=== PATIENT | male | born 1945 | race Caucasian/White ===

== ENCOUNTER → 2017-09-24 11:18 | Outpatient (CLI) | payer MEDICARE, SELFPAY ==
[2017-09-24 13:15] LABS: Absolute Lymphocyte Count 2.62 X10^3/ul (0.83-4.51); Absolute Neutrophil Count 8.6 X10^3/uL (2.0-7.7); Basophil# 0.03 X10^3/uL; Basophil% 0.2 % (0-1); Differential Indicated SCAN CRITERIA MET; Eosinophil# 0.15 X10^3/uL; Eosinophils% 1.2 % (0-5); Hematocrit 42.1 % (40-54); Hemoglobin 12.8 g/dl (13.0-16.5); Lymphocyte # 2.62 X10^3/ul (4.0); Lymphocyte % 21.1 % (19-41); Mean Corp Hgb Conc 30.4 g/gl (32-36); Mean Corpuscular Hgb 25.4 pg (27.0-32.0); Mean Corpuscular Volume 83.5 fL (80-94); Mean Platelet Vol. 9.6 fl (6.2-12.0); Monocyte# 0.93 X10^3/uL; Monocyte% 7.5 % (0-10); Neutrophil # 8.62 X10^3/uL (2.7-7.7); Neutrophil % 69.4 % (47-70); POSITIVE COUNT NO; POSITIVE DIFFERENTIAL NO; POSITIVE MORPHOLOGY YES; Platelet Count 301 K/mm3 (150-450); RBC Distribution Width SD 64.3 fl (35.1-43.9); Red Blood Count 5.04 M/mm3 (4.6-6.2); White Blood Count 12.4 K/mm3 (4.4-11.0)
[2017-09-24 13:36] LABS: Anisocytosis 2+; Differential Comment SCANNED; Polychromasia RARE
[2017-09-24 13:48] LABS: ALB/GLOB Ratio 0.8 RATIO (0.9-2.4); AST(SGOT) 17 U/L (15-37); Alanine Aminotransfer ALT/SGPT 35 U/L (16-61); Albumin, Serum 3.2 g/dL (3.2-5.0); Alkaline Phosphatase 46 U/L (45-117); Anion Gap 10 (5-15); BUN 20 mg/dL (7-18); BUN/Creat Ratio 14.6 RATIO (10-20); Calcium,Total 8.6 mg/dL (8.5-10.1); Chloride 104 mmol/L (98-107); Creatinine, Serum 1.37 mg/dL (0.70-1.30); EST Glomerular Filtration Rate 54 mL/min (>60); Est Glom Filt Rate - Afr Amer 65 mL/min (>60); Globulin 4.1 g/dL (2.2-4.2); Glucose 129 mg/dL (74-106); Potassium 3.9 mmol/L (3.5-5.1); Protein, Total 7.3 g/dL (6.4-8.2); Sodium Level 140 mmol/L (136-145); Thyroid Stim Hormone (TSH) 1.09 uIU/mL (0.358-3.74)
== END ==
PROVIDERS: Family Provider Family Medicine Geriatric Medicine; PCP Family Medicine Geriatric Medicine; Visit Provider Family Medicine Geriatric Medicine
DX: E11.9 Type 2 diabetes mellitus without complications (principal); I10 Essential (primary) hypertension
CPT/HCPCS: 36415; 80053; 84443; 85025

== ENCOUNTER → 2018-03-10 14:46 | Outpatient (CLI) | payer MEDICARE, OTHER, SELFPAY ==
--- NOTE | 2018-03-10 14:50 | RAD_ITS ---
STUDY: X-RAY - THORACIC SPINE REASON FOR EXAM: Male, 73 years old. Thoracic pain TECHNIQUE: 3 view(s) of the thoracic spine were obtained. COMPARISON: None. FINDINGS: There is no evidence of fracture or dislocation in the thoracic spine. The vertebral body heights are well-maintained. There are mild degenerative changes with mild disc space narrowing and small osteophytes. RAD/Thoracic Spine 2 Views IMPRESSION: No fracture or dislocation in the thoracic spine. Mild degenerative changes. Electronically Signed: Bar Fan, at 17:06 EDT Tel , Service support ,
== END ==
PROVIDERS: Family Provider Family Medicine Geriatric Medicine; PCP Family Medicine Geriatric Medicine; Visit Provider Nurse Practitioner Family
DX: M54.6 Pain in thoracic spine (principal)
CPT/HCPCS: 72070

== ENCOUNTER → 2018-05-11 09:43 | Outpatient (CLI) | payer MEDICARE, OTHER, SELFPAY ==
[2018-05-11 11:24] LABS: Microalbumin,Random Urine 43.8 mg/L (NO RANGE EST.); Microalbumin:Creatinine Ratio 31.7 mg/g CRE (<30 mg/g CRE)
[2018-05-11 11:33] LABS: Albumin, Serum 3.2 g/dL (3.2-5.0); BUN 13 mg/dL (7-18); BUN/Creat Ratio 10.6 RATIO (10-20); Calcium,Total 8.7 mg/dL (8.5-10.1); Chloride 107 mmol/L (98-107); Creatinine, Serum 1.23 mg/dL (0.70-1.30); EST Glomerular Filtration Rate 61 mL/min (>60); Est Glom Filt Rate - Afr Amer 74 mL/min (>60); Glucose 133 mg/dL (74-106); Phosphorus 2.9 mg/dL (2.5-4.9); Potassium 4.2 mmol/L (3.5-5.1); Sodium Level 141 mmol/L (136-145)
== END ==
PROVIDERS: Family Provider Family Medicine Geriatric Medicine; PCP Family Medicine Geriatric Medicine; Referring Provider Internal Medicine Nephrology; Visit Provider Internal Medicine Nephrology
DX: E11.22 Type 2 diabetes mellitus with diabetic chronic kidney disease (principal); N18.2 Chronic kidney disease, stage 2 (mild)
CPT/HCPCS: 36415; 80069; 82043; 82570

== ENCOUNTER → 2018-06-01 14:38 | Outpatient (CLI) | payer MEDICARE, OTHER, SELFPAY | PROVIDERS: Family Provider Family Medicine Geriatric Medicine; PCP Family Medicine Geriatric Medicine; Referring Provider Family Medicine Geriatric Medicine; Visit Provider Family Medicine Geriatric Medicine | DX: R68.83 Chills (without fever) (principal) | CPT/HCPCS: 87633 ==

== ENCOUNTER → 2018-10-11 11:43 | Outpatient (CLI) | payer MEDICARE, OTHER, SELFPAY ==
[2018-06-29 09:59] VITALS: BMI 34.4
[2018-10-11 13:08] LABS: Vitamin D,25 Hydroxy 17.6 ng/mL (29.95-100.01)
[2018-10-11 13:22] LABS: ALB/GLOB Ratio 0.9 RATIO (0.9-2.4); AST(SGOT) 26 U/L (15-37); Alanine Aminotransfer ALT/SGPT 29 U/L (16-61); Albumin, Serum 3.3 g/dL (3.2-5.0); Alkaline Phosphatase 52 U/L (45-117); Anion Gap 10 (5-15); BUN 13 mg/dL (7-18); BUN/Creat Ratio 10.2 RATIO (10-20); Calcium,Total 8.3 mg/dL (8.5-10.1); Chloride 108 mmol/L (98-107); Creatinine, Serum 1.28 mg/dL (0.70-1.30); EST Glomerular Filtration Rate 58 mL/min (>60); Est Glom Filt Rate - Afr Amer 71 mL/min (>60); Globulin 3.6 g/dL (2.2-4.2); Glucose 166 mg/dL (74-106); Potassium 3.8 mmol/L (3.5-5.1); Protein, Total 6.9 g/dL (6.4-8.2); Sodium Level 140 mmol/L (136-145); Thyroid Stim Hormone (TSH) 0.66 uIU/mL (0.358-3.74)
[2018-10-11 15:04] LABS: Absolute Lymphocyte Count 1.96 X10^3/ul (0.83-4.51); Absolute Neutrophil Count 6.7 X10^3/uL (2.0-7.7); Basophil# 0.04 X10^3/uL; Basophil% 0.4 % (0-1); Eosinophil# 0.23 X10^3/uL; Eosinophils% 2.4 % (0-5); Hematocrit 40.4 % (40-54); Hemoglobin 12.1 g/dl (13.0-16.5); Lymphocyte # 1.96 X10^3/ul (4.0); Lymphocyte % 20.1 % (19-41); Mean Corpuscular Volume 86.9 fL (80-94); Mean Platelet Vol. 10.6 fl (6.2-12.0); Monocyte# 0.79 X10^3/uL; Monocyte% 8.1 % (0-10); Neutrophil # 6.71 X10^3/uL (2.7-7.7); Neutrophil % 68.7 % (47-70); Platelet Count 276 K/mm3 (150-450); RBC Distribution Width CV 17.6 % (11.6-14.6); RBC Distribution Width SD 55.2 fl (35.1-43.9); Red Blood Count 4.65 M/mm3 (4.6-6.2); White Blood Count 9.8 K/mm3 (4.4-11.0)
[2018-10-11 15:07] LABS: POSITIVE COUNT NO; POSITIVE DIFFERENTIAL NO; POSITIVE MORPHOLOGY NO
== END ==
PROVIDERS: Family Provider Family Medicine Geriatric Medicine; PCP Family Medicine Geriatric Medicine; Visit Provider Family Medicine Geriatric Medicine
DX: E11.9 Type 2 diabetes mellitus without complications (principal); I10 Essential (primary) hypertension; E55.9 Vitamin D deficiency, unspecified
CPT/HCPCS: 36415; 80053; 82306; 84443; 85025

== ENCOUNTER → 2019-04-14 | Outpatient (CLI) | payer MEDICARE, OTHER, SELFPAY ==
[2018-12-21 10:38] VITALS: BMI 35.6
[2019-04-14 12:15] LABS: Absolute Lymphocyte Count 3.01 X10^3/uL (0.83-4.51); Absolute Neutrophil Count 9.5 X10^3/uL (2.0-7.7); Basophil# 0.07 X10^3/uL; Basophil% 0.5 % (0-1); Eosinophil# 0.35 X10^3/uL; Eosinophils% 2.5 % (0-5); Hematocrit 43.5 % (40-54); Hemoglobin 13.1 g/dL (13.0-16.5); Lymphocyte # 3.01 X10^3/ul (4.0); Lymphocyte % 21.5 % (19-41); Mean Corp Hgb Conc 30.1 g/dL (32-36); Mean Corpuscular Hgb 25.3 pg (27.0-32.0); Mean Platelet Vol. 10.2 fl (6.2-12.0); Monocyte# 0.99 X10^3/uL; Monocyte% 7.1 % (0-10); NRBC Flagged by Analyzer 0 % (0-5); Neutrophil # 9.45 X10^3/uL (2.7-7.7); Neutrophil % 67.5 % (47-70); Platelet Count 289 K/mm3 (150-450); RBC Distribution Width CV 17.6 % (11.6-14.6); RBC Distribution Width SD 53.8 fl (35.1-43.9); Red Blood Count 5.18 M/mm3 (4.6-6.2)
[2019-04-14 12:35] LABS: Vitamin D,25 Hydroxy 18.6 ng/mL (29.95-100.01)
[2019-04-14 12:44] LABS: ALB/GLOB Ratio 0.9 RATIO (0.9-2.4); AST(SGOT) 21 U/L (15-37); Alanine Aminotransfer ALT/SGPT 39 U/L (16-61); Albumin, Serum 3.5 g/dL (3.2-5.0); Alkaline Phosphatase 64 U/L (45-117); Anion Gap 7 (5-15); BUN 28 mg/dL (7-18); BUN/Creat Ratio 20.3 RATIO (10-20); Calcium,Total 8.7 mg/dL (8.5-10.1); Chloride 106 mmol/L (98-107); Creatinine, Serum 1.38 mg/dL (0.70-1.30); EST Glomerular Filtration Rate 53 mL/min (>60); Est Glom Filt Rate - Afr Amer 65 mL/min (>60); Globulin 3.8 g/dL (2.2-4.2); Glucose 129 mg/dL (74-106); Protein, Total 7.3 g/dL (6.4-8.2); Sodium Level 139 mmol/L (136-145); Thyroid Stim Hormone (TSH) 1.54 uIU/mL (0.358-3.74)
== END | disposition home or self-care (01) ==
LOC: POLAB3 08:44
PROVIDERS: Family Provider Family Medicine Geriatric Medicine; PCP Family Medicine Geriatric Medicine; Visit Provider Family Medicine Geriatric Medicine
DX: E11.9 Type 2 diabetes mellitus without complications (principal); E55.9 Vitamin D deficiency, unspecified; I10 Essential (primary) hypertension
CPT/HCPCS: 36415; 80053; 82306; 84443; 85025

== ENCOUNTER → 2019-10-13 09:32 | Outpatient (CLI) | payer MEDICARE, OTHER, SELFPAY ==
[2019-06-20 09:10] VITALS: BMI 35.6
[2019-10-13 11:58] LABS: Absolute Lymphocyte Count 2.23 X10^3/uL (0.83-4.51); Absolute Neutrophil Count 6.1 X10^3/uL (2.0-7.7); Basophil# 0.05 X10^3/uL; Basophil% 0.5 % (0-1); Eosinophil# 0.35 X10^3/uL; Eosinophils% 3.7 % (0-5); Hematocrit 43.7 % (40-54); Hemoglobin 13.2 g/dL (13.0-16.5); Lymphocyte # 2.23 X10^3/ul (4.0); Lymphocyte % 23.4 % (19-41); Mean Corp Hgb Conc 30.2 g/dL (32-36); Mean Corpuscular Hgb 25.8 pg (27.0-32.0); Mean Corpuscular Volume 85.4 fL (80-94); Mean Platelet Vol. 10.5 fl (6.2-12.0); Monocyte# 0.71 X10^3/uL; Monocyte% 7.5 % (0-10); NRBC Flagged by Analyzer 0 % (0-5); Neutrophil # 6.12 X10^3/uL (2.7-7.7); Neutrophil % 64.3 % (47-70); Platelet Count 220 K/mm3 (150-450); RBC Distribution Width CV 17.3 % (11.6-14.6); RBC Distribution Width SD 53.5 fl (35.1-43.9); Red Blood Count 5.12 M/mm3 (4.6-6.2); White Blood Count 9.5 K/mm3 (4.4-11.0)
[2019-10-13 12:03] LABS: Vitamin D,25 Hydroxy 19.4 ng/mL
[2019-10-13 12:12] LABS: ALB/GLOB Ratio 0.9 RATIO (0.9-2.4); AST(SGOT) 23 U/L (15-37); Alanine Aminotransfer ALT/SGPT 38 U/L (16-61); Albumin, Serum 3.3 g/dL (3.2-5.0); Alkaline Phosphatase 57 U/L (45-117); Anion Gap 5 (5-15); BUN 19 mg/dL (7-18); BUN/Creat Ratio 13.1 RATIO (10-20); Calcium,Total 8.8 mg/dL (8.5-10.1); Chloride 108 mmol/L (98-107); Creatinine, Serum 1.45 mg/dL (0.70-1.30); EST Glomerular Filtration Rate 50 mL/min (>60); Est Glom Filt Rate - Afr Amer 61 mL/min (>60); Globulin 3.8 g/dL (2.2-4.2); Glucose 147 mg/dL (74-106); Potassium 4.4 mmol/L (3.5-5.1); Protein, Total 7.1 g/dL (6.4-8.2); Sodium Level 141 mmol/L (136-145)
== END ==
PROVIDERS: PCP Family Medicine Geriatric Medicine; Visit Provider Family Medicine Geriatric Medicine
DX: E11.9 Type 2 diabetes mellitus without complications (principal); E55.9 Vitamin D deficiency, unspecified; I10 Essential (primary) hypertension
CPT/HCPCS: 36415; 80053; 82306; 84443; 85025

== ENCOUNTER → 2020-01-24 | Outpatient (CLI) | payer MEDICARE, OTHER, SELFPAY ==
[2019-12-27 10:38] VITALS: BMI 34.1
--- NOTE | 2020-01-24 09:18 | TISS_PTH ---
PATIENT: JOHNATHAN CURIEL Jr. [id number] AGE/SX: 75/M ROOM: RE01/24/[address]: Dr. Noble Peter MD : 1945 BED: DIS: 01/24/2020 SPEC #: [id number] RECD: 01/24/20 17:44 STATUS: CRISTIN PATRICIA #: [id number] KALEIGH: 01/24/20 09:[address]: Noble Peter Chi DEPT: SURGICAL PATHOLOGY RECD BY: Noris Valencia Tissues: Skin of face, NOS Procedures: Surgery Specimen Level IV HEADER OPERATION: Biopsy PRE-OP DIAGNOSIS: L98.9 TISSUE SUBMITTED: Face MICROSCOPIC DIAGNOSIS Face lesion, shave biopsy: Basal cell carcinoma. Actinic keratosis and solar elastosis. A detached fragment of fibrinopurulent exudate, consistent with ulceration. SJ:tari 01/26/20 MICROSCOPIC DESCRIPTION Slides are reviewed. GROSS DESCRIPTION Received in fixative is one container labeled with the patient's name and designated face. The specimen consists of two pieces of cheek-white to brown skin measuring 0.7 x 0.3 x 0.1 cm and 0.3 x 0.2 x 0.1 cm. Both pieces are inked and submitted entirely in one cassette. / SJ:rg 01/25/20 TC:0 CPT: 25353
== END | disposition home or self-care (01) ==
LOC: LABSPEC 13:24
PROVIDERS: PCP Family Medicine Geriatric Medicine; Visit Provider Family Medicine Geriatric Medicine
DX: L98.9 Disorder of the skin and subcutaneous tissue, unspecified (principal)
CPT/HCPCS: 88305

== ENCOUNTER → 2020-04-05 15:16 | Outpatient (CLI) | payer MEDICARE, OTHER, SELFPAY ==
[2019-12-27 10:38] VITALS: BMI 34.1
--- NOTE | 2020-04-05 15:47 | RAD_ITS ---
STUDY: X-RAY CHEST REASON FOR EXAM: Male, 75 years old. SOB WITH CHEST PAIN TECHNIQUE: Frontal and lateral views of the chest. COMPARISON: 07/14/2017 FINDINGS: Cervical spine fusion. The lungs are clear and expanded. There is no demonstrated pleural abnormality. Normal size heart. Normal mediastinum and lili. Normal visualized pulmonary arteries. Normal visualized aortic arch and descending thoracic aorta. Normal visualized thoracic spine. Normal visualized ribs, clavicles, and shoulders. There is no demonstrated abnormality of the visualized soft tissue structures of the upper abdomen. RAD/Chest PA and Lateral IMPRESSION: No acute pulmonary findings. Electronically Signed: Alin Howard MD at 23:23 EDT Tel , Service support ,
[2020-04-05 16:30] LABS: Absolute Lymphocyte Count 2.03 X10^3/uL (0.83-4.51); Basophil# 0.04 X10^3/uL; Basophil% 0.3 % (0-1); Eosinophil# 0.06 X10^3/uL; Eosinophils% 0.4 % (0-5); Hematocrit 42.3 % (40-54); Hemoglobin 12.7 g/dL (13.0-16.5); Lymphocyte # 2.03 X10^3/ul (4.0); Lymphocyte % 14.3 % (19-41); Mean Corpuscular Hgb 26.6 pg (27.0-32.0); Mean Corpuscular Volume 88.5 fL (80-94); Mean Platelet Vol. 10.2 fl (6.2-12.0); Monocyte# 0.98 X10^3/uL; Monocyte% 6.9 % (0-10); NRBC Flagged by Analyzer 0 % (0-5); Neutrophil # 10.97 X10^3/uL (2.7-7.7); Neutrophil % 77.6 % (47-70); Platelet Count 245 K/mm3 (150-450); RBC Distribution Width SD 51.7 fl (35.1-43.9); Red Blood Count 4.78 M/mm3 (4.6-6.2); White Blood Count 14.2 K/mm3 (4.4-11.0)
[2020-04-05 16:38] LABS: D-Dimer Quantitative (DVT/PE) 0.35 FEU/ug/m (0.27-0.49)
[2020-04-05 17:10] LABS: CPK Total, Creatine Kinase 1349 U/L (39-308)
[2020-04-05 17:56] LABS: BNP,B-Type NATRIURETIC PEPTIDE 465.3 pg/mL (0-100)
[2020-04-07 07:34] LABS: Myoglobin, Serum 1445 ng/mL (28-72)
== END ==
PROVIDERS: PCP Family Medicine Geriatric Medicine; Referring Provider Family Medicine Geriatric Medicine; Visit Provider Family Medicine Geriatric Medicine
DX: R06.02 Shortness of breath (principal); R07.9 Chest pain, unspecified
CPT/HCPCS: 36415; 71046; 82550; 83874; 83880; 84484; 85025; 85379

== ENCOUNTER → 2020-04-06 13:10 | Outpatient (CLI) | payer MEDICARE, OTHER, SELFPAY ==
[2019-12-27 10:38] VITALS: BMI 34.1
== END ==
PROVIDERS: PCP Family Medicine Geriatric Medicine; Referring Provider Family Medicine Geriatric Medicine; Visit Provider Family Medicine Geriatric Medicine
DX: R07.9 Chest pain, unspecified (principal)
CPT/HCPCS: 36415; 84484

== ENCOUNTER → 2020-04-16 11:07 | Outpatient (CLI) | payer MEDICARE, OTHER, SELFPAY ==
[2019-12-27 10:38] VITALS: BMI 34.1
[2020-04-16 12:47] LABS: Absolute Lymphocyte Count 2.88 X10^3/uL (0.83-4.51); Absolute Neutrophil Count 6.3 X10^3/uL (2.0-7.7); Basophil# 0.07 X10^3/uL; Basophil% 0.7 % (0-1); Eosinophil# 0.33 X10^3/uL; Eosinophils% 3.1 % (0-5); Hemoglobin 13.5 g/dL (13.0-16.5); Lymphocyte # 2.88 X10^3/ul (4.0); Lymphocyte % 27.4 % (19-41); Mean Corpuscular Hgb 26.5 pg (27.0-32.0); Mean Corpuscular Volume 88.4 fL (80-94); Mean Platelet Vol. 10.3 fl (6.2-12.0); Monocyte# 0.84 X10^3/uL; NRBC Flagged by Analyzer 0 % (0-5); Neutrophil # 6.33 X10^3/uL (2.7-7.7); Neutrophil % 60.3 % (47-70); Platelet Count 298 K/mm3 (150-450); RBC Distribution Width CV 16.1 % (11.6-14.6); RBC Distribution Width SD 52.7 fl (35.1-43.9); Red Blood Count 5.09 M/mm3 (4.6-6.2); White Blood Count 10.5 K/mm3 (4.4-11.0)
[2020-04-16 13:00] LABS: Vitamin D,25 Hydroxy 30.1 ng/mL
[2020-04-16 13:05] LABS: ALB/GLOB Ratio 0.9 RATIO (0.9-2.4); AST(SGOT) 35 U/L (15-37); Alanine Aminotransfer ALT/SGPT 53 U/L (16-61); Albumin, Serum 3.4 g/dL (3.2-5.0); Alkaline Phosphatase 56 U/L (45-117); Anion Gap 7 (5-15); BUN 32 mg/dL (7-18); BUN/Creat Ratio 20.5 RATIO (10-20); Calcium,Total 8.3 mg/dL (8.5-10.1); Chloride 108 mmol/L (98-107); Creatinine, Serum 1.56 mg/dL (0.70-1.30); EST Glomerular Filtration Rate 46 mL/min (>60); Est Glom Filt Rate - Afr Amer 56 mL/min (>60); Globulin 3.9 g/dL (2.2-4.2); Glucose 130 mg/dL (74-106); Potassium 4.5 mmol/L (3.5-5.1); Protein, Total 7.3 g/dL (6.4-8.2); Sodium Level 140 mmol/L (136-145); Thyroid Stim Hormone (TSH) 1.74 uIU/mL (0.358-3.74)
== END ==
PROVIDERS: PCP Family Medicine Geriatric Medicine; Visit Provider Family Medicine Geriatric Medicine
DX: E11.9 Type 2 diabetes mellitus without complications (principal); E55.9 Vitamin D deficiency, unspecified; I10 Essential (primary) hypertension
CPT/HCPCS: 36415; 80053; 82306; 84443; 85025

== ENCOUNTER → 2020-05-02 05:48 | Outpatient (CLI) | payer MEDICARE, OTHER, SELFPAY ==
[2020-04-18 12:01] VITALS: BMI 35.3
--- NOTE | 2020-05-02 05:48 | ECHOCS_ITS ---
Reason For Study: Afib, Aflutter Procedure This was a 2D Doppler, Color Flow transthoracic echocardiogram. Contrast injection was performed. Exam performed in department. Left Ventricle Normal LV size. Moderate concentric left ventricular hypertrophy. The estimated ejection fraction is 65 %. Unable to assess diastolic dysfunction due to arrhythmia. No regional wall motion abnormalities noted. Right Ventricle Normal RV size. Normal systolic function. Atria Normal left atrium. Normal right atrium. Mitral Valve Normal mitral valve. Tricuspid Valve Normal tricuspid valve. Aortic Valve The aortic valve is not well visualized. Pulmonic Valve The pulmonic valve is not well visualized. Great Vessels Normal aortic root. The pulmonary artery is normal size. Normal inferior vena cava. Pericardium/Pleural No pericardial effusion. Medication Diluted definity 3.5ml given slow IV push to enhance endocardial definition. MMode/2D Measurements & Calculations LVIDd: 3.7 cm IVSd: 1.4 cm Ao root diam: 3.1 cm LVIDs: 2.3 cm LVPWd: 1.5 cm RVDd: 3.0 cm FS: 37.0 % LAV(MOD-bp): 43.1 ml LA A4 area: 15.1 cm2 LA dimension(2D): 3.8 cm LAV(MOD-bp) Indexed: 19.1 ml/m2 LAV(MOD-sp2): 49.9 ml LAV(MOD-sp4): 36.3 ml RA A4 area: 12.7 cm2 Doppler Measurements & Calculations MV E max jayesh: 93.6 cm/sec Ao V2 max: 171.7 cm/sec LV V1 max: 87.4 cm/sec Ao max P.9 mmHg LV V1 max P.1 mmHg Ao V2 mean: 116.5 cm/sec Ao mean P.1 mmHg Ao V2 VTI: 29.0 cm PA V2 max: 70.5 cm/sec TR max jayesh: 276.6 cm/sec TR max P.6 mmHg Interpretation Summary Normal LV size. Moderate concentric left ventricular hypertrophy. The estimated ejection fraction is 65 %. Unable to assess diastolic dysfunction due to arrhythmia. Contrast injection was performed. Ordering Physician: Oscar Art Referring Physician: Noble Peter Chi Performed By: Wendy Mohan, ALLYN, RVT
--- NOTE | 2020-05-02 17:33 | STRESSREP ---
Stress Test Report Pharmacologic myocardial perfusion stress test. 75-year-old man with a history of atrial fibrillation. Stress protocol: Resting EKG demonstrates atrial fibrillation with a right bundle branch block rate of 126 bpm is noted. 0.4 mg of regadenoson was infused per usual protocol followed by rapid intravenous saline flush injection continuous EKG monitoring was performed. The maximum heart rate attained was probably 150 bpm. The maximum workload was 1 metabolic equivalent. At rest nonspecific ST-T wave changes were noted. Occasional premature ventricular complex was present. Right bundle branch block pattern was noted throughout. The peak blood pressure was 150/78 mmHg. Myocardial perfusion protocol. 14.6 mCi of technetium 99m sestamibi was injected at rest. 0.4 mg of regadenoson was infused per usual protocol. At peak infusion 44.8 was injected. Stress and rest images were reconstructed and compared in the short axis vertical and horizontal long axis. Gated images were also obtained Perfusion SPECT analysis: Review of the images demonstrate normal uptake of tracer noted in all areas of the myocardium the resting images similarly demonstrate normal uptake of tracer noted in all areas of the myocardium. No reversibility is noted suggest ischemia no previous infarct is noted. Gated SPECT imaging The gated ejection fraction is 72%. Conclusion: Normal myocardial perfusion stress test noted with no evidence of ischemia. Preserved ejection fraction. Atrial fibrillation with uncontrolled ventricular response rate.
== END ==
PROVIDERS: PCP Family Medicine Geriatric Medicine; Referring Provider Internal Medicine Cardiovascular Disease; Visit Provider Internal Medicine Cardiovascular Disease
DX: I48.91 Unspecified atrial fibrillation (principal); R07.9 Chest pain, unspecified
CPT/HCPCS: 78452; 93017; 93306; A9500; Q9957; A4216; C8929; J2785

== ENCOUNTER → 2020-06-26 17:22 | Outpatient (CLI) | payer MEDICARE, OTHER, SELFPAY ==
[2020-04-18 12:01] VITALS: BMI 35.3
== END ==
PROVIDERS: PCP Family Medicine Geriatric Medicine; Referring Provider Family Medicine Geriatric Medicine; Visit Provider Family Medicine Geriatric Medicine
DX: R06.89 Other abnormalities of breathing (principal)
CPT/HCPCS: 87633; 87635; C9803; U0003

== ENCOUNTER → 2020-10-15 10:54 | Outpatient (CLI) | payer MEDICARE, OTHER, SELFPAY ==
[2020-07-05 11:10] VITALS: BMI 36.0
[2020-10-15 12:35] LABS: Absolute Lymphocyte Count 2.83 X10^3/uL (0.83-4.51); Absolute Neutrophil Count 5.6 X10^3/uL (2.0-7.7); Basophil# 0.04 X10^3/uL; Basophil% 0.4 % (0-1); Eosinophils% 3.1 % (0-5); Hemoglobin 13.7 g/dL (13.0-16.5); Lymphocyte # 2.83 X10^3/ul (4.0); Lymphocyte % 29.3 % (19-41); Mean Corp Hgb Conc 29.1 g/dL (32-36); Mean Corpuscular Hgb 26.2 pg (27.0-32.0); Mean Platelet Vol. 10.1 fl (6.2-12.0); Monocyte# 0.89 X10^3/uL; Monocyte% 9.2 % (0-10); NRBC Flagged by Analyzer 0 % (0-5); Neutrophil # 5.57 X10^3/uL (2.7-7.7); Neutrophil % 57.7 % (47-70); Platelet Count 257 K/mm3 (150-450); RBC Distribution Width CV 16.3 % (11.6-14.6); RBC Distribution Width SD 54.3 fl (35.1-43.9); Red Blood Count 5.22 M/mm3 (4.6-6.2); White Blood Count 9.7 K/mm3 (4.4-11.0)
[2020-10-15 13:01] LABS: Vitamin D,25 Hydroxy 24.4 ng/mL
[2020-10-15 13:26] LABS: AST(SGOT) 28 U/L (15-37); Alanine Aminotransfer ALT/SGPT 32 U/L (16-61); Albumin, Serum 3.5 g/dL (3.2-5.0); Alkaline Phosphatase 47 U/L (45-117); Anion Gap 8 (5-15); BUN 23 mg/dL (7-18); BUN/Creat Ratio 14.6 RATIO (10-20); Calcium,Total 8.9 mg/dL (8.5-10.1); Chloride 107 mmol/L (98-107); Creatinine, Serum 1.58 mg/dL (0.70-1.30); EST Glomerular Filtration Rate 46 mL/min (>60); Est Glom Filt Rate - Afr Amer 55 mL/min (>60); Globulin 3.6 g/dL (2.2-4.2); Glucose 93 mg/dL (74-106); Potassium 4.4 mmol/L (3.5-5.1); Protein, Total 7.1 g/dL (6.4-8.2); Sodium Level 141 mmol/L (136-145); Thyroid Stim Hormone (TSH) 1.19 uIU/mL (0.358-3.74)
== END ==
PROVIDERS: PCP Family Medicine Geriatric Medicine; Visit Provider Family Medicine Geriatric Medicine
DX: E11.9 Type 2 diabetes mellitus without complications (principal); E55.9 Vitamin D deficiency, unspecified; I10 Essential (primary) hypertension
CPT/HCPCS: 36415; 80053; 82306; 84443; 85025

== ENCOUNTER → 2020-10-30 12:05 | Outpatient (CLI) | payer MEDICARE, OTHER, SELFPAY ==
[2020-10-16 10:47] VITALS: BMI 36.0
--- NOTE | 2020-10-30 12:20 | RAD_ITS ---
STUDY: X-RAY - CERVICAL SPINE REASON FOR EXAM: Male, 75 years old. NECK PAIN TECHNIQUE: 6 view(s) of the cervical spine were obtained. COMPARISON: None FINDINGS: Normal anterior atlantoaxial articulation. Normal odontoid process. Normal cervical lordosis. There is multi-level endplate spondylosis. There is multi-level degenerative disc disease with multilevel disc space narrowing. There is multi-level osseous foraminal stenosis. The soft tissue structures are unremarkable. Anterior fusion hardware noted at C4-C6. RAD/Cerv Spine 4 or 5 Views IMPRESSION: Degenerative changes without acute findings Electronically Signed: Tay Higgins DO at 1:41 EDT Tel , Service support ,
== END ==
PROVIDERS: PCP Family Medicine Geriatric Medicine; Visit Provider Anesthesiology Pain Medicine
DX: M54.2 Cervicalgia (principal)
CPT/HCPCS: 72050

== ENCOUNTER → 2020-11-07 10:12 | Outpatient (CLI) | payer MEDICARE, OTHER, SELFPAY ==
[2020-10-16 10:47] VITALS: BMI 36.0
[2020-11-07 12:24] LABS: Absolute Lymphocyte Count 1.63 X10^3/uL (0.83-4.51); Absolute Neutrophil Count 5.8 X10^3/uL (2.0-7.7); Basophil# 0.05 X10^3/uL; Basophil% 0.6 % (0-1); Eosinophils% 2.4 % (0-5); Hematocrit 44.6 % (40-54); Hemoglobin 13.5 g/dL (13.0-16.5); Lymphocyte # 1.63 X10^3/ul (4.0); Lymphocyte % 19.2 % (19-41); Mean Corp Hgb Conc 30.3 g/dL (32-36); Mean Corpuscular Hgb 27.1 pg (27.0-32.0); Mean Corpuscular Volume 89.6 fL (80-94); Mean Platelet Vol. 10.1 fl (6.2-12.0); Monocyte# 0.76 X10^3/uL; Monocyte% 8.9 % (0-10); NRBC Flagged by Analyzer 0 % (0-5); Neutrophil # 5.84 X10^3/uL (2.7-7.7); Neutrophil % 68.5 % (47-70); Platelet Count 240 K/mm3 (150-450); RBC Distribution Width CV 17.5 % (11.6-14.6); RBC Distribution Width SD 56.7 fl (35.1-43.9); Red Blood Count 4.98 M/mm3 (4.6-6.2); White Blood Count 8.5 K/mm3 (4.4-11.0)
== END ==
PROVIDERS: PCP Family Medicine Geriatric Medicine; Visit Provider Family Medicine Geriatric Medicine
DX: D64.9 Anemia, unspecified (principal)
CPT/HCPCS: 36415; 85025

== ENCOUNTER → 2020-11-08 11:48 | Outpatient (CLI) | payer MEDICARE, OTHER, SELFPAY ==
[2020-10-16 10:47] VITALS: BMI 36.0
[2020-11-08 12:40] LABS: PSA,Total - Annual Screen 0.72 ng/mL (0.00-4.00)
== END ==
PROVIDERS: PCP Family Medicine Geriatric Medicine; Referring Provider Urology; Visit Provider Urology
DX: Z12.5 Encounter for screening for malignant neoplasm of prostate (principal)
CPT/HCPCS: 36415; 84153; G0103

== ENCOUNTER → 2020-12-25 10:29 | Outpatient (CLI) | payer MEDICARE, OTHER, SELFPAY ==
[2020-07-05 11:10] VITALS: BMI 36.0
[2020-10-16 10:47] VITALS: BMI 36.0
--- NOTE | 2020-12-25 14:31 | PFTCOMP ---
COMPLETE PULMONARY FUNCTION TEST INTERPRETATION Brief HPI: Patient is a 75 year old male, currently under the care of myself, who presents to [facility] for complete pulmonary function tests secondary to diagnosis of dyspnea. Respiratory therapist reports good effort and reproducible results. Interpretation: Forced expiration spirometry shows no large airways obstructive ventilatory defect with an FEV1 of 71% predicted. There is no significant bronchodilator response by strict ATS criteria. Spirograms are of good quality and plateau normally. The respiratory flow volume loop shows a normal pattern. Lung volumes by body plethysmography show a decreased total lung capacity at 4.88 L, 76% predicted. All other lung volumes are reduced symmetrically. Diffusion capacity by carbon monoxide is normal at 77% predicted. The airway resistance is normal. Compared to previous pulmonary function tests from 02/16/2017, there is been a significant improvement in DLCO by 26%. Impression: Mild restrictive ventilatory defect with a symmetric reduction diffusing capacity, but some improvement compared to 2017.
== END ==
PROVIDERS: PCP Family Medicine Geriatric Medicine; Referring Provider Internal Medicine Critical Care Medicine; Visit Provider Internal Medicine Critical Care Medicine
DX: R06.00 Dyspnea, unspecified (principal)
CPT/HCPCS: 94060; 94726; 94729

== ENCOUNTER → 2021-04-17 10:35 | Outpatient (CLI) | payer MEDICARE, OTHER, SELFPAY ==
[2021-04-17 11:24] LABS: Absolute Lymphocyte Count 2.18 X10^3/uL (0.83-4.51); Absolute Neutrophil Count 5.8 X10^3/uL (2.0-7.7); Basophil# 0.07 X10^3/uL; Basophil% 0.8 % (0-1); Eosinophil# 0.22 X10^3/uL; Eosinophils% 2.5 % (0-5); Hematocrit 52.9 % (40-54); Hemoglobin 15.6 g/dL (13.0-16.5); Lymphocyte # 2.18 X10^3/ul (0.83-4.51); Lymphocyte % 24.4 % (19-41); Mean Corp Hgb Conc 29.5 g/dL (32-36); Mean Corpuscular Hgb 27.9 pg (27.0-32.0); Mean Corpuscular Volume 94.6 fL (80-94); Monocyte# 0.61 X10^3/uL; Monocyte% 6.8 % (0-10); NRBC Flagged by Analyzer 0 % (0-5); Neutrophil # 5.82 X10^3/uL (2.7-7.7); Neutrophil % 64.9 % (47-70); Platelet Count 208 K/mm3 (150-450); RBC Distribution Width CV 16.6 % (11.6-14.6); RBC Distribution Width SD 57.1 fl (35.1-43.9); Red Blood Count 5.59 M/mm3 (4.6-6.2)
== END ==
PROVIDERS: PCP Family Medicine Geriatric Medicine; Referring Provider Family Medicine Geriatric Medicine; Visit Provider Family Medicine Geriatric Medicine
DX: E11.9 Type 2 diabetes mellitus without complications (principal); E55.9 Vitamin D deficiency, unspecified; I10 Essential (primary) hypertension
CPT/HCPCS: 36415; 80053; 82306; 84443; 85025

== ENCOUNTER → 2021-04-19 09:25 | Outpatient (CLI) | payer MEDICARE, OTHER, SELFPAY ==
[2021-04-19 10:38] LABS: ALB/GLOB Ratio 0.9 RATIO (0.9-2.4); AST(SGOT) 33 U/L (15-37); Alanine Aminotransfer ALT/SGPT 60 U/L (16-61); Albumin, Serum 3.3 g/dL (3.2-5.0); Alkaline Phosphatase 47 U/L (45-117); Anion Gap 4 (5-15); BUN 21 mg/dL (7-18); BUN/Creat Ratio 15.7 RATIO (10-20); Calcium,Total 8.4 mg/dL (8.5-10.1); Chloride 109 mmol/L (98-107); Creatinine, Serum 1.34 mg/dL (0.70-1.30); EST Glomerular Filtration Rate 55 mL/min (>60); Est Glom Filt Rate - Afr Amer 66 mL/min (>60); Globulin 3.7 g/dL (2.2-4.2); Glucose 214 mg/dL (74-106); Potassium 4.1 mmol/L (3.5-5.1); Sodium Level 139 mmol/L (136-145); Thyroid Stim Hormone (TSH) 1.47 uIU/mL (0.358-3.74)
== END ==
PROVIDERS: PCP Family Medicine Geriatric Medicine; Referring Provider Family Medicine Geriatric Medicine; Visit Provider Family Medicine Geriatric Medicine
DX: E11.9 Type 2 diabetes mellitus without complications (principal); E55.9 Vitamin D deficiency, unspecified; I10 Essential (primary) hypertension
CPT/HCPCS: 80053; 84443

== ENCOUNTER → 2021-04-30 10:04 | Outpatient (CLI) | payer MEDICARE, OTHER, SELFPAY | PROVIDERS: PCP Family Medicine Geriatric Medicine; Referring Provider Family Medicine Geriatric Medicine; Visit Provider Family Medicine Geriatric Medicine | DX: R68.83 Chills (without fever) (principal) | CPT/HCPCS: 87635; C9803; U0005; U0003 ==

== ENCOUNTER → 2021-08-07 08:43 | Outpatient (CLI) | payer MEDICARE, OTHER, SELFPAY | PROVIDERS: PCP Family Medicine Geriatric Medicine; Referring Provider Family Medicine Geriatric Medicine; Visit Provider Family Medicine Geriatric Medicine | DX: R68.83 Chills (without fever) (principal) | CPT/HCPCS: 87635; 87804; 87807; C9803; U0005; U0003 ==

== ENCOUNTER 2021-08-23 12:00 | Outpatient (CLI) | payer MEDICARE, OTHER, SELFPAY | END 2021-08-23 23:59 | disposition short-term general hospital (02) | LOC: PSN 12:00 | PROVIDERS: PCP Family Medicine Geriatric Medicine; Referring Provider Family Medicine Geriatric Medicine; Visit Provider Family Medicine Geriatric Medicine | DX: R68.83 Chills (without fever) (principal) | CPT/HCPCS: 87635; 87804; 87807; C9803; U0003; U0005 ==

== ENCOUNTER 2021-10-29 11:49 | Outpatient (CLI) | payer MEDICARE, OTHER, SELFPAY ==
[2021-10-29 12:50] LABS: Absolute Lymphocyte Count 2.25 X10^3/uL (0.83-4.51); Absolute Neutrophil Count 5.7 X10^3/uL (2.0-7.7); Basophil# 0.06 X10^3/uL; Basophil% 0.7 % (0-1); Eosinophil# 0.14 X10^3/uL; Eosinophils% 1.6 % (0-5); Hemoglobin 15.4 g/dL (13.0-16.5); Lymphocyte # 2.25 X10^3/ul (0.83-4.51); Mean Corp Hgb Conc 32.8 g/dL (32-36); Mean Corpuscular Hgb 30.7 pg (27.0-32.0); Mean Corpuscular Volume 93.6 fL (80-94); Monocyte# 0.83 X10^3/uL; Monocyte% 9.2 % (0-10); NRBC Flagged by Analyzer 0 % (0-5); Neutrophil # 5.66 X10^3/uL (2.7-7.7); Neutrophil % 62.9 % (47-70); Platelet Count 255 K/mm3 (150-450); RBC Distribution Width CV 15.2 % (11.6-14.6); RBC Distribution Width SD 53.2 fl (35.1-43.9); Red Blood Count 5.02 M/mm3 (4.6-6.2)
[2021-10-29 13:04] LABS: Vitamin D,25 Hydroxy 31.3 ng/mL
[2021-10-29 13:33] LABS: ALB/GLOB Ratio 0.9 RATIO (0.9-2.4); AST(SGOT) 19 U/L (15-37); Alanine Aminotransfer ALT/SGPT 34 U/L (16-61); Albumin, Serum 3.2 g/dL (3.2-5.0); Alkaline Phosphatase 39 U/L (45-117); Anion Gap 6 (5-15); BUN 17 mg/dL (7-18); BUN/Creat Ratio 12.8 RATIO (10-20); Calcium,Total 8.9 mg/dL (8.5-10.1); Chloride 103 mmol/L (98-107); Creatinine, Serum 1.33 mg/dL (0.70-1.30); EST Glomerular Filtration Rate 55 mL/min (>60); Est Glom Filt Rate - Afr Amer 67 mL/min (>60); Globulin 3.5 g/dL (2.2-4.2); Glucose 121 mg/dL (74-106); Potassium 4.2 mmol/L (3.5-5.1); Protein, Total 6.7 g/dL (6.4-8.2); Sodium Level 139 mmol/L (136-145); Thyroid Stim Hormone (TSH) 1.07 uIU/mL (0.358-3.74)
== END 2021-10-29 23:59 | disposition home or self-care (01) ==
LOC: POLAB3 11:51
PROVIDERS: PCP Family Medicine Geriatric Medicine; Visit Provider Family Medicine Geriatric Medicine
DX: E11.9 Type 2 diabetes mellitus without complications (principal); E55.9 Vitamin D deficiency, unspecified; I10 Essential (primary) hypertension
CPT/HCPCS: 36415; 80053; 82306; 84443; 85025

== ENCOUNTER 2021-11-18 09:50 | Outpatient (CLI) | payer MEDICARE, OTHER, SELFPAY | END 2021-11-18 23:59 | disposition home or self-care (01) | LOC: LAB 09:51 | PROVIDERS: PCP Family Medicine Geriatric Medicine; Referring Provider Urology; Visit Provider Urology | DX: Z12.5 Encounter for screening for malignant neoplasm of prostate (principal) | CPT/HCPCS: 36415; 84153; G0103 ==

== ENCOUNTER 2021-12-03 11:05 | Outpatient (CLI) | payer MEDICARE, OTHER, SELFPAY ==
[2021-12-03 12:07] LABS: Anion Gap 3 (5-15); BUN 16 mg/dL (7-18); BUN/Creat Ratio 13.1 RATIO (10-20); Calcium,Total 9.2 mg/dL (8.5-10.1); Chloride 105 mmol/L (98-107); Creatinine, Serum 1.22 mg/dL (0.70-1.30); EST Glomerular Filtration Rate 61 mL/min (>60); Est Glom Filt Rate - Afr Amer 74 mL/min (>60); Glucose 40 mg/dL (74-106); Potassium 3.6 mmol/L (3.5-5.1); Sodium Level 140 mmol/L (136-145)
== END 2021-12-03 23:59 | disposition home or self-care (01) ==
LOC: LAB 11:08
PROVIDERS: PCP Family Medicine Geriatric Medicine; Referring Provider Family Medicine Geriatric Medicine; Visit Provider Family Medicine Geriatric Medicine
DX: E87.6 Hypokalemia (principal)
CPT/HCPCS: 36415; 80048

== ENCOUNTER → 2022-01-28 | Outpatient (CLI) | payer MEDICARE, OTHER, SELFPAY ==
[2022-01-28 12:37] LABS: Absolute Lymphocyte Count 2.25 X10^3/uL (0.83-4.51); Absolute Neutrophil Count 5.9 X10^3/uL (2.0-7.7); Basophil# 0.04 X10^3/uL; Basophil% 0.4 % (0-1); Eosinophil# 0.19 X10^3/uL; Eosinophils% 2.1 % (0-5); Hematocrit 44.1 % (40-54); Hemoglobin 13.7 g/dL (13.0-16.5); Lymphocyte # 2.25 X10^3/ul (0.83-4.51); Lymphocyte % 25.2 % (19-41); Mean Corp Hgb Conc 31.1 g/dL (32-36); Mean Corpuscular Hgb 29.2 pg (27.0-32.0); Mean Platelet Vol. 10.1 fl (6.2-12.0); Monocyte# 0.54 X10^3/uL; NRBC Flagged by Analyzer 0 % (0-5); Neutrophil # 5.89 X10^3/uL (2.7-7.7); Neutrophil % 66.1 % (47-70); Platelet Count 262 K/mm3 (150-450); RBC Distribution Width CV 14.5 % (11.6-14.6); RBC Distribution Width SD 49.9 fl (35.1-43.9); Red Blood Count 4.69 M/mm3 (4.6-6.2); White Blood Count 8.9 K/mm3 (4.4-11.0)
[2022-01-28 13:05] LABS: Vitamin D,25 Hydroxy 28.1 ng/mL
[2022-01-28 13:15] LABS: ALB/GLOB Ratio 0.9 RATIO (0.9-2.4); AST(SGOT) 18 U/L (15-37); Alanine Aminotransfer ALT/SGPT 23 U/L (16-61); Albumin, Serum 3.3 g/dL (3.2-5.0); Alkaline Phosphatase 43 U/L (45-117); Anion Gap 6 (5-15); BUN 14 mg/dL (7-18); BUN/Creat Ratio 10.4 RATIO (10-20); Calcium,Total 8.7 mg/dL (8.5-10.1); Chloride 105 mmol/L (98-107); Creatinine, Serum 1.34 mg/dL (0.70-1.30); EST Glomerular Filtration Rate 55 mL/min (>60); Est Glom Filt Rate - Afr Amer 66 mL/min (>60); Globulin 3.5 g/dL (2.2-4.2); Glucose 204 mg/dL (74-106); Potassium 3.5 mmol/L (3.5-5.1); Protein, Total 6.8 g/dL (6.4-8.2); Sodium Level 139 mmol/L (136-145); Thyroid Stim Hormone (TSH) 0.89 uIU/mL (0.358-3.74)
== END | disposition home or self-care (01) ==
LOC: POLAB3 09:56
PROVIDERS: PCP Family Medicine Geriatric Medicine; Visit Provider Family Medicine Geriatric Medicine
DX: I10 Essential (primary) hypertension (principal); E11.9 Type 2 diabetes mellitus without complications; E55.9 Vitamin D deficiency, unspecified
CPT/HCPCS: 36415; 80053; 82306; 84403; 84443; 85025

== ENCOUNTER → 2022-04-29 | Outpatient (CLI) | payer MEDICARE, OTHER, SELFPAY ==
[2022-04-29 12:03] LABS: Absolute Lymphocyte Count 2.35 X10^3/uL (0.83-4.51); Absolute Neutrophil Count 5.4 X10^3/uL (2.0-7.7); Basophil# 0.05 X10^3/uL; Basophil% 0.6 % (0-1); Eosinophil# 0.24 X10^3/uL; Eosinophils% 2.8 % (0-5); Hematocrit 46.8 % (40-54); Hemoglobin 14.8 g/dL (13.0-16.5); Lymphocyte # 2.35 X10^3/ul (0.83-4.51); Lymphocyte % 27.3 % (19-41); Mean Corp Hgb Conc 31.6 g/dL (32-36); Mean Corpuscular Hgb 29.5 pg (27.0-32.0); Mean Corpuscular Volume 93.2 fL (80-94); Mean Platelet Vol. 10.4 fl (6.2-12.0); Monocyte# 0.58 X10^3/uL; Monocyte% 6.7 % (0-10); NRBC Flagged by Analyzer 0 % (0-5); Neutrophil # 5.36 X10^3/uL (2.7-7.7); Neutrophil % 62.3 % (47-70); Platelet Count 231 K/mm3 (150-450); Red Blood Count 5.02 M/mm3 (4.6-6.2); White Blood Count 8.6 K/mm3 (4.4-11.0)
[2022-04-29 12:22] LABS: ALB/GLOB Ratio 0.9 RATIO (0.9-2.4); AST(SGOT) 20 U/L (15-37); Alanine Aminotransfer ALT/SGPT 26 U/L (16-61); Albumin, Serum 3.5 g/dL (3.2-5.0); Alkaline Phosphatase 47 U/L (45-117); Anion Gap 10 (5-15); BUN 18 mg/dL (7-18); BUN/Creat Ratio 12.8 RATIO (10-20); Calcium,Total 9.4 mg/dL (8.5-10.1); Chloride 103 mmol/L (98-107); Creatinine, Serum 1.41 mg/dL (0.70-1.30); EST Glomerular Filtration Rate 52 mL/min (>60); Est Glom Filt Rate - Afr Amer 63 mL/min (>60); Globulin 3.7 g/dL (2.2-4.2); Glucose 225 mg/dL (74-106); Protein, Total 7.2 g/dL (6.4-8.2); Sodium Level 140 mmol/L (136-145); Thyroid Stim Hormone (TSH) 1.25 uIU/mL (0.358-3.74)
== END | disposition home or self-care (01) ==
LOC: POLAB3 09:35
PROVIDERS: PCP Family Medicine Geriatric Medicine; Visit Provider Family Medicine Geriatric Medicine
DX: E11.9 Type 2 diabetes mellitus without complications (principal); E55.9 Vitamin D deficiency, unspecified; I10 Essential (primary) hypertension
CPT/HCPCS: 36415; 80053; 82306; 84443; 85025

== ENCOUNTER → 2022-10-28 | Outpatient (CLI) | payer MEDICARE, OTHER, SELFPAY ==
[2022-10-28 13:23] LABS: Absolute Lymphocyte Count 1.83 X10^3/uL (0.83-4.51); Absolute Neutrophil Count 2.7 X10^3/uL (2.0-7.7); Basophil# 0.02 X10^3/uL; Basophil% 0.4 % (0-1); Eosinophil# 0.15 X10^3/uL; Eosinophils% 3.1 % (0-5); Hematocrit 41.4 % (40-54); Hemoglobin 13.6 g/dL (13.0-16.5); Lymphocyte # 1.83 X10^3/ul (0.83-4.51); Lymphocyte % 37.3 % (19-41); Mean Corp Hgb Conc 32.9 g/dL (32-36); Mean Corpuscular Hgb 32.3 pg (27.0-32.0); Mean Corpuscular Volume 98.3 fL (80-94); Mean Platelet Vol. 11.4 fl (6.2-12.0); Monocyte# 0.23 X10^3/uL; Monocyte% 4.7 % (0-10); NRBC Flagged by Analyzer 0 % (0-5); Neutrophil # 2.66 X10^3/uL (2.7-7.7); Neutrophil % 54.1 % (47-70); Platelet Count 136 K/mm3 (150-450); RBC Distribution Width CV 16.9 % (11.6-14.6); RBC Distribution Width SD 61.2 fl (35.1-43.9); Red Blood Count 4.21 M/mm3 (4.6-6.2); White Blood Count 4.9 K/mm3 (4.4-11.0)
[2022-10-28 13:38] LABS: Vitamin D,25 Hydroxy 26.4 ng/mL
[2022-10-28 13:44] LABS: AST(SGOT) 21 U/L (15-37); Alanine Aminotransfer ALT/SGPT 29 U/L (16-61); Albumin, Serum 3.3 g/dL (3.2-5.0); Alkaline Phosphatase 39 U/L (45-117); Anion Gap 10 (5-15); BUN 17 mg/dL (7-18); BUN/Creat Ratio 13.1 RATIO (10-20); Chloride 106 mmol/L (98-107); EST Glomerular Filtration Rate 57 mL/min (>60); Est Glom Filt Rate - Afr Amer 69 mL/min (>60); Globulin 3.4 g/dL (2.2-4.2); Glucose 184 mg/dL (74-106); Potassium 3.5 mmol/L (3.5-5.1); Protein, Total 6.7 g/dL (6.4-8.2); Sodium Level 141 mmol/L (136-145); Thyroid Stim Hormone (TSH) 1.12 uIU/mL (0.358-3.74)
== END | disposition home or self-care (01) ==
LOC: POLAB3 10:23
PROVIDERS: PCP Family Medicine Geriatric Medicine; Visit Provider Family Medicine Geriatric Medicine
DX: E55.9 Vitamin D deficiency, unspecified (principal); E11.9 Type 2 diabetes mellitus without complications; I10 Essential (primary) hypertension
CPT/HCPCS: 36415; 80053; 82306; 84443; 85025

== ENCOUNTER → 2022-11-25 | Outpatient (CLI) | payer MEDICARE, OTHER, SELFPAY ==
[2022-11-25 15:40] LABS: PSA,Total - Annual Screen 0.62 ng/mL (0.00-4.00)
== END | disposition home or self-care (01) ==
LOC: LAB 13:49
PROVIDERS: PCP Family Medicine Geriatric Medicine; Referring Provider Urology; Visit Provider Urology
DX: Z12.5 Encounter for screening for malignant neoplasm of prostate (principal)
CPT/HCPCS: 36415; 84153; G0103

== ENCOUNTER → 2023-02-12 | Outpatient (CLI) | payer MEDICARE, OTHER, SELFPAY ==
[2023-02-12 12:44] LABS: Absolute Lymphocyte Count 1.84 X10^3/uL (0.83-4.51); Basophil# 0.02 X10^3/uL; Basophil% 0.5 % (0-1); Eosinophil# 0.13 X10^3/uL; Eosinophils% 3.2 % (0-5); Hematocrit 40.5 % (40-54); Hemoglobin 13.3 g/dL (13.0-16.5); Lymphocyte # 1.84 X10^3/ul (0.83-4.51); Lymphocyte % 44.7 % (19-41); Mean Corp Hgb Conc 32.8 g/dL (32-36); Mean Corpuscular Hgb 34.5 pg (27.0-32.0); Mean Corpuscular Volume 104.9 fL (80-94); Mean Platelet Vol. 10.8 fl (6.2-12.0); Monocyte% 2.4 % (0-10); NRBC Flagged by Analyzer 0 % (0-5); Neutrophil # 2.02 X10^3/uL (2.7-7.7); Platelet Count 125 K/mm3 (150-450); RBC Distribution Width CV 15.5 % (11.6-14.6); RBC Distribution Width SD 59.5 fl (35.1-43.9); Red Blood Count 3.86 M/mm3 (4.6-6.2); White Blood Count 4.1 K/mm3 (4.4-11.0)
[2023-02-12 13:09] LABS: Vitamin D,25 Hydroxy 34.6 ng/mL
[2023-02-12 13:17] LABS: AST(SGOT) 18 U/L (15-37); Alanine Aminotransfer ALT/SGPT 28 U/L (16-61); Albumin, Serum 3.6 g/dL (3.2-5.0); Alkaline Phosphatase 41 U/L (45-117); Anion Gap 5 (5-15); BUN 15 mg/dL (7-18); BUN/Creat Ratio 11.7 RATIO (10-20); Calcium,Total 9.1 mg/dL (8.5-10.1); Chloride 108 mmol/L (98-107); Creatinine, Serum 1.28 mg/dL (0.70-1.30); EST Glomerular Filtration Rate 58 mL/min (>60); Est Glom Filt Rate - Afr Amer 70 mL/min (>60); Globulin 3.5 g/dL (2.2-4.2); Glucose 72 mg/dL (74-106); Potassium 3.9 mmol/L (3.5-5.1); Protein, Total 7.1 g/dL (6.4-8.2); Sodium Level 143 mmol/L (136-145); Thyroid Stim Hormone (TSH) 1.22 uIU/mL (0.358-3.74)
== END | disposition home or self-care (01) ==
LOC: LAB 11:24
PROVIDERS: PCP Family Medicine Geriatric Medicine; Referring Provider Family Medicine Geriatric Medicine; Visit Provider Family Medicine Geriatric Medicine
DX: E11.65 Type 2 diabetes mellitus with hyperglycemia (principal); I10 Essential (primary) hypertension; E55.9 Vitamin D deficiency, unspecified
CPT/HCPCS: 36415; 80053; 82306; 84443; 85025

== ENCOUNTER → 2023-04-29 | Outpatient (CLI) | payer MEDICARE, OTHER, SELFPAY | END | disposition home or self-care (01) | LOC: PSN 09:06 | PROVIDERS: PCP Family Medicine Geriatric Medicine; Referring Provider Family Medicine Geriatric Medicine; Visit Provider Family Medicine Geriatric Medicine | DX: R68.83 Chills (without fever) (principal) | CPT/HCPCS: 87635; 87804; 87807; C9803 ==

== ENCOUNTER → 2023-05-05 | Outpatient (CLI) | payer MEDICARE, OTHER, SELFPAY ==
[2023-05-05 11:58] LABS: Absolute Lymphocyte Count 1.98 X10^3/uL (0.83-4.51); Absolute Neutrophil Count 1.8 X10^3/uL (2.0-7.7); Basophil# 0.01 X10^3/uL; Basophil% 0.3 % (0-1); Eosinophil# 0.07 X10^3/uL; Eosinophils% 1.8 % (0-5); Hematocrit 37.8 % (40-54); Hemoglobin 12.3 g/dL (13.0-16.5); Lymphocyte # 1.98 X10^3/ul (0.83-4.51); Lymphocyte % 49.6 % (19-41); Mean Corp Hgb Conc 32.5 g/dL (32-36); Mean Corpuscular Volume 110.5 fL (80-94); Mean Platelet Vol. 10.8 fl (6.2-12.0); Monocyte# 0.11 X10^3/uL; Monocyte% 2.8 % (0-10); NRBC Flagged by Analyzer 0 % (0-5); Neutrophil # 1.81 X10^3/uL (2.7-7.7); Neutrophil % 45.2 % (47-70); Platelet Count 159 K/mm3 (150-450); RBC Distribution Width CV 14.7 % (11.6-14.6); RBC Distribution Width SD 59.6 fl (35.1-43.9); Red Blood Count 3.42 M/mm3 (4.6-6.2)
[2023-05-05 12:26] LABS: ALB/GLOB Ratio 1.1 RATIO (0.9-2.4); AST(SGOT) 17 U/L (15-37); Alanine Aminotransfer ALT/SGPT 33 U/L (16-61); Albumin, Serum 3.5 g/dL (3.2-5.0); Alkaline Phosphatase 37 U/L (45-117); Anion Gap 6 (5-15); BUN 23 mg/dL (7-18); BUN/Creat Ratio 16.7 RATIO (10-20); Chloride 108 mmol/L (98-107); Creatinine, Serum 1.38 mg/dL (0.70-1.30); EST Glomerular Filtration Rate 53 mL/min (>60); Est Glom Filt Rate - Afr Amer 64 mL/min (>60); Globulin 3.1 g/dL (2.2-4.2); Glucose 94 mg/dL (74-106); Potassium 3.5 mmol/L (3.5-5.1); Protein, Total 6.6 g/dL (6.4-8.2); Sodium Level 142 mmol/L (136-145); Thyroid Stim Hormone (TSH) 0.86 uIU/mL (0.358-3.74)
== END | disposition home or self-care (01) ==
LOC: POLAB3 10:38
PROVIDERS: PCP Family Medicine Geriatric Medicine; Visit Provider Family Medicine Geriatric Medicine
DX: E11.65 Type 2 diabetes mellitus with hyperglycemia (principal); I10 Essential (primary) hypertension; E55.9 Vitamin D deficiency, unspecified
CPT/HCPCS: 36415; 80053; 82306; 84443; 85025

== ENCOUNTER → 2023-09-29 | Outpatient (CLI) | payer MEDICARE, OTHER, SELFPAY ==
--- OUTSIDE RECORDS SUMMARY | 2023-09-29 10:26 | XMS RPT_ITS | CCD ---
Author Name Unknown Address [address] [place] [address] Organization [facility] Care Team Providers Care District Service Manager Name Role Phone Omar BRETTZonia Unavailable Ingrid Ariza L Unavailable Unavailable Sherry Cr Unavailable Unavailable YorkIngrid L Unavailable Unavailable Yensho FIELD CAPTAIN, Chelo A Unavailable Unavailab le Robb FIELD CAPTAIN, Ingrid Johanna Unavailable Unavaila ble Robb FIELD CAPTAIN, Ingrid Johanna Unavailable Unavaila ble Medications Completed/Discontinued Medications Medication Drug Class(es) Dates Sig (Normalized) Sig (Original) acetaminophen 325 mg / oxyCODONE hydrochloride 5 mg oral tablet (7 sources) Opioid Agonist OXYCODONE-ACETAM IN OPHEN 5-325 MG TABS prn OXYCODONE-ACETAMIN OPHEN [id number] Mimi Sharp FIELD CAPTAIN 200 actuat albuterol 0.09 mg/actuat metered dose inhaler (7 sources) beta2-Adrenergic Agonist Start: 06-14-2015 take 2 puff(s) by inhalation every four hours as needed for wheezing VENTOLIN HFA 108 (90 Base) MCG/ACT AERS 2 puffs INH q4 hours PRN wheezing ALBUTEROL SULFATE [id number] Manuel Harding Problems Active Problems Problem Classification Problem Date Documented Da te Episodic/Chronic Asthma (7 sources) Asthma; Translations: [Unspecified asthma, uncomplicated] 03-07-2015 Chronic Diabetes mellitus without complication (7 sources) Type 2 diabetes mellitus; Translations: [Type 2 diabetes mellitus without complications] Onset: 03-08-2015 03-08-2015 Chronic Disorders of lipid metabolism (7 sources) Hyperlipidemia; Translations: [Hyperlipidemia, unspecified] Onset: 03-08-2015 03-08-2015 Chronic Essential hypertension (7 sources) Hypertensive disorder; Translations: [Essential (primary) hypertension] 03-07-2015 Chronic Nutritional deficiencies (7 sources) Vitamin D deficiency; Translations: [Vitamin D deficiency, unspecified] Onset: 03-08-2015 03-08-2015 Chronic Other nervous system disorders (7 sources) Cervical radiculopathy; Translations: [Radiculopathy, cervical region] Onset: 03-08-2015 03-08-2015 Chronic Unclassified (3 sources) Obstructive sleep apnea of adult; Translations: [Obstructive sleep apnea (adult) (pediatric)] Onset: 06-03-2017 06-03-2017 Chronic Past or Other Problems Problem Classification Problem Date Documented Da te Episodic/Chronic Phlebitis; thrombophlebitis and thromboembolism (7 sources) H/O: thrombosis; Translations: [Personal history of other venous thrombosis and embolism] Onset: 03-08-2015 03-08-2015 Episodic Residual codes; unclassified (6 sources) Hypersomnia; Translations: [Hypersomnia, unspecified] Onset: 03-02-2017 03-02-2017 Episodic Results Test Name Value Interpretation Reference Range Facil ity Vital Signs Date Time Vital Sign Value Performing Clinician Facility 06-03-2017 06:07-0400 BMI (Body Mass Index) 36.47 kg/m2 Sherry Cr [facility] Phone: 06-03-2017 06:07-0400 Body Temperature 97.5 [degF] Sherry Cr [facility] Phone: 06-03-2017 06:07-0400 BP Diastolic 78 mm[Hg] Sherry Cr [facility] Phone: 06-03-2017 06:07-0400 BP Systolic 147 mm[Hg] Sherry Cr [facility] Phone: 06-03-2017 06:07-0400 Height 175.26 cm Sherry Cr [facility] Phone: 06-03-2017 06:07-0400 Pulse (Heart Rate) 77 /min Sherry Cr [facility] Phone: 06-03-2017 06:07-0400 Respiratory Rate 18 /min Sherry Cr [facility] Phone: 06-03-2017 06:07-0400 Weight 112.04 kg Sherry Cr [facility] [employer] Work Phone: 03-02-2017 11:06-0400 BMI (Body Mass Index) 37.21 kg/m2 Ingridbrittnee Robb FIELD CAPTAIN [facility] [employer] Work Phone: 03-02-2017 11:06-0400 Body Temperature 98 [degF] Ingrid Robb FIELD CAPTAIN [facility] [employer] Work Phone: 03-02-2017 11:06-0400 BP Diastolic 81 mm[Hg] Ingrid Robb FIELD CAPTAIN [facility] [employer] Work Phone: 03-02-2017 11:06-0400 BP Systolic 119 mm[Hg] Ingrid Robb FIELD CAPTAIN [facility] [employer] Work Phone: 03-02-2017 11:06-0400 Height 175.26 cm Ingrid Robb FIELD CAPTAIN [facility] [employer] Work Phone: 03-02-2017 11:06-0400 Pulse (Heart Rate) 80 /min Ingrid Robb FIELD CAPTAIN [facility] [employer] Work Phone: 03-02-2017 11:06-0400 Respiratory Rate 18 /min Ingrid Robb FIELD CAPTAIN [facility] [employer] Work Phone: 03-02-2017 11:06-0400 Weight 114.31 kg Ingrid Robb FIELD CAPTAIN [facility] [employer] Work Phone: 09-09-2016 09:45-0500 BMI (Body Mass Index) 35.88 kg/m2 Zonia Nelson [facility] [employer] Work Phone: 09-09-2016 09:45-0500 Body Temperature 97 [degF] Zonia Nelson [facility] [employer] Work Phone: 09-09-2016 09:45-0500 Body Temperature 96.98 [degF] Zonia Nelson CNP [facility] [employer] Work Phone: 09-09-2016 09:45-0500 BP Diastolic 72 mm[Hg] Zonia Nelson CNP [facility] [employer] Work Phone: 09-09-2016 09:45-0500 BP Systolic 129 mm[Hg] Zonia Nelson CNP [facility] [employer] Work Phone: 09-09-2016 09:45-0500 BSA (Body Surface Area) 2.25 m2 Zonia Nelson CNP [facility] [employer] Work Phone: 09-09-2016 09:45-0500 Height 175.26 cm Zonia Nelson CNP [facility] [employer] Work Phone: 09-09-2016 09:45-0500 Pulse (Heart Rate) 69 /min Zonia Nelson CNP [facility] [employer] Work Phone: 09-09-2016 09:45-0500 Respiratory Rate 18 /min Zonia Nelson CNP [facility] [employer] Work Phone: 09-09-2016 09:45-0500 Weight 110.22 kg Zonia Nelson CNP [facility] [employer] Work Phone: 09-09-2016 09:45-0500 Weight 110.45 kg [facility] Phone: Procedures Date Procedure Procedure Detail Performing Clinician Start: 03-02-2017 End: 04-23-2017 Pulmonary Function Test - complete Zonia Nelson CNP Work Phone: Start: 09-09-2016 End: 02-23-2017 KAREN Puga MANAGER INTERNAL Work Phone: Start: 09-09-2016 End: 02-23-2017 Follow Up Appt 6 months Zonia olmedo WORKING FOREMAN Work Phone: Start: 09-09-2016 End: 02-23-2017 KAREN Puga MANAGER INTERNAL Work Phone: Start: 09-09-2016 End: 02-23-2017 Follow Up Appt 6 months Zonia Fierro shara [facility] Work Phone: Start: 12-16-2015 End: 02-26-2017 Pulmonary Function Test - complete Manuel Harding Work Phone: Start: 12-16-2015 End: 02-26-2017 Pulmonary Function Test - complete Manuel Harding Work Phone: Start: 12-12-2015 End: 02-26-2017 Chest x-ray Manuel Harding Work Phone: Start: 12-12-2015 End: 02-26-2017 Echo tthrc r-t 2d w/wom-mode compl spec&colr d Manuel Harding Work Phone: Start: 12-12-2015 End: 02-26-2017 Follow Up Appt 3 months Manuel Harding Work Phone: Start: 12-12-2015 End: 02-26-2017 Chest x-ray Manuel Harding Work Phone: Start: 12-12-2015 End: 02-26-2017 Echo tthrc r-t 2d w/wom-mode compl spec&colr d Manuel Harding Work Phone: Start: 12-12-2015 End: 02-26-2017 Follow Up Appt 3 months Manuel Harding Work Phone: Start: 06-14-2015 End: 06-14-2015 Documentation of current medications Manuel Harding Work Phone: Start: 06-14-2015 End: 02-26-2017 Follow Up Appt 6 months Manuel Harding Work Phone: Start: 06-14-2015 End: 06-14-2015 Documentation of current medications Manuel Harding Work Phone: Start: 06-14-2015 End: 02-26-2017 Follow Up Appt 6 months Manuel Harding Work Phone: Start: 03-07-2015 End: 02-26-2017 Follow Up Appt 3 months Manuel Harding Work Phone: Start: 03-07-2015 End: 02-26-2017 Pulmonary Function Test - complete Manuel Harding Work Phone: Start: 03-07-2015 End: 02-26-2017 Pulmonary stress test/simple Manuel Harding Work Phone: Start: 03-07-2015 End: 02-26-2017 Follow Up Appt 3 months Manuel Harding Work Phone: Start: 03-07-2015 End: 02-26-2017 Pulmonary Function Test - complete Manuel Harding Work Phone: Start: 03-07-2015 End: 02-26-2017 Pulmonary stress test/simple Manuel Harding Work Phone: Plan of Treatment Date Care Activity Detail Author Start: 11-25-2017 End: 11-25-2017 Appointment Appointment [facility] Work Phone: Start: 06-03-2017 End: 06-03-2017 [facility] Work Phone: Start: 06-03-2017 End: 06-03-2017 Follow Up Appt 6 months Follow Up Appt 6 months [facility] Work Phone: Start: 06-03-2017 End: 06-03-2017 Appointment Appointment [facility] Work Phone: Start: 03-02-2017 End: 03-02-2017 Complete sleep workup (PSG,CPAP as indicated) & Follow up Complete sleep workup (PSG,CPAP as indicated) & Follow up [facility] Work Phone: Start: 03-02-2017 End: 03-02-2017 [facility] [place] Work Phone: Start: 03-02-2017 End: 03-02-2017 Follow Up Appt 3 months Follow Up Appt 3 months [facility] Work Phone: Start: 03-02-2017 End: 04-23-2017 Pulmonary Function Test - complete Pulmonary Function Test - complete [facility] Work Phone: Start: 03-02-2017 End: 03-02-2017 Appointment Appointment [facility] Work Phone: Start: 03-02-2017 End: 03-02-2017 Complete sleep workup (PSG,CPAP as indicated) & Follow up Complete sleep workup (PSG,CPAP as indicated) & Follow up [facility] Work Phone: Start: 03-02-2017 End: 03-02-2017 [facility] Work Phone: Start: 03-02-2017 End: 03-02-2017 Follow Up Appt 3 months Follow Up Appt 3 months [facility] Work Phone: Start: 03-02-2017 End: 09-09-2016 Pulmonary Function Test - complete Pulmonary Function Test - complete [facility] Work Phone: Start: 09-09-2016 End: 02-23-2017 [facility] [place] Work Phone: Start: 09-09-2016 End: 02-23-2017 Follow Up Appt 6 months Follow Up Appt 6 months [facility] Work Phone: Start: 09-09-2016 End: 02-23-2017 [facility] Work Phone: Start: 09-09-2016 End: 02-23-2017 Follow Up Appt 6 months Follow Up Appt 6 months [facility] Work Phone: Start: 03-13-2016 End: 03-13-2016 [facility] [place] Work Phone: Start: 03-13-2016 End: 03-13-2016 Follow Up Appt 6 months Follow Up Appt 6 months [facility] Work Phone: Start: 03-13-2016 End: 03-13-2016 [facility] Work Phone: Start: 03-13-2016 End: 03-13-2016 Follow Up Appt 6 months Follow Up Appt 6 months [facility] Work Phone: Start: 12-16-2015 End: 02-26-2017 Pulmonary Function Test - complete Pulmonary Function Test - complete [facility] Work Phone: Start: 12-16-2015 End: 02-26-2017 Pulmonary Function Test - complete Pulmonary Function Test - complete [facility] Work Phone: Start: 12-12-2015 End: 02-26-2017 Chest x-ray X-Ray, Chest, PA & Lateral [facility] Work Phone: Start: 12-12-2015 End: 02-26-2017 Echo tthrc r-t 2d w/wom-mode compl spec&colr d Echo Complete with Color Flow [facility] Phone: Start: 12-12-2015 End: 02-26-2017 Follow Up Appt 3 months Follow Up Appt 3 months [facility] Work Phone: Start: 12-12-2015 End: 02-26-2017 Chest x-ray X-Ray, Chest, PA & Lateral [facility] Work Phone: Start: 12-12-2015 End: 02-26-2017 Follow Up Appt 3 months Follow Up Appt 3 months [facility] Work Phone: Start: 12-12-2015 End: 02-26-2017 Tte w/doppler, complete Echo Complete with Color Flow [facility] Phone: Start: 06-14-2015 End: 02-26-2017 Follow Up Appt 6 months Follow Up Appt 6 months [facility] Work Phone: Start: 06-14-2015 End: 02-26-2017 Follow Up Appt 6 months Follow Up Appt 6 months [facility] Work Phone: Start: 03-07-2015 End: 02-26-2017 Follow Up Appt 3 months Follow Up Appt 3 months [facility] Phone: Start: 03-07-2015 End: 02-26-2017 Pulmonary Function Test - complete Pulmonary Function Test - complete [facility] Phone: Start: 03-07-2015 End: 02-26-2017 Pulmonary stress test/simple Pulmonary stress testing; simple (eg, 6-minute walk) [facility] Phone: Start: 03-07-2015 End: 02-26-2017 Follow Up Appt 3 months Follow Up Appt 3 months [facility] Phone: Start: 03-07-2015 End: 02-26-2017 Pulmonary Function Test - complete Pulmonary Function Test - complete [facility] Phone: Start: 03-07-2015 End: 02-26-2017 Pulmonary stress test/simple Pulmonary stress testing; simple (eg, 6-minute walk) [facility] Phone: Additional Source Comments FOR RECORDS PERTAINING TO PATIENTS WHO ARE OR HAVE BEEN ENROLLED IN A CHEMICAL DEPENDENCY/SUBSTANCEABUSE PROGRAM, SOME INFORMATION MAY BE OMITTED. This clinical summary was aggregated from multiple sources. Caution should be exercised in using it in the provision of clinical care. This summary normalizes information from multiple sources, and as a consequence, information in this document may materially change the coding, format and clinical context of patient data. In addition, data may be omitted in some cases. CLINICAL DECISIONS SHOULD BE BASED ON THE PRIMARY CLINICAL RECORDS. [employer] provides no warranty or guarantee of the accuracy or completeness of information in this document.
[2023-09-29 11:08] LABS: Absolute Neutrophil Count 0.7 X10^3/uL (2.0-7.7); Basophil# 0.01 X10^3/uL; Basophil% 0.5 % (0-1); Eosinophil# 0.05 X10^3/uL; Eosinophils% 2.5 % (0-5); Hematocrit 29.1 % (40-54); Hemoglobin 9.3 g/dL (13.0-16.5); Lymphocyte % 55.8 % (19-41); Mean Corpuscular Hgb 37.7 pg (27.0-32.0); Mean Corpuscular Volume 117.8 fL (80-94); Mean Platelet Vol. 11.3 fl (6.2-12.0); Monocyte# 0.06 X10^3/uL; NRBC Flagged by Analyzer 0 % (0-5); Neutrophil # 0.74 X10^3/uL (2.7-7.7); Neutrophil % 37.7 % (47-70); POSITIVE DIFFERENTIAL YES; POSITIVE MORPHOLOGY YES; Platelet Count 120 K/mm3 (150-450); RBC Distribution Width CV 14.6 % (11.6-14.6); RBC Distribution Width SD 63.3 fl (35.1-43.9); Red Blood Count 2.47 M/mm3 (4.6-6.2)
[2023-09-29 11:11] LABS: Differential Indicated SCAN CRITERIA MET
[2023-09-29 11:30] LABS: ALB/GLOB Ratio 0.9 RATIO (0.9-2.4); AST(SGOT) 14 U/L (15-37); Alanine Aminotransfer ALT/SGPT 17 U/L (16-61); Albumin, Serum 3.3 g/dL (3.2-5.0); Alkaline Phosphatase 36 U/L (45-117); Anion Gap 7 (5-15); BUN 16 mg/dL (7-18); BUN/Creat Ratio 11.9 RATIO (10-20); Calcium,Total 9.2 mg/dL (8.5-10.1); Chloride 108 mmol/L (98-107); Creatinine, Serum 1.34 mg/dL (0.70-1.30); EST Glomerular Filtration Rate 55 mL/min (>60); Est Glom Filt Rate - Afr Amer 66 mL/min (>60); Globulin 3.6 g/dL (2.2-4.2); Glucose 105 mg/dL (74-106); Potassium 3.8 mmol/L (3.5-5.1); Protein, Total 6.9 g/dL (6.4-8.2); Sodium Level 142 mmol/L (136-145); Thyroid Stim Hormone (TSH) 1.21 uIU/mL (0.358-3.74)
== END | disposition home or self-care (01) ==
PROVIDERS: PCP Family Medicine Geriatric Medicine; Referring Provider Family Medicine Geriatric Medicine; Visit Provider Family Medicine Geriatric Medicine
DX: E11.65 Type 2 diabetes mellitus with hyperglycemia (principal); I10 Essential (primary) hypertension; R68.83 Chills (without fever)
CPT/HCPCS: 36415; 80053; 84443; 85025; 87631

== ENCOUNTER → 2023-10-05 | Outpatient (CLI) | payer MEDICARE, OTHER, SELFPAY ==
[2023-10-05 11:16] LABS: Absolute Lymphocyte Count 1.23 X10^3/uL (0.83-4.51); Absolute Neutrophil Count 0.7 X10^3/uL (2.0-7.7); Basophil# 0.02 X10^3/uL; Eosinophil# 0.07 X10^3/uL; Eosinophils% 3.5 % (0-5); Hematocrit 29.4 % (40-54); Hemoglobin 9.2 g/dL (13.0-16.5); Lymphocyte # 1.23 X10^3/ul (0.83-4.51); Lymphocyte % 60.9 % (19-41); Mean Corp Hgb Conc 31.3 g/dL (32-36); Mean Corpuscular Hgb 36.8 pg (27.0-32.0); Mean Corpuscular Volume 117.6 fL (80-94); Mean Platelet Vol. 10.1 fl (6.2-12.0); Monocyte# 0.02 X10^3/uL; Neutrophil # 0.68 X10^3/uL (2.7-7.7); Neutrophil % 33.6 % (47-70); POSITIVE DIFFERENTIAL YES; POSITIVE MORPHOLOGY YES; Platelet Count 116 K/mm3 (150-450); RBC Distribution Width CV 14.6 % (11.6-14.6); RBC Distribution Width SD 62.3 fl (35.1-43.9); RET-HE 37.2 pg (30-35); Reticulocyte Count 2.26 % (0.5-1.5)
[2023-10-05 11:17] LABS: Differential Indicated SCAN CRITERIA MET
--- OUTSIDE RECORDS SUMMARY | 2023-10-05 11:21 | XMS RPT_ITS | CCD ---
Author Name Unknown Address [address] [place] [address] Organization [facility] Care Team Providers Care Bacteriologist Fishery Name Role Phone Omar BRETTZonia Unavailable [phone] Ingrid Ariza L Unavailable Unavailable Sherry Cr Unavailable Unavailable YorkIngrid L Unavailable Unavailable Yensho LABEL DRIER, Chelo A Unavailable Unavailab le Robb LABEL DRIER, Ingrid Johanna Unavailable Unavaila ble Robb LABEL DRIER, Ingrid Johanna Unavailable Unavaila ble Medications Completed/Discontinued Medications Medication Drug Class(es) Dates Sig (Normalized) Sig (Original) acetaminophen 325 mg / oxyCODONE hydrochloride 5 mg oral tablet (7 sources) Opioid Agonist OXYCODONE-ACETAM IN OPHEN 5-325 MG TABS prn OXYCODONE-ACETAMIN OPHEN [id number] Mimi Sharp LABEL DRIER 200 actuat albuterol 0.09 mg/actuat metered dose inhaler (7 sources) beta2-Adrenergic Agonist Start: 06-14-2015 take 2 puff(s) by inhalation every four hours as needed for wheezing VENTOLIN HFA 108 (90 Base) MCG/ACT AERS 2 puffs INH q4 hours PRN wheezing ALBUTEROL SULFATE [id number] Manuel Harding Problems Active Problems Problem Classification [...] 06:07-0400 BMI (Body Mass Index) 36.47 kg/m2 Shrery Cr [facility] Phone: 06-03-2017 06:07-0400 Body Temperature 97.5 [degF] Sherry Cr [facility] Phone: 06-03-2017 06:07-0400 BP Diastolic 78 mm[Hg] Sherry Cr [facility] Phone: 06-03-2017 06:07-0400 BP Systolic 147 mm[Hg] Sherry rC [facility] Phone: 06-03-2017 06:07-0400 Height 175.26 cm Sherry Cr [facility] Phone: 06-03-2017 06:07-0400 Pulse (Heart Rate) 77 /min Sherry Cr [facility] Phone: 06-03-2017 06:07-0400 Respiratory Rate 18 /min Sherry Cr [facility] Phone: 06-03-2017 06:07-0400 Weight 112.04 kg Sherry Cr [facility] Work Phone: 03-02-2017 11:06-0400 BMI (Body Mass Index) 37.21 kg/m2 Ingridbrittnee Robb LABEL DRIER [facility] Work Phone: 03-02-2017 11:06-0400 Body Temperature 98 [degF] Ingrid Robb LABEL DRIER [facility] Work Phone: 03-02-2017 11:06-0400 BP Diastolic 81 mm[Hg] Ingrid Robb LABEL DRIER [facility] Work Phone: 03-02-2017 11:06-0400 BP Systolic 119 mm[Hg] Ingrid Robb LABEL DRIER [facility] Work Phone: 03-02-2017 11:06-0400 Height 175.26 cm Ingrid Robb LABEL DRIER [facility] Work Phone: 03-02-2017 11:06-0400 Pulse (Heart Rate) 80 /min Ingrid Robb LABEL DRIER [facility] Work Phone: 03-02-2017 11:06-0400 Respiratory Rate 18 /min Ingrid Robb LABEL DRIER [facility] Work Phone: 03-02-2017 11:06-0400 Weight 114.31 kg Ingrid Robb LABEL DRIER [facility] Work Phone: 09-09-2016 09:45-0500 BMI (Body Mass Index) 35.88 kg/m2 Zonia Nelson [facility] Work Phone: 09-09-2016 09:45-0500 Body Temperature 97 [degF] Zonia Nelson [facility] Work Phone: 09-09-2016 09:45-0500 Body Temperature 96.98 [degF] Zonia Nelson CNP [facility] Work Phone: 09-09-2016 09:45-0500 BP Diastolic 72 mm[Hg] Zonia Nelson CNP [facility] Work Phone: 09-09-2016 09:45-0500 BP Systolic 129 mm[Hg] Zonia Nelson CNP [facility] Work Phone: 09-09-2016 09:45-0500 BSA (Body Surface Area) 2.25 m2 Zonia Nelson CNP [facility] Work Phone: 09-09-2016 09:45-0500 Height 175.26 cm Zonia Nelson CNP [facility] Work Phone: 09-09-2016 09:45-0500 Pulse (Heart Rate) 69 /min Zonia Neslon CNP [facility] Work Phone: 09-09-2016 09:45-0500 Respiratory Rate 18 /min Zonia Nelson CNP [facility] Work Phone: 09-09-2016 09:45-0500 Weight 110.22 kg Zonia Nelson CNP [facility] Work Phone: 09-09-2016 09:45-0500 Weight 110.45 kg [facility] Phone: Procedures Date Procedure Procedure Detail Performing Clinician Start: 03-02-2017 End: 04-23-2017 Pulmonary Function Test - complete Zonia Nelson CNP Work Phone: Start: 09-09-2016 End: 02-23-2017 KAREN Puga [employer] Work Phone: Start: 09-09-2016 End: 02-23-2017 Follow Up Appt 6 months Zonia olmedo [employer]ATOR [employer] Work Phone: Start: 09-09-2016 End: 02-23-2017 KAREN Puga [employer] Work Phone: Start: 09-09-2016 End: 02-23-2017 Follow [...] 11-25-2017 Appointment Appointment [facility] [place] Work Phone: Start: 06-03-2017 End: 06-03-2017 [facility] [place] [...] indicated) & Follow up [facility] Work Phone: Start: 03-02-2017 End: 03-02-2017 [facility] [place] Work Phone: Start: 03-02-2017 End: 03-02-2017 Follow Up Appt 3 months Follow Up Appt 3 months [facility] Work Phone: Start: 03-02-2017 End: 04-23-2017 Pulmonary Function Test - complete Pulmonary Function Test - complete [facility] Work Phone: Start: 03-02-2017 End: 03-02-2017 Appointment Appointment [facility] [place] Work Phone: Start: 03-02-2017 End: 03-02-2017 Complete sleep workup (PSG,CPAP as indicated) & Follow up Complete sleep workup (PSG,CPAP as indicated) & Follow up [facility] Work Phone: Start: 03-02-2017 End: 03-02-2017 [facility] [place] Work Phone: Start: 03-02-2017 End: 03-02-2017 Follow Up Appt 3 months Follow Up Appt 3 months [facility] Work Phone: Start: 03-02-2017 End: 09-09-2016 Pulmonary Function Test - complete Pulmonary Function Test - complete [facility] Work Phone: Start: 09-09-2016 End: 02-23-2017 [facility] [place] Work Phone: Start: 09-09-2016 End: 02-23-2017 Follow Up Appt 6 months Follow Up Appt 6 months [facility] Work Phone: Start: 09-09-2016 End: 02-23-2017 [facility] [place] Work Phone: Start: 09-09-2016 End: 02-23-2017 Follow Up Appt 6 months Follow Up Appt 6 months [facility] Work Phone: Start: 03-13-2016 End: 03-13-2016 [facility] [place] Work Phone: Start: 03-13-2016 End: 03-13-2016 Follow Up Appt 6 months Follow Up Appt 6 months [facility] Work Phone: Start: 03-13-2016 End: 03-13-2016 [facility] [place] Work Phone: Start: 03-13-2016 End: 03-13-2016 Follow Up Appt 6 months Follow Up Appt 6 months [facility] Work Phone: Start: 12-16-2015 End: 02-26-2017 Pulmonary Function Test - complete Pulmonary Function Test - complete [facility] Work Phone: Start: 12-16-2015 End: 02-26-2017 Pulmonary Function Test - complete Pulmonary Function Test - complete [facility] Work Phone: Start: 12-12-2015 End: 02-26-2017 Chest x-ray X-Ray, Chest, PA & Lateral [facility] Work Phone: Start: 12-12-2015 End: 02-26-2017 Echo tthrc r-t 2d w/wom-mode compl spec&colr d Echo Complete with Color Flow [facility] Phone: Start: 12-12-2015 End: 02-26-2017 Follow Up Appt 3 months Follow Up Appt 3 months [facility] Work Phone: Start: 12-12-2015 End: 02-26-2017 Chest x-ray X-Ray, Chest, PA & Lateral [facility] Work Phone: Start: 12-12-2015 End: 02-26-2017 Follow Up Appt 3 months Follow Up Appt 3 months [facility] Work Phone: Start: 12-12-2015 End: 02-26-2017 Tte w/doppler, complete Echo Complete with Color Flow [facility] Phone: Start: 06-14-2015 End: 02-26-2017 Follow Up Appt 6 months Follow Up Appt 6 months [facility] Work Phone: Start: 06-14-2015 End: 02-26-2017 Follow Up Appt 6 months Follow Up Appt 6 months [facility] Work Phone: Start: 03-07-2015 End: 02-26-2017 Follow Up Appt 3 months Follow Up Appt 3 months [facility] Phone: Start: 03-07-2015 End: 02-26-2017 Pulmonary Function Test - complete Pulmonary Function Test - complete [facility] Phone: Start: 03-07-2015 End: 02-26-2017 Pulmonary stress test/simple Pulmonary stress testing; simple (eg, 6-minute walk) [facility] Phone: Start: 03-07-2015 End: 02-26-2017 Follow Up Appt 3 months Follow Up Appt 3 months [facility] Phone: Start: 03-07-2015 End: 02-26-2017 Pulmonary Function Test - complete Pulmonary Function Test - complete [facility] [facility] Phone: Start: 03-07-2015 End: 02-26-2017 Pulmonary stress test/simple Pulmonary stress testing; simple (eg, 6-minute walk) [facility] [place] [facility] Phone: Additional Source Comments FOR RECORDS PERTAINING [...] BE BASED ON THE PRIMARY CLINICAL RECORDS. [employer] provides no warranty or guarantee of the accuracy or completeness of information in this document.
[2023-10-05 11:53] LABS: Platelet Estimate ADEQUATE (ADEQ); Red Cell Morphology NORM C+C NORMAL (NORM C&C)
[2023-10-05 12:00] LABS: Iron 160 ug/dL (65-175); Iron Binding Capacity,Total 354 ug/dL (250-450); PERCENT IRON SATURATION 45.2 % (15.0-55.0)
[2023-10-05 12:09] LABS: Vitamin B12 252 pg/mL (211-911)
== END | disposition home or self-care (01) ==
LOC: LAB 10:57
PROVIDERS: PCP Family Medicine Geriatric Medicine; Referring Provider Family Medicine Geriatric Medicine; Visit Provider Family Medicine Geriatric Medicine
DX: D50.9 Iron deficiency anemia, unspecified (principal); R53.1 Weakness
CPT/HCPCS: 36415; 82607; 82746; 83540; 83550; 85025; 85045

== ENCOUNTER 2023-10-06 11:51 | Outpatient (CLI) | payer MEDICARE, OTHER, SELFPAY ==
[2023-10-06 12:57] LABS: Homocysteine 14.9 umol/L (3.2-10.7)
--- OUTSIDE RECORDS SUMMARY | 2023-10-06 13:03 | XMS RPT_ITS | CCD ---
Author Name Unknown Address [address] [place] [address] Organization [facility] Care Team Providers Care Tube Room Supervisor Name Role Phone Omar BRETTZonia Unavailable Ingrid Ariza L Unavailable Unavailable Sherry Cr Unavailable Unavailable YorkInrgid L Unavailable Unavailable Yensho BEE WORKER, Chelo A Unavailable Unavailab le Robb BEE WORKER, Ingrid Johanna Unavailable Unavaila ble Robb BEE WORKER, Ingrid Johanna Unavailable Unavaila ble Medications Completed/Discontinued Medications Medication Drug Class(es) Dates Sig (Normalized) Sig (Original) acetaminophen 325 mg / oxyCODONE hydrochloride 5 mg oral tablet (7 sources) Opioid Agonist OXYCODONE-ACETAM IN OPHEN 5-325 MG TABS prn OXYCODONE-ACETAMIN OPHEN [id number] Mimi Sharp BEE WORKER 200 actuat albuterol 0.09 mg/actuat metered dose inhaler (7 sources) beta2-Adrenergic Agonist Start: 06-14-2015 take 2 puff(s) by inhalation every four hours as needed for wheezing VENTOLIN HFA 108 (90 Base) MCG/ACT AERS 2 puffs INH q4 hours PRN wheezing ALBUTEROL SULFATE [id number] Manuel Harding Problems Active Problems Problem Classification [...] 36.47 kg/m2 Sherry Cr [facility] Phone: 06-03-2017 06:07-0400 Body Temperature 97.5 [degF] Sherry Cr [facility] Phone: 06-03-2017 06:07-0400 BP Diastolic 78 mm[Hg] Sherry Cr [facility] Phone: 06-03-2017 06:07-0400 BP Systolic 147 mm[Hg] Sherry Cr [facility] Phone: 06-03-2017 06:07-0400 Height 175.26 cm Sherry Cr [facility] Phone: 06-03-2017 06:07-0400 Pulse (Heart Rate) 77 /min Sherry Cr [facility] [place] Phone: 06-03-2017 06:07-0400 Respiratory Rate 18 /min Sherry Cr [facility] Phone: 06-03-2017 06:07-0400 Weight 112.04 kg Sherry Cr [facility] Work Phone: 03-02-2017 11:06-0400 BMI (Body Mass Index) 37.21 kg/m2 Ingridbrittnee Robb BEE WORKER [facility] Work Phone: 03-02-2017 11:06-0400 Body Temperature 98 [degF] Ingrid Robb BEE WORKER [facility] Work Phone: 03-02-2017 11:06-0400 BP Diastolic 81 mm[Hg] Ingrid Robb BEE WORKER [facility] Work Phone: 03-02-2017 11:06-0400 BP Systolic 119 mm[Hg] Ingrid Robb BEE WORKER [facility] Work Phone: 03-02-2017 11:06-0400 Height 175.26 cm Ingrid Robb BEE WORKER [facility] Work Phone: 03-02-2017 11:06-0400 Pulse (Heart Rate) 80 /min Ingrid Robb BEE WORKER [facility] Work Phone: 03-02-2017 11:06-0400 Respiratory Rate 18 /min Ingrid Robb BEE WORKER [facility] Work Phone: 03-02-2017 11:06-0400 Weight 114.31 kg Ingrid Robb BEE WORKER [facility] Work Phone: 09-09-2016 09:45-0500 BMI (Body Mass Index) 35.88 kg/m2 Zonia Nelson [facility] Work Phone: 09-09-2016 09:45-0500 Body Temperature 97 [degF] Zonia Nelson [facility] Work Phone: 09-09-2016 09:45-0500 Body Temperature 96.98 [degF] Zonia Nelson CNP [facility] Work Phone: 09-09-2016 09:45-0500 BP Diastolic 72 mm[Hg] Zonia Nelson CNP [facility] Work Phone: 09-09-2016 09:45-0500 BP Systolic 129 mm[Hg] Zonia Nelson CNP [facility] Work Phone: 09-09-2016 09:45-0500 BSA (Body Surface Area) 2.25 m2 Zonia Nelson CNP [facility] Work Phone: 09-09-2016 09:45-0500 Height 175.26 cm Zonia Nelson CNP [facility] Work Phone: 09-09-2016 09:45-0500 Pulse (Heart Rate) 69 /min Zonia Nelson CNP [facility] Work Phone: 09-09-2016 09:45-0500 Respiratory Rate 18 /min Zonia Nelson CNP [facility] Work Phone: 09-09-2016 09:45-0500 Weight 110.22 kg Zonia Nelson CNP [facility] Work Phone: 09-09-2016 09:45-0500 Weight 110.45 kg [facility] [place] Phone: Procedures Date Procedure Procedure Detail Performing Clinician Start: 03-02-2017 End: 04-23-2017 Pulmonary Function Test - complete Zonia Nelson CNP Work Phone: Start: 09-09-2016 End: 02-23-2017 KAREN Puga [employer]INE[employer] Work Phone: Start: 09-09-2016 End: 02-23-2017 Follow Up Appt 6 months Zonia olmedo [employer] Work Phone: Start: 09-09-2016 End: 02-23-2017 KAREN Puga AUTOMOTIVE PROJECT ENGINEER Work Phone: Start: 09-09-2016 End: 02-23-2017 Follow [...] 11-25-2017 Appointment Appointment [facility] [place] Work Phone: Start: 06-03-2017 End: 06-03-2017 [facility] [place] [...] indicated) & Follow up [facility] Work Phone: Start: 03-02-2017 End: 03-02-2017 [facility] [place] Work Phone: Start: 03-02-2017 End: 03-02-2017 Follow Up Appt 3 months Follow Up Appt 3 months [facility] Work Phone: Start: 03-02-2017 End: 04-23-2017 Pulmonary Function Test - complete Pulmonary Function Test - complete [facility] Work Phone: Start: 03-02-2017 End: 03-02-2017 Appointment Appointment [facility] [place] Work Phone: Start: 03-02-2017 End: 03-02-2017 Complete sleep workup (PSG,CPAP as indicated) & Follow up Complete sleep workup (PSG,CPAP as indicated) & Follow up [facility] Work Phone: Start: 03-02-2017 End: 03-02-2017 [facility] [place] Work Phone: Start: 03-02-2017 End: 03-02-2017 Follow Up Appt 3 months Follow Up Appt 3 months [facility] Work Phone: Start: 03-02-2017 End: 09-09-2016 Pulmonary Function Test - complete Pulmonary Function Test - complete [facility] Work Phone: Start: 09-09-2016 End: 02-23-2017 [facility] [place] Work Phone: Start: 09-09-2016 End: 02-23-2017 Follow Up Appt 6 months Follow Up Appt 6 months [facility] Work Phone: Start: 09-09-2016 End: 02-23-2017 [facility] [place] Work Phone: Start: 09-09-2016 End: 02-23-2017 Follow Up Appt 6 months Follow Up Appt 6 months [facility] Work Phone: Start: 03-13-2016 End: 03-13-2016 [facility] [place] Work Phone: Start: 03-13-2016 End: 03-13-2016 Follow Up Appt 6 months Follow Up Appt 6 months [facility] Work Phone: Start: 03-13-2016 End: 03-13-2016 [facility] [place] Work Phone: Start: 03-13-2016 End: 03-13-2016 Follow Up Appt 6 months Follow Up Appt 6 months [facility] Work Phone: Start: 12-16-2015 End: 02-26-2017 Pulmonary Function Test - complete Pulmonary Function Test - complete [facility] Work Phone: Start: 12-16-2015 End: 02-26-2017 Pulmonary Function Test - complete Pulmonary Function Test - complete [facility] Work Phone: Start: 12-12-2015 End: 02-26-2017 Chest x-ray X-Ray, Chest, PA & Lateral [facility] Work Phone: Start: 12-12-2015 End: 02-26-2017 Echo tthrc r-t 2d w/wom-mode compl spec&colr d Echo Complete with Color Flow [facility] Phone: Start: 12-12-2015 End: 02-26-2017 Follow Up Appt 3 months Follow Up Appt 3 months [facility] Work Phone: Start: 12-12-2015 End: 02-26-2017 Chest x-ray X-Ray, Chest, PA & Lateral [facility] Work Phone: Start: 12-12-2015 End: 02-26-2017 Follow Up Appt 3 months Follow Up Appt 3 months [facility] Work Phone: Start: 12-12-2015 End: 02-26-2017 Tte w/doppler, complete Echo Complete with Color Flow [facility] Phone: Start: 06-14-2015 End: 02-26-2017 Follow Up Appt 6 months Follow Up Appt 6 months [facility] Work Phone: Start: 06-14-2015 End: 02-26-2017 Follow Up Appt 6 months Follow Up Appt 6 months [facility] Work Phone: Start: 03-07-2015 End: 02-26-2017 Follow Up Appt 3 months Follow Up Appt 3 months [facility] Phone: Start: 03-07-2015 End: 02-26-2017 Pulmonary Function Test - complete Pulmonary Function Test - complete [facility] Phone: Start: 03-07-2015 End: 02-26-2017 Pulmonary stress test/simple Pulmonary stress testing; simple (eg, 6-minute walk) [facility] Phone: Start: 03-07-2015 End: 02-26-2017 Follow Up Appt 3 months Follow Up Appt 3 months [facility] Phone: Start: 03-07-2015 End: 02-26-2017 Pulmonary Function Test - complete Pulmonary Function Test - complete [facility] Phone: Start: 03-07-2015 End: 02-26-2017 Pulmonary stress test/simple Pulmonary stress testing; simple (eg, 6-minute walk) [facility] Phone: Additional Source Comments FOR RECORDS PERTAINING [...] BE BASED ON THE PRIMARY CLINICAL RECORDS. [employer] provides no warranty or guarantee of the accuracy or completeness of information in this document.
[2023-10-13 17:07] LABS: Methylmalonic Acid Bld 360 nmol/L (0-378)
== END 2023-10-06 23:59 | disposition home or self-care (01) ==
LOC: POLAB3 11:52
PROVIDERS: PCP Family Medicine Geriatric Medicine; Visit Provider Family Medicine Geriatric Medicine
DX: D51.9 Vitamin B12 deficiency anemia, unspecified (principal); D50.9 Iron deficiency anemia, unspecified; I10 Essential (primary) hypertension
CPT/HCPCS: 36415; 83090; 83921

== ENCOUNTER → 2023-10-06 | Outpatient (CLI) | payer MEDICARE, OTHER, SELFPAY | END | disposition home or self-care (01) | LOC: LAB 11:31 | PROVIDERS: PCP Family Medicine Geriatric Medicine; Referring Provider Family Medicine Geriatric Medicine; Visit Provider Family Medicine Geriatric Medicine | DX: D50.9 Iron deficiency anemia, unspecified (principal); R53.1 Weakness | CPT/HCPCS: 82274 ==

== ENCOUNTER → 2023-10-13 | Outpatient (CLI) | payer MEDICARE, OTHER, SELFPAY ==
[2023-10-13 16:53] LABS: Absolute Lymphocyte Count 1.66 X10^3/uL (0.83-4.51); Absolute Neutrophil Count 0.6 X10^3/uL (2.0-7.7); Basophil# 0.01 X10^3/uL; Basophil% 0.4 % (0-1); Eosinophil# 0.06 X10^3/uL; Eosinophils% 2.5 % (0-5); Hematocrit 27.8 % (40-54); Hemoglobin 8.9 g/dL (13.0-16.5); Lymphocyte # 1.66 X10^3/ul (0.83-4.51); Lymphocyte % 69.2 % (19-41); Mean Corpuscular Hgb 36.9 pg (27.0-32.0); Mean Corpuscular Volume 115.4 fL (80-94); Mean Platelet Vol. 11.4 fl (6.2-12.0); Monocyte# 0.04 X10^3/uL; Monocyte% 1.7 % (0-10); NRBC Flagged by Analyzer 0.8 % (0-5); Neutrophil # 0.61 X10^3/uL (2.7-7.7); Neutrophil % 25.4 % (47-70); POSITIVE DIFFERENTIAL YES; Platelet Count 131 K/mm3 (150-450); RBC Distribution Width CV 14.9 % (11.6-14.6); RBC Distribution Width SD 61.6 fl (35.1-43.9); Red Blood Count 2.41 M/mm3 (4.6-6.2); White Blood Count 2.4 K/mm3 (4.4-11.0)
[2023-10-13 17:02] LABS: Differential Indicated SCAN CRITERIA MET
[2023-10-13 17:06] LABS: Anion Gap 6 (5-15); BUN 20 mg/dL (7-18); BUN/Creat Ratio 16.3 RATIO (10-20); Calcium,Total 9.3 mg/dL (8.5-10.1); Chloride 105 mmol/L (98-107); Creatinine, Serum 1.23 mg/dL (0.70-1.30); EST Glomerular Filtration Rate 60 mL/min (>60); Est Glom Filt Rate - Afr Amer 73 mL/min (>60); Glucose 69 mg/dL (74-106); Potassium 3.6 mmol/L (3.5-5.1); Sodium Level 140 mmol/L (136-145)
[2023-10-13 17:13] LABS: Differential Comment SCANNED
== END | disposition home or self-care (01) ==
LOC: POLAB3 15:31
PROVIDERS: PCP Family Medicine Geriatric Medicine; Visit Provider Family Medicine Geriatric Medicine
DX: R53.1 Weakness (principal)
CPT/HCPCS: 36415; 80048; 85025

== ENCOUNTER 2023-10-29 08:39 | Outpatient (CLI) | payer MEDICARE, OTHER, SELFPAY ==
[2023-10-29] VITALS (11 sets, daily range): BP systolic 109–157; BP diastolic 66–145; PULSE 90–102; RESP 11–24; TEMP 36.2; O2SAT 93–100; BMI 32.8
--- NOTE | 2023-10-29 | BMB_PTH ---
PATIENT: JOHNATHAN CURILE Jr. LOC: [place] U#:[id number] AGE/SX: 78/M ROOM: RE10/29/[address]: Dr. Nicolás Pittman MD : 1945 BED: DIS: 10/29/2023 SPEC #: [id number] RECD: 10/29/23 11:26 STATUS: CRISTIN PATRICIA #: [id number] KALEIGH: 10/29/23 00:[address]: Nicolás Pittman DEPT: BONE MARROW RECD BY: Crista Bustamante ENTERED: 10/29/23 11:28 SP TYPE: BMB DANE DR: Dr. 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 See comment. AM:tari 11/02/2023 COMMENT Sections of bone marrow biopsy and clot reveal markedly Increased plasma cell population(50-60%) consistent with plasma cell dyscrasia/neoplasm. The plasma cells are kappa restricted by immunohistochemistry ([id number]). Flow cytometry analysis is pending and will be reported as an addendum. The slides were reviewed with Dr. Pittman 10/30/[address] Lowe. Case has been reviewed in consultation with Dr. Jimenez who concurs with the above diagnosis. IDC:SJ BONE MARROW STUDY Slides are reviewed. CBC DATE: 10/29/23 WBC 2.2; RBC 2.29; HGB 8.6; HCT 26.7; MCV 116.6; RDW 15.4; PLTS 109,000 SEGS 25.1%; LYMPHS 71.0%; MONOS 0.4%; EOS 2.7%; BASOS 0.4% PERIPHERAL SMEAR: Submitted. RBC: Macrocytic anemia with polychromasia. WBC: Leukopenia with atypical/reactive lymphocytic and rare plasma cytoid lymphocytes. PLTS: Mild thrombocytopenia. BONE MARROW ASPIRATE DIFFERENTIAL: 200 cell count. Blasts % (normal 0-2): 2 Promyelocytes % (normal 1-5): 4 Myelocytes and metamyelocytes % (normal 17-41): 10 Bands and Segs % (normal 15-32): 4 Eos % (normal 1-6): 1 Basos % (normal 0-1): 0 Monocytes % (normal 0-4): 2 Erythroid Precursors % (normal 17-35): 8 Lymphocytes % (normal 7-13): 13 Plasma Cells % (normal 0-2): 56 ASPIRATE FINDINGS: Site: Right hip Spicular Cellular M/E ratio: 1.6 (Normal 1.5 - 4.0) Megakaryocytes: Rare, normomorphic Erythropoiesis: Hypoplastic Granulopoiesis: Decreased Other findings: Increased number of plasma cells consistent with plasma cell neoplasm. CORE BIOPSY FINDINGS: Site: Right hip Adequacy: Adequate Cellularity %: 25% M/E ratio: Increased Megakaryocytes: Rare, normomorphic Bony trabeculae: within normal limits Granulomas: 0 Lymphoid aggregate(s): 0 Atypical infiltrate(s): Increased number of plasma cells consistent with plasma cell neoplasm. ASPIRATE CLOT FINDINGS: Site: Right hip Marrow Particles: Many Cellularity %: 40-50% M/E ratio: Within normal limits Megakaryocytes: Adequate Granuloma(s): 0 Lymphoid aggregate(s): 0 Atypical infiltrate(s): Increased number of plasma cell consistent with plasma cell neoplasm SPECIAL STAINS (with matched controls): Iron: Within normal limits Reticulin: Within normal limits PAS: Highlights myeloid elements and megakaryocytes. BONE MARROW GROSS A - Received is a container labeled with the patient's name and designated Right hip. The specimen consists of a piece of cheek bone measuring 1.0cm in length and 0.1cm in diameter. The specimen is totally submitted in one cassette after decalcification. B - Received labeled with the patient's name and designated Right hip is a specimen that consists of approximately 2 ml of bloody fluid that on filtration yields multiple minute fragments of blood clots measuring in aggregate 2 x 1.5 x 0.1 cm. The specimen is totally submitted in one cassette. C - Also received are 14 unstained and 1 peripheral stained slides. The unstained slides are submitted for appropriate staining. Also received are 1 green top tubes which are sent to our reference lab for flow cytogenetics and fish. / SJ/mr 10/29/2023 TC:0 CPT: 79105, 22352, 36521 x2, 08123 x3, 69724 ADDENDUM ADDENDUM ADDENDUM ADDENDUM ADDENDUM ADDENDUM ADDENDUM ADDENDUM ADDENDUM ADDENDUM ADDENDUM ADDENDUM ADDENDUM ADDENDUM ADDENDUM ADDENDUM ADDENDUM ADDENDUM ADDENDUM ADDENDUM ADDENDUM ADDENDUM ADDENDUM ADDENDUM ADDENDUM ADDENDUM 11/13/2023 09:04 ADDENDUM 11/13/2023 09:04 ADDENDUM 11/27/2023 12:16 ADDENDUM 11/13/2023 09:04 ADDENDUM 11/13/2023 09:04 ADDENDUM 11/13/2023 09:04 CYTOGENETICS REPORT FROM [facility] CYTOGENETIC RESULT: 46,XY(20) INTERPRETATION: Normal male karyotype was observed in twenty metaphases analyzed. 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 AML FISH PANEL: Normal AML panel INTERPRETATION: The fluorescence in situ hybridization (FISH) analysis was negative for rearrangement of the CBFB, KMT2A (MLL), ZKDE6Q0/RUNX1, and PML/RANDELL genes. No deletion of chromosomes 5 or 7 was observed. MDS PANEL: Normal MDS panel INTERPREATATION: The fluorescence in situ hybridization (FISH) analysis of MDS specific chromosome changes was normal. DNA probes specific for 8q24 and 20q12 showed normal hybridization signals in all interphase cells examined. Please see complete report in e-chart or EMR There is no evidence of congophilic material in the clot section. Congo red stain was examined under polarized microscopy with appropriate control. AM/mr 11/27/23
--- NOTE | 2023-10-29 09:00 | CT_ITS ---
PROCEDURE: CT GUIDED bone marrow biopsy of the right posterior iliac bone. DATE: October 29, 2023. INDICATION: Male, 78 years old. Pancytopenia. PHYSICIAN: Lasha Esquivel M.D. RADIATION DOSAGE (If Supplied By Facility): CTDIvol = ( 19 ) mGy, DLP = ( 493.68 ) mGycm. Individualized dose optimization techniques were utilized. PROCEDURE: The risks, benefits, and alternatives to the procedure were explained to the patient. The specific risk of hemorrhage requiring further treatment or intervention was detailed and accepted. Follow-up instructions were discussed with the patient as well. Written informed consent was obtained. The patient was brought into the CT suite and placed in the prone position. . An appropriate entry site was identified. The overlying skin was prepped and draped in the usual sterile fashion. 1% lidocaine was administered subcutaneously for local anesthesia. Conscious sedation was performed. The patient received 2 mg of Versed and 50 mcg of fentanyl intravenously. Conscious sedation was started at 9:59 AM and terminated at 10:14 AM. The patient was independently monitored by the department nurse. Under CT guidance, a bone marrow biopsy and aspiration were performed utilizing an 11-gauge bone marrow biopsy The specimens were then placed in the appropriate fluid and transported to the laboratory for analysis. Hemostasis was obtained. The patient tolerated the procedure well without immediate complications. CT/Biopsy/Inj or Needle Placement IMPRESSION: Successful CT guided bone marrow biopsy of the posterior left iliac bone and aspiration, as described above. The conscious sedation protocol was followed. Electronically Signed: Lasha Esquivel MD at 10:57 EDT ,
[2023-10-29 09:04] LABS: Absolute Lymphocyte Count 1.59 X10^3/uL (0.83-4.51); Absolute Neutrophil Count 0.6 X10^3/uL (2.0-7.7); Basophil# 0.01 X10^3/uL; Basophil% 0.4 % (0-1); Eosinophil# 0.06 X10^3/uL; Eosinophils% 2.7 % (0-5); Hematocrit 26.7 % (40-54); Hemoglobin 8.6 g/dL (13.0-16.5); Lymphocyte # 1.59 X10^3/ul (0.83-4.51); Mean Corp Hgb Conc 32.2 g/dL (32-36); Mean Corpuscular Hgb 37.6 pg (27.0-32.0); Mean Corpuscular Volume 116.6 fL (80-94); Mean Platelet Vol. 11.5 fl (6.2-12.0); Monocyte# 0.01 X10^3/uL; Monocyte% 0.4 % (0-10); NRBC Flagged by Analyzer 0 % (0-5); Neutrophil # 0.56 X10^3/uL (2.7-7.7); Neutrophil % 25.1 % (47-70); POSITIVE DIFFERENTIAL YES; POSITIVE MORPHOLOGY YES; Platelet Count 109 K/mm3 (150-450); RBC Distribution Width CV 15.4 % (11.6-14.6); RBC Distribution Width SD 65.4 fl (35.1-43.9); Red Blood Count 2.29 M/mm3 (4.6-6.2); White Blood Count 2.2 K/mm3 (4.4-11.0)
[2023-10-29 09:06] LABS: Differential Indicated SCAN CRITERIA MET
[2023-10-29] MEDS: 0.9% Saline Lock 10 ML Syringe IV (09:28)
[2023-10-29] MEDS: 0.9% Normal Saline (250mL Bag) 250 ML 15 ML IV (09:28)
[2023-10-29 09:48] LABS: Prothrombin Time (Protime)PT. 13.3 SECONDS (11.7-14.9)
[2023-10-29 09:49] LABS: Partial Thromboplast Time 22.8 Seconds (24.1-36.2)
[2023-10-29] MEDS: Midazolam 2 MG/2 ML Syringe IV (09:59)
[2023-10-29] MEDS: fentaNYL 100 MCG/2 ML Ampul IV (10:00)
[2023-10-29] MEDS: Lidocaine 2% (20 ml mdv) 20 ML Vial INFILT (10:10)
--- NOTE | 2023-10-30 | IMM_PTH ---
PATIENT: JOHNATHAN CURIEL Jr. LOC: [place] U#:[id number] AGE/SX: 78/M ROOM: RE10/29/[address]: Dr. Nicolás Pittman MD : 1945 BED: DIS: 10/29/2023 SPEC #: [id number] RECD: 10/30/23 14:18 STATUS: CRISTIN REQ #: [id number] KALEIGH: 10/30/23 00:[address]: Nicolás Pittman DEPT: IMMUNOHISTOCHEMISTRY RECD BY: Clint Rasheed ENTERED: 10/30/23 14:23 SP TYPE: IMMUNO OTHR DR: Dr. Noble Peter MD Tissues: A - Bone marrow of iliac crest B - Bone marrow of iliac crest Procedures: BCL-2 (add) BCL-6 (add) CD10 (add) CD138 (add) CD20 (add) CD23 (add) CD3 (add) CD43 (add) CD45 (add) CD5 (add) CD79A (add) CYCLIN (add) KAPPA (add) KI-67 (add) LAMBDA (add) P53 (add) MUM1 (add) C-MYC (add) Pankeratin (initial) PHYSICIAN & INSTITUTION [place] [address] SPECIMEN INFORMATION: Tissue Source: A. Bone marrow Core, B. Bone marrow Clot Clinical Info: Pancytopenia Specimen Number: [id number]&B CPT code: 02789e7,18748k36 METHODOLOGY: Deparaffinized sections of prefer/formalin-fixed tissue or PAP/DQ stained slides are incubated with monoclonal/polyclonal antibodies/oligonucleotide probes. Localization is made via biotin free immunoperoxidase method. Appropriate controls are performed and reacted as expected. Results on target cell population are indicated in the following table: RESULTS: ANTIBODY / CLONE RESULT Block A AE1-3 (AE1/AE3/PCK26) negative CD3 (PS1) negative CD5 (SP10) negative CD20 (L26) negative CD43 (L60) positive, background cells CD45 (RP2/18) negative CD79a (11E3) negative CD138 (B-A38) positive [place] (polyclonal) positive Lambda (polyclonal) negative CD10 (56C6) negative CD23 (1B12) negative BCL-2 (bcl-2/100/D5) positive BCL-6 (SE866J/A8) negative [place] D1/BCL-1 (SP4) positive, background cells MUM1 (MRQ-43) positive, background cells C-MYC (Y69) negative Ki-67 (30-9) positive, low P53 (DO-7) negative, null pattern Block B AE1-3 (AE1/AE3/PCK26) negative CD3 (PS1) negative CD5 (SP10) negative CD20 (L26) negative CD43 (L60) positive, background cells CD45 (RP2/18) negative CD79a (11E3) negative CD138 (B-A38) positive [place] (polyclonal) positive Lambda (polyclonal) negative CD10 (56C6) negative CD23 (1B12) negative BCL-2 (bcl-2/100/D5) positive, background cells BCL-6 (HM824R/A8) negative [place] D1/BCL-1 (SP4) positive, background cells MUM1 (MRQ-43) positive, background cells C-MYC (Y69) negative Ki-67 (30-9) negative P53 (DO-7) negative, null pattern These tests were developed and their performance characteristics determined by [facility]. They may not have been cleared or approved by the U.S. Food and Drug Administration. The FDA has determined that such clearance or approval is not necessary. The above immunohistochemical/dualISH markers are ordered and reviewed by the Pathologist. INTERPRETATION: A. Bone marrow core: [place] restricted plasma cell neoplasm. B. Bone marrow clot: [place] restricted plasma cell neoplasm. AM:tari 11/02/2023
[2023-11-17 14:40] LABS: Miscellaneous Lab Procedure See Pathology Report
[2023-11-17 14:41] LABS: Miscellaneous Lab Procedure 2 See Pathology Report; Miscellaneous Lab Procedure 3 See Pathology Report; Miscellaneous Lab Procedure 4 See Pathology Report
== END 2023-10-29 23:59 | disposition home or self-care (01) ==
LOC: CT 08:41
PROVIDERS: PCP Family Medicine Geriatric Medicine; Referring Provider Internal Medicine Medical Oncology; Visit Provider Internal Medicine Medical Oncology
DX: Z01.818 Encounter for other preprocedural examination (principal); D61.818 Other pancytopenia; I48.11 Longstanding persistent atrial fibrillation; M85.88 Other specified disorders of bone density and structure, other site; G47.33 Obstructive sleep apnea (adult) (pediatric)
CPT/HCPCS: 38222; 36415; 77012; 85025; 85610; 85730; 88305; 88311; 88313; 88341; 88342; 99156; J7050; A4216

== ENCOUNTER 2023-12-01 10:56 | Outpatient (CLI) | payer MEDICARE, OTHER, SELFPAY ==
--- NOTE | 2023-12-01 11:00 | US_ITS ---
STUDY: SCROTUM ULTRASOUND REASON FOR EXAM: Male, 78 years old. SWELLING OF TESTICLES TECHNIQUE: Ultrasound evaluation of the scrotum was performed with color Doppler and static coates-scale imaging. COMPARISON: None. FINDINGS: RIGHT TESTICLE INTRATESTICULAR: There is a normal size of the right testicle. The right testicle measures 4.3 x 2.2 x 2.7 cm. There is a homogenous echotexture. There is normal arterial and normal venous vascularity. There is no demonstrated right testicular mass or cyst. EXTRATESTICULAR: The epididymis is normal in size. The epididymis head measures 0.9 x 0.8 x 0.8 cm. There is normal vascularity of the epididymis. There is no demonstrated epididymal cystic structure. There is a large hydrocele. There is no demonstrated varicocele. There is no demonstrated complex cystic mass with focal echogenicity/calcification measuring 0.5 x 0.5 x 0.7 cm overall. Mass or cyst. LEFT TESTICLE INTRATESTICULAR: There is a normal size of the left testicle. The left testicle measures 3.4 x 2.2 x 2.2 cm. There is a homogenous echotexture. There is normal arterial and normal venous vascularity. There is no demonstrated left testicular mass or cyst. EXTRATESTICULAR: The epididymis is normal in size. The epididymis head measures 1.0 x 1.2 x 1.1 cm. There is normal vascularity of the epididymis. Epididymal cyst measures 0.9 x 0.8 x 0.8 cm. There is a large hydrocele. There is no demonstrated varicocele. Hyperechoic extratesticular lesion measures 0.4 x 0.4 x 0.5 cm. US/Testicular with Arterial Flow IMPRESSION: Large bilateral hydroceles. Probable bilateral scrotal pearls. Electronically Signed: Isacc Spencer MD at 20:07 EDT ,
== END 2023-12-01 23:59 | disposition home or self-care (01) ==
LOC: US 10:59
PROVIDERS: PCP Family Medicine Geriatric Medicine; Referring Provider Internal Medicine Medical Oncology; Visit Provider Internal Medicine Medical Oncology
DX: N50.89 Other specified disorders of the male genital organs (principal); N43.3 Hydrocele, unspecified
CPT/HCPCS: 76870; 93976

== ENCOUNTER → 2023-12-02 | Outpatient (CLI) | payer MEDICARE, OTHER, SELFPAY ==
[2023-12-02 14:26] LABS: Vitamin B12 579 pg/mL (211-911)
--- NOTE | 2023-12-02 14:40 | RAD_ITS ---
INDICATION: ESCALONA EXAMINATION/TECHNIQUE: X-RAY - XR Chest 2 Views COMPARISON: Prior study dated: 04/05/2020 FINDINGS: LINES/DEVICES: None. LUNGS: No consolidation, edema or effusion. No pneumothorax. MEDIASTINUM AND CARDIOVASCULAR STRUCTURES: Cardiac silhouette not enlarged. Atherosclerotic calcifications of the aortic arch. Central airways and mediastinal contour are unremarkable. BONES AND SOFT TISSUES: No demonstrated acute osseous changes. RAD/Chest PA and Lateral IMPRESSION: No radiographic evidence of acute cardiopulmonary disease. Electronically Signed: Olvin Garza MD at 9:20 EDT ,
[2023-12-02 14:49] LABS: Absolute Lymphocyte Count 0.94 X10^3/uL (0.83-4.51); Absolute Neutrophil Count 0.7 X10^3/uL (2.0-7.7); Eosinophil# 0.07 X10^3/uL; Hematocrit 19.3 % (40-54); Hemoglobin 6.2 g/dL (13.0-16.5); Lymphocyte # 0.94 X10^3/ul (0.83-4.51); Lymphocyte % 53.1 % (19-41); Mean Corp Hgb Conc 32.1 g/dL (32-36); Mean Corpuscular Hgb 37.8 pg (27.0-32.0); Mean Corpuscular Volume 117.7 fL (80-94); Mean Platelet Vol. 11.3 fl (6.2-12.0); Monocyte# 0.03 X10^3/uL; Monocyte% 1.7 % (0-10); NRBC Flagged by Analyzer 2.3 % (0-5); Neutrophil # 0.71 X10^3/uL (2.7-7.7); Neutrophil % 40.1 % (47-70); POSITIVE DIFFERENTIAL YES; Platelet Count 144 K/mm3 (150-450); RBC Distribution Width CV 14.9 % (11.6-14.6); RBC Distribution Width SD 62.1 fl (35.1-43.9); Red Blood Count 1.64 M/mm3 (4.6-6.2); White Blood Count 1.8 K/mm3 (4.4-11.0)
[2023-12-02 14:50] LABS: Differential Indicated SCAN CRITERIA MET
[2023-12-02 15:29] LABS: Hemoglobin A1c 6.7 % (3.8-5.6)
[2023-12-02 15:38] LABS: ALB/GLOB Ratio 0.8 RATIO (0.9-2.4); AST(SGOT) 13 U/L (15-37); Alanine Aminotransfer ALT/SGPT 14 U/L (16-61); Albumin, Serum 2.8 g/dL (3.2-5.0); Alkaline Phosphatase 38 U/L (45-117); Anion Gap 9 (5-15); BUN 26 mg/dL (7-18); BUN/Creat Ratio 18.3 RATIO (10-20); Calcium,Total 9.3 mg/dL (8.5-10.1); Chloride 104 mmol/L (98-107); Creatinine, Serum 1.42 mg/dL (0.70-1.30); EST Glomerular Filtration Rate 51 mL/min (>60); Est Glom Filt Rate - Afr Amer 62 mL/min (>60); Globulin 3.6 g/dL (2.2-4.2); Glucose 216 mg/dL (74-106); Potassium 3.6 mmol/L (3.5-5.1); Protein, Total 6.4 g/dL (6.4-8.2); Sodium Level 137 mmol/L (136-145); Thyroid Stim Hormone (TSH) 0.63 uIU/mL (0.358-3.74)
[2023-12-02 15:43] LABS: Differential Comment SCANNED
== END | disposition home or self-care (01) ==
PROVIDERS: PCP Family Medicine Geriatric Medicine; Referring Provider Family Medicine Geriatric Medicine; Visit Provider Family Medicine Geriatric Medicine
DX: E11.65 Type 2 diabetes mellitus with hyperglycemia (principal); E53.8 Deficiency of other specified B group vitamins; I10 Essential (primary) hypertension; D50.9 Iron deficiency anemia, unspecified
CPT/HCPCS: 36415; 71046; 80053; 82607; 83036; 84443; 85025

== ENCOUNTER 2023-12-04 07:51 | Outpatient (CLI) | payer MEDICARE, OTHER, SELFPAY ==
[2023-12-04] VITALS (7 sets, daily range): BP systolic 97–125; BP diastolic 54–67; PULSE 80–142; RESP 16; TEMP 35.7–36.2; O2SAT 98–100; BMI 32.4
[2023-12-04] MEDS: 0.9% Normal Saline (500mL Bag) 500 ML 15 ML IV (08:03)
[2023-12-04] MEDS: 0.9% NaCl Peripheral Flush Adult/Peds IV (08:04)
[2023-12-04] MEDS: Furosemide 20 MG/2 ML VIAL IV (10:33)
== END 2023-12-04 07:52 | disposition home or self-care (01) ==
PROVIDERS: PCP Family Medicine Geriatric Medicine; Referring Provider Family Medicine Geriatric Medicine; Visit Provider Family Medicine Geriatric Medicine
DX: D62 Acute posthemorrhagic anemia (principal)
CPT/HCPCS: 96374; 36415; 36430; 86850; 86900; 86901; 86920; 86922; J7040; P9016; A4216; J1940

== ENCOUNTER 2023-12-08 08:33 | Day surgery (SDC) | payer MEDICARE, OTHER, SELFPAY ==
[2023-12-08] VITALS (7 sets, daily range): BP systolic 118–148; BP diastolic 62–88; PULSE 92–119; RESP 17–24; TEMP 35.8–36.4; O2SAT 98–100; BMI 31.3
--- NOTE | 2023-12-08 | IMM_PTH ---
PATIENT: JOHNATHAN CURIEL Jr. LOC: [facility] [place] U#:[id number] AGE/SX: 78/M ROOM: RE12/08/[address]: Dr. Scott Moraes MD : 1945 BED: DIS: 12/08/2023 SPEC #: [id number] RECD: 12/09/23 12:09 STATUS: CRISTIN REQ #: [id number] KALEIGH: 12/08/23 00:[address]: Scott Moraes DEPT: IMMUNOHISTOCHEMISTRY RECD BY: Clint Rasheed ENTERED: 12/09/23 12:11 SP TYPE: IMMUNO OTHR DR: Dr. Noble Peter MD Tissues: Lymph node, NOS Procedures: CD138 (add) CD20 (add) CD3 (add) CD43 (add) CD45 (add) CD5 (add) CD79A (add) CK8 (add) KAPPA (add) LAMBDA (add) Pankeratin (initial) PHYSICIAN & [address] [address] SPECIMEN INFORMATION: Tissue Source: Right inguinal lymph node Clinical Info: Lymphadenopathy, inguinal Specimen Number: [id number] (block #2) CPT code: 21409,03827g70 METHODOLOGY: Deparaffinized sections of prefer/formalin-fixed tissue or PAP/DQ stained slides are incubated with monoclonal/polyclonal antibodies/oligonucleotide probes. Localization is made via biotin free immunoperoxidase method. Appropriate controls are performed and reacted as expected. Results on target cell population are indicated in the following table: RESULTS: ANTIBODY / CLONE RESULT Block #2 AE1-3 (AE1/AE3/PCK26) negative CK8 (80nymgM01) negative CD3 (PS1) positive CD5 (SP10) positive CD20 (L26) positive CD43 (L60) positive CD45 (RP2/18) positive CD79a (11E3) positive CD138 (B-A38) positive [place] (polyclonal) positive Lambda (polyclonal) positive These tests were developed and their performance characteristics determined by [facility]. They may not have been cleared or approved by the U.S. Food and Drug Administration. The FDA has determined that such clearance or approval is not necessary. The above immunohistochemical/dualISH markers are ordered and reviewed by the Pathologist. INTERPRETATION: Right inguinal lymph node, excisional biopsy: Benign lymph node tissue with reactive lymphoid hyperplasia. Plasma cells are polytypic in nature. Negative for metastatic carcinoma. SJ/mr 12/10/2023
--- NOTE | 2023-12-08 08:38 | HP.PCM_ITS ---
History and Physical Date of Admission: 12/08/23 Intake Vital Signs 11/25/2408:04 12/02/2412:03 Height 5 ft 10 in BP 115/70 Blood Pressure Location Rt brachial Position Sitting Respiration 17 Pulse 120 H Pulse Source Monitor Pulse Oximetry (%) 99 Oxygen Delivery Method room air Intake Visit Reasons: R GROIN LYMPH NODE BIOPSY Chief Complaint: right groin lymph node Is patient in pain?: No Allergies No Known Drug Allergies Allergy (Verified 12/03/23 13:05) no known Medications alfuzosin 10 mg tablet,extended release 24 hr 10 mg PO DAILY@1730 08/31/13 [History Confirmed 12/03/23] rosuvastatin 40 mg tablet 40 mg PO DAILY 08/31/13 [History Confirmed 12/03/23] finasteride 5 mg tablet 5 mg PO DAILY 12/18/15 [History Confirmed 12/03/23] empagliflozin 25 mg tablet (Jardiance) 25 mg PO QDAY 12/21/17 [History Confirmed 12/03/23] artifi.tears(hypromellose)(PF) 0.3 % eye drops 1 drp ophthalmic (eye) DAILY PRN dry eye(s) 04/13/20 [History Confirmed 12/03/23] icosapent ethyl 1 gram capsule 2 g PO BID 04/13/20 [History Confirmed 12/03/23] metoprolol tartrate 50 mg tablet 50 mg PO BID 10/16/20 [History Confirmed 12/03/23] pantoprazole 20 mg tablet,delayed release 20 mg PO DAILY 10/16/20 [History Confirmed 12/03/23] tramadol 50 mg tablet 50 mg PO BID PRN pain 10/16/20 [History Confirmed 12/03/23] rivaroxaban 15 mg tablet 15 mg PO DAILY 07/25/21 [History Confirmed 12/03/23] baclofen 10 mg tablet 10 mg PO DAILY 07/24/22 [History Confirmed 12/03/23] dorzolamide 22.3 mg-timolol 6.8 mg/mL eye drops 1 drp ophthalmic (eye) BID 07/24/22 [History Confirmed 12/03/23] fluticasone 500 mcg-salmeterol 50 mcg/dose blistr powdr for inhalation (Advair Diskus) 1 inh inhalation Q12H #60 ea 12/25/22 [Rx Confirmed 12/03/23] fluticasone propionate 50 mcg/actuation nasal spray,suspension 2 spray intranasal DAILY #18.2 mL 12/25/22 [Rx Confirmed 12/03/23] dulaglutide 3 mg/0.5 mL subcutaneous pen injector (Trulicity) 3 mg subcut QWEEK 02/24/23 [History Confirmed 12/03/23] albuterol sulfate 90 mcg/actuation aerosol inhaler 2 puff inhalation Q6H PRN PRN Sob &/Or Wheezing #18 grams 03/19/23 [Rx Confirmed 12/03/23] azelastine 205.5 mcg (0.15 %) nasal spray 2 spray intranasal BID #30 mL 03/19/23 [Rx Confirmed 12/03/23] cetirizine 10 mg tablet 10 mg PO DAILY #90 tabs 07/14/23 [Rx Confirmed 12/03/23] insulin regular hum U-500 conc 500 unit/mL(3 mL) subcut pen (Humulin R U-500 (Conc) Insulin Kwikpen) See Rx Instructions subcut .COMPLEX 09/29/23 [History Confirmed 12/03/23] losartan 50 mg tablet 50 mg PO BID 10/13/23 [History Confirmed 12/03/23] furosemide 40 mg tablet 20 mg PO DAILY 10/14/23 [History Confirmed 12/03/23] PFSH Medical History Allergic rhinitis due to allergen Asthma Cervical radiculopathy CKD (chronic kidney disease) stage 3, GFR 30-59 ml/min DVT (deep venous thrombosis) (02/24/11) Essential hypertension Hyperlipidemia Hypersomnia Longstanding persistent atrial fibrillation New onset atrial fibrillation (04/17/20) Obesity DEYANIRA (obstructive sleep apnea) Osteoarthritis Other pancytopenia Right bundle branch block (RBBB) Type 2 diabetes mellitus Vitamin D deficiency Surgical History back injections bilateral eyelid lift broken nose repair C6-7 fusion fusion at C4-5 & C 6-7 H/O colonoscopy History of left heart catheterization (2006) Hx of cholecystectomy laminectomy with decompression at R Neuropathy of right radial nerve Partial at L L2-3 : L L3-4 Partial at L L5-S1 R forearm surgery x 3 Ulnar neuropathy at elbow Family History Daughter AsthmaGrandmother AsthmaSister Asthma COPD (chronic obstructive pulmonary disease)Mother Pancreatic cancerBrother Myocardial infarction Cancer CAD (coronary artery disease) Social History Smoking Status: Former smoker quit date: 08/17/76 second hand exposure: No alcohol intake: never substance use type: does not use caffeine: Yes Type: coffee what type of physical activity do you participate in: none HPI HPI HPI: Patient is a 78-year-old male here for enlarged right inguinal lymph node. It is mildly tender. He has been having pancytopenia for several months. A PET scan was performed which showed increased enhancement in the right inguinal region. He was sent here for biopsy. ROS General General: No weight change, appetite, fatigue, colon cancer, breast cancer or weakness HEENT HEENT: No difficulty swallowing, eye injury, eye surgery, swollen glands or hoarseness Endo Endocrine: No thyroid disease, diabetes mellitus, thyroid cancer, Hair loss, heat intolerance or cold intolerance Skin Skin: No rash or changing moles Musc Musculoskeletal: No back problems, arthritis, rheumatoid arthritis, gout or joint pain Cardio Cardiovascular: No murmur, pacemaker, heart disease, atrial fibrillation, high blood pressure, heart attack, heart stent, palpitations, shortness of breat with exertion or chest pain Psych Psychiatric: No depression, anxiety or hearing voices Resp Respiratory: No shortness of breath, No sleep apnea, No cough, No COPD, No asthma, No emphysema and No wheezing Gastro Gastrointestinal: No abdominal pain, No nausea or vomiting, No diarrhea, No constipation, No blood in stool, No acid reflux, No hemorrhoids, No ulcers, No gallbladder problem and No black,tarry stools [place] Hematologic: No blood thinners, No blood disorders, No bleeding, No anemia and No blood clots Neuro Neurologic: No system reviewed and no additional complaints, except as documented, No as per HPI, No abnormal gait, No abnormal hearing, No abnormal movements, No abnormal speech, No behavioral changes, No burning sensations, No confusion, No convulsions, No disequilibrium, No dizziness, No localized weakness, No frequent falls, No headache(s), No lack of coordination, No loss of vision, No memory loss, No numbness, No other visual disturbances, No radicular pain, No restless legs, No sensory deficit, No syncope, No tingling, No tremor(s), No weakness and No other Exam Const General: cooperative Orientation: alert and oriented x3 HENMT Head: normal to inspection Neck Neck: normal visual inspection and full ROM Chest Chest palpation & inspection: normal inspection of the chest Resp Effort & Inspection: normal respiratory effort Auscultation: clear to auscultation bilaterally Cardio Rate: regular rate Rhythm: regular rhythm GI Inspection: non-distended Palpation: soft and nontender Other: Lymphadenopathy in the right groin Skin General: no rashes or lesions noted Neuro General: patient alert and patient oriented x3 Extrem General: full ROM Psych Appearance: grossly normal Mental Status: mental status grossly normal Assessment and Plan Assessment and Plan (1) Lymphadenopathy, inguinal: Status: Acute Comment: R/O Lymphoma Plan: I was consulted to get a biopsy of inguinal lymph node for diagnosis. I saw him today to discuss surgery. I felt his right groin and there are several palpable lymph nodes that are mobile. I discussed performing excisional biopsy of the lymph nodes in the operating room. I discussed the risks including not limited to bleeding, infection, injury to underlying organs. Patient is severely anemic with a hemoglobin of 6.2 and I discussed this with his PCP and he is being gamez sfused tomorrow. I will plan for surgery next week. Scott Moraes MD Pager: [facility] [address] [place] [address], [address] [place] [address] Office: I have examined the patient and the H&P has been reviewed. There are no clinical changes since date of exam.
--- NOTE | 2023-12-08 08:58 | EKG12_ITS ---
Test Reason : PRE OP Blood Pressure : / mmHG Vent. Rate : 105 BPM Atrial Rate : 000 BPM P-R Int : 000 ms QRS Dur : 140 ms QT Int : 380 ms P-R-T Axes : 000 -64 005 degrees QTc Int : 502 ms Atrial fibrillation with rapid ventricular response Left axis deviation Right bundle branch block Septal infarct , age undetermined Abnormal ECG When compared with ECG of 08-MAR-2012 14:25, Atrial fibrillation has replaced Sinus rhythm Right bundle branch block is now Present Septal infarct is now Present Confirmed by JENNA MARTINI, ELIN ([id number]), business editor ALEXANDER JOHNSTON ([id number]) on 12/14/2023 2:05:52 PM Referred By: Scott Moraes Confirmed By:ELIN WEST MD
[2023-12-08] MEDS: Lactated Ringers 1,000 ML 15 ML IV (09:48)
[2023-12-08] MEDS: Metoprolol Tartrate 5 MG/5 ML Vial IV (09:49)
[2023-12-08 09:56] LABS: Bedside Glucose 240 mg/dL (74-106)
[2023-12-08] MEDS: Cefazolin 2 GM in 0.9% Normal Saline (100mL Bag) 100 ML IV (10:19)
--- NOTE | 2023-12-08 10:30 | LYM_PTH ---
PATIENT: JOHNATHAN CURIEL Jr. LOC: [facility] [place] U#:[id number] AGE/SX: 78/M ROOM: RE12/08/[address]: Dr. Scott Moraes MD : 1945 BED: DIS: 12/08/2023 SPEC #: [id number] RECD: 12/08/23 10:55 STATUS: CRISTIN REJacek #: [id number] KALEIGH: 12/08/23 10:[address]: Scott Moraes DEPT: SURGICAL PATHOLOGY RECD BY: Daphne Mulligan ENTERED: 12/08/23 11:24 SP TYPE: LYM NODES OTHR DR: Dr. Noble Peter MD Tissues: Lymph node of pelvis, NOS Procedures: Special Stain Group II Special Stain Group I Surgery Specimen Level V GMS Stain (control) Diff Quik Stain (control) Imprint (control) HEADER OPERATION: Excision, right groin excisional lymph node biopsy PRE-OP DIAGNOSIS: Lymphadenopathy, inguinal TISSUE SUBMITTED: Right inguinal lymph node for fresh MICROSCOPIC DIAGNOSIS Right inguinal lymph node, biopsy: Benign lymph nodes with extensive geographic necrosis including fat necrosis. See comment. DARRYN/ 12/09/2023 COMMENT Immunohistochemistry ([id number]) supports the above diagnosis. Special stain for acid fast bacilli and fungi is negative for organisms; matched controls are appropriate. Flow cytometric study from [employer] shows no evidence of a B-cell or T-cell lymphoma. Plasma cells are detected without definite light chain restriction. Complete report is viewable in patient's EMR. Please make reference to previous specimen [id number] bone marrow biopsy, clot and aspiration diagnosis of bone marrow involved by plasma cell dyscraisa / plasma cell neoplasm. Correlation with clinical findings and appropriate follow up are necessary. The specimen is evaluated at the time of touch imprints by Dr. Jimenez. Touch imprint evaluation: Lymphocytes and plasma cells noted. MICROSCOPIC DESCRIPTION Slides are reviewed. GROSS DESCRIPTION Received fresh for frozen section consultation/diagnosis labeled with the patient's name is a specimen designated Right inguinal lymph node. The specimen consists of two pink-cheek nodules measuring 2.0 x 1.5 x 1.0cm and 1.0 x 0.5 x 0.5cm. Sections reveal focal cheek pink and yellowish cut surfaces. Two sections are submitted for cytometric study. Two touch imprints are prepared at the time of core biopsy. The entire specimen is submitted in three cassettes.Hosea 12/08/23 TC:5 CPT:47515,55907,22118
[2023-12-08] MEDS: Lidocaine 1% (30 ml sdv) 30 ML Vial (10:50)
[2023-12-08] MEDS: Bupiv/Epi 0.25% 30 ML Vial (10:53)
--- NOTE | 2023-12-08 11:35 | PCM.OPRPT ---
Report of Operation Date of Procedure: 12/08/23 Pre-Operative Diagnosis: Right inguinal lymphadenopathy Post-Operative Diagnosis: Same Surgery/Procedure Performed:: Right inguinal excisional biopsy of lymph node Type of Anesthesia: Local MAC Specimen's removed: Right inguinal lymph node Estimated Blood Loss (mL): 5 Description of Procedure: Patient was brought back to the operating room and MAC anesthesia was induced. The right groin was prepped and draped in usual sterile fashion. Ultrasound was used to localize the lymph node and then an area of skin was marked over this. Next the skin incision was injected with local anesthetic and then incised with a scalpel. Using blunt dissection I was able to feel the lymph node in the leg. Using harmonic scalpel I was able to come around the lymph node and dissected free and sent it for pathology. The cavity was irrigated and suctioned dry and there was good hemostasis. The incision was closed with interrupted 3-0 Vicryl sutures and a running 4-0 Monocryl suture. Dermabond was applied. Patient was awoken and taken to PACU in stable condition. Patient tolerated the procedure well. Grafts/Implants Used: Right inguinal lymph node Admit VTE Documentation VTE Mechan Device Prophylaxis: SCD's
--- NOTE | 2023-12-08 11:37 | DCINST_ITS ---
Discharge Instructions Diet Discharge Diet: No restrictions Activity Discharge Activity: Return to Normal Activity and May Shower Lifting Restrictions: None Dressing / Incision Call your doctor if your incision/area has: Continuous Slow Oozing, Sudden Increased Bleeding, Increased Pain/ Swelling, Increased Redness, Foul Smelling Discharge and Swelling at the incision site Call your doctor if you observe: Fever of 101 or Higher Cleanse incision/area with: Soap & Water Additional Dressing/Incision Instructions:: Alternate ibuprofen and Tylenol for pain control Resume Xarelto tomorrow. Follow Up Care Please Follow Up With: Scott Moraes MD When: Please call to schedule 2 week follow up appointment. [phone] Test Results: Test results from this visit will be discussed in further detail at your follow- up appointment, if applicable. Discharge Plan Admission Attending Provider: Scott Moraes Primary Care Provider: Noble Peter Chi Discharge Orders/Prescriptions Prescriptions: No Action empagliflozin [Jardiance] 25 mg tablet 25 mg PO QDAY pantoprazole 20 mg tablet,delayed release (DR/EC) 20 mg PO DAILY furosemide 40 mg tablet 20 mg PO DAILY Patient Comments: take 1 tablet by mouth daily and additional 40 mg as needed icosapent ethyl 1 gram capsule 2 g PO BID tramadol 50 mg tablet 50 mg PO BID PRN (Reason: pain) baclofen 10 mg tablet 10 mg PO DAILY PRN PRN (Reason: muscle spasm) Xarelto 15 mg tablet 15 mg PO DAILY Patient Comments: take 1 tablet by mouth once daily losartan 50 mg tablet 50 mg PO BID Hold Instructions: Ordered dorzolamide-timolol 22.3-6.8 mg/mL drops 1 drp ophthalmic (eye) BID Trulicity 3 mg/0.5 mL pen injector 3 mg subcut TH Patient Comments: INJECT 3 MG UNDER THE SKIN ONCE A WEEK fluticasone propionate 50 mcg/actuation spray,suspension 2 spray intranasal DAILY Qty: 18.2 11RF Rx Instructions: administer into each nostril fluticasone propion-salmeterol [Advair Diskus] 500-50 mcg/dose blister with device 1 inh INHALATION Q12H Qty: 60 11RF Humulin R U-500 (Conc) Kwikpen 500 unit/mL (3 mL) insulin pen 140 unit subcut DAILY rosuvastatin 40 MG tablet 40 mg PO DAILY alfuzosin 10 MG tablet 10 mg PO DAILY@1730 metoprolol tartrate 50 mg tablet 50 mg PO BID Hold Instructions: MD Ordered finasteride 5 MG tablet 5 mg PO DAILY Humulin R U-500 (Conc) Kwikpen 500 unit/mL (3 mL) insulin pen 75 unit subcut QHS albuterol sulfate 90 mcg/actuation HFA aerosol inhaler 2 puff INHALATION Q6H PRN PRN (Reason: Sob &/Or Wheezing) Qty: 18 3RF azelastine 205.5 mcg (0.15 %) spray,non-aerosol 2 spray INTRANASAL BID Qty: 30 5RF cetirizine 10 mg tablet 10 mg PO DAILY Qty: 90 3RF Referrals / Follow Up: Noble Peter Chi, MD [Primary Care Provider] - Disposition Disposition (needs filled in before D/C Order can be placed): Home, Self Care
--- NOTE | 2023-12-08 12:12 | CT_ITS ---
STUDY: CT BRAIN WITH AND WITHOUT CONTRAST REASON FOR EXAM: Male, 78 years old. MENTAL STATUS CHANGE. Patient is anemic. History of lymphoma. RADIATION DOSAGE (If Supplied By Facility): CTDIvol = ( 44.99 ) mGy, DLP = ( 1715.95 ) mGycm TECHNIQUE: Transaxial CT imaging of the brain was performed pre and post contrast administration. The examination was performed with intravenous administration of IV 50mL Isovue-370. Individualized dose optimization techniques were used for this CT. COMPARISON: None. FINDINGS: Normal soft tissue structures. There is hyperostosis frontalis internus. There is mild cerebral atrophy with widening of the extra-axial spaces and ventricular dilatation. There are areas of decreased attenuation within the white matter tracts of the supratentorial brain, consistent with microvascular disease changes. Normal basal ganglia and thalami. Normal brainstem. Normal cerebellum. There is no intracranial hemorrhage. There are no findings of an acute ischemic infarction. Atherosclerotic plaque formation of the cavernous portions of the internal carotid arteries Normal visualized paranasal sinuses. CT/Brain/Head W/WO Contrast IMPRESSION: Chronic involutional changes of the brain. Electronically Signed: Lasha Esquivel MD at 12:51 EDT ,
== END 2023-12-08 12:40 | disposition home or self-care (01) ==
LOC: SDC 08:34 → AC 08:35
PROVIDERS: PCP Family Medicine Geriatric Medicine; Referring Provider Surgery; Visit Provider Surgery
PROC: (CPT 38500; principal; 2023-12-08 10:15)
DX: R59.0 Localized enlarged lymph nodes (principal); D61.818 Other pancytopenia; I48.91 Unspecified atrial fibrillation; E11.22 Type 2 diabetes mellitus with diabetic chronic kidney disease; N18.30 Chronic kidney disease, stage 3 unspecified; E78.5 Hyperlipidemia, unspecified; Z79.84 Long term (current) use of oral hypoglycemic drugs; Z87.891 Personal history of nicotine dependence; I12.9 Hypertensive chronic kidney disease with stage 1 through stage 4 chronic kidney disease, or unspecified chronic kidney disease; G47.33 Obstructive sleep apnea (adult) (pediatric); I45.10 Unspecified right bundle-branch block
CPT/HCPCS: 38531; 00840; 70470; 82962; 88307; 88312; 88313; 88341; 88342; 93005; J7120; Q9967

== ENCOUNTER → 2023-12-10 | Outpatient (CLI) | payer MEDICARE, OTHER, SELFPAY ==
[2023-12-10 12:38] LABS: Absolute Lymphocyte Count 1.04 X10^3/uL (0.83-4.51); Absolute Neutrophil Count 0.8 X10^3/uL (2.0-7.7); Basophil# 0.01 X10^3/uL; Basophil% 0.5 % (0-1); Differential Indicated SCAN CRITERIA MET; Eosinophil# 0.06 X10^3/uL; Eosinophils% 3.1 % (0-5); Hematocrit 26.8 % (40-54); Hemoglobin 8.7 g/dL (13.0-16.5); Lymphocyte # 1.04 X10^3/ul (0.83-4.51); Lymphocyte % 53.1 % (19-41); Mean Corp Hgb Conc 32.5 g/dL (32-36); Mean Corpuscular Hgb 35.5 pg (27.0-32.0); Mean Corpuscular Volume 109.4 fL (80-94); Mean Platelet Vol. 11.3 fl (6.2-12.0); Monocyte# 0.02 X10^3/uL; Neutrophil # 0.83 X10^3/uL (2.7-7.7); Neutrophil % 42.3 % (47-70); POSITIVE DIFFERENTIAL YES; POSITIVE MORPHOLOGY YES; Platelet Count 129 K/mm3 (150-450); RBC Distribution Width SD 75.9 fl (35.1-43.9); Red Blood Count 2.45 M/mm3 (4.6-6.2)
[2023-12-10 13:34] LABS: Anisocytosis 2+; Differential Comment SCANNED; Macrocytosis 1+; Microcytosis 1+
== END | disposition home or self-care (01) ==
PROVIDERS: PCP Family Medicine Geriatric Medicine; Referring Provider Family Medicine Geriatric Medicine; Visit Provider Family Medicine Geriatric Medicine
DX: I10 Essential (primary) hypertension (principal)
CPT/HCPCS: 36415; 85025

== ENCOUNTER → 2023-12-21 | Outpatient (CLI) | payer MEDICARE, OTHER, SELFPAY ==
--- NOTE | 2023-12-21 08:42 | US_ITS ---
STUDY: ABDOMINAL ULTRASOUND - RIGHT UPPER QUADRANT; ELASTOGRAPHY REASON FOR VISIT: Male, 78 years old. Plasma cell dyscrasia. TECHNIQUE: Ultrasound evaluation of the right upper quadrant was performed with real-time and static coates-scale imaging. Point quantification shear wave elastography was performed (c-LEcta). TECHNICAL QUALITY: Adequate. COMPARISON: None. FINDINGS: Liver: The liver is enlarged and measures 18.7 cm. There is increased echogenicity consistent with fatty infiltration. The bile ducts are within normal limits. There is hepatic color flow. The direction of portal flow is hepatopetal. There is no demonstrated mass lesion. Median liver stiffness measured 8.9 kPa. Gallbladder: The patient is status post cholecystectomy. Common Bile Duct (C.B.D.): The common bile duct measures 4.5 mm. Pancreas: There is increased echogenicity of the pancreas. There is no demonstrated pancreatic mass or cyst. Right Kidney: Normal size of the right kidney. The right kidney measures 10.8 cm x 6 cm x 5.6 cm. Normal renal cortex. The right cortex measures 1.2 cm. There is no demonstrated renal mass or cyst. There is no right hydronephrosis. US/ABD Limited w/ Elastography IMPRESSION: 1. Liver stiffness measures 8.9 kPa compatible with F2-F3 (Mild to moderate liver fibrosis) Metavir score. Electronically Signed: Lasha Esquivel MD at 8:29 EDT ,
== END | disposition home or self-care (01) ==
LOC: US 08:41
PROVIDERS: PCP Family Medicine Geriatric Medicine; Referring Provider Internal Medicine Medical Oncology; Visit Provider Internal Medicine Medical Oncology
DX: E88.09 Other disorders of plasma-protein metabolism, not elsewhere classified (principal); D61.818 Other pancytopenia; D89.89 Other specified disorders involving the immune mechanism, not elsewhere classified
CPT/HCPCS: 76705; 76981

== ENCOUNTER → 2023-12-30 | Outpatient (CLI) | payer MEDICARE, OTHER, SELFPAY | END | disposition home or self-care (01) | LOC: PSN 08:04 | PROVIDERS: PCP Family Medicine Geriatric Medicine; Referring Provider Nurse Practitioner Family; Visit Provider Nurse Practitioner Family | DX: I48.11 Longstanding persistent atrial fibrillation (principal) | CPT/HCPCS: 93225; 93226 ==

== ENCOUNTER → 2023-12-31 | Outpatient (CLI) | payer MEDICARE, OTHER, SELFPAY ==
[2023-12-31 13:57] LABS: Hematocrit 27.5 % (40-54)
== END | disposition home or self-care (01) ==
PROVIDERS: PCP Family Medicine Geriatric Medicine; Referring Provider Family Medicine Geriatric Medicine; Visit Provider Family Medicine Geriatric Medicine
DX: D62 Acute posthemorrhagic anemia (principal)
CPT/HCPCS: 36415; 85014; 85018

== ENCOUNTER 2024-02-20 03:02 | Emergency (ER) | payer MEDICARE, OTHER, SELFPAY ==
[2024-02-20 03:03] VITALS: BP 152/82; PULSE 63; RESP 18; TEMP 36.6; O2SAT 96
[2024-02-20 03:32] LABS: Bedside Glucose 377 mg/dL (74-106)
[2024-02-20 03:57] LABS: Blood Gas Specimen Type VEN; O2 Delivery Device Room Air; SITE Not entered; VBG BASE EXCESS -2 mmol/L (-1.0-3.5); VBG Bicarbonate 24 mmol/L (22-26); VBG PO2 40 mmHg (25-40); VBG SO2 73 % (50-70); VBG TCO2 25 mmol/L (23-33); VBG pCO2 41.3 mmHg (41-51); VBG pH 7.36 (7.32-7.42)
[2024-02-20 03:58] LABS: Bacteria 0 SEEN /hpf (None Seen); Mucous, Urine 0 SEEN /hpf (<or=2+); Red Blood Cells-Urine 0 SEEN /hpf (0-5); Squamous Epithelial Cells - UA 0 SEEN /hpf (0-5); White Blood Cells 0 SEEN /hpf (0-5)
[2024-02-20 04:00] LABS: Absolute Lymphocyte Count 0.68 X10^3/uL (0.83-4.51); Absolute Neutrophil Count 3.7 X10^3/uL (2.0-7.7); Basophil# 0.01 X10^3/uL; Basophil% 0.2 % (0-1); Hematocrit 35.9 % (40-54); Hemoglobin 11.4 g/dL (13.0-16.5); Lymphocyte # 0.68 X10^3/ul (0.83-4.51); Lymphocyte % 14.9 % (19-41); Mean Corp Hgb Conc 31.8 g/dL (32-36); Mean Corpuscular Hgb 35.6 pg (27.0-32.0); Mean Corpuscular Volume 112.2 fL (80-94); Mean Platelet Vol. 11.3 fl (6.2-12.0); Monocyte# 0.06 X10^3/uL; Monocyte% 1.3 % (0-10); NRBC Flagged by Analyzer 0 % (0-5); Neutrophil % 81.4 % (47-70); POSITIVE MORPHOLOGY YES; Platelet Count 181 K/mm3 (150-450); RBC Distribution Width CV 15.8 % (11.6-14.6); RBC Distribution Width SD 65.8 fl (35.1-43.9); White Blood Count 4.6 K/mm3 (4.4-11.0)
[2024-02-20 04:06] LABS: Differential Indicated SCAN CRITERIA MET
[2024-02-20 04:09] LABS: Color, Urine Yellow (Yellow); Glucose, Dipstick 1000 mg/dl (Normal); Ketone-Dipstick Negative (Negative); Leukocyte Esterase-Dipstick Negative /ul (Negative); Nitrite-Dipstick Negative (Negative); Occult Blood-Urine Negative /ul (Negative); Protein-Dipstick 15 mg/dl (Negative); Specific Gravity, Urine 1.015 (1.002-1.030); Urine Bilirubin Dipstick Negative (Negative); Urine Clarity Clear (Clear); Urine Urobilinogen Normal (Normal)
[2024-02-20 04:17] LABS: AST(SGOT) 27 U/L (15-37); Alanine Aminotransfer ALT/SGPT 40 U/L (16-61); Albumin, Serum 3.7 g/dL (3.2-5.0); Alkaline Phosphatase 45 U/L (45-117); Anion Gap 12 (5-15); BUN 39 mg/dL (7-18); BUN/Creat Ratio 28.1 RATIO (10-20); Bilirubin, Direct 0.25 mg/dL (0.00-0.30); Chloride 101 mmol/L (98-107); Creatinine, Serum 1.39 mg/dL (0.70-1.30); EST Glomerular Filtration Rate 52 mL/min (>60); Est Glom Filt Rate - Afr Amer 63 mL/min (>60); Globulin 3.7 g/dL (2.2-4.2); Glucose 372 mg/dL (74-106); Potassium 3.7 mmol/L (3.5-5.1); Protein, Total 7.4 g/dL (6.4-8.2); Sodium Level 137 mmol/L (136-145)
[2024-02-20 04:47] LABS: Anisocytosis 2+; Differential Comment SCANNED; Macrocytosis 2+; Polychromasia 1+
--- NOTE | 2024-02-20 05:08 | EX.ED.DYSGE1 ---
HPI History of Present Illness Chief Complaint: Hyperglycemia Informant: patient and friend Narrative Narrative: Patient is 79-year-old male with past medical history of hypertension hyperlipidemia persistent atrial fibrillation on Xarelto and insulin-dependent diabetes. He states that he checked his blood sugar this evening and it was elevated above 400 despite taking his normal medication. He states he waited for a few hours to see if the blood sugar would improve and it was not doing so so therefore he comes to the hospital for evaluation. He does state he has been on steroids but he has been on the medication since August and typically his blood sugars are not elevated while on it. He denies any signs or symptoms of infection such as cough nausea vomiting diarrhea or dysuria. He states that he was informed by his doctor that if his sugars remain elevated there is concern there could be a complication from the diabetes and to present to the ER for evaluation [facility] Medical History Loss of hearing Wears glasses Anxiety Ambulates with cane Insulin dependent diabetes mellitus Arthritis Prostate disease Anemia Hepatitis Restless legs Injury of back Injury of head and neck Syncope Dietary restriction Difficulty swallowing Gastric reflux Former smoker Shortness of breath on exertion History of pain when walking History of edema History of echocardiogram History of stress test Cardiology follow-up encounter History of atrial fibrillation Glaucoma Hx of fracture of wrist Hx of reduction of nasal fracture Other pancytopenia Longstanding persistent atrial fibrillation Obesity Right bundle branch block (RBBB) New onset atrial fibrillation (04/17/20) Osteoarthritis Essential hypertension Allergic rhinitis due to allergen CKD (chronic kidney disease) stage 3, GFR 30-59 ml/min Asthma DVT (deep venous thrombosis) (02/24/11) Cervical radiculopathy Hyperlipidemia Vitamin D deficiency Hypersomnia DEYANIRA (obstructive sleep apnea) Home Medications ?Medication ?Instructions ?Recorded ?Last Taken ?Type alfuzosin 10 mg tablet,extended 10 mg PO DAILY@1730 08/31/13 02/19/24 History release 24 hr rosuvastatin 40 mg tablet 40 mg PO DAILY 08/31/13 02/19/24 History finasteride 5 mg tablet 5 mg PO DAILY 12/18/15 02/19/24 History empagliflozin 25 mg tablet 25 mg PO QDAY 12/21/17 02/19/24 History (Jardiance) icosapent ethyl 1 gram capsule 2 g PO BID 04/13/20 02/19/24 History pantoprazole 20 mg tablet,delayed 20 mg PO DAILY 10/16/20 02/19/24 History release tramadol 50 mg tablet 50 mg PO BID PRN pain 10/16/20 02/19/24 History rivaroxaban 15 mg tablet 15 mg PO DAILY 07/25/21 02/19/24 History baclofen 10 mg tablet 10 mg PO DAILY PRN PRN muscle spasm 07/24/22 02/19/24 History dorzolamide 22.3 mg-timolol 6.8 1 drp ophthalmic (eye) BID 07/24/22 02/19/24 History mg/mL eye drops fluticasone 500 mcg-salmeterol 50 1 inh inhalation Q12H #60 ea 12/25/22 02/19/24 Rx mcg/dose blistr powdr for inhalation (Advair Diskus) fluticasone propionate 50 2 spray intranasal DAILY #18.2 mL 12/25/22 02/19/24 Rx mcg/actuation nasal spray,suspension dulaglutide 3 mg/0.5 mL 3 mg subcut TH 02/24/23 02/19/24 History subcutaneous pen injector ([facility]) albuterol sulfate 90 mcg/actuation 2 puff inhalation Q6H PRN PRN Sob 03/19/23 12/08/23 Rx aerosol inhaler &/Or Wheezing #18 grams azelastine 205.5 mcg (0.15 %) 2 spray intranasal BID #30 mL 03/19/23 02/19/24 Rx nasal spray cetirizine 10 mg tablet 10 mg PO DAILY #90 tabs 07/14/23 02/19/24 Rx insulin regular hum U-500 conc 500 140 unit subcut DAILY 09/29/23 02/19/24 History unit/mL(3 mL) subcut pen (Humulin R U-500 (Conc) Insulin Kwikpen) insulin regular hum U-500 conc 500 75 unit subcut QHS 12/07/23 02/19/24 History unit/mL(3 mL) subcut pen (Humulin R U-500 (Conc) Insulin Kwikpen) metoprolol tartrate 75 mg tablet 75 mg PO .COMPLEX #135 tabs 01/18/24 02/19/24 Rx dexamethasone 4 mg tablet 20 mg (5 x 4 mg) PO .weekly #20 01/21/24 02/19/24 Rx tabs terbinafine HCl 1 % topical cream applic topical BID 02/20/24 02/19/24 History Allergy/AdvReac Type Severity Reaction Status Date / Time No Known Drug Allergies Allergy no known Verified 02/17/24 11:31 Family History Daughter Asthma Grandmother Asthma Sister Asthma COPD (chronic obstructive pulmonary disease) Mother Pancreatic cancer Brother Myocardial infarction Cancer CAD (coronary artery disease) Surgical History History of bone marrow biopsy Hx of right cataract extraction Hx of left cataract extraction History of left heart catheterization (2006) 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 bilateral eyelid lift laminectomy with decompression at R Partial at L L2-3 : L L3-4 Hx of cholecystectomy Partial at L L5-S1 C6-7 fusion R forearm surgery x 3 H/O colonoscopy back injections Social History Smoking Status: Former smoker quit date: 08/17/76 second hand exposure: No alcohol intake: never substance use type: does not use caffeine: Yes Type: coffee what type of physical activity do you participate in: none ROS ROS ED Constitutional Constitutional ED: Denies chills or fever(s) Eyes Eyes: Denies change in vision ENT ENT ED: Denies rhinorrhea or sore throat Cardiovascular Cardiovascular: Denies chest pain Respiratory/Chest Respiratory/Chest: Denies cough or dyspnea Gastrointestinal Gastrointestinal: Denies abdominal pain, constipation, diarrhea, nausea or vomiting Genitourinary Genitourinary ED: Denies dysuria or hematuria Musculoskeletal Musculoskeletal: Denies myalgias Integumentary Denies rash Neurologic Neurologic: Denies headache(s) Hematologic/Lymphatic Hematologic/Lymphatic: Reports easy bleeding and easy bruising EXAM Physical Exam Const Vital Signs: 02/20/24 03:03 02/20/24 03:10 02/20/24 05:10 Temperature 97.9 F 98.7 F Temperature Source Temporal Pulse Rate 63 80 Respiratory Rate 18 18 Respiratory Effort Normal Non-Labored Respiratory Pattern Normal Blood Pressure 152/82 H 154/90 H Blood Pressure Mean 105 111 Pulse Ox 96 98 Oxygen Delivery Method Room Air Positive well nourished, well developed and obese General Appearance ED: well developed; Negative for pallor Nutritional Appearance: obese HEENT Reports dry mucous membranes HEENT Narrative: Mucous membranes are dry and tacky No tongue or lip swelling no oral lesions no airway edema or compromise No secondary findings in the posterior pharynx to suggest infection Mouth ED: Yes dry mucous membranes Mouth: dry mucous membranes Eyes PERRL and EOMs intact bilaterally General Eye ED: Negative for scleral icterus Neck supple and no JVD Neck Narrative: No nuchal rigidity or meningeal signs noted Resp normal respiratory effort and clear to auscultation bilaterally Resp Narrative: Breath sounds are diminished throughout but overall clear to auscultation without signs of distress Cardio regular rhythm Rate: other Other Details: Irregularly irregular rhythm with regular rate consistent with history of persistent atrial fibrillation GI normal to inspection, nondistended, normoactive bowel sounds, non-tender, non-distended and no masses GI Narrative: No voluntary guarding or rigidity or pulsatile mass Auscultation: normoactive bowel sounds Palpation: soft Extremity Extremity Narrative: +3 pitting edema to the bilateral lower extremities that is chronic equal and symmetric. Negative Homans' sign bilaterally Neuro oriented x3, CN's II-XII intact bilaterally and no sensory deficits noted Sensorium / Orientation: alert Psych mental status grossly normal Skin no rashes or lesions noted and no wounds General Skin Exam: Negative for jaundice or pallor MDM MDM MDM Narrative Medical decision making narrative: Patient arrived to the ER with stable vitals and was awake and alert. He reported that his blood sugar was reading high today despite taking his normal medication. We discussed how this could be related to potential infection process such as UTI or viral infection the patient denies any such symptoms. We also discussed how derangement to the blood sugar can lead to changes such as DKA or HHS. Secondary to his basic blood work was obtained. Patient's venous blood gas shows a pH of 7.36 going against DKA plus his bicarb is normal and his anion gap is not elevated. His serum osmolality level is 308 also going against HHS. He does not have a white count or fever and his urine shows no sign of infection. Therefore at this time he is simply hyperglycemic and will be given subcutaneous insulin and a sliding scale dose and is otherwise safe for discharge History & Record Review Discussion w/independent historian: Patient and Friend Lab Data Attestation: I reviewed the patient's lab results. Labs: Laboratory Results - last 24 hr 02/20/24 02/20/24 03:09 03:45 WBC 4.6 RBC 3.20 L Hgb 11.4 L Hct 35.9 L MCV 112.2 H MCH 35.6 H MCHC 31.8 L RDW Std Deviation 65.8 H RDW Coeff of Misa 15.8 H Plt Count 181 MPV 11.3 Immature Gran % (Auto) 2.200 H Neut % (Auto) 81.4 H Lymph % (Auto) 14.9 L Lander % (Auto) 1.3 Eos % (Auto) 0.0 Baso % (Auto) 0.2 Absolute Neuts (auto) 3.7 Absolute Lymphs (auto) 0.68 L Nucleated RBC % 0 Differential Comment SCANNED Polychromasia 1+ Anisocytosis 2+ Macrocytosis 2+ Sodium 137 Potassium 3.7 Chloride 101 Carbon Dioxide 24.0 Anion Gap 12 BUN 39 H Creatinine 1.39 H Est GFR (MDRD) Af Amer 63 Est GFR (MDRD) Non-Af 52 L BUN/Creatinine Ratio 28.1 H Glucose 372 H Calcium 10.0 Total Bilirubin 0.70 Direct Bilirubin 0.25 AST 27 ALT 40 Alkaline Phosphatase 45 Total Protein 7.4 Albumin 3.7 Globulin 3.7 Urine Color Yellow Urine Clarity Clear Urine pH 6.0 Ur Specific [place] 1.015 Urine Protein 15 H Urine Glucose (UA) 1000 H Urine Ketones Negative Urine Occult Blood Negative Urine Nitrite Negative Urine Bilirubin Negative Urine Urobilinogen Normal Ur Leukocyte Esterase Negative Urine RBC 0 SEEN Urine WBC 0 SEEN Ur Squamous Epith Cells 0 SEEN Urine Bacteria 0 SEEN Urine Mucus 0 SEEN Acetone Level NEGATIVE POC Glucose 377 H ABG Data ABG results: ABG 02/20/24 03:54 Specimen Type SAMINA Sample Site Not entered VBG pH 7.36 VBG pO2 40 VBG HCO3 24 VBG Total CO2 25 VBG O2 Sat (Calc) 73 H VBG Base Excess -2 L POC Mix VBG pCO2 Pt Tmp 41.3 O2 Delivery Device Room Air Discharge Plan Triage Chief Complaint: Hyperglycemia ED Provider: Lukasz Newman Dx/Rx/DC Orders Clinical Impression: Hyperglycemia, Essential hypertension, Longstanding persistent atrial fibrillation, Hyperlipidemia, Current use of intermediate anticoagulation, Insulin dependent diabetes mellitus Instructions: ED Diabetic Hyperglycemia Prescriptions: No Action empagliflozin [Jardiance] 25 mg tablet 25 mg PO QDAY pantoprazole 20 mg tablet,delayed release (DR/EC) 20 mg PO DAILY icosapent ethyl 1 gram capsule 2 g PO BID tramadol 50 mg tablet 50 mg PO BID PRN (Reason: pain) baclofen 10 mg tablet 10 mg PO DAILY PRN PRN (Reason: muscle spasm) Xarelto 15 mg tablet 15 mg PO DAILY Patient Comments: take 1 tablet by mouth once daily dorzolamide-timolol 22.3-6.8 mg/mL drops 1 drp ophthalmic (eye) BID Trulicity 3 mg/0.5 mL pen injector 3 mg subcut TH Patient Comments: INJECT 3 MG UNDER THE SKIN ONCE A WEEK fluticasone propionate 50 mcg/actuation spray,suspension 2 spray intranasal DAILY Qty: 18.2 11RF Rx Instructions: administer into each nostril fluticasone propion-salmeterol [Advair Diskus] 500-50 mcg/dose blister with device 1 inh INHALATION Q12H Qty: 60 11RF Humulin R U-500 (Conc) Kwikpen 500 unit/mL (3 mL) insulin pen 140 unit subcut DAILY dexamethasone 4 mg tablet 20 mg PO .weekly Qty: 20 2RF rosuvastatin 40 MG tablet 40 mg PO DAILY alfuzosin 10 MG tablet 10 mg PO DAILY@1730 finasteride 5 MG tablet 5 mg PO DAILY Humulin R U-500 (Conc) Kwikpen 500 unit/mL (3 mL) insulin pen 75 unit subcut QHS terbinafine HCl 1 % cream TOPICAL BID albuterol sulfate 90 mcg/actuation HFA aerosol inhaler 2 puff INHALATION Q6H PRN PRN (Reason: Sob &/Or Wheezing) Qty: 18 3RF azelastine 205.5 mcg (0.15 %) spray,non-aerosol 2 spray INTRANASAL BID Qty: 30 5RF cetirizine 10 mg tablet 10 mg PO DAILY Qty: 90 3RF metoprolol tartrate 75 mg tablet 75 mg PO .COMPLEX Qty: 135 3RF Rx Instructions: 75 mg orally; 37.5mg in AM and 75mg in PM Primary Care Provider: Noble Peter Chi Referrals: Noble Peter Chi, MD [Primary Care Provider] - Activity Restrictions/Additional Instructions: Your workup today revealed that you are hyperglycemic but there are no signs of infection or DKA or HHS. Continue your home medications as directed by your doctor and return to the ER should you have any further concerns Print Language: Sri Lankan Disposition Disposition: Home, Self Care
[2024-02-20 05:10] VITALS: BP 154/90; PULSE 80; RESP 18; TEMP 37.1; O2SAT 98
[2024-02-20] MEDS: Insulin Lispro 100 UNIT/ML INSULN.PEN 10 UNIT SC (05:18)
[2024-02-20 05:44] LABS: Bedside Glucose 313 mg/dL (74-106)
== END 2024-02-20 05:25 | disposition home or self-care (01) ==
PROVIDERS: Emergency Provider Emergency Medicine; PCP Family Medicine Geriatric Medicine; Visit Provider Emergency Medicine
DX: E11.65 Type 2 diabetes mellitus with hyperglycemia (principal); I48.11 Longstanding persistent atrial fibrillation; Z79.4 Long term (current) use of insulin; E11.22 Type 2 diabetes mellitus with diabetic chronic kidney disease; N18.30 Chronic kidney disease, stage 3 unspecified; I12.9 Hypertensive chronic kidney disease with stage 1 through stage 4 chronic kidney disease, or unspecified chronic kidney disease; Z87.891 Personal history of nicotine dependence; E78.5 Hyperlipidemia, unspecified; Z79.01 Long term (current) use of anticoagulants; Z79.899 Other long term (current) drug therapy; K21.9 Gastro-esophageal reflux disease without esophagitis; J45.909 Unspecified asthma, uncomplicated; Z79.51 Long term (current) use of inhaled steroids; Z79.85 Long-term (current) use of injectable non-insulin antidiabetic drugs
CPT/HCPCS: 80048; 80076; 81001; 82009; 82803; 82962; 85025; 96372; 99283

== ENCOUNTER → 2024-04-26 | Outpatient (CLI) | payer MEDICARE, OTHER, SELFPAY ==
--- NOTE | 2024-04-26 11:45 | RAD_ITS ---
INDICATION: IRWIN PNEUMONIA EXAMINATION/TECHNIQUE: X-RAY - XR Chest 2 Views COMPARISON: Prior study dated: 12/02/2023 FINDINGS: LINES/DEVICES: None. LUNGS: The lungs are well expanded. Increased markings are seen at the lung bases and right midlung peripherally. Small left pleural effusion. No edema. No pneumothorax. MEDIASTINUM AND CARDIOVASCULAR STRUCTURES: Cardiac silhouette not enlarged. Central airways and mediastinal contour are unremarkable. BONES AND SOFT TISSUES: No acute abnormality. Cervical fusion hardware. RAD/Chest PA and Lateral IMPRESSION: Increased lung markings could be infectious or inflammatory. Small left pleural effusion. Electronically Signed: Abdullahi Frias MD at 17:03 EDT ,
[2024-04-26 11:54] LABS: Absolute Lymphocyte Count 0.87 X10^3/uL (0.83-4.51); Absolute Neutrophil Count 1.1 X10^3/uL (2.0-7.7); Basophil# 0.01 X10^3/uL; Basophil% 0.5 % (0-1); Eosinophil# 0.01 X10^3/uL; Eosinophils% 0.5 % (0-5); Hematocrit 34.8 % (40-54); Hemoglobin 10.8 g/dL (13.0-16.5); Lymphocyte # 0.87 X10^3/ul (0.83-4.51); Mean Corpuscular Volume 106.4 fL (80-94); Monocyte# 0.05 X10^3/uL; Monocyte% 2.4 % (0-10); NRBC Flagged by Analyzer 0 % (0-5); Neutrophil # 1.13 X10^3/uL (2.7-7.7); Neutrophil % 54.6 % (47-70); POSITIVE MORPHOLOGY YES; Platelet Count 126 K/mm3 (150-450); RBC Distribution Width CV 15.7 % (11.6-14.6); RBC Distribution Width SD 60.6 fl (35.1-43.9); Red Blood Count 3.27 M/mm3 (4.6-6.2); White Blood Count 2.1 K/mm3 (4.4-11.0)
[2024-04-26 12:00] LABS: Differential Indicated SCAN CRITERIA MET
[2024-04-26 12:42] LABS: Anion Gap 7 (5-15); BUN 24 mg/dL (7-18); BUN/Creat Ratio 20.5 RATIO (10-20); Calcium,Total 9.8 mg/dL (8.5-10.1); Chloride 107 mmol/L (98-107); Creatinine, Serum 1.17 mg/dL (0.70-1.30); EST Glomerular Filtration Rate 64 mL/min (>60); Est Glom Filt Rate - Afr Amer 77 mL/min (>60); Glucose 176 mg/dL (74-106); Potassium 3.3 mmol/L (3.5-5.1); Sodium Level 141 mmol/L (136-145)
[2024-04-26 12:50] LABS: Atypical Lymphocyte 1+ %
== END | disposition home or self-care (01) ==
LOC: POLAB3 11:37
PROVIDERS: PCP Family Medicine Geriatric Medicine; Visit Provider Family Medicine Geriatric Medicine
DX: J18.9 Pneumonia, unspecified organism (principal); I10 Essential (primary) hypertension
CPT/HCPCS: 36415; 71046; 80048; 85025

== ENCOUNTER 2024-05-03 10:53 | Outpatient (CLI) | payer MEDICARE, OTHER, SELFPAY ==
--- NOTE | 2024-05-03 12:22 | RAD_ITS ---
STUDY: X-RAY CHEST REASON FOR EXAM: Male, 79 years old. Wheezing. TECHNIQUE: Frontal and lateral views of the chest. COMPARISON: April 26, 2024 FINDINGS: Hyperinflation with stable mild interstitial prominence most marked in the bases. Stable blunting of the left costophrenic angle. Stable cardiomegaly. Normal mediastinum and lili. Normal visualized pulmonary arteries. Aortic tortuosity with calcification unchanged. Normal visualized thoracic spine. Normal visualized ribs, clavicles, and shoulders. No abnormality of the visualized soft tissue structures of the upper abdomen. RAD/Chest PA and Lateral IMPRESSION: Stable cardiomegaly with hyperinflation and mild interstitial prominence. No active or acute cardiopulmonary disease. Electronically Signed: Alexandre Goldstein MD at 12:59 EDT ,
[2024-05-03 13:18] LABS: Anion Gap 7 (5-15); BUN 24 mg/dL (7-18); BUN/Creat Ratio 24.1 RATIO (10-20); Calcium,Total 9.7 mg/dL (8.5-10.1); Chloride 106 mmol/L (98-107); EST Glomerular Filtration Rate 77 mL/min (>60); Est Glom Filt Rate - Afr Amer 93 mL/min (>60); Glucose 104 mg/dL (74-106); Potassium 3.3 mmol/L (3.5-5.1); Sodium Level 142 mmol/L (136-145)
== END 2024-05-03 23:59 | disposition home or self-care (01) ==
PROVIDERS: PCP Family Medicine Geriatric Medicine; Referring Provider Family Medicine Geriatric Medicine; Visit Provider Family Medicine Geriatric Medicine
DX: R68.83 Chills (without fever) (principal); I10 Essential (primary) hypertension; R06.2 Wheezing
CPT/HCPCS: 36415; 71046; 80048; 87631

== ENCOUNTER → 2024-05-09 | Outpatient (CLI) | payer MEDICARE, OTHER, SELFPAY ==
[2024-05-09 11:24] LABS: Absolute Lymphocyte Count 1.22 X10^3/uL (0.83-4.51); Absolute Neutrophil Count 2.3 X10^3/uL (2.0-7.7); Basophil# 0.01 X10^3/uL; Basophil% 0.3 % (0-1); Eosinophil# 0.01 X10^3/uL; Eosinophils% 0.3 % (0-5); Hematocrit 40.4 % (40-54); Hemoglobin 12.5 g/dL (13.0-16.5); Lymphocyte # 1.22 X10^3/ul (0.83-4.51); Lymphocyte % 33.3 % (19-41); Mean Corp Hgb Conc 30.9 g/dL (32-36); Mean Corpuscular Hgb 33.3 pg (27.0-32.0); Mean Corpuscular Volume 107.7 fL (80-94); Mean Platelet Vol. 10.9 fl (6.2-12.0); Monocyte% 2.7 % (0-10); NRBC Flagged by Analyzer 0 % (0-5); Neutrophil # 2.31 X10^3/uL (2.7-7.7); Neutrophil % 63.1 % (47-70); POSITIVE MORPHOLOGY YES; Platelet Count 200 K/mm3 (150-450); RBC Distribution Width CV 16.9 % (11.6-14.6); RBC Distribution Width SD 66.4 fl (35.1-43.9); Red Blood Count 3.75 M/mm3 (4.6-6.2); White Blood Count 3.7 K/mm3 (4.4-11.0)
[2024-05-09 11:29] LABS: Differential Indicated SCAN CRITERIA MET
[2024-05-09 11:59] LABS: ALB/GLOB Ratio 0.9 RATIO (0.9-2.4); AST(SGOT) 36 U/L (15-37); Alanine Aminotransfer ALT/SGPT 41 U/L (16-61); Albumin, Serum 3.3 g/dL (3.2-5.0); Alkaline Phosphatase 43 U/L (45-117); Anion Gap 13 (5-15); BUN 27 mg/dL (7-18); BUN/Creat Ratio 18.2 RATIO (10-20); Calcium,Total 9.7 mg/dL (8.5-10.1); Chloride 98 mmol/L (98-107); Creatinine, Serum 1.48 mg/dL (0.70-1.30); EST Glomerular Filtration Rate 49 mL/min (>60); Est Glom Filt Rate - Afr Amer 59 mL/min (>60); Globulin 3.5 g/dL (2.2-4.2); Glucose 135 mg/dL (74-106); Potassium 3.4 mmol/L (3.5-5.1); Protein, Total 6.8 g/dL (6.4-8.2); Sodium Level 141 mmol/L (136-145)
[2024-05-09 13:00] LABS: Anisocytosis 2+
== END | disposition home or self-care (01) ==
LOC: POLAB3 11:04
PROVIDERS: PCP Family Medicine Geriatric Medicine; Visit Provider Family Medicine Geriatric Medicine
DX: E11.65 Type 2 diabetes mellitus with hyperglycemia (principal); I10 Essential (primary) hypertension; E55.9 Vitamin D deficiency, unspecified
CPT/HCPCS: 36415; 80053; 82306; 84443; 85025

== ENCOUNTER → 2024-07-04 | Outpatient (CLI) | payer MEDICARE, OTHER, SELFPAY ==
--- NOTE | 2024-07-04 12:45 | RAD_ITS ---
INDICATION: WHEEZING EXAMINATION/TECHNIQUE: X-RAY - XR Chest 2 Views COMPARISON: Prior study dated: 05/03/2024 FINDINGS: LINES/DEVICES: None. LUNGS: No consolidation, edema or effusion. No pneumothorax. MEDIASTINUM AND CARDIOVASCULAR STRUCTURES: Cardiac silhouette not enlarged. Central airways and mediastinal contour are unremarkable. BONES AND SOFT TISSUES: Unremarkable. RAD/Chest PA and Lateral IMPRESSION: No radiographic evidence of acute cardiopulmonary disease. Electronically Signed: Olvin Garza MD at 14:45 EST ,
[2024-07-04 12:54] LABS: Absolute Neutrophil Count 0.3 X10^3/uL (2.0-7.7); Eosinophil# 0.03 X10^3/uL; Eosinophils% 2.1 % (0-5); Hematocrit 26.4 % (40-54); Hemoglobin 8.4 g/dL (13.0-16.5); Lymphocyte % 75.9 % (19-41); Mean Corp Hgb Conc 31.8 g/dL (32-36); Mean Corpuscular Hgb 34.9 pg (27.0-32.0); Mean Corpuscular Volume 109.5 fL (80-94); Mean Platelet Vol. 11.4 fl (6.2-12.0); Monocyte# 0.04 X10^3/uL; Monocyte% 2.8 % (0-10); NRBC Flagged by Analyzer 0 % (0-5); Neutrophil # 0.26 X10^3/uL (2.7-7.7); Neutrophil % 17.8 % (47-70); POSITIVE COUNT YES; POSITIVE DIFFERENTIAL YES; POSITIVE MORPHOLOGY YES; Platelet Count 82 K/mm3 (150-450); RBC Distribution Width CV 17.4 % (11.6-14.6); RBC Distribution Width SD 69.3 fl (35.1-43.9); Red Blood Count 2.41 M/mm3 (4.6-6.2)
[2024-07-04 13:01] LABS: Anion Gap 12 (5-15); BUN 30 mg/dL (7-18); BUN/Creat Ratio 22.6 RATIO (10-20); Chloride 102 mmol/L (98-107); Creatinine, Serum 1.33 mg/dL (0.70-1.30); EST Glomerular Filtration Rate 55 mL/min (>60); Est Glom Filt Rate - Afr Amer 67 mL/min (>60); Glucose 218 mg/dL (74-106); Potassium 3.1 mmol/L (3.5-5.1); Sodium Level 140 mmol/L (136-145)
[2024-07-04 13:13] LABS: Lactic Acid 4.7 mmol/L (0.4-1.9)
[2024-07-04 13:32] LABS: Differential Indicated SCAN CRITERIA MET; White Blood Count 1.5 K/mm3 (4.4-11.0)
[2024-07-04 14:00] LABS: Differential Comment SCANNED
[2024-07-06 08:32] LABS: Pathologist Review Reviewed
== END | disposition home or self-care (01) ==
LOC: POLAB3 12:18
PROVIDERS: PCP Family Medicine Geriatric Medicine; Visit Provider Family Medicine Geriatric Medicine
DX: I10 Essential (primary) hypertension (principal); R68.83 Chills (without fever); R06.2 Wheezing
CPT/HCPCS: 36415; 71046; 80048; 83605; 85025; 87631

== ENCOUNTER 2024-07-12 10:47 | Outpatient (CLI) | payer MEDICARE, OTHER, SELFPAY ==
[2024-07-12 11:10] VITALS: BP 121/71; PULSE 99; RESP 18; TEMP 36.1; O2SAT 100; BMI 29.4
[2024-07-12] MEDS: 0.9% Normal Saline (1000mL) 1,000 ML 1000 ML IV (11:14)
[2024-07-12 12:27] VITALS: BP 128/61; PULSE 86; RESP 16
== END 2024-07-12 23:59 | disposition home or self-care (01) ==
PROVIDERS: PCP Family Medicine Geriatric Medicine; Referring Provider Family Medicine Geriatric Medicine; Visit Provider Family Medicine Geriatric Medicine
DX: D64.9 Anemia, unspecified (principal)
CPT/HCPCS: 96360; J7030; A4216

== ENCOUNTER → 2024-07-12 | Outpatient (CLI) | payer MEDICARE, OTHER, SELFPAY ==
[2024-07-12 10:50] LABS: Absolute Lymphocyte Count 0.88 X10^3/uL (0.83-4.51); Absolute Neutrophil Count 0.4 X10^3/uL (2.0-7.7); Basophil# 0.01 X10^3/uL; Basophil% 0.8 % (0-1); Eosinophil# 0.02 X10^3/uL; Eosinophils% 1.5 % (0-5); Hemoglobin 9.2 g/dL (13.0-16.5); Lymphocyte # 0.88 X10^3/ul (0.83-4.51); Lymphocyte % 67.2 % (19-41); Mean Corp Hgb Conc 32.9 g/dL (32-36); Mean Corpuscular Hgb 35.9 pg (27.0-32.0); Mean Corpuscular Volume 109.4 fL (80-94); Mean Platelet Vol. 12.3 fl (6.2-12.0); Monocyte# 0.04 X10^3/uL; Monocyte% 3.1 % (0-10); NRBC Flagged by Analyzer 0 % (0-5); Neutrophil # 0.36 X10^3/uL (2.7-7.7); Neutrophil % 27.4 % (47-70); POSITIVE COUNT YES; POSITIVE DIFFERENTIAL YES; POSITIVE MORPHOLOGY YES; Platelet Count 74 K/mm3 (150-450); RBC Distribution Width SD 66.8 fl (35.1-43.9); Red Blood Count 2.56 M/mm3 (4.6-6.2)
[2024-07-12 11:21] LABS: Differential Indicated SCAN CRITERIA MET
[2024-07-12 11:24] LABS: AST(SGOT) 14 U/L (15-37); Alanine Aminotransfer ALT/SGPT 21 U/L (16-61); Albumin, Serum 3.3 g/dL (3.2-5.0); Alkaline Phosphatase 43 U/L (45-117); Anion Gap 12 (5-15); BUN 31 mg/dL (7-18); BUN/Creat Ratio 20.7 RATIO (10-20); Calcium,Total 10.5 mg/dL (8.5-10.1); Chloride 101 mmol/L (98-107); EST Glomerular Filtration Rate 48 mL/min (>60); Est Glom Filt Rate - Afr Amer 58 mL/min (>60); Globulin 3.4 g/dL (2.2-4.2); Glucose 278 mg/dL (74-106); Protein, Total 6.7 g/dL (6.4-8.2); Sodium Level 136 mmol/L (136-145)
[2024-07-12 12:48] LABS: Platelet Estimate MOD DEC (ADEQ)
[2024-07-12 12:49] LABS: Acanthocytes RARE; Anisocytosis 2+; Ovalocyte 2+; Schistocytes RARE; Tear Drop Cell 1+
[2024-07-12 13:20] LABS: Macrocytosis 2+
[2024-07-12 13:31] LABS: White Blood Count 1.3 K/mm3 (4.4-11.0)
[2024-07-13 14:25] LABS: Pathologist Review Reviewed
== END | disposition home or self-care (01) ==
LOC: POLAB3 10:32
PROVIDERS: PCP Family Medicine Geriatric Medicine; Visit Provider Family Medicine Geriatric Medicine
DX: K92.1 Melena (principal); R53.83 Other fatigue; D64.9 Anemia, unspecified; R53.1 Weakness; I10 Essential (primary) hypertension
CPT/HCPCS: 36415; 80053; 84443; 85025; 87086

== ENCOUNTER → 2024-07-15 | Outpatient (CLI) | payer MEDICARE, OTHER, SELFPAY | END | disposition home or self-care (01) | PROVIDERS: PCP Family Medicine Geriatric Medicine; Referring Provider Family Medicine Geriatric Medicine; Visit Provider Family Medicine Geriatric Medicine | DX: R68.83 Chills (without fever) (principal) | CPT/HCPCS: 87631 ==

== ENCOUNTER → 2024-07-18 | Outpatient (CLI) | payer MEDICARE, OTHER, SELFPAY | END | disposition home or self-care (01) | PROVIDERS: PCP Family Medicine Geriatric Medicine; Referring Provider Family Medicine Geriatric Medicine; Visit Provider Family Medicine Geriatric Medicine | DX: D64.9 Anemia, unspecified (principal); R53.83 Other fatigue; K92.1 Melena | CPT/HCPCS: 82274 ==

== ENCOUNTER → 2024-07-21 | Outpatient (CLI) | payer MEDICARE, OTHER, SELFPAY ==
[2024-07-21 12:52] LABS: Calcium,Total 12.3 mg/dL (8.5-10.1)
== END | disposition home or self-care (01) ==
PROVIDERS: PCP Family Medicine Geriatric Medicine; Referring Provider Internal Medicine Medical Oncology; Visit Provider Internal Medicine Medical Oncology
DX: E83.52 Hypercalcemia (principal)
CPT/HCPCS: 36415; 82310

== ENCOUNTER 2024-08-05 13:35 | Inpatient (IN) | payer MEDICARE, OTHER, SELFPAY ==
[2024-08-05] VITALS (17 sets, daily range): BP systolic 116–151; BP diastolic 60–94; PULSE 89–140; RESP 16–22; TEMP 35.7–37.4; O2SAT 94–100; BMI 29.9; BMI 29.3
--- NOTE | 2024-08-05 14:17 | EKG12_ITS ---
Test Reason : ARRYTH Blood Pressure : */* mmHG Vent. Rate : 150 BPM Atrial Rate : * BPM P-R Int : * ms QRS Dur : 124 ms QT Int : 334 ms P-R-T Axes : * -63 7 degrees QTcB Int : 527 ms Critical Test Result: High HR Atrial fibrillation with rapid ventricular response Left axis deviation Right bundle branch block Inferior infarct , age undetermined Anterolateral infarct (cited on or before 05-Aug-2024) Abnormal ECG Confirmed by JENNA MARTINI, ELIN ([id number]), technical editor ROB ORTIZ ([id number]) on 08/08/2024 6:36:46 AM Referred By: Confirmed By: ELIN WEST MD
--- NOTE | 2024-08-05 14:47 | EDS_ITS ---
<Statement entered by Pratik Eagle DO - 08/06/24 07:19> Patient was seen and examined with physician workforce development assistant Janna All components of the history and physical confirmed and agreed. History of present illness and physical exam: Patient is a 79-year-old male with a past medical history of atrial fibrillation but has been off his Xarelto for approximately 3 to 4 weeks secondary to GI bleed, glaucoma, hypertension, hyperlipidemia, DEYANIRA who presents to the emergency department chief complaint of low blood counts. Patient states that he had a bone marrow biopsy performed today and follows with Dr. Pittman for pancytopenia and they noted that his hemoglobin was 6.1 therefore they sent him here to the emergency department for further evaluation management. Patient states that he has a history of black tarry stools but states that his stools have been normal color for him. States that he was supposed have a colonoscopy performed in the outpatient setting for call positive stool in the past but at that point time GI provider felt he was too weak to perform the bowel prep therefore they held off and is still pending. Patient presents with Review of systems: Agree with above will add that the patient has been extremely fatigued and having lightheadedness and shortness of breath over the past few days as well. Physical exam: General: Patient was lying in bed rest comfortably did not appear to be acute distress Head: Atraumatic, normocephalic Eyes: PERRL body, EOMI bilateral, no conjunctival injection noted Neck: Soft, supple, trachea midline Cardiovascular: Patient was tachycardic with an irregular irregular rhythm Respiratory: Clear to auscultation bilaterally Abdomen: Soft, nondistended, no tenderness palpation Extremities: +4/5 strength noted in the bilateral upper and lower extremities, radial pulses +2/4 in the bilateral per extremities Neurological: Patient following commands knew that he was at [facility] years 2023 Skin: Patient has scattered ecchymosis noted throughout his body
--- NOTE | 2024-08-05 14:47 | EX.ED.DYSGE1 ---
HPI History of Present Illness Chief Complaint: Abn Labs Narrative Narrative: Patient presenting today due to anemia. He had a bone marrow biopsy performed today, he follows with Dr. Pittman for pancytopenia and his hemoglobin was 6.1, prompting him to be sent to the emergency department for evaluation. He does report a history of black and tarry stools, he reports that he has been stool occult positive in the past and does follow with GI for this reason but reports that his GI provider felt he was too weak to perform a bowel prep to have a colonoscopy. He does have a history of atrial fibrillation but was taken off of his blood thinner. He denies fevers, chills, recent illness. [facility] Medical History History of hepatitis C Loss of hearing Wears glasses Anxiety Ambulates with cane Insulin dependent diabetes mellitus Arthritis Prostate disease Anemia Restless legs Injury of back Injury of head and neck Syncope Dietary restriction Difficulty swallowing Gastric reflux Former smoker History of pain when walking History of echocardiogram History of stress test Cardiology follow-up encounter Glaucoma Hx of fracture of wrist Other pancytopenia Longstanding persistent atrial fibrillation Obesity Right bundle branch block (RBBB) Osteoarthritis Essential hypertension Allergic rhinitis due to allergen Asthma DVT (deep venous thrombosis) (02/24/11) Cervical radiculopathy Hyperlipidemia Vitamin D deficiency Hypersomnia DEYANIRA (obstructive sleep apnea) Home Medications ?Medication ?Instructions ?Recorded ?Last Taken ?Type alfuzosin 10 mg tablet,extended 10 mg PO DAILY@1730 urinary 08/31/13 02/19/24 History release 24 hr rosuvastatin 40 mg tablet 40 mg PO DAILY cholesterol 08/31/13 02/19/24 History finasteride 5 mg tablet 5 mg PO DAILY prostate 12/18/15 02/19/24 History empagliflozin 25 mg tablet 25 mg PO QDAY diabetes 12/21/17 02/19/24 History (Jardiance) pantoprazole 20 mg tablet,delayed 20 mg PO DAILY GERD 10/16/20 02/19/24 History release tramadol 50 mg tablet 50 mg PO BID PRN pain 10/16/20 02/19/24 History baclofen 10 mg tablet 10 mg PO DAILY PRN PRN muscle spasm 07/24/22 02/19/24 History dorzolamide 22.3 mg-timolol 6.8 1 drp ophthalmic (eye) BID eyes 07/24/22 02/19/24 History mg/mL eye drops fluticasone 500 mcg-salmeterol 50 1 inh inhalation Q12H breathing 12/25/22 02/19/24 Rx mcg/dose blistr powdr for #60 ea inhalation (Advair Diskus) albuterol sulfate 90 mcg/actuation 2 puff inhalation Q6H PRN PRN Sob 03/19/23 12/08/23 Rx aerosol inhaler &/Or Wheezing #18 grams azelastine 205.5 mcg (0.15 %) 2 spray intranasal BID allergies 03/19/23 02/19/24 Rx nasal spray #30 mL cetirizine 10 mg tablet 10 mg PO DAILY allergy #90 tabs 07/14/23 02/19/24 Rx terbinafine HCl 1 % topical cream 1 applic topical BID cream 02/20/24 02/19/24 History insulin regular hum U-500 conc 500 100 unit subcut QHS diabetes 03/30/24 Unknown History unit/mL(3 mL) subcut pen (Humulin R U-500 (Conc) Insulin Kwikpen) metoprolol tartrate 75 mg tablet 37.5 mg (1/2 x 75 mg) PO BID HTN 03/30/24 Unknown Rx 90 days #90 tabs potassium 20 mg chewable tablet 20 mg PO DAILY supplement 07/21/24 Unknown History dulaglutide 0.75 mg/0.5 mL 0.75 mg subcut QWEEK diabetes 07/28/24 Unknown History subcutaneous pen injector (Trulicity) fluticasone propionate 50 2 spray intranasal DAILY PRN 07/28/24 Unknown History mcg/actuation nasal allergy symptoms spray,suspension insulin regular hum U-500 conc 500 150 unit subcut QAM diabetes 07/28/24 Unknown History unit/mL(3 mL) subcut pen (Humulin R U-500 (Conc) Insulin Kwikpen) polyethylene glycol 3350 17 17 g PO .COMPLEX bowels #510 grams 07/28/24 Unknown Rx gram/dose oral powder (Miralax) Allergy/AdvReac Type Severity Reaction Status Date / Time No Known Drug Allergies Allergy no known Verified 07/28/24 14:11 Family History Daughter Asthma Grandmother Asthma Sister Asthma COPD (chronic obstructive pulmonary disease) Mother Pancreatic cancer Brother Myocardial infarction Cancer CAD (coronary artery disease) Surgical History History of bone marrow biopsy Hx of right cataract extraction Hx of left cataract extraction History of left heart catheterization (2006) 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 bilateral eyelid lift laminectomy with decompression at R Partial at L L2-3 : L L3-4 Hx of cholecystectomy Partial at L L5-S1 C6-7 fusion R forearm surgery x 3 H/O colonoscopy back injections Social History household members: none Smoking Status: Former smoker quit date: 08/17/76 second hand exposure: No alcohol intake: never substance use type: does not use caffeine: Yes Type: coffee what type of physical activity do you participate in: none ROS ROS ED Constitutional Constitutional ED: Denies chills or fever(s) Cardiovascular Cardiovascular: Denies chest pain Respiratory/Chest Respiratory/Chest: Denies cough or dyspnea Gastrointestinal Gastrointestinal: Denies abdominal pain, nausea or vomiting Musculoskeletal Musculoskeletal: Denies arthralgias or myalgias Integumentary Denies rash Neurologic Neurologic: Denies weakness EXAM Physical Exam Const Vital Signs: 08/05/24 13:36 08/05/24 13:37 08/05/24 14:01 Temperature 96.2 F L Temperature Source Temporal Pulse Rate 140 H 129 H Respiratory Rate 22 H Respiratory Pattern Normal Blood Pressure 151/94 H Blood Pressure Mean 113 Pulse Ox 100 Oxygen Delivery Method Room Air Positive well nourished, well developed and no apparent distress General Appearance ED: well developed HEENT Reports normocephalic and head/scalp atraumatic Mouth ED: Yes moist mucous membranes normal Eyes PERRL and EOMs intact bilaterally Neck full ROM and supple Chest Wall inspection of chest normal Resp normal respiratory effort and clear to auscultation bilaterally Cardio regular rate and regular rhythm GI soft to palpation, non-tender, non-distended and no masses GI Narrative: Rectal exam: Normal sphincter tone, no melena or hematochezia noted Back/Spine normal ROM and normal to inspection Extremity normal to inspection and full ROM Neuro oriented x3, CN's II-XII intact bilaterally, moves all extremities, no focal motor deficits and no sensory deficits noted Sensorium / Orientation: awake and alert Psych mental status grossly normal and thought process normal Skin no rashes or lesions noted and no wounds MDM MDM MDM Narrative Medical decision making narrative: Patient presenting today due to anemia, he follows with Dr. Pittman for pancytopenia. His hemoglobin today was 6.1, prompting him to be sent here. His platelet count is also low at 30. He will be crossmatched and transfused 2 units of blood. Fecal occult today was positive. He does have a history of a GI bleed and has had black/tarry stools for over a month, he follows with GI but has not had a colonoscopy recently because they felt he would be too weak and too many comorbidities to have this performed, they did not feel he was a good candidate for this. I did speak with Dr. Jolly who would like to perform an upper scope on him after he has been n.p.o. for at least 6 hours. I spoke with the hospitalist and patient will be admitted in stable condition for further workup. His heart rate did fluctuate here in the ED from around 105 bpm to 150 bpm. It did go down and remained around 115 bpm, I held off on metoprolol with suspicion that it would improve with the blood transfusion. Lab Data Attestation: I reviewed the patient's lab results. Lab results narrative: H&H 16-18, BUN 25, potassium 3.3 Labs: Laboratory Results - last 24 hr 08/05/24 08/05/24 13:33 13:55 Hgb 6.0 L* Hct 18.0 L Diff Path Review May foll Sodium 138 Potassium 3.3 L Chloride 106 Carbon Dioxide 21.0 Anion Gap 11 BUN 25 H Creatinine 1.30 Estim Creat Clear Calc 52.31 Est GFR (MDRD) Af Amer 68 Est GFR (MDRD) Non-Af 56 L BUN/Creatinine Ratio 19.2 Glucose 139 H Calcium 8.4 L Phosphorus 1.3 L Magnesium 1.8 Blood Type A POSITIVE Antibody Screen NEGATIVE Crossmatch See Detail EKG Initial EKG: Comments: 150 bpm, atrial fibrillation with RVR, right bundle branch block, no ST elevation, interpreted by attending ED physician Discharge Plan Dx/Rx/DC Orders Clinical Impression: Thrombocytopenia, GI bleed, Atrial fibrillation with RVR Disposition Disposition: Acute Care Hospital [facility] Discharge Date/Time: 08/05/24 16:28
[2024-08-05 14:50] LABS: Anion Gap 11 (5-15); BUN 25 mg/dL (7-18); BUN/Creat Ratio 19.2 RATIO (10-20); Calcium,Total 8.4 mg/dL (8.5-10.1); Chloride 106 mmol/L (98-107); EST Glomerular Filtration Rate 56 mL/min (>60); Est Glom Filt Rate - Afr Amer 68 mL/min (>60); Estimated Creatinine Clearance 52.31 ml/min; Glucose 139 mg/dL (74-106); Potassium 3.3 mmol/L (3.5-5.1); Sodium Level 138 mmol/L (136-145)
--- NOTE | 2024-08-05 15:13 | PCM.HP.STD ---
HPI - General General Date of Admission: 08/05/24 Date of Service: 08/05/24 Chief Complaint: Abnormal lab, Hgb 6.1 outpatient, referred per Oncology. HPI Narrative The patient is an 79 y/o M w/ PMHx: CKD stage III unclear subtype based on GFR trending, Hx Hepatitis C, Plasma Cell disorder/persistent pancytopenia following with Dr. 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 Patient had been taken off his anticoagulation for PAF secondary to ongoing black tarry stools 06/2024. Patient notes that he is feeling more fatigued and weak but denies any lightheadedness, dizziness, dyspnea, chest pain, nausea, emesis or abdominal pain associated with his current presentation. Outpatient per oncology labs including 08/05/2024 CBC with WBC 1.1, hemoglobin 6.1, MCV 108.9, platelet 30 with ANC 0.1, coags with PTT 21.4 otherwise not marked appearing. Current ED evaluation workup included T96.2, heart rate 129, BP 151/94, respiratory rate 22, 100% room air, repeat H&H with hemoglobin 6.0, hematocrit 18%, BMP with potassium 3.3, BUN/Cr 25/1.30, GFR 56, glucose 139, calcium 8.4. ED discussed patient case with GI Dr. Jolly who noted potential for upper scope only. In the ED patient T+C for 2 u PRBC per discussion with ED staff. [facility] Medical History History of hepatitis C Loss of hearing Wears glasses Anxiety Ambulates with cane Insulin dependent diabetes mellitus Arthritis Prostate disease Anemia Restless legs Injury of back Injury of head and neck Syncope Dietary restriction Difficulty swallowing Gastric reflux Former smoker History of pain when walking History of echocardiogram History of stress test Cardiology follow-up encounter Glaucoma Hx of fracture of wrist Other pancytopenia Longstanding persistent atrial fibrillation Obesity Right bundle branch block (RBBB) Osteoarthritis Essential hypertension Allergic rhinitis due to allergen Asthma DVT (deep venous thrombosis) (02/24/11) Cervical radiculopathy Hyperlipidemia Vitamin D deficiency Hypersomnia DEYANIRA (obstructive sleep apnea) Home Medications ?Medication ?Instructions ?Recorded ?Last Taken ?Type alfuzosin 10 mg tablet,extended 10 mg PO DAILY@1730 08/31/13 02/19/24 History release 24 hr rosuvastatin 40 mg tablet 40 mg PO DAILY 08/31/13 02/19/24 History finasteride 5 mg tablet 5 mg PO DAILY 12/18/15 02/19/24 History empagliflozin 25 mg tablet 25 mg PO QDAY 12/21/17 02/19/24 History (Jardiance) pantoprazole 20 mg tablet,delayed 20 mg PO DAILY 10/16/20 02/19/24 History release tramadol 50 mg tablet 50 mg PO BID PRN pain 10/16/20 02/19/24 History baclofen 10 mg tablet 10 mg PO DAILY PRN PRN muscle spasm 07/24/22 02/19/24 History dorzolamide 22.3 mg-timolol 6.8 1 drp ophthalmic (eye) BID 07/24/22 02/19/24 History mg/mL eye drops fluticasone 500 mcg-salmeterol 50 1 inh inhalation Q12H #60 ea 12/25/22 02/19/24 Rx mcg/dose blistr powdr for inhalation (Advair Diskus) albuterol sulfate 90 mcg/actuation 2 puff inhalation Q6H PRN PRN Sob 03/19/23 12/08/23 Rx aerosol inhaler &/Or Wheezing #18 grams azelastine 205.5 mcg (0.15 %) 2 spray intranasal BID #30 mL 03/19/23 02/19/24 Rx nasal spray cetirizine 10 mg tablet 10 mg PO DAILY #90 tabs 07/14/23 02/19/24 Rx terbinafine HCl 1 % topical cream 1 applic topical BID 02/20/24 02/19/24 History insulin regular hum U-500 conc 500 100 unit subcut QHS 03/30/24 Unknown History unit/mL(3 mL) subcut pen (Humulin R U-500 (Conc) Insulin Kwikpen) metoprolol tartrate 75 mg tablet 37.5 mg (1/2 x 75 mg) PO BID 90 03/30/24 Unknown Rx days #90 tabs potassium 20 mg chewable tablet 20 mg PO DAILY 07/21/24 Unknown History dulaglutide 0.75 mg/0.5 mL 0.75 mg subcut QWEEK 07/28/24 Unknown History subcutaneous pen injector (Trulicity) fluticasone propionate 50 2 spray intranasal DAILY PRN 07/28/24 Unknown History mcg/actuation nasal allergy symptoms spray,suspension insulin regular hum U-500 conc 500 150 unit subcut QAM 07/28/24 Unknown History unit/mL(3 mL) subcut pen (Humulin R U-500 (Conc) Insulin Kwikpen) polyethylene glycol 3350 17 17 g PO .COMPLEX #510 grams 07/28/24 Unknown Rx gram/dose oral powder (Miralax) Allergy/AdvReac Type Severity Reaction Status Date / Time No Known Drug Allergies Allergy no known Verified 07/28/24 14:11 Family History Daughter Asthma Grandmother Asthma Sister Asthma COPD (chronic obstructive pulmonary disease) Mother Pancreatic cancer Brother Myocardial infarction Cancer CAD (coronary artery disease) Surgical History History of bone marrow biopsy Hx of right cataract extraction Hx of left cataract extraction History of left heart catheterization (2006) 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 HEENT: Eyes: No visual loss, blurred vision, double vision or yellow sclerae. Ears, Nose, Throat: No hearing loss, sneezing, congestion, runny nose or sore throat. SKIN: No rash or itching, lesions, wounds. CARDIOVASCULAR: No chest pain, chest pressure or chest discomfort, palpitations, edema, orthopnea, syncopal events. RESPIRATORY: No shortness of breath, cough or sputum, wheezing, hemoptysis. GASTROINTESTINAL: + Black tarry stools. No anorexia, nausea, vomiting or diarrhea, abdominal pain, BRBPR. GENITOURINARY: No dysuria, frequency, urgency or retention. NEUROLOGICAL: No headache, dizziness, syncope, paralysis, ataxia, numbness or tingling in the extremities, focal weakness, change in bowel or bladder control, seizure. MUSCULOSKELETAL: + muscle, back pain, joint pain or stiffness. HEMATOLOGIC: + Anemia, easy bleeding/bruising. LYMPHATICS: No enlarged nodes. No history of splenectomy. PSYCHIATRIC: + History of anxiety. ENDOCRINOLOGIC: No reports of sweating, cold or heat intolerance. No polyuria or polydipsia. ALLERGIES: + History of allergic rhinitis. Vital Signs Vital Signs Vital Signs: 08/05/24 13:36 08/05/24 13:37 08/05/24 14:01 Temperature 96.2 F L Temperature Source Temporal Pulse Rate 140 H 129 H Respiratory Rate 22 H Respiratory Pattern Normal Blood Pressure 151/94 H Blood Pressure Mean 113 Pulse Ox 100 Oxygen Delivery Method Room Air Weight Weight: 208 lb 5.389 oz Body Mass Index (BMI) 29.9 Physical Exam Narrative Physical Examination: General: Awake, alert, oriented x 3 and cooperative, seated upright in the ED bed, no acute distress, remains tachycardic. Skin: Normal color, normal turgor, no icterus, no cyanosis Except occasional stage ecchymoses, abrasions HEENT: AT/NC, EOMI, PERRLA, MMM, no carotid bruits or JVD noted. Lungs: Diminished, greater bases, mildly increased respiratory rate but no distress, no rales, ronchi or wheezing. Heart: Irregular irregular; no gallop, rub audible. Abdomen: Soft, obese, NTTP, ND, mildly hyperactive BS, no HSM. Extremities: No cyanosis, no clubbing, pedal to distal argueta mildly pitting edema. Neurological: Patient awake, alert, oriented as noted, cognitive function intact; pupils equally reactive to light and accommodation, cranial nerves gross normal, moving all 4 extremities, no focal deficits, strength moderately to severely globally decreased. Psychiatric: Affect appears fatigued otherwise normal, no acute evidence of depressive or anxiety feelings but does have underlying history. Results Lab / Micro Data 08/05/24 13:33 08/05/24 13:33 Labs: Laboratory Results - last 24 hr 08/05/24 13:33: Hgb 6.0 L*, Hct 18.0 L, Diff Path Review December foll, Sodium 138, Potassium 3.3 L, Chloride 106, Carbon Dioxide 21.0, Anion Gap 11, BUN 25 H, Creatinine 1.30, Estim Creat Clear Calc 52.31, Est GFR (MDRD) Af Amer 68, Est GFR (MDRD) Non-Af 56 L, BUN/Creatinine Ratio 19.2, Glucose 139 H, Calcium 8.4 L 08/05/24 13:55: Crossmatch See Detail Micro: Microbiology 08/05/24 13:55 Stool Stool Occult Blood (LUIS ENRIQUE) - Final Occult Blood Positive Assessment & Plan Assessment/Plan (1) GI bleed: PLAN: Plan The patient is an 79 y/o M w/ PMHx: CKD stage III unclear subtype based on GFR trending, Hx Hepatitis C, Plasma Cell disorder/persistent pancytopenia following with Dr. 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 #1. Acute on chronic pancytopenia which has been persistent, more severe currently with plasma cell disorder with positive stool guaiac with concern for GI bleed component with black tarry stools, recently taken off his xarelto 06/2024: Ongoing issues x 1 year with previous bone marrow aspiration biopsy 10/29/2023 with kappa restricted plasma cell neoplasm with cell count 56% plasma cells and flow cytometry with 86% plasma cell population, blood work for myeloma was performed, PET scan with increased metabolic activity in the right groin, right groin biopsy 12/08/2023 with benign lymph nodes with extensive geographic necrosis including fat treated at that time with a course of Decadron, following with oncology Dr. Pittman, status post recent repeat 08/05/2024 bone marrow biopsy with pathology pending. Given significant tachycardia with current presentation will admit to PCU, will continue ED initiated PRBC administration, will need interim maintain on IVFs, continue to cycle H&H, will maintain on IV Protonix, will allow clears until midnight then NPO status, fall precautions, GI consulted with planned for upper endoscopy, from prior notes not great candidate for consideration colonoscopy. #2. Hypokalemia: Admission K+ 3.3, magnesium level requested, supplementation given, repeat level in AM. #3. History hepatitis C, s/p treatment: Noted in the chart, per most recent oncology note liver elastography demonstrated moderate fibrosis, encourage continued outpatient follow-up with gastroenterology, last note reviewed 07/28/2024 with no specific mention of this disease process. From other notes appears that this was contracted while in the and treated nearly 30+ years prior. #4. Chronic Kidney Disease Stage III per GFR trending, unclear subtype: Admission BUN/Cr 25/1.30, GFR 56, baseline renal function since 04/2024 primarily 1.3-1.6, most recently prior to current presentation 07/28/2024 creatinine 1.50,, repeat BMP in AM. #5. Diabetes mellitus type II: Will hold oral regimen, will continue home insulin regimen, clear liquids given above as noted with NPO status at midnight in case of worsening H&H assessment, accu checks w/ ISS. #6. Hypertension: Continue home regimen including metoprolol, PRN hydralazine. #7. Hyperlipidemia: We will continue patient on statin therapy. #8. History of hypogammaglobulinemia: Noted prior history most recent chart notes, followed previously by immunology and treated that time with IVIG, encourage continued outpatient follow-up as previously arranged. #9. Allergic rhinitis: We will continue patient home cetirizine, fluticasone and azelastine home regimen. #10. PAF: We will continue patient home metoprolol regimen, previously on Xarelto but this was held with onset of black tarry stools as noted. #11. History of VTE: Noted previous history DVT, not currently on any regimen, prior had been on xarelto as noted for PAF history also until onset black tarry stools w/ d/c 06/2024. #12. Former tobacco use: Encourage continued tobacco cessation. #13. GERD: We will continue patient on PPI. #14. DEYANIRA: Noncompliant with PAP therapy per records, patient notes he has not used it in at least 7 to 8 years. #15. DVT prophylaxis: SCDs. #16. CODE status: Patient HCPOA and living will are not in place but he notes his 2 daughters would be his medical decision makers if necessary. He and his daughter who are present do note intention to set up them as his formal healthcare power of district attorney. Discussed CODE status at length including difference between FULL code, DNR-CCA and DNR-CC status. Following discussions about the differences in these status, requested Full Code status. Advanced Care Planning Face to Face Time: 16 minutes. Charges/Coding Visit Charges Inpatient E&M: 46199 Init Hosp L3 Procedures Hospitalists Procedures: 50178 Advncd Care Plan 30 Min
[2024-08-05 15:54] LABS: Magnesium 1.8 mg/dL (1.6-2.6); Phosphorus 1.3 mg/dL (2.5-4.9)
[2024-08-05] MEDS: Potassium Chloride Oral Tablet 20 MEQ 40 MEQ PO (17:20)
[2024-08-05] MEDS: Acetaminophen 325 MG Tablet 650 MG PO (17:20)
[2024-08-05 17:40] LABS: Bedside Glucose 140 mg/dL (74-106)
[2024-08-05] MEDS: Pantoprazole Sodium 80 MG in 0.9% Normal Saline (100mL Bag) 80 ML 10 MG CONT INF ×2 (18:26→20:24)
[2024-08-05] MEDS: Pantoprazole Sodium 80 MG in 0.9% Normal Saline (50mL Bag) 15 ML 420 MG IV BOLUS (18:26)
[2024-08-05] MEDS: Tamsulosin HCl 0.4 MG Capsule PO (18:27)
--- NOTE | 2024-08-05 19:02 | CON.PCM.GI_ITS ---
HPI Consult Data Date of Consult: 08/05/24 HPI Narrative Reason for Consultation: Anemia HPI Narrative: JOHNATHAN CURIEL, is a 79 M who presents 79y.o.man was found to have Persistent Pancytopenia for about a year and referred for further evaluation. He had bone marrow aspiration and biopsy done on 10/29/2023 which showed kappa restricted plasma cell neoplasm, Cell count 56% plasma cells, cytogenetic 46 XY, flow cytometry detected 36% plasma cell population. He had blood work for myeloma which showed IgG 376, IgM 15, M spike 0, free kappa light chain 2248 on 11/05/2023. PET/CT done 11/24/2023 showed increased metabolic activity in the right groin nodes. He had biopsy done on 12/08/2023, Pathology showed Benign lymph nodes with extensive geographic necrosis including fat necrosis. He was started on Decadron 20mg weekly on 12/23/2023 for Plasma cell disorder till the end of March 2024. He is on observation. He still has tiredness. He was found to hypercalcemia and given Zometa on 07/21/2024. He also has a history of PAF previously on xarelto taken off 06/2024 secondary to GI bleed. He presented to the [facility] ED on 08/05/2024 with history of outpatient labs per oncology with significantly reduced hemoglobin of 6.1 prompting referral for evaluation and PRBC administration consideration with reported ongoing black and tarry stools outpatient for nearly ~ 1 month and they did not feel he was a good candidate for bowel prep/scope. Patient had been taken off his anticoagulation for PAF secondary to ongoing black tarry stools 06/2024. Patient notes that he is feeling more fatigued and weak but denies any lightheadedness, dizziness, dyspnea, chest pain, nausea, emesis or abdominal pain associated with his current presentation. Outpatient per oncology labs including 08/05/2024 CBC with WBC 1.1, hemoglobin 6.1, MCV 108.9, platelet 30 with ANC 0.1, coags with PTT 21.4 otherwise not marked appearing. In ED evaluation workup included T96.2, heart rate 129, BP 151/94, respiratory rate 22, 100% room air, repeat H&H with hemoglobin 6.0, hematocrit 18%, BMP with potassium 3.3, BUN/Cr 25/1.30, GFR 56, glucose 139, calcium 8.4. In the ED patient T+C for 2 u PRBC per discussion with ED staff. [facility] Medical History History of hepatitis C Loss of hearing Wears glasses Anxiety Ambulates with cane Insulin dependent diabetes mellitus Arthritis Prostate disease Anemia Restless legs Injury of back Injury of head and neck Syncope Dietary restriction Difficulty swallowing Gastric reflux Former smoker History of pain when walking History of echocardiogram History of stress test Cardiology follow-up encounter Glaucoma Hx of fracture of wrist Other pancytopenia Longstanding persistent atrial fibrillation Obesity Right bundle branch block (RBBB) Osteoarthritis Essential hypertension Allergic rhinitis due to allergen Asthma DVT (deep venous thrombosis) (02/24/11) Cervical radiculopathy Hyperlipidemia Vitamin D deficiency Hypersomnia DEYANIRA (obstructive sleep apnea) Home Medications ?Medication ?Instructions ?Recorded ?Last Taken ?Type alfuzosin 10 mg tablet,extended 10 mg PO DAILY@1730 urinary 08/31/13 02/19/24 History release 24 hr rosuvastatin 40 mg tablet 40 mg PO DAILY cholesterol 08/31/13 02/19/24 History finasteride 5 mg tablet 5 mg PO DAILY prostate 12/18/15 02/19/24 History empagliflozin 25 mg tablet 25 mg PO QDAY diabetes 12/21/17 02/19/24 History (Jardiance) pantoprazole 20 mg tablet,delayed 20 mg PO DAILY GERD 10/16/20 02/19/24 History release tramadol 50 mg tablet 50 mg PO BID PRN pain 10/16/20 02/19/24 History baclofen 10 mg tablet 10 mg PO DAILY PRN PRN muscle spasm 07/24/22 02/19/24 History dorzolamide 22.3 mg-timolol 6.8 1 drp ophthalmic (eye) BID eyes 07/24/22 02/19/24 History mg/mL eye drops fluticasone 500 mcg-salmeterol 50 1 inh inhalation Q12H breathing 12/25/22 02/19/24 Rx mcg/dose blistr powdr for #60 ea inhalation (Advair Diskus) albuterol sulfate 90 mcg/actuation 2 puff inhalation Q6H PRN PRN Sob 03/19/23 12/08/23 Rx aerosol inhaler &/Or Wheezing #18 grams azelastine 205.5 mcg (0.15 %) 2 spray intranasal BID allergies 03/19/23 02/19/24 Rx nasal spray #30 mL cetirizine 10 mg tablet 10 mg PO DAILY allergy #90 tabs 07/14/23 02/19/24 Rx terbinafine HCl 1 % topical cream 1 applic topical BID cream 02/20/24 02/19/24 History insulin regular hum U-500 conc 500 100 unit subcut QHS diabetes 03/30/24 Unknown History unit/mL(3 mL) subcut pen (Humulin R U-500 (Conc) Insulin Kwikpen) metoprolol tartrate 75 mg tablet 37.5 mg (1/2 x 75 mg) PO BID HTN 03/30/24 Unknown Rx 90 days #90 tabs potassium 20 mg chewable tablet 20 mg PO DAILY supplement 07/21/24 Unknown History dulaglutide 0.75 mg/0.5 mL 0.75 mg subcut QWEEK diabetes 07/28/24 Unknown History subcutaneous pen injector (Trulicity) fluticasone propionate 50 2 spray intranasal DAILY PRN 07/28/24 Unknown History mcg/actuation nasal allergy symptoms spray,suspension insulin regular hum U-500 conc 500 150 unit subcut QAM diabetes 07/28/24 Unknown History unit/mL(3 mL) subcut pen (Humulin R U-500 (Conc) Insulin Kwikpen) polyethylene glycol 3350 17 17 g PO .COMPLEX bowels #510 grams 07/28/24 Unknown Rx gram/dose oral powder (Miralax) Allergy/AdvReac Type Severity Reaction Status Date / Time No Known Drug Allergies Allergy no known Verified 07/28/24 14:11 Family History Daughter Asthma Grandmother Asthma Sister Asthma COPD (chronic obstructive pulmonary disease) Mother Pancreatic cancer Brother Myocardial infarction Cancer CAD (coronary artery disease) Surgical History History of bone marrow biopsy Hx of right cataract extraction Hx of left cataract extraction History of left heart catheterization (2006) 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 HEENT: Eyes: No visual loss, blurred vision, double vision or yellow sclerae. Ears, Nose, Throat: No hearing loss, sneezing, congestion, runny nose or sore throat. SKIN: No rash or itching, lesions, wounds. CARDIOVASCULAR: No chest pain, chest pressure or chest discomfort, palpitations, edema, orthopnea, syncopal events. RESPIRATORY: No shortness of breath, cough or sputum, wheezing, hemoptysis. GASTROINTESTINAL: + Black tarry stools. No anorexia, nausea, vomiting or diarrhea, abdominal pain, BRBPR. GENITOURINARY: No dysuria, frequency, urgency or retention. NEUROLOGICAL: No headache, dizziness, syncope, paralysis, ataxia, numbness or tingling in the extremities, focal weakness, change in bowel or bladder control, seizure. MUSCULOSKELETAL: + muscle, back pain, joint pain or stiffness. HEMATOLOGIC: + Anemia, easy bleeding/bruising. LYMPHATICS: No enlarged nodes. No history of splenectomy. PSYCHIATRIC: + History of anxiety. ENDOCRINOLOGIC: No reports of sweating, cold or heat intolerance. No polyuria or polydipsia. ALLERGIES: + History of allergic rhinitis. Physical Exam Narrative Physical Examination: General: Awake, alert, oriented x 3 and cooperative, seated upright in the ED bed, no acute distress, remains tachycardic. Skin: Normal color, normal turgor, no icterus, no cyanosis Except occasional stage ecchymoses, abrasions HEENT: AT/NC, EOMI, PERRLA, MMM, no carotid bruits or JVD noted. Lungs: Diminished, greater bases, mildly increased respiratory rate but no distress, no rales, ronchi or wheezing. Heart: Irregular irregular; no gallop, rub audible. Abdomen: Soft, obese, NTTP, ND, mildly hyperactive BS, no HSM. Extremities: No cyanosis, no clubbing, pedal to distal argueta mildly pitting edema. Neurological: Patient awake, alert, oriented as noted, cognitive function intact; pupils equally reactive to light and accommodation, cranial nerves gross normal, moving all 4 extremities, no focal deficits, strength moderately to severely globally decreased. Psychiatric: Affect appears fatigued otherwise normal, no acute evidence of depressive or anxiety feelings but does have underlying history. Lab / Micro Data 08/05/24 13:33 08/05/24 13:33 Labs: Laboratory Results - last 24 hr 08/05/24 13:33: Hgb 6.0 L*, Hct 18.0 L, Diff Path Review December foll, Sodium 138, P otassium 3.3 L, Chloride 106, Carbon Dioxide 21.0, Anion Gap 11, BUN 25 H, Creatinine 1.30, Estim Creat Clear Calc 52.31, Est GFR (MDRD) Af Amer 68, Est GFR (MDRD) Non-Af 56 L, BUN/Creatinine Ratio 19.2, Glucose 139 H, Calcium 8.4 L, Phosphorus 1.3 L, Magnesium 1.8 08/05/24 13:55: Blood Type A POSITIVE, Antibody Screen NEGATIVE, Crossmatch See Detail 08/05/24 17:19: POC Glucose 140 H Micro: Microbiology 08/05/24 13:55 Stool Stool Occult Blood (LUIS ENRIQUE) - Final Occult Blood Positive Assessment & Plan Assessment/Plan (1) GI bleed: PLAN: Plan 79 y/o M w/ multiple myeloma and persistent pancytopenia currently with severe anemia and fecal occult positive stools. There is concern for GI bleed component with black tarry stools, recently taken off his xarelto 06/2024. He recently underwent repeat bone marrow biopsy. He feels that he is too weak in order to prep for colonoscopy. Recommend upper endoscopy to evaluate upper GI tract with a push enteroscopy. If that is negative then we will try a capsule endoscopy. He was explained alternatives, risk, benefits include not withstanding bleeding, infection, sepsis, perforation, need for return to . He will have an ASA of 3. Charges/Coding Visit Charges Inpatient E&M: 37407 Init Hosp L3
[2024-08-05] MEDS: Budesonide Respules 0.5 MG/2 ML AMPUL.NEB. INHALATION (19:31)
[2024-08-05] MEDS: Insulin Lispro 100 UNIT/ML INSULN.PEN SC (20:30)
[2024-08-05 20:34] LABS: Hematocrit 20.2 % (40-54); Hemoglobin 6.9 g/dL (13.0-16.5)
[2024-08-05] MEDS: Metoprolol Tartrate 25 MG Tablet 37.5 MG PO (20:40)
[2024-08-05 21:00] LABS: Bedside Glucose 156 mg/dL (74-106)
[2024-08-05] MEDS: Dorzolamide HCL/Timolol 10 ml Bottle 1 DRP OPHTHALMIC (22:44)
[2024-08-05] MEDS: 0.9% Normal Saline (1000mL) 1,000 ML 100 ML IV (22:45)
[2024-08-05 23:13] LABS: Hematocrit 24.8 % (40-54); Hemoglobin 8.5 g/dL (13.0-16.5); POSITIVE COUNT YES
[2024-08-06] VITALS (13 sets, daily range): BP systolic 109–133; BP diastolic 45–82; PULSE 78–119; RESP 16–18; TEMP 35.9–36.8; O2SAT 95–100; BMI 29.9
[2024-08-06] MEDS: Acetaminophen 325 MG Tablet 650 MG PO ×2 (03:58→22:34)
[2024-08-06 04:25] LABS: Absolute Neutrophil Count 0.1 X10^3/uL (2.0-7.7); Eosinophil# 0.01 X10^3/uL; Eosinophils% 1.5 % (0-5); Hematocrit 24.3 % (40-54); Hemoglobin 8.4 g/dL (13.0-16.5); Lymphocyte % 75.8 % (19-41); Mean Corp Hgb Conc 34.6 g/dL (32-36); Mean Corpuscular Hgb 34.6 pg (27.0-32.0); Monocyte# 0.05 X10^3/uL; Monocyte% 7.6 % (0-10); NRBC Flagged by Analyzer 0 % (0-5); Neutrophil % 15.1 % (47-70); POSITIVE COUNT YES; POSITIVE DIFFERENTIAL YES; POSITIVE MORPHOLOGY YES; RBC Distribution Width CV 20.2 % (11.6-14.6); RBC Distribution Width SD 71.7 fl (35.1-43.9); Red Blood Count 2.43 M/mm3 (4.6-6.2)
[2024-08-06 04:33] LABS: Differential Indicated SCAN CRITERIA MET; Platelet Count 21 K/mm3 (150-450); White Blood Count 0.7 K/mm3 (4.4-11.0)
[2024-08-06 04:42] LABS: ALB/GLOB Ratio 0.8 RATIO (0.9-2.4); AST(SGOT) 23 U/L (15-37); Alanine Aminotransfer ALT/SGPT 19 U/L (16-61); Albumin, Serum 2.7 g/dL (3.2-5.0); Alkaline Phosphatase 42 U/L (45-117); Anion Gap 7 (5-15); BUN 20 mg/dL (7-18); Calcium,Total 8.1 mg/dL (8.5-10.1); Chloride 112 mmol/L (98-107); EST Glomerular Filtration Rate 76 mL/min (>60); Est Glom Filt Rate - Afr Amer 92 mL/min (>60); Globulin 3.6 g/dL (2.2-4.2); Glucose 165 mg/dL (74-106); Potassium 3.6 mmol/L (3.5-5.1); Protein, Total 6.3 g/dL (6.4-8.2); Sodium Level 140 mmol/L (136-145)
[2024-08-06 04:49] LABS: International Normalized Ratio 1.1; Prothrombin Time (Protime)PT. 14.5 SECONDS (11.7-14.9)
[2024-08-06 04:50] LABS: Partial Thromboplast Time 21.1 Seconds (24.1-36.2)
[2024-08-06] MEDS: Pantoprazole Sodium 80 MG in 0.9% Normal Saline (100mL Bag) 80 ML 10 MG CONT INF ×2 (06:05→18:44)
[2024-08-06 06:28] LABS: Anisocytosis 2+; Basophilic Stippling 1+; Differential Comment SCANNED; Microcytosis 1+; Ovalocyte RARE; Platelet Estimate MKD DEC (ADEQ)
[2024-08-06] MEDS: Budesonide Respules 0.5 MG/2 ML AMPUL.NEB. INHALATION ×2 (07:20→20:10)
[2024-08-06] MEDS: Azelastine HCl NASAL.SRY 2 SPRAY NASAL (07:46)
[2024-08-06] MEDS: Dorzolamide HCL/Timolol 10 ml Bottle 1 DRP OPHTHALMIC ×2 (07:49→22:11)
--- NOTE | 2024-08-06 07:55 | PCM.PRE.AN2 ---
ASA Classification* ASA Classification ASA Classification: 4 and E Assessment & Plan Anesthesia* Anesthesia Assessment Anesthesia Assessment: Discussed sedation and/or anesthesia options, risks, benefits, and alternatives with patient/parents/legal guardian/POA. Questions invited. The patient/parents/legal guardian/POA seems to understand and agrees to proceed with anesthesia plan. Reviewed the physical assessment, medical history, allergy history and patient home medications list prior to surgery/procedure/anesthetic and documented any changes. Performed airway and anesthesia risk assessments. Anesthesia Type Anesthesia Type: MAC (see written pre anesthesia records for full assessment) Anesthesia Focused Assessment* Temperature: 98.3 F Pulse Rate: 87 Blood Pressure: 111/50 Respiratory Rate: 18 Pulse Ox: 100 Airway Assessment Mouth opens: >3 cm Mallampati Score: II Focused Labs Anesthesia Preop lab: CBC WBC 0.7 K/mm3 (4.4-11.0) L* 08/06/24 03:45 RBC 2.43 M/mm3 (4.6-6.2) L 08/06/24 03:45 Hgb 8.4 g/dL (13.0-16.5) L 08/06/24 03:45 Hct 24.3 % (40-54) L 08/06/24 03:45 Plt Count 21 K/mm3 (150-450) L* 08/06/24 03:45 CHEMISTRY Potassium 3.6 mmol/L (3.5-5.1) 08/06/24 03:45 Sodium 140 mmol/L (136-145) 08/06/24 03:45 Magnesium 1.8 mg/dL (1.6-2.6) 08/05/24 13:33 Phosphorus 1.3 mg/dL (2.5-4.9) L 08/05/24 13:33 BUN 20 mg/dL (7-18) H 08/06/24 03:45 Creatinine 1.00 mg/dL (0.70-1.30) 08/06/24 03:45 Glucose 165 mg/dL (74-106) H 08/06/24 03:45 POC Glucose 156 mg/dL (74-106) H 08/05/24 20:29 TSH 1.090 uIU/mL (0.358-3.740) 07/12/24 10:32 COAG PT 14.5 SECONDS (11.7-14.9) 08/06/24 03:45 Pre-Assessment Diagnosis/Proposed Procedure Planned Operative Procedure(s): egd Anesthesia History 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 When Was Last Pacemaker Check QUESTION #4 FULL TEXT: You/Your Family Experience fever (hyperthermia) with Anesthesia Last Oral Intake Last Oral intake: Last Oral Intake NPO since 00:00 08/06/24 06:56 Meds taken in AM with sips of Yes 08/06/24 06:56 water? Meds patient instructed to tylenol 08/06/24 06:56 take am of surgery PONV PONV - manufactured buildings supervisor: PONV - manufactured buildings supervisor Female HX of Motion Sickness HX of N/V After Surgery Non-Smoker Duration of Surgery greater than 60 minutes Number of Risk Factors PONV Score Height & Weight Height & Weight: Anesthesia: Height & Weight Height 5 ft 10 in 08/06/24 06:56 Weight: 94.5 kg 08/06/24 06:56 Body Mass Index (BMI) 29.9 08/06/24 06:56 Respiratory Assessment Respiratory Assessment - manufactured buildings supervisor: Respiratory Tract Infection Hx - manufactured buildings supervisor Hx Respiratory Tract Infection No 12/07/23 09:43 STOP Sleep Apnea STOP Sleep Apnea - manufactured buildings supervisor: STOP Sleep Apnea - manufactured buildings supervisor Hx Hypertension Yes: HYPOTENSIVE/MD STOPPED 08/05/24 16:54 MED 12/03/23 Hx Sleep Apnea No 08/05/24 16:54 CPAP BIPAP Do you snore loudly (louder No 08/05/24 16:54 than talking or can be heard Do you often feel tired/ No 08/05/24 16:54 fatigued/ sleepy during daytime? Has anyone observed you stop No 08/05/24 16:54 breathing during sleep? STOP Results Negative 08/05/24 16:54 QUESTION #5 FULL TEXT : Do you snore loudly (louder than talking or can be heard through closed doors)? Tobacco Use History Tobacco Use History - manufactured buildings supervisor: Tobacco Use History - manufactured buildings supervisor Tobacco Use Smoking Status Former smoker 08/05/24 16:54 Hx Tobacco Use No 08/05/24 16:54 Years Smoking Packs Smoked per Day Smoking Cessation Date was No - quit smoking greater 08/05/24 16:54 within the last 15 years than 15 years ago Hx Smoking Cessation Date 08/17/72 08/05/24 16:54 Hx Smoking Cessation No 08/05/24 16:54 Counseling Hematologic Medial History Hematologic Hx - manufactured buildings supervisor: Hematologic Medical Hx - feltmaker Hx of Blood Transfusion Yes 08/05/24 16:54 Hx of Transfusion in last 3 No 08/05/24 16:54 Months Date of Last Transfusion (if within last 3 months) Ever experience any problems No 08/05/24 16:54 with transfusion(s)? Specify any problems Hx of Preganancy in last 3 N/A 08/05/24 16:54 Months Nurse Filling Out Transfusion KSCHENCK 08/05/24 16:54 & Questions: Date: 08/05/24 08/05/24 16:54 Time: 16:58 08/05/24 16:54 Patient unable to answer at this time (ie. confused, unrespo /Reproduction History /Reproductive History - manufactured buildings supervisor: /Reproductive Hx- manufactured buildings supervisor Hx Now No 08/06/24 06:56 Gestational Age (in weeks): EDC: Hx Hx Para Hx Section SAB No 08/06/24 06:56 Active Medications Active Medications: Current Medications Generic Name Dose Route Start Last Admin Trade Name Freq PRN Reason Stop Dose Admin Acetaminophen 650 mg 08/05/24 17:02 08/06/24 03:58 Acetaminophen 325 Mg Tablet PO 650 mg Q4H PRN PRN Administration Fever, pain 1-1010 Al Hydroxide/Mg Hydroxide 30 ml 08/05/24 17:02 Mag Hydrox/Al Hydrox/Simeth 30 Ml Udc PO Q6H PRN PRN Gastric Burning Albuterol Sulfate 2.5 mg 08/05/24 17:02 Albuterol 2.5 Mg/3 Ml Vial.Neb. INHALATION Q2H PRN PRN Dyspnea, wheezing Atorvastatin Calcium 80 mg 08/06/24 10:00 Atorvastatin Calcium 80 Mg Tablet PO DAILY TREY Azelastine HCl 2 spray 08/05/24 22:00 08/06/24 07:46 Azelastine Hcl Nasal.Sry NASAL 2 % BID TREY Administration Baclofen 10 mg 08/05/24 17:02 Baclofen 10 Mg Tablet PO DAILY PRN PRN muscle spasm Budesonide 0.5 mg 08/05/24 17:02 08/05/24 19:31 Budesonide Respules 0.5 Mg/2 Ml Ampul.Neb. INHALATION 0.5 mg BID.RT TREY Administration Dorzolamide/Timolol 1 drp 08/05/24 22:00 08/06/24 07:49 Dorzolamide Hcl/Timolol 10 Ml Bottle OPHTHALMIC 1 drp BID TREY Administration Finasteride 5 mg 08/06/24 10:00 Finasteride 5 Mg Tablet PO DAILY TREY Glucagon 1 mg 08/05/24 17:02 Glucagon 1 Mg/Ml Syringe IM X1 PRN HYPOGLYCEMIA Protocol Guaifenesin 20 ml 08/05/24 17:02 Guaifenesin 10 Ml Udc (200mg/10ml) PO Q4H PRN PRN COUGH Hydralazine HCl 10 mg 08/05/24 17:02 Hydralazine 20 Mg/Ml Vial IV Q4H PRN PRN SBP > 160 Protocol Pantoprazole Sodium 80 mg/ 100 mls @ 10 mls/hr 08/05/24 18:00 08/06/24 06:05 Sodium Chloride CONT INF 10 mls/hr Q10H TREY Administration Dextrose 250 mls @ 0 mls/hr 08/05/24 17:02 Dextrose 10%-Water IV .Q0M PRN HYPOGLYCEMIA Protocol As Directed Insulin Human Lispro 0 unit 08/05/24 17:02 08/06/24 07:43 Insulin Lispro 100 Unit/Ml Insuln.Pen SC Not Given ACHS TREY Protocol Insulin Human Regular 150 units 08/06/24 08:00 08/06/24 07:44 Insulin U-500 Units/Ml Pen SC Not Given BREAKFAST TREY Insulin Human Regular 100 units 08/06/24 22:00 Insulin U-500 Units/Ml Pen SC QHS TREY Loratadine 10 mg 08/06/24 10:00 Loratadine 10 Mg Tablet PO DAILY [facility] Melatonin 3 mg 08/05/24 22:00 Melatonin 3 Mg Tablet PO QHS PRN PRN INSOMNIA Metoprolol Tartrate 37.5 mg 08/05/24 22:00 08/05/24 20:40 Metoprolol Tartrate 25 Mg Tablet PO 37.5 mg BID TREY Administration Ondansetron HCl 4 mg 08/05/24 17:02 Ondansetron 4 Mg/2 Ml Vial IV Q8H PRN PRN NAUSEA/VOMITING Potassium Chloride 20 meq 08/06/24 08:00 Potassium [facility]loride [facility] Prochlorperazine Edisylate 5 mg 08/05/24 17:02 Prochlorperazine 10 Mg/2 Ml Vial IV Q4H PRN PRN Breakthrough Nausea/Vomiting Tamsulosin HCl 0.4 mg 08/05/24 17:30 08/05/24 18:27 Tamsulosin Hcl 0.4 Mg Capsule PO 0.4 mg DAILY@1730 TREY Administration [facility] Medical History History of hepatitis C Loss of hearing Wears glasses Anxiety Ambulates with cane Insulin dependent diabetes mellitus Arthritis Prostate disease Anemia Restless legs Injury of back Injury of head and neck Syncope Dietary restriction Difficulty swallowing Gastric reflux Former smoker History of pain when walking History of echocardiogram History of stress test Cardiology follow-up encounter Glaucoma Hx of fracture of wrist Other pancytopenia Longstanding persistent atrial fibrillation Obesity Right bundle branch block (RBBB) Osteoarthritis Essential hypertension Allergic rhinitis due to allergen Asthma DVT (deep venous thrombosis) (02/24/11) Cervical radiculopathy Hyperlipidemia Vitamin D deficiency Hypersomnia DEYANIRA (obstructive sleep apnea) Home Medications ?Medication ?Instructions ?Recorded ?Last Taken ?Type alfuzosin 10 mg tablet,extended 10 mg PO DAILY@1730 urinary 08/31/13 02/19/24 History release 24 hr rosuvastatin 40 mg tablet 40 mg PO DAILY cholesterol 08/31/13 02/19/24 History finasteride 5 mg tablet 5 mg PO DAILY prostate 12/18/15 02/19/24 History empagliflozin 25 mg tablet 25 mg PO QDAY diabetes 12/21/17 02/19/24 History (Jardiance) pantoprazole 20 mg tablet,delayed 20 mg PO DAILY GERD 10/16/20 02/19/24 History release tramadol 50 mg tablet 50 mg PO BID PRN pain 10/16/20 02/19/24 History baclofen 10 mg tablet 10 mg PO DAILY PRN PRN muscle spasm 07/24/22 02/19/24 History dorzolamide 22.3 mg-timolol 6.8 1 drp ophthalmic (eye) BID eyes 07/24/22 02/19/24 History mg/mL eye drops fluticasone 500 mcg-salmeterol 50 1 inh inhalation Q12H breathing 12/25/22 02/19/24 Rx mcg/dose blistr powdr for #60 ea inhalation (Advair Diskus) albuterol sulfate 90 mcg/actuation 2 puff inhalation Q6H PRN PRN Sob 03/19/23 12/08/23 Rx aerosol inhaler &/Or Wheezing #18 grams azelastine 205.5 mcg (0.15 %) 2 spray intranasal BID allergies 03/19/23 02/19/24 Rx nasal spray #30 mL cetirizine 10 mg tablet 10 mg PO DAILY allergy #90 tabs 07/14/23 02/19/24 Rx terbinafine HCl 1 % topical cream 1 applic topical BID cream 02/20/24 02/19/24 History insulin regular hum U-500 conc 500 100 unit subcut QHS diabetes 03/30/24 Unknown History unit/mL(3 mL) subcut pen (Humulin R U-500 (Conc) Insulin Kwikpen) metoprolol tartrate 75 mg tablet 37.5 mg (1/2 x 75 mg) PO BID HTN 03/30/24 Unknown Rx 90 days #90 tabs potassium 20 mg chewable tablet 20 mg PO DAILY supplement 07/21/24 Unknown History dulaglutide 0.75 mg/0.5 mL 0.75 mg subcut QWEEK diabetes 07/28/24 Unknown History subcutaneous pen injector (Trulicity) fluticasone propionate 50 2 spray intranasal DAILY PRN 07/28/24 Unknown History mcg/actuation nasal allergy symptoms spray,suspension insulin regular hum U-500 conc 500 150 unit subcut QAM diabetes 07/28/24 Unknown History unit/mL(3 mL) subcut pen (Humulin R U-500 (Conc) Insulin Kwikpen) polyethylene glycol 3350 17 17 g PO .COMPLEX bowels #510 grams 07/28/24 Unknown Rx gram/dose oral powder (Miralax) Allergy/AdvReac Type Severity Reaction Status Date / Time No Known Drug Allergies Allergy no known Verified 07/28/24 14:11 Family History Daughter Asthma Grandmother Asthma Sister Asthma COPD (chronic obstructive pulmonary disease) Mother Pancreatic cancer Brother Myocardial infarction Cancer CAD (coronary artery disease) Surgical History History of bone marrow biopsy Hx of right cataract extraction Hx of left cataract extraction History of left heart catheterization (2006) 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
[2024-08-06 08:12] LABS: Bedside Glucose 129 mg/dL (74-106)
--- NOTE | 2024-08-06 09:15 | PCM.POST.ANE ---
Anesthesia: Postop Eval I Current Vital Signs Temperature: 97 F Pulse Rate: 113 Blood Pressure: 117/49 Respiratory Rate: 16 Pulse Ox: 95 Assessment Airway patent: Yes Spontaneous unlabored respirations: Yes nausea: No Vomiting: No Anesthesia Complication: No Fluid Hydration Crystalloid volume administer (ml): 20 Total IV fluid infused: 20 Progress Note Anesthesia document: Postop Eval 1 completed: Yes
--- NOTE | 2024-08-06 09:17 | PCM.POSTANE2 ---
Anesthesia Postop Eval I Sum Postop Eval Completion status Anesthesia document: Postop Eval 1 completed: Yes Anesthesia Postop Eval I Summary Anesthesia Postop Eval I Summary: Anesthesia Postop Eval I: Assessment Summary Airway patent Yes 08/06/24 09:16 Spontaneous unlabored Yes 08/06/24 09:16 respirations Mental status nausea No 08/06/24 09:16 Vomiting No 08/06/24 09:16 Anesthesia Postop Eval I: Fluid Summary Crystalloid volume administer 20 08/06/24 09:16 (ml) Colloids volume administered ( ml) Blood Product volume administered (ml) Total IV fluid infused 20 08/06/24 09:16 Anesthesia Postop Eval I: Summary Notes Anesthesia Complication No 08/06/24 09:16 Anesthesia Complication Comment: Post-operative progress note Anesthesia: Postop Eval II Evaluation Mental status: Awake Pain Level: 0 nausea: No Vomiting: No
--- NOTE | 2024-08-06 09:25 | OP.EGD_ITS ---
Patient Name: Keaton Reich Procedure Date: 08/06/2024 9:01 AM Date of : 1945 Age: 79 Procedure: Upper GI endoscopy Indications: Iron deficiency anemia Providers: Juan Jolly DO Medicines: Monitored Anesthesia Care Patient Profile: This is an 79 year old male. Refer to note in patient chart for documentation of history and physical. Patient has symptoms. Complications: No immediate complications. Procedure: Pre-Anesthesia Assessment: - Prior to the procedure, a History and Physical was performed, and patient medications and allergies were reviewed. The patient is competent. The risks and benefits of the procedure and the sedation options and risks were discussed with the patient. All questions were answered and informed consent was obtained. Patient identification and proposed procedure were verified by the physician in the pre-procedure area. Mental Status Examination: alert and oriented. Airway Examination: normal oropharyngeal airway and neck mobility. Respiratory Examination: clear to auscultation. CV Examination: normal. Prophylactic Antibiotics: The patient does not require prophylactic antibiotics. Prior Anticoagulants: The patient has taken no anticoagulant or antiplatelet agents except for NSAID medication. ASA Grade Assessment: II - A patient with mild systemic disease. After reviewing the risks and benefits, the patient was deemed in satisfactory condition to undergo the procedure. The anesthesia plan was to use monitored anesthesia care (MAC). Immediately prior to administration of medications, the patient was re-assessed for adequacy to receive sedatives. The heart rate, respiratory rate, oxygen saturations, blood pressure, adequacy of pulmonary ventilation, and response to care were monitored throughout the procedure. The physical status of the patient was re-assessed after the procedure. After obtaining informed consent, the endoscope was passed under direct vision. Throughout the procedure, the patient's blood pressure, pulse, and oxygen saturations were monitored continuously. The gastroscope was introduced through the mouth, and advanced to the second part of duodenum. The upper GI endoscopy was accomplished without difficulty. The patient tolerated the procedure well. Scope In: 9:08:54 AM Scope Out: 9:11:20 AM Total Procedure Duration Time 0 hours 2 minutes 26 seconds Findings: The examined esophagus was normal. Two 4 mm angiodysplastic lesions with no bleeding were found on the lesser curvature of the stomach. Coagulation for bleeding prevention using heater probe was successful. Estimated blood loss was minimal. No gross lesions were noted in the second portion of the duodenum. Impression: - Normal esophagus. 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 Treated with a heater probe. - No gross lesions in the second portion of the duodenum. - No specimens collected. Recommendation: - [facility]. - Resume regular diet today. - Continue present medications. Procedure Code(s): --- Professional --- 24985, Esophagogastroduodenoscopy, flexible, transoral; with control of bleeding, any method CPT copyright 2021 [employer]. All rights reserved. The codes documented in this report are preliminary and upon shop tailor review may be revised to meet current compliance requirements. Juan Jolly DO 08/06/2024 9:25:09 AM This report has been signed electronically. Number of Addenda: 0 Note Initiated On: 08/06/2024 9:01 AM
--- NOTE | 2024-08-06 09:25 | OP.CCLET_ITS ---
08/06/2024 Noble Peter MD [address] [place] [address] Re : Upper GI endoscopy procedure for Keaton Reich Dear Dr. Peter This procedure was performed on Tuesday, August 06, 2024. My impressions and recommendations are as follows: Impressions : - Normal esophagus. 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 Treated with a heater probe. - No gross lesions in the second portion of the duodenum. - No specimens collected. Recommendations : - [facility]. - Resume regular diet today. - Continue present medications. My findings are described in the full procedure note, which is enclosed. If I can be of further assistance, please feel free to contact me at . Sincerely, Juan Jolly, 08/06/2024 9:25:09 AM This report has been signed electronically.
--- NOTE | 2024-08-06 09:46 | CASEMGMT ---
Addendum entered by Kathleen Marcus 08/06/24 11:11: No therapy ordered, no 6 clicks completed. Spoke with hospitalist to see if ok for therapy, she will see pt and decide. Addendum entered by Kathleen Marcus 08/06/24 11:09: 1035- ANGELINA STONE Assessment: Face to Face with pt for initial transition planning/care coordination assessment. ANGELINA STONE introduced self and role at [facility], pt voices understanding and consents to assessment. Pt is A&O x4 and answers all questions appropriately at this time. Pt dtr Gio present and pt agreeable to assessment with her in room. Care providers, pharmacy, and demographics verified/updated. 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 Pt rents out the top level. Pt reports he is I in ADLs and renter provides meals and does laundry for him. Pt states ADLs are getting harder for him. Transportation: Pt drives self and denies concerns with transportation. DME:CG[employer] with sufficient supply of sensors; insulin with sufficeint supply of needles, cane, walker, w/c, walk in tub with seat HHC/SNF: Denies hx of Pt states no concerns with going home at time of dc. Pt dtr states she [facility] and on Thursday was told he was [facility] for 30 hours of [facility] care. She would like ANGELINA STONE to follow up on Thursday. Pt states no further concerns/needs. CM to follow. Advised pt to ask CM if any further question/concerns/needs arise, voices understanding. Pt Goal: Home with [facility] services Plan: Home with VA services pending, follow therapy. Humberto ALFARO CM Original Note: ANGELINA STONE into pt room for assessment, pt is off of the floor at this time.
[2024-08-06] MEDS: Loratadine 10 MG Tablet PO (10:29)
[2024-08-06] MEDS: Potassium Chloride Oral Tablet 20 MEQ PO (10:29)
[2024-08-06] MEDS: Atorvastatin Calcium 80 MG Tablet PO (10:30)
[2024-08-06] MEDS: Finasteride 5 MG Tablet PO (10:30)
[2024-08-06] MEDS: Metoprolol Tartrate 25 MG Tablet 37.5 MG PO ×2 (10:48→22:28)
[2024-08-06 11:12] LABS: Bedside Glucose 135 mg/dL (74-106)
--- NOTE | 2024-08-06 13:34 | PCM.PN.HOSP ---
Reason for Visit Reason for Visit: Abnormal outpatient hemoglobin Subjective Subjective Patient is an 79-year-old white male who presented to the emergency department at [facility] on 08/05/2024 at the direction of his oncologist due to abnormal outpatient hemoglobin being 6.1. He has a history of proximal atrial fibrillation and had previously been on Xarelto which was discontinued in June 2024 secondary to concerns about GI bleeding. He followed up as an outpatient and saw Dr. Jolly but at the time of evaluation both the patient and clinician felt he was not a great candidate for prep as an outpatient so this was deferred. He has had ongoing black tarry stools and reported on presentation that he had been feeling more fatigued and weak but denied any lightheadedness, dizziness, dyspnea, chest pain, hematemesis, hematochezia or abdominal pain. He is currently being worked up for pancytopenia and had a bone marrow biopsy on the day of presentation. Vital signs on arrival showed a temperature of 96.2, heart rate 129, respiratory rate was 22, blood pressure was 151/94 and pulse ox was 100% on room air. Outpatient CBC showed a white count of 1.1, hemoglobin of 6.1, and a platelet count of 30,000. Coags were overall unremarkable. Chemistry panel was overtly unremarkable other than hyperglycemia with a blood sugar of 139 nonfasting. Outpatient phosphorus level was 1.3. Liver functions unremarkable. The case was discussed with Dr. Jolly who agreed to see him in consult for evaluation. He was given 2 units of packed red blood cells by the emergency department and admitted to the floor. 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 Given the fact the patient did not have any noted bleeding abnormalities in the stomach I discussed the case with Dr. Jolly and the patient and both are agreeable to colonoscopy on Thursday. Prep will start tomorrow. I did discuss with the patient that if the colonoscopy did not reveal an etiology for his anemia he would likely need a capsule endoscopy as an outpatient. Family was at the bedside and patient and family voiced understanding with the plan of care. I also discussed with him due to his platelet count being 20,000 today we will go ahead and transfuse 2 units of platelets. Objective Data Objective Data Vital Signs: Vital Signs Temp Pulse Resp BP Pulse Ox O2 Del Method 97.8 F 94 18 133/79 H 100 Room Air 08/06/24 10:46 08/06/24 10:48 08/06/24 10:46 08/06/24 10:48 08/06/24 10:46 08/06/24 10:46 Oxygen Delivery Method Room Air Weight: 94.5 kg Body Mass Index (BMI) 29.9 Intake & Output: Intake and Output for Last 24 Hours 08/04/24 08/05/24 08/06/24 23:59 23:59 23:59 Intake Total 1254.67 / 1754.67 1616.50 / 1616.50 Output Total 1999 Balance 1254.67 / 954.67 -383.50 / -383.50 Lab / Micro Data 08/06/24 03:45 08/06/24 03:45 Labs: Laboratory Results - last 24 hr 08/05/24 13:33: Hgb 6.0 L*, Hct 18.0 L, Diff Path Review December, Sodium 138, Potassium 3.3 L, Chloride 106, Carbon Dioxide 21.0, Anion Gap 11, BUN 25 H, Creatinine 1.30, Estim Creat Clear Calc 52.31, Est GFR (MDRD) Af Amer 68, Est GFR (MDRD) Non-Af 56 L, BUN/Creatinine Ratio 19.2, Glucose 139 H, Calcium 8.4 L, Phosphorus 1.3 L, Magnesium 1.8 08/05/24 13:55: Blood Type A POSITIVE, Antibody Screen NEGATIVE, Crossmatch See Detail 08/05/24 17:19: POC Glucose 140 H 08/05/24 19:46: Hgb 6.9 L, Hct 20.2 L 08/05/24 20:29: POC Glucose 156 H 08/05/24 23:00: Hgb 8.5 L, Hct 24.8 L 08/06/24 03:45: WBC 0.7 L*, RBC 2.43 L, Hgb 8.4 L, Hct 24.3 L, MCV 100.0 H D, MCH 34.6 H, MCHC 34.6, RDW Std Deviation 71.7 H, RDW Coeff of Misa 20.2 H, Plt Count 21 L*, MPV TNP, Immature Gran % (Auto) 0.000, Neut % (Auto) 15.1 L, Lymph % (Auto) 75.8 H, [place] % (Auto) 7.6, Eos % (Auto) 1.5, Baso % (Auto) 0.0, Absolute Neuts (auto) 0.1 L, Absolute Lymphs (auto) 0.50 L, Nucleated RBC % 0, Differential Comment SCANNED, Diff Path Review May foll, Platelet Estimate MKD DEC, Basophilic Stippling 1+, Anisocytosis 2+, Microcytosis 1+, Ovalocytes RARE, PT 14.5, INR 1.1, APTT 21.1 L, Sodium 140, Potassium 3.6, Chloride 112 H, Carbon Dioxide 21.0, Anion Gap 7, BUN 20 H, Creatinine 1.00, Estim Creat Clear Calc 68.00, Est GFR (MDRD) Af Amer 92, Est GFR (MDRD) Non-Af 76, BUN/Creatinine Ratio 20.0, Glucose 165 H, Calcium 8.1 L, Total Bilirubin 0.80, AST 23, ALT 19, Alkaline Phosphatase 42 L, Total Protein 6.3 L, Albumin 2.7 L, Globulin 3.6, Albumin/Globulin Ratio 0.8 L 08/06/24 07:42: POC Glucose 129 H 08/06/24 10:51: POC Glucose 135 H Micro: Microbiology 08/05/24 13:55 Stool Stool Occult Blood (LUIS ENRIQUE) - Final Occult Blood Positive Physical Exam Const alert, oriented x3, no apparent distress and well nourished Constitutional Narrative: Overweight, elderly, white male, sitting up in bed, appears comfortable, nontoxic, daughter and close friend at bedside HEENT head/scalp atraumatic and moist oral mucous membranes Head and Scalp: normocephalic Eyes EOMs intact bilaterally; Negative for conjunctivae normal Eyes Narrative: Conjunctiva are markedly pale Resp normal respiratory effort, no retractions, no use of accessory muscles and clear to auscultation bilaterally Auscultation: Negative for rales, rhonchi or wheezes Cardio regular rate, regular rhythm, S1 normal heart sound, S2 normal heart sound, no murmurs, no rub, no gallops and no clicks GI normal to inspection, nondistended, normoactive bowel sounds, soft to palpation and non-tender Extremity no clubbing, cyanosis or edema Skin Skin Narrative: Scattered ecchymosis Neuro oriented x3, moves all extremities and no focal motor deficits Speech: speech normal Psych affect normal Psych Narrative: Extremely pleasant, eye contact is good and patient interacts appropriately Assessment & Plan Assessment/Plan (1) GI bleed: (2) Pancytopenia: PLAN: Plan Acute on chronic pancytopenia-etiology is unclear -Admitted for workup of anemia. Patient had not had any scopes as of yet at the time of admission -EGD done today and nonbleeding angiodysplastic lesions noted in the stomach--> treated with heater probe -Given no finding of acute bleeding we will plan for colonoscopy on Thursday and patient is agreeable -Prep to start tomorrow -Bone marrow biopsy done on 08/05/2024 -Will transfuse 2 packs of platelets given platelet count of 21,000 and anemia present with concern for GI bleed -Oncology is following as an outpatient -Depending on findings of colonoscopy on Thursday possible discharge at that time -If colonoscopy is negative patient will need outpatient capsule endoscopy to complete workup for GI sources -Hemoglobin 6 on presentation and status post 2 units packed red blood cells hemoglobin is 8.4 -Repeat CBC in a.m. Hypokalemia -Replace -Resolved History of hepatitis C -Status posttreatment Hypophosphatemia -K-Phos bolus given today -Recheck phosphorus level in a.m. CKD stage II -It does appear that his creatinine clearance does fluctuate between 50-70 -Creatinine clearance is currently 68 -Monitor DM-2 -Home oral regimen on hold -Continue insulin -Diet reinitiated for now but will transition back to clears tomorrow when he starts bowel prep -No changes in SSI or Accu-Cheks for now Essential hypertension/hyperlipidemia -Continue home metoprolol Can continue home statin FEN as needed hydralazine available History of hypogammaglobulinemia -Previous treatment with IVIG -Ongoing outpatient follow-up with oncology PAF -Continue home metoprolol -Previously on Xarelto but discontinued due to lab abnormalities History of VTE -Not on anticoagulation due to the above -They were remote with no current signs of VTE GERD -Continue home PPI DEYANIRA -Patient is not compliant with CPAP History of tobacco abuse -Remote Allergic rhinitis -Continue home regimen 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
[2024-08-06] MEDS: Potassium Phosphate 40 MM in 0.9% Normal Saline (500mL Bag) 500 ML 62.5 MM IV (14:45)
[2024-08-06] MEDS: Insulin Lispro 100 UNIT/ML INSULN.PEN SC ×2 (16:19→22:22)
[2024-08-06 16:43] LABS: Bedside Glucose 247 mg/dL (74-106)
[2024-08-06] MEDS: Tamsulosin HCl 0.4 MG Capsule PO (16:52)
[2024-08-06] MEDS: Glucerna Shake 120 ML LIQUID PO (16:52)
[2024-08-06] MEDS: Insulin U-500 UNITS/ML PEN 100 UNITS SC (22:26)
[2024-08-06 23:07] LABS: Bedside Glucose 153 mg/dL (74-106)
[2024-08-07] VITALS (12 sets, daily range): BP systolic 94–141; BP diastolic 50–99; PULSE 80–135; RESP 16–18; TEMP 36.4–37; O2SAT 96–100; BMI 31.6
[2024-08-07 03:07] LABS: Bedside Glucose 86 mg/dL (74-106)
[2024-08-07 04:48] LABS: Hematocrit 25.3 % (40-54); Hemoglobin 8.4 g/dL (13.0-16.5); Mean Corp Hgb Conc 33.2 g/dL (32-36); Mean Corpuscular Hgb 33.9 pg (27.0-32.0); Mean Platelet Vol. 11.7 fl (6.2-12.0); POSITIVE COUNT YES; POSITIVE MORPHOLOGY YES; RBC Distribution Width CV 21.2 % (11.6-14.6); RBC Distribution Width SD 78.2 fl (35.1-43.9); Red Blood Count 2.48 M/mm3 (4.6-6.2)
[2024-08-07 04:54] LABS: Platelet Count 44 K/mm3 (150-450); White Blood Count 0.8 K/mm3 (4.4-11.0)
[2024-08-07] MEDS: Pantoprazole Sodium 80 MG in 0.9% Normal Saline (100mL Bag) 80 ML 10 MG CONT INF ×2 (05:02→14:59)
[2024-08-07 05:28] LABS: Anion Gap 5 (5-15); BUN 17 mg/dL (7-18); BUN/Creat Ratio 19.6 RATIO (10-20); Calcium,Total 7.7 mg/dL (8.5-10.1); Chloride 114 mmol/L (98-107); Creatinine, Serum 0.87 mg/dL (0.70-1.30); EST Glomerular Filtration Rate 90 mL/min (>60); Est Glom Filt Rate - Afr Amer 109 mL/min (>60); Estimated Creatinine Clearance 80.27 ml/min; Glucose 69 mg/dL (74-106); Magnesium 1.8 mg/dL (1.6-2.6); Phosphorus 2.6 mg/dL (2.5-4.9); Potassium 3.8 mmol/L (3.5-5.1); Sodium Level 142 mmol/L (136-145)
[2024-08-07 06:58] LABS: Scan Indicated on CBC? Y/N YES- FLAGS NOTED
[2024-08-07 07:04] LABS: Bedside Glucose 67 mg/dL (74-106)
--- NOTE | 2024-08-07 08:11 | PCM.PN.HOSP ---
Reason for Visit Reason for Visit: Abnormal outpatient hemoglobin Subjective Subjective Patient with some hypoglycemia overnight and is on adjusted U-500 insulin which likely will need adjusted further given the fact that he is going to be n.p.o. Patient states he did not sleep well. Plan is for colon prep this start today with colonoscopy tomorrow. Patient denies any significant issues at this time but states he would like to go back to that. Objective Data Objective Data Vital Signs: Vital Signs Temp Pulse Resp BP Pulse Ox O2 Del Method 98.1 F 80 18 137/93 H 96 Room Air 08/07/24 02:57 08/07/24 07:27 08/07/24 07:27 08/07/24 02:57 08/07/24 07:27 08/07/24 07:27 Oxygen Delivery Method Room Air Weight: 100 kg Body Mass Index (BMI) 31.6 Intake & Output: Intake and Output for Last 24 Hours 08/05/24 08/06/24 08/07/24 23:59 23:59 23:59 Intake Total 1254.67 / 1754.67 2210.1633 / 2330.1633 460 / 460 Output Total 1999 1025 / 1025 Balance 1254.67 / 954.67 210.1633 / -194.8367 -565 / -565 Lab / Micro Data 08/07/24 03:27 08/07/24 03:27 Labs: Laboratory Results - last 24 hr 08/05/24 13:55: Crossmatch See Detail 08/06/24 07:42: POC Glucose 129 H 08/06/24 10:51: POC Glucose 135 H 08/06/24 16:18: POC Glucose 247 H 08/06/24 22:20: POC Glucose 153 H 08/07/24 02:48: POC Glucose 86 08/07/24 03:27: WBC 0.8 L*, RBC 2.48 L, Hgb 8.4 L, Hct 25.3 L, MCV 102.0 H, MCH 33.9 H, MCHC 33.2, RDW Std Deviation 78.2 H, RDW Coeff of Misa 21.2 H, Plt Count 44 L*, MPV 11.7, Diff Path Review December, Sodium 142, Potassium 3.8, Chloride 114 H, Carbon Dioxide 23.0, Anion Gap 5, BUN 17, Creatinine 0.87, Estim Creat Clear Calc 80.27, Est GFR (MDRD) Af Amer 109, Est GFR (MDRD) Non-Af 90, BUN/Creatinine Ratio 19.6, Glucose 69 L, Calcium 7.7 L, Phosphorus 2.6, Magnesium 1.8 08/07/24 06:37: POC Glucose 67 L Micro: Microbiology 08/05/24 13:55 Stool Stool Occult Blood (LUIS ENRIQUE) - Final Occult Blood Positive Physical Exam Const alert, oriented x3, no apparent distress and well nourished; Negative for average body habitus or healthy appearing Constitutional Narrative: Overweight, elderly, white male, sitting up on the edge of the bed, appears comfortable, nontoxic HEENT head/scalp atraumatic and moist oral mucous membranes Head and Scalp: normocephalic Resp normal respiratory effort, no retractions, no use of accessory muscles and clear to auscultation bilaterally Auscultation: Negative for rales, rhonchi or wheezes Cardio regular rate, regular rhythm, S1 normal heart sound, S2 normal heart sound, no murmurs, no rub, no gallops and no clicks GI normal to inspection, nondistended, normoactive bowel sounds, soft to palpation and non-tender Extremity Extremity Narrative: Trace bilateral lower extremity edema that is pitting, no cyanosis or clubbing Skin Skin Narrative: Scattered ecchymosis Neuro moves all extremities and no focal motor deficits Speech: speech normal Psych affect normal Psych Narrative: Extremely pleasant, eye contact is good and patient interacts appropriately Assessment & Plan Assessment/Plan (1) GI bleed: (2) Pancytopenia: PLAN: Plan Acute on chronic pancytopenia-etiology is unclear -EGD done 08/07/2024 and nonbleeding angiodysplastic lesions noted in the stomach--> treated with heater probe -Given no finding of acute bleeding --> colonoscopy on Thursday and patient is agreeable -Colon prep ordered to start today at 1400 -Bone marrow biopsy done on 08/05/2024--> results are pending -Patient has received 2 packs of platelets and 2 units of blood -Oncology is following as an outpatient -If colonoscopy is negative patient will need outpatient capsule endoscopy to complete workup for GI sources -Repeat CBC in a.m. History of hepatitis C -Status posttreatment Hypophosphatemia -Resolved CKD stage II -It does appear that his creatinine clearance does fluctuate between 50-70 -Creatinine clearance is currently 68 -Monitor DM-2 with hyperglycemia -Home oral regimen on hold -Patient on U-500 insulin at home and will decrease a.m. dose and p.m. dose by 50 units apiece due to hypoglycemia overnight and plans for clear liquids and n.p.o. status -No changes in SSI or Accu-Cheks for now -If blood sugar drops may need to consider D5 normal saline for fluid resuscitation Essential hypertension/hyperlipidemia -Continue home metoprolol -continue home statin -as needed hydralazine available History of hypogammaglobulinemia -Previous treatment with IVIG -Ongoing outpatient follow-up with oncology PAF -Continue home metoprolol -Previously on Xarelto but discontinued due to lab abnormalities History of VTE -Not on anticoagulation due to the above -They were remote with no current signs of VTE GERD -Continue home PPI DEYANIRA -Patient is not compliant with CPAP History of tobacco abuse -Remote Allergic rhinitis -Continue home regimen 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
[2024-08-07] MEDS: Metoprolol Tartrate 25 MG Tablet 37.5 MG PO ×2 (08:48→19:54)
[2024-08-07] MEDS: Loratadine 10 MG Tablet PO (08:48)
[2024-08-07] MEDS: Atorvastatin Calcium 80 MG Tablet PO (08:48)
[2024-08-07] MEDS: Dorzolamide HCL/Timolol 10 ml Bottle 1 DRP OPHTHALMIC ×2 (08:49→21:50)
[2024-08-07] MEDS: Potassium Chloride Oral Tablet 20 MEQ PO (08:49)
[2024-08-07] MEDS: Finasteride 5 MG Tablet PO (08:50)
[2024-08-07 09:30] LABS: Bedside Glucose 61 mg/dL (74-106)
[2024-08-07 09:30] LABS: Bedside Glucose 74 mg/dL (74-106)
[2024-08-07 11:22] LABS: Bedside Glucose 117 mg/dL (74-106)
[2024-08-07] MEDS: Bisacodyl 5 MG Tablet 20 MG PO (14:27)
[2024-08-07 16:55] LABS: Bedside Glucose 80 mg/dL (74-106)
[2024-08-07] MEDS: Electrolyte Solution/Peg's 4000 ML PO (17:11)
[2024-08-07] MEDS: Tamsulosin HCl 0.4 MG Capsule PO (17:11)
[2024-08-07] MEDS: Ondansetron 4 MG/2 ML Vial IV (19:36)
--- NOTE | 2024-08-07 20:00 | EKG12_ITS ---
Test Reason : TACHYCARDIA Blood Pressure : */* mmHG Vent. Rate : 126 BPM Atrial Rate : * BPM P-R Int : * ms QRS Dur : 140 ms QT Int : 348 ms P-R-T Axes : * -64 30 degrees QTcB Int : 504 ms Atrial fibrillation with rapid ventricular response Right bundle branch block Left anterior fascicular block Bifascicular block Possible Lateral infarct , age undetermined Abnormal ECG When compared with ECG of 05-Aug-2024 14:55, MANUAL COMPARISON REQUIRED DATA IS UNCONFIRMED Confirmed by JENNA MARTINI, ELIN ([id number]), pictures editor ROB ORTIZ ([id number]) on 08/08/2024 8:31:12 AM Referred By: Confirmed By: ELIN WEST MD
[2024-08-07 22:24] LABS: Bedside Glucose 89 mg/dL (74-106)
[2024-08-08] VITALS (15 sets, daily range): BP systolic 82–148; BP diastolic 57–98; PULSE 98–159; RESP 16–18; TEMP 36.1–37.3; O2SAT 87–100; BMI 31.9
[2024-08-08] MEDS: Pantoprazole Sodium 80 MG in 0.9% Normal Saline (100mL Bag) 80 ML 10 MG CONT INF ×2 (01:57→10:46)
[2024-08-08 06:17] LABS: Hematocrit 24.2 % (40-54); Hemoglobin 8.1 g/dL (13.0-16.5); Mean Corp Hgb Conc 33.5 g/dL (32-36); Mean Corpuscular Hgb 34.3 pg (27.0-32.0); Mean Corpuscular Volume 102.5 fL (80-94); POSITIVE COUNT YES; POSITIVE MORPHOLOGY YES; RBC Distribution Width CV 20.7 % (11.6-14.6); RBC Distribution Width SD 76.3 fl (35.1-43.9); Red Blood Count 2.36 M/mm3 (4.6-6.2)
[2024-08-08 06:43] LABS: Anion Gap 6 (5-15); BUN 11 mg/dL (7-18); BUN/Creat Ratio 12.7 RATIO (10-20); Calcium,Total 7.5 mg/dL (8.5-10.1); Chloride 112 mmol/L (98-107); Creatinine, Serum 0.86 mg/dL (0.70-1.30); EST Glomerular Filtration Rate 90 mL/min (>60); Est Glom Filt Rate - Afr Amer 109 mL/min (>60); Estimated Creatinine Clearance 81.59 ml/min; Glucose 98 mg/dL (74-106); Potassium 3.5 mmol/L (3.5-5.1); Sodium Level 140 mmol/L (136-145)
[2024-08-08 06:45] LABS: Platelet Count 29 K/mm3 (150-450); Scan Indicated on CBC? Y/N YES- FLAGS NOTED; White Blood Count 0.9 K/mm3 (4.4-11.0)
[2024-08-08] MEDS: Budesonide Respules 0.5 MG/2 ML AMPUL.NEB. INHALATION (07:17)
[2024-08-08 07:35] LABS: Differential Comment SCANNED
[2024-08-08 11:04] LABS: Bedside Glucose 105 mg/dL (74-106)
[2024-08-08] MEDS: Dorzolamide HCL/Timolol 10 ml Bottle 1 DRP OPHTHALMIC (14:19)
--- NOTE | 2024-08-08 14:30 | COLBX_PTH ---
PATIENT: JOHNATHAN CURIEL Jr. LOC: [facility] U#:[id number] AGE/SX: 79/M ROOM: [facility] RE08/05/[address]: Dr. Emiliana Mcdaniel DO : 1945 BED: 1 DIS: 08/08/2024 SPEC #: [id number] RECD: 08/09/24 06:56 STATUS: CRISTIN REJacek #: [id number] KALEIGH: 08/08/24 14:[address]: Juan Jolly DEPT: SURGICAL PATHOLOGY RECD BY: Daphne Mulligan ENTERED: 08/09/24 10:39 SP TYPE: COLON BX OTHR DR: MD Dr. Emiliana Hull DO Dr. Tai Chi Kwok, MD Tissues: A - Transverse colon B - Ascending colon C - Transverse colon Procedures: Surgery Specimen Level IV Comments: @ Ordering doctor for SUIV edited from to @ say CORNELL at 08/12/24 0952 @ Submitting doctor edited from to @ say CORNELL at 08/12/24 0952 HEADER OPERATION: Colonoscopy, biopsy, polypectomy, clip cautery PRE-OP DIAGNOSIS: GI bleed TISSUE SUBMITTED: A. Transverse colon polyp, B. Ascending colon polyp, C. Transvers colon polyp x2 MICROSCOPIC DIAGNOSIS A. Transverse Colon Polyp, Biopsy: Tubular Adenoma (See Comment) B. Ascending Colon Polyp, Biopsy: Tubular Adenoma (See Comment) C. Transverse Colon Polyp, Biopsy: 1. Tubular Adenoma fragments (See Comment) 2. Fragments showing hyperplasia COMMENT Dr. Jimenez has been consulted on this case and agrees with the diagnosis. MICROSCOPIC DESCRIPTION Slides are reviewed. GROSS DESCRIPTION A. Received is one container labeled with the patient's name and designated transverse colon polyp. The specimen consists of one irregular fragment of light cheek soft tissue that measures 0.5 x 0.2 x 0.1 cm. The specimen is totally submitted in one cassette. B. Received is one container labeled with the patient's name and designated ascending colon polyp. The specimen consists of one irregular fragment of light cheek soft tissue that measures 0.5 x 0.2 x 0.1 cm. The specimen is totally submitted in one cassette. C. Received is one container labeled with the patient's name and designated transverse colon polyp. The specimen consists of multiple irregular fragments of light cheek soft tissue that in aggregate measure 1.5 x 0.5 x 0.1 cm. The specimen is totally submitted in one cassette. /MS:jeremias 08/09/24 TC:1 [facility] [place]:[id number] x3 ADDENDUM ADDENDUM 08/12/2024 09:32 ADDENDUM 08/12/2024 09:32 ADDENDUM 08/12/2024 09:32 ADDENDUM 08/12/2024 09:32 ADDENDUM 08/12/2024 09:32 08/12/2024
--- NOTE | 2024-08-08 15:36 | CHAPLAIN ---
Type of Pastoral Visit _x__ Initial Visit ___ Follow-up Visit ___ On-call Visit ___ General Patient Visit ___ Spiritual Assessment ___ Family Conference ___ Bereavement ___ Rapid Response ___ Code Blue ___ Other (describe below) Pastoral Care Referral From _x__ Patient ___ Family ___ Nurse ___ Physician ___ Business Systems Architect ___ Agent Spa Desk ___ Other (describe below) Sacrament/Intervention _x__ Active listening ___ Anointing ___ Taoist ___ Bereavement ___ Communion _x__ Vita exploration ___ _x__ Life review _x__ Prayer ___ Reconciliation ___ Sacrament of Sick ___ Supportive presence ___ Wedding ___ Other (describe below) Pastoral Comments patient and daughter are in the room and they state that this is a waiting time for a new scope to discover where more bleeding is coming from; daughter excuses herself from the room and conversation; pt is more focused on his vita journey and his relationship to his new methodist; pt's concern is for the quick completion of test and eating then; pt welcomes prayer and presence of spiritual care
--- NOTE | 2024-08-08 16:15 | PCM.PRE.AN2 ---
ASA Classification* ASA Classification ASA Classification: 3 Assessment & Plan Anesthesia* Anesthesia Assessment Anesthesia Assessment: Discussed sedation and/or anesthesia options, risks, benefits, and alternatives with patient/parents/legal guardian/POA. Questions invited. The patient/parents/legal guardian/POA seems to understand and agrees to proceed with anesthesia plan. Reviewed the physical assessment, medical history, allergy history and patient home medications list prior to surgery/procedure/anesthetic and documented any changes. Performed airway and anesthesia risk assessments. Anesthesia Type Anesthesia Type: MAC History Source History Obtained from:: Patient and Chart Anesthesia Focused Assessment* Temperature: 98.6 F Pulse Rate: 120 Blood Pressure: 125/98 Respiratory Rate: 18 Pulse Ox: 99 Oxygen Delivery Method: Room Air Airway Assessment Mouth opens: >3 cm Mallampati Score: I Teeth Condition: Caps/Crowns (Patient has a couple cramps. They are tight.) Neck Range of motion (ROM): Limited ROM (Decreased extension secondary to plates and screws in his cervical vertebrae.) Focused Labs Anesthesia Preop lab: CBC WBC 0.9 K/mm3 (4.4-11.0) L* 08/08/24 05:37 RBC 2.36 M/mm3 (4.6-6.2) L 08/08/24 05:37 Hgb 8.1 g/dL (13.0-16.5) L 08/08/24 05:37 Hct 24.2 % (40-54) L 08/08/24 05:37 Plt Count 29 K/mm3 (150-450) L* 08/08/24 05:37 CHEMISTRY Potassium 3.5 mmol/L (3.5-5.1) 08/08/24 05:37 Sodium 140 mmol/L (136-145) 08/08/24 05:37 Magnesium 1.8 mg/dL (1.6-2.6) 08/07/24 03:27 Phosphorus 2.6 mg/dL (2.5-4.9) 08/07/24 03:27 BUN 11 mg/dL (7-18) 08/08/24 05:37 Creatinine 0.86 mg/dL (0.70-1.30) 08/08/24 05:37 Glucose 98 mg/dL (74-106) 08/08/24 05:37 POC Glucose 105 mg/dL (74-106) 08/08/24 10:45 TSH 1.090 uIU/mL (0.358-3.740) 07/12/24 10:32 COAG PT 14.5 SECONDS (11.7-14.9) 08/06/24 03:45 Pre-Assessment Diagnosis/Proposed Procedure Planned Operative Procedure(s): Colonoscopy Anesthesia History 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 When Was Last Pacemaker Check QUESTION #4 FULL TEXT: You/Your Family Experience fever (hyperthermia) with Anesthesia Last Oral Intake Last Oral intake: Last Oral Intake NPO since 00:00 08/08/24 07:58 Meds taken in AM with sips of Yes 08/08/24 07:58 water? 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 Female HX of Motion Sickness HX of N/V After Surgery Non-Smoker Duration of Surgery greater than 60 minutes Number of Risk Factors PONV Score Height & Weight Height & Weight: Anesthesia: Height & Weight Height 5 ft 10 in 08/08/24 07:58 Weight: 101 kg 08/08/24 07:58 Body Mass Index (BMI) 31.9 08/08/24 07:58 Respiratory Assessment Respiratory Assessment - embossed or impressed lettering painter: Respiratory Tract Infection Hx - embossed or impressed lettering painter Hx Respiratory Tract Infection No 08/08/24 07:59 STOP Sleep Apnea STOP Sleep Apnea - embossed or impressed lettering painter: STOP Sleep Apnea - embossed or impressed lettering painter Hx Hypertension Yes: HYPOTENSIVE/MD STOPPED 08/05/24 16:54 MED 12/03/23 Hx Sleep Apnea No 08/06/24 09:35 CPAP BIPAP Do you snore loudly (louder No 08/05/24 16:54 than talking or can be heard Do you often feel tired/ No 08/05/24 16:54 fatigued/ sleepy during daytime? Has anyone observed you stop No 08/05/24 16:54 breathing during sleep? STOP Results Negative 08/06/24 09:22 QUESTION #5 FULL TEXT : Do you snore loudly (louder than talking or can be heard through closed doors)? 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 Specify any problems Hx of Preganancy in last 3 N/A 08/05/24 16:54 Months Nurse Filling Out Transfusion KSCHENCK 08/05/24 16:54 & Questions: Date: 08/05/24 08/05/24 16:54 Time: 16:58 08/05/24 16:54 Patient unable to answer at this time (ie. confused, unrespo /Reproduction History /Reproductive History - embossed or impressed lettering painter: /Reproductive Hx- embossed or impressed lettering painter Hx Now No 08/08/24 07:59 Gestational Age (in weeks): EDC: Hx Hx Para Hx Section SAB No 08/08/24 07:59 Active Medications Active Medications: Current Medications Generic Name Dose Route Start Last Admin Trade Name Freq PRN Reason Stop Dose Admin Acetaminophen 650 mg 08/05/24 17:02 08/06/24 22:34 Acetaminophen 325 Mg Tablet PO 650 mg Q4H PRN PRN Administration Fever, pain 1-10 Al Hydroxide/Mg Hydroxide 30 ml 08/05/24 17:02 Mag Hydrox/Al Hydrox/Simeth 30 Ml Udc PO Q6H PRN PRN Gastric Burning Albuterol Sulfate 2.5 mg 08/05/24 17:02 Albuterol 2.5 Mg/3 Ml Vial.Neb. INHALATION Q2H PRN PRN Dyspnea, wheezing Atorvastatin Calcium 80 mg 08/06/24 10:00 08/07/24 08:48 Atorvastatin Calcium 80 Mg Tablet PO 80 mg DAILY TREY Administration Azelastine HCl 2 spray 08/05/24 22:00 08/08/24 07:48 Azelastine Hcl Nasal.Sry NASAL Not Given BID TREY Baclofen 10 mg 08/05/24 17:02 Baclofen 10 Mg Tablet PO DAILY PRN PRN muscle spasm Budesonide 0.5 mg 08/05/24 17:02 08/08/24 07:17 Budesonide Respules 0.5 Mg/2 Ml Ampul.Neb. INHALATION 0.5 mg BID.RT TREY Administration Dorzolamide/Timolol 1 drp 08/05/24 22:00 08/08/24 14:19 Dorzolamide Hcl/Timolol 10 Ml Bottle OPHTHALMIC 1 drp BID TREY Administration Finasteride 5 mg 08/06/24 10:00 08/08/24 13:09 Finasteride 5 Mg Tablet PO Not Given DAILY TREY Glucagon 1 mg 08/05/24 17:02 Glucagon 1 Mg/Ml Syringe IM X1 PRN HYPOGLYCEMIA Protocol Guaifenesin 20 ml 08/05/24 17:02 Guaifenesin 10 Ml Udc (200mg/10ml) PO Q4H PRN PRN COUGH Hydralazine HCl 10 mg 08/05/24 17:02 Hydralazine 20 Mg/Ml Vial IV Q4H PRN PRN SBP > 160 Protocol Pantoprazole Sodium 80 mg/ 100 mls @ 10 mls/hr 08/05/24 18:00 08/08/24 10:46 Sodium Chloride CONT INF 10 mls/hr Q10H TREY Administration Dextrose 250 mls @ 0 mls/hr 08/05/24 17:02 Dextrose 10%-Water IV .Q0M PRN HYPOGLYCEMIA Protocol As Directed Insulin Human Lispro 0 unit 08/05/24 17:02 08/08/24 10:46 Insulin Lispro 100 Unit/Ml Insuln.Pen SC Not Given ACHS TREY Protocol Insulin Human Regular 100 units 08/08/24 08:00 08/08/24 07:48 Insulin U-500 Units/Ml Pen SC Not Given BREAKFAST [facility] Insulin Human Regular 50 units 08/07/24 22:00 08/07/24 21:49 Insulin U-500 Units/Ml Pen SC Not Given QHS [facility] Loratadine 10 mg 08/06/24 10:00 08/08/24 13:07 Loratadine 10 Mg Tablet PO Not Given DAILY TREY Melatonin 3 mg 08/05/24 22:00 Melatonin 3 Mg Tablet PO QHS PRN PRN INSOMNIA Metoprolol Tartrate 50 mg 08/08/24 22:00 Metoprolol Tartrate 50 Mg Tablet PO BID [facility] Nutritional Formula (Lactose Free) 120 ml 08/06/24 17:00 08/08/24 10:46 Glucerna Shake 120 Ml Liquid PO Not Given TIDCM [facility] Ondansetron HCl 4 mg 08/05/24 17:02 08/07/24 19:36 Ondansetron 4 Mg/2 Ml Vial IV 4 mg Q8H PRN PRN Administration NAUSEA/VOMITING Potassium Chloride 20 meq 08/06/24 08:00 08/08/24 07:48 Potassium Chloride Oral Tablet 20 [facility]eq [facility] Prochlorperazine Edisylate 5 mg 08/05/24 17:02 Prochlorperazine 10 Mg/2 Ml Vial IV Q4H PRN PRN Breakthrough Nausea/Vomiting Tamsulosin HCl 0.4 mg 08/05/24 17:30 08/07/24 17:11 Tamsulosin Hcl 0.4 Mg Capsule PO 0.4 mg DAILY@1730 [facility] Administration [facility] Medical History History of hepatitis C Loss of hearing Wears glasses Anxiety Ambulates with cane Insulin dependent diabetes mellitus Arthritis Prostate disease Anemia Restless legs Injury of back Injury of head and neck Syncope Dietary restriction Difficulty swallowing Gastric reflux Former smoker History of pain when walking History of echocardiogram History of stress test Cardiology follow-up encounter Glaucoma Hx of fracture of wrist Other pancytopenia Longstanding persistent atrial fibrillation Obesity Right bundle branch block (RBBB) Osteoarthritis Essential hypertension Allergic rhinitis due to allergen Asthma DVT (deep venous thrombosis) (02/24/11) Cervical radiculopathy Hyperlipidemia Vitamin D deficiency Hypersomnia DEYANIRA (obstructive sleep apnea) Home Medications ?Medication ?Instructions ?Recorded ?Last Taken ?Type alfuzosin 10 mg tablet,extended 10 mg PO DAILY@1730 urinary 08/31/13 02/19/24 History release 24 hr rosuvastatin 40 mg tablet 40 mg PO DAILY cholesterol 08/31/13 02/19/24 History finasteride 5 mg tablet 5 mg PO DAILY prostate 12/18/15 02/19/24 History empagliflozin 25 mg tablet 25 mg PO QDAY diabetes 12/21/17 02/19/24 History (Jardiance) pantoprazole 20 mg tablet,delayed 20 mg PO DAILY GERD 10/16/20 02/19/24 History release tramadol 50 mg tablet 50 mg PO BID PRN pain 10/16/20 02/19/24 History baclofen 10 mg tablet 10 mg PO DAILY PRN PRN muscle spasm 07/24/22 02/19/24 History dorzolamide 22.3 mg-timolol 6.8 1 drp ophthalmic (eye) BID eyes 07/24/22 02/19/24 History mg/mL eye drops fluticasone 500 mcg-salmeterol 50 1 inh inhalation Q12H breathing 12/25/22 02/19/24 Rx mcg/dose blistr powdr for #60 ea inhalation (Advair Diskus) albuterol sulfate 90 mcg/actuation 2 puff inhalation Q6H PRN PRN Sob 03/19/23 12/08/23 Rx aerosol inhaler &/Or Wheezing #18 grams azelastine 205.5 mcg (0.15 %) 2 spray intranasal BID allergies 03/19/23 02/19/24 Rx nasal spray #30 mL cetirizine 10 mg tablet 10 mg PO DAILY allergy #90 tabs 07/14/23 02/19/24 Rx terbinafine HCl 1 % topical cream 1 applic topical BID cream 02/20/24 02/19/24 History insulin regular hum U-500 conc 500 100 unit subcut QHS diabetes 03/30/24 Unknown History unit/mL(3 mL) subcut pen (Humulin R U-500 (Conc) Insulin Kwikpen) metoprolol tartrate 75 mg tablet 37.5 mg (1/2 x 75 mg) PO BID HTN 03/30/24 Unknown Rx 90 days #90 tabs potassium 20 mg chewable tablet 20 mg PO DAILY supplement 07/21/24 Unknown History dulaglutide 0.75 mg/0.5 mL 0.75 mg subcut QWEEK diabetes 07/28/24 Unknown History subcutaneous pen injector (Trulicity) fluticasone propionate 50 2 spray intranasal DAILY PRN 07/28/24 Unknown History mcg/actuation nasal allergy symptoms spray,suspension insulin regular hum U-500 conc 500 150 unit subcut QAM diabetes 07/28/24 Unknown History unit/mL(3 mL) subcut pen (Humulin R U-500 (Conc) Insulin Kwikpen) polyethylene glycol 3350 17 17 g PO .COMPLEX bowels #510 grams 07/28/24 Unknown Rx gram/dose oral powder (Miralax) Allergy/AdvReac Type Severity Reaction Status Date / Time No Known Drug Allergies Allergy no known Verified 07/28/24 14:11 Family History Daughter Asthma Grandmother Asthma Sister Asthma COPD (chronic obstructive pulmonary disease) Mother Pancreatic cancer Brother Myocardial infarction Cancer CAD (coronary artery disease) Surgical History History of bone marrow biopsy Hx of right cataract extraction Hx of left cataract extraction History of left heart catheterization (2006) 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
[2024-08-08 16:41] LABS: Bedside Glucose 112 mg/dL (74-106)
[2024-08-08] MEDS: Ipratropium 0.5 MG/2.5 ML SOLUTION INHALATION (16:48)
--- NOTE | 2024-08-08 16:54 | EX.PCM.PN.GI ---
Subjective Subjective Patient tolerated a prep without any problems last night. He is for colonoscopy today. Objective Data Objective Data Vital Signs: Vital Signs Temp Pulse Resp BP Pulse Ox O2 Del Method 98.6 F 119 H 17 125/98 H 99 Room Air 08/08/24 16:24 08/08/24 16:48 08/08/24 16:48 08/08/24 16:24 08/08/24 16:24 08/08/24 16:24 Oxygen Delivery Method Room Air Weight: 222 lb 10.67 oz Body Mass Index (BMI) 31.9 Intake & Output: Intake and Output for Last 24 Hours 08/06/24 08/07/24 08/08/24 23:59 23:59 23:59 Intake Total 2210.1633 / 2330.1633 3039.5 / 3959.5 1108.17 / 1108.17 Output Total 1999 1775 / 1775 Balance 210.1633 / -194.8367 1264.5 / 2184.5 1108.17 / 1108.17 Lab / Micro Data 08/08/24 05:37 08/08/24 05:37 Labs: Laboratory Results - last 24 hr 08/07/24 16:38: POC Glucose 80 08/07/24 21:44: POC Glucose 89 08/08/24 05:37: WBC 0.9 L*, RBC 2.36 L, Hgb 8.1 L, Hct 24.2 L, MCV 102.5 H, MCH 34.3 H, MCHC 33.5, RDW Std Deviation 76.3 H, RDW Coeff of Misa 20.7 H, Plt Count 29 L*, MPV TNP, Differential Comment SCANNED, Diff Path Review December, Sodium 140, Potassium 3.5, Chloride 112 H, Carbon Dioxide 23.0, Anion Gap 6, BUN 11, Creatinine 0.86, Estim Creat Clear Calc 81.59, Est GFR (MDRD) Af Amer 109, Est GFR (MDRD) Non-Af 90, BUN/Creatinine Ratio 12.7, Glucose 98, Calcium 7.5 L 08/08/24 10:45: POC Glucose 105 08/08/24 16:24: POC Glucose 112 H Micro: Microbiology 08/05/24 13:55 Stool Stool Occult Blood (LUIS ENRIQUE) - Final Occult Blood Positive Physical Exam Narrative Physical Examination: General: Awake, alert, oriented x 3 and cooperative,, no acute distress, remains tachycardic. Skin: Normal color, normal turgor, no icterus, no cyanosis Except occasional stage ecchymoses, abrasions HEENT: AT/NC, EOMI, PERRLA, MMM, no carotid bruits or JVD noted. Lungs: Diminished, greater bases, mildly increased respiratory rate but no distress, no rales, ronchi or wheezing. Heart: Irregular irregular; no gallop, rub audible. Abdomen: Soft, obese, NTTP, ND, mildly hyperactive BS, no HSM. Extremities: No cyanosis, no clubbing, pedal to distal argueta mildly pitting edema. Neurological: Patient awake, alert, oriented as noted, cognitive function intact; pupils equally reactive to light and accommodation, cranial nerves gross normal, moving all 4 extremities, no focal deficits, strength moderately to severely globally decreased. Psychiatric: Affect appears fatigued otherwise normal, no acute evidence of depressive or anxiety feelings but does have underlying history. Assessment & Plan Assessment/Plan (1) GI bleed: PLAN: Plan 79 y/o M w/ multiple myeloma and persistent pancytopenia currently with severe anemia and fecal occult positive stools. There is concern for GI bleed component with black tarry stools, recently taken off his xarelto 06/2024. He recently underwent repeat bone marrow biopsy. He feels that he is too weak in order to prep for colonoscopy. Recommend upper endoscopy to evaluate upper GI tract with a push enteroscopy. If that is negative then we will try a colonoscopy and then a capsule endoscopy. He was explained alternatives, risk, benefits include not withstanding bleeding, infection, sepsis, perforation, need for return to . He will have an ASA of 3. Charges/Coding Visit Charges Inpatient E&M: 37396 Subs Hosp L3
--- NOTE | 2024-08-08 17:28 | PCM.POST.ANE ---
Anesthesia: Postop Eval I Current Vital Signs Temperature: 97 F Pulse Rate: 139 Blood Pressure: 107/87 Respiratory Rate: 16 Pulse Ox: 97 Oxygen Delivery Method: Room Air Assessment Airway patent: Yes Spontaneous unlabored respirations: Yes Mental status: Awake and Calm nausea: No Vomiting: No Anesthesia Complication: No Fluid Hydration Crystalloid volume administer (ml): 20 Total IV fluid infused: 20 Progress Note Anesthesia document: Postop Eval 1 completed: Yes
--- NOTE | 2024-08-08 17:29 | POSTOPAN2_ITS ---
Anesthesia Postop Eval I Sum Postop Eval Completion status Anesthesia document: Postop Eval 1 completed: Yes Anesthesia Postop Eval I Summary Anesthesia Postop Eval I Summary: Anesthesia Postop Eval I: Assessment Summary Airway patent Yes 08/08/24 17:29 INFORMATION MANAGEMENT OFFICER.MDOT Spontaneous unlabored Yes 08/08/24 17:29 INFORMATION MANAGEMENT OFFICER.MDOT respirations Mental status Awake,Calm 08/08/24 17:29 INFORMATION MANAGEMENT OFFICER.MDOT nausea No 08/08/24 17:29 INFORMATION MANAGEMENT OFFICER.MDOT Vomiting No 08/08/24 17:29 INFORMATION MANAGEMENT OFFICER.MDOT Anesthesia Postop Eval I: Fluid Summary Crystalloid volume administer 20 08/08/24 17:29 INFORMATION MANAGEMENT OFFICER.MDOT (ml) Colloids volume administered ( ml) Blood Product volume administered (ml) Total IV fluid infused 20 08/08/24 17:29 INFORMATION MANAGEMENT OFFICER.MDOT Anesthesia Postop Eval I: Summary Notes Anesthesia Complication No 08/08/24 17:29 INFORMATION MANAGEMENT OFFICER.MDOT Anesthesia Complication Comment: Post-operative progress note Anesthesia: Postop Eval II Evaluation Mental status: Awake and Calm Pain Level: 0 nausea: No Vomiting: No Complications Anesthesia Complication: No
--- NOTE | 2024-08-08 17:29 | PCM.POSTANE2 ---
Anesthesia Postop Eval I Sum Postop Eval Completion status Anesthesia document: Postop Eval 1 completed: Yes Anesthesia Postop Eval I Summary Anesthesia Postop Eval I Summary: Anesthesia Postop Eval I: Assessment Summary Airway patent Yes 08/08/24 17:29 GREEN MARKETING SPECIALIST.MDOT Spontaneous unlabored Yes 08/08/24 17:29 GREEN MARKETING SPECIALIST.MDOT respirations Mental status Awake,Calm 08/08/24 17:29 GREEN MARKETING SPECIALIST.MDOT nausea No 08/08/24 17:29 GREEN MARKETING SPECIALIST.MDOT Vomiting No 08/08/24 17:29 GREEN MARKETING SPECIALIST.MDOT Anesthesia Postop Eval I: Fluid Summary Crystalloid volume administer 20 08/08/24 17:29 GREEN MARKETING SPECIALIST.MDOT (ml) Colloids volume administered ( ml) Blood Product volume administered (ml) Total IV fluid infused 20 08/08/24 17:29 GREEN MARKETING SPECIALIST.MDOT Anesthesia Postop Eval I: Summary Notes Anesthesia Complication No 08/08/24 17:29 GREEN MARKETING SPECIALIST.MDOT Anesthesia Complication Comment: Post-operative progress note Anesthesia: Postop Eval II Evaluation Mental status: Awake and Calm Pain Level: 0 nausea: No Vomiting: No Complications Anesthesia Complication: No
--- NOTE | 2024-08-08 17:36 | OP.COLON_ITS ---
Patient Name: Keaton Reich Procedure Date: 08/08/2024 4:54 PM Date of : 1945 Age: 79 Procedure: Colonoscopy Indications: Hematochezia Providers: Juan Jolly DO Medicines: Monitored Anesthesia Care Patient Profile: This is an 79 year old male. Refer to note in patient chart for documentation of history and physical. Last Colonoscopy: more than 10 years ago. Complications: No immediate complications. Procedure: Pre-Anesthesia Assessment: - Prior to the procedure, a History and Physical was performed, and patient medications and allergies were reviewed. The patient is competent. The risks and benefits of the procedure and the sedation options and risks were discussed with the patient. All questions were answered and informed consent was obtained. Patient identification and proposed procedure were verified by the physician in the pre-procedure area. Mental Status Examination: alert and oriented. Airway Examination: normal oropharyngeal airway and neck mobility. Respiratory Examination: clear to auscultation. CV Examination: normal. Prophylactic Antibiotics: The patient does not require prophylactic antibiotics. Prior Anticoagulants: The patient has taken no anticoagulant or antiplatelet agents. ASA Grade Assessment: II - A patient with mild systemic disease. After reviewing the risks and benefits, the patient was deemed in satisfactory condition to undergo the procedure. The anesthesia plan was to use monitored anesthesia care (MAC). Immediately prior to administration of medications, the patient was re-assessed for adequacy to receive sedatives. The heart rate, respiratory rate, oxygen saturations, blood pressure, adequacy of pulmonary ventilation, and response to care were monitored throughout the procedure. The physical status of the patient was re-assessed after the procedure. After I obtained informed consent, the scope was passed under direct vision. Throughout the procedure, the patient's blood pressure, pulse, and oxygen saturations were monitored continuously. The Colonoscope was introduced through the anus and advanced to the terminal ileum. The colonoscopy was performed without difficulty. The patient tolerated the procedure well. The quality of the bowel preparation was adequate. Scope In: 5:04:18 PM Scope Withdrawal Time 0 hours 15 minutes 4 seconds Scope Out: 5:27:19 PM Total Procedure Duration Time 0 hours 23 minutes 1 second Findings: The perianal and digital rectal examinations were normal. Non-bleeding internal external and internal hemorrhoids were found during retroflexion. The hemorrhoids were moderate, medium-sized and Grade II (internal hemorrhoids that prolapse but reduce spontaneously). Multiple small and large-mouthed diverticula were found in the recto-sigmoid colon, sigmoid colon, descending colon and splenic flexure. Two sessile polyps were found in the transverse colon and ascending colon. The polyps were 5 mm in size. These polyps were removed with a jumbo cold forceps. Resection and retrieval were complete. Verification of patient identification for the specimen was done. Estimated blood loss was minimal. Three semi-pedunculated polyps were found in the sigmoid colon and transverse colon. The polyps were 1 to 2 mm in size. These polyps were removed with a hot snare. Resection and retrieval were complete. Verification of patient identification for the specimen was done. Estimated blood loss was minimal. To prevent bleeding post-intervention, one hemostatic clip was successfully placed. Clip box packer: Synesis. There was no bleeding at the end of the procedure. A single medium-sized angiodysplastic lesion with bleeding was found in the descending colon. Coagulation for hemostasis using monopolar probe was successful. The terminal ileum appeared normal. Impression: - Non-bleeding internal external and internal hemorrhoids. - Diverticulosis in the recto-sigmoid colon, in the sigmoid colon, in the descending colon and at the splenic flexure. - Two 5 mm polyps in the transverse colon and in the ascending colon, removed with a jumbo cold forceps. Resected and retrieved. - Three 1 to 2 mm polyps in the sigmoid colon and in the transverse colon, removed with a hot snare. Resected and retrieved. Clip was placed. Clip box packer: Synesis. - A single bleeding colonic angiodysplastic lesion. Treated with a monopolar probe. - The examined portion of the ileum was normal. Recommendation: - [facility]. - Resume regular diet. - Continue present medications. - Await pathology results. - Repeat colonoscopy in 1 year for surveillance. Procedure Code(s): --- Professional --- 28267, 59, Colonoscopy, flexible; with control of bleeding, any method 60088, Colonoscopy, flexible; with removal of tumor(s), polyp(s), or other lesion(s) by snare technique 98283, 59, Colonoscopy, flexible; with biopsy, single or multiple CPT copyright 2021 [employer]. All rights reserved. The codes documented in this report are preliminary and upon mis manager review may be revised to meet current compliance requirements. Juan Jolly DO 08/08/2024 5:36:13 PM This report has been signed electronically. Number of Addenda: 0 Note Initiated On: 08/08/2024 4:54 PM
--- NOTE | 2024-08-08 17:37 | OP.CCLET_ITS ---
08/08/2024 Noble Peter MD [address] [place] [address] Re : Colonoscopy procedure for Keaton Reich Dear Dr. Peter This procedure was performed on Thursday, August 08, 2024. My impressions and recommendations are as follows: Impressions : - Non-bleeding internal external and internal hemorrhoids. - Diverticulosis in the recto-sigmoid colon, in the sigmoid colon, in the descending colon and at the splenic flexure. - Two 5 mm polyps in the transverse colon and in the ascending colon, removed with a jumbo cold forceps. Resected and retrieved. - Three 1 to 2 mm polyps in the sigmoid colon and in the transverse colon, removed with a hot snare. Resected and retrieved. Clip was placed. Clip corporate general manager: Funji. - A single bleeding colonic angiodysplastic lesion. Treated with a monopolar probe. - The examined portion of the ileum was normal. Recommendations : - [facility] care. - Resume regular diet. - Continue present medications. - Await pathology results. - Repeat colonoscopy in 1 year for surveillance. My findings are described in the full procedure note, which is enclosed. If I can be of further assistance, please feel free to contact me at . Sincerely, Juan Jolly, 08/08/2024 5:36:13 PM This report has been signed electronically.
--- NOTE | 2024-08-08 17:38 | PCM.DC.SUM ---
Providers Date of Admission: 08/05/24 Primary Care Physician: Dr. Noble Peter MD Consultations 08/05/24 17:02 Consult: Gastroenterology Routine Consulting Provider: [facility] Reason for Consult: ABLA, GI bleed EMERGENT Consult: No MD Notified: Yes Date Notified: 08/05/24 Time Notified: 15:26 Method of Notification: ED Physician Initiated Reason For Visit: ACUTE ON CHRONIC PANCYTOPENIA, GI BLEED Diagnosis Discharge Diagnosis (1) GI bleed: Status: Acute Code(s): K92.2 - Gastrointestinal hemorrhage, unspecified Plan Acute on chronic pancytopenia-etiology is unclear -EGD done 08/07/2024 and nonbleeding angiodysplastic lesions noted in the stomach--> treated with heater probe -Given no finding of acute bleeding --> colonoscopy on Thursday and patient is agreeable -Colon prep ordered to start today at 1400 -Bone marrow biopsy done on 08/05/2024--> results are pending -Patient has received 2 packs of platelets and 2 units of blood -Oncology is following as an outpatient -If colonoscopy is negative patient will need outpatient capsule endoscopy to complete workup for GI sources -Repeat CBC in a.m. History of hepatitis C -Status posttreatment Hypophosphatemia -Resolved CKD stage II -It does appear that his creatinine clearance does fluctuate between 50-70 -Creatinine clearance is currently 68 -Monitor DM-2 with hyperglycemia -Home oral regimen on hold -Patient on U-500 insulin at home and will decrease a.m. dose and p.m. dose by 50 units apiece due to hypoglycemia overnight and plans for clear liquids and n.p.o. status -No changes in SSI or Accu-Cheks for now -If blood sugar drops may need to consider D5 normal saline for fluid resuscitation Essential hypertension/hyperlipidemia -Continue home metoprolol -continue home statin -as needed hydralazine available History of hypogammaglobulinemia -Previous treatment with IVIG -Ongoing outpatient follow-up with oncology PAF -Continue home metoprolol -Previously on Xarelto but discontinued due to lab abnormalities History of VTE -Not on anticoagulation due to the above -They were remote with no current signs of VTE GERD -Continue home PPI DEYANIRA -Patient is not compliant with CPAP History of tobacco abuse -Remote Allergic rhinitis -Continue home regimen BPH with obstruction -Continue home finasteride DVT prophylaxis -SCDs CODE STATUS -Full code Medications at Discharge Home Medications alfuzosin 10 mg tablet,extended release 24 hr 10 mg PO DAILY@1730 urinary 08/31/13 rosuvastatin 40 mg tablet 40 mg PO DAILY cholesterol 08/31/13 finasteride 5 mg tablet 5 mg PO DAILY prostate 12/18/15 empagliflozin 25 mg tablet (Jardiance) 25 mg PO QDAY diabetes 12/21/17 tramadol 50 mg tablet 50 mg PO BID PRN pain 10/16/20 baclofen 10 mg tablet 10 mg PO DAILY PRN PRN muscle spasm 07/24/22 dorzolamide 22.3 mg-timolol 6.8 mg/mL eye drops 1 drp ophthalmic (eye) BID eyes 07/24/22 fluticasone 500 mcg-salmeterol 50 mcg/dose blistr powdr for inhalation (Advair Diskus) 1 inh inhalation Q12H breathing #60 ea 12/25/22 albuterol sulfate 90 mcg/actuation aerosol inhaler 2 puff inhalation Q6H PRN PRN Sob &/Or Wheezing #18 grams 03/19/23 azelastine 205.5 mcg (0.15 %) nasal spray 2 spray intranasal BID allergies #30 mL 03/19/23 cetirizine 10 mg tablet 10 mg PO DAILY allergy #90 tabs 07/14/23 terbinafine HCl 1 % topical cream 1 applic topical BID cream 02/20/24 insulin regular hum U-500 conc 500 unit/mL(3 mL) subcut pen (Humulin R U-500 (Conc) Insulin Kwikpen) 100 unit subcut QHS diabetes 03/30/24 potassium 20 mg chewable tablet 20 mg PO DAILY supplement 07/21/24 dulaglutide 0.75 mg/0.5 mL subcutaneous pen injector (Trulicity) 0.75 mg subcut QWEEK diabetes 07/28/24 fluticasone propionate 50 mcg/actuation nasal spray,suspension 2 spray intranasal DAILY PRN allergy symptoms 07/28/24 insulin regular hum U-500 conc 500 unit/mL(3 mL) subcut pen (Humulin R U-500 (Conc) Insulin Kwikpen) 150 unit subcut QAM diabetes 07/28/24 polyethylene glycol 3350 17 gram/dose oral powder (Miralax) 17 g PO .COMPLEX bowels #510 grams 07/28/24 metoprolol tartrate 50 mg tablet 50 mg PO BID #60 tabs 08/08/24 pantoprazole 40 mg tablet,delayed release (Protonix) 40 mg PO DAILY #30 tabs 08/08/24 Hospital Course Procedures Colonoscopy and EGD Summary of Care Provided Minutes Spent on Discharge: 41 Hospital Course: Patient is an 79-year-old white male who presented to the emergency department at [facility] on 08/05/2024 at the direction of his oncologist due to abnormal outpatient hemoglobin being 6.1. He has a history of proximal atrial fibrillation and had previously been on Xarelto which was discontinued in June 2024 secondary to concerns about GI bleeding. He followed up as an outpatient and saw Dr. Jolly but at the time of evaluation both the patient and clinician felt he was not a great candidate for prep as an outpatient so this was deferred. He has had ongoing black tarry stools and reported on presentation that he had been feeling more fatigued and weak but denied any lightheadedness, dizziness, dyspnea, chest pain, hematemesis, hematochezia or abdominal pain. He is currently being worked up for pancytopenia and had a bone marrow biopsy on the day of presentation. Vital signs on arrival showed a temperature of 96.2, heart rate 129, respiratory rate was 22, blood pressure was 151/94 and pulse ox was 100% on room air. Outpatient CBC showed a white count of 1.1, hemoglobin of 6.1, and a platelet count of 30,000. Coags were overall unremarkable. Chemistry panel was overtly unremarkable other than hyperglycemia with a blood sugar of 139 nonfasting. Outpatient phosphorus level was 1.3. Liver functions unremarkable. The case was discussed with Dr. Jolly who agreed to see him in consult for evaluation. He was given 2 units of packed red blood cells by the emergency department and admitted to the floor. 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 His platelet count was noted to be markedly low at 21,000 and he was given 2 packs of platelets which improved his platelet count of 44,000 however prior to discharge his platelet count started to trend back down. I discussed this with the nurse practitioner who is on-call from the oncology office and she indicated that the office would recheck counts at the end of the week and direct him from there. There were no obvious signs of bleeding with this. His bone marrow biopsy from Thursday was still pending at the time of discharge. Given the fact his EGD was fairly unremarkable colonoscopy was performed on 08/08/2024 and showed nonbleeding internal and external hemorrhoids, diverticulosis throughout the colon, 2 polyps that were removed from the transverse and ascending colon, 3 polyps removed from the sigmoid colon and transverse colon with clip placement and a single bleeding angiodysplastic lesion that was treated with monopolar probe. He will remain on a PPI but the dose will be 40 mg daily. He was having fairly consistent elevated heart rates. His daughter reports that recently they decreased his metoprolol from 75 to 37.5 mg daily due to some bradycardia when he came in for previous procedure. Given this I will increase the dose from 37.5 to 50 mg daily and recommend ongoing outpatient follow-up. He will follow-up with Dr. Jolly for consideration of capsule endoscopy as an outpatient since no large source of GI bleed was found on either the EGD or colonoscopy however with his platelet count being what it has been the lesions that were found may be the culprit lesions. He was able to be discharged home with prescriptions as noted above sent to local pharmacy prior to discharge in stable condition on 08/08/2024. Patient is a followed in outpatient with previously ordered studies and with oncology for CBC to be done at the end of the week. He has an upcoming PET scan on Thursday the . I have asked him to follow-up with his primary care physician within 1 week. He is to follow-up with Dr. Jolly in the next 2 to 4 weeks. Discharge diagnoses: Acute on chronic pancytopenia Bleeding angiodysplastic lesions in the stomach and colon Colorectal polyps Internal/external hemorrhoids History of hepatitis C Hypophosphatemia-resolved CKD stage II DM-2 Essential hypertension Hyperlipidemia History of hypogammaglobulinemia PAF History of VTE GERD DEYANIRA History of tobacco abuse Allergic rhinitis BPH with obstruction Physical Exam Narrative Const alert, oriented x3, no apparent distress, no limitations and well nourished; Negative for average body habitus or healthy appearing Constitutional Narrative: Overweight, elderly, white male, sitting up in bed, appears comfortable, getting ready to go down for colonoscopy, daughter at bedside appears comfortable, nontoxic General Appearance: cooperative, comfortable, well kempt and well developed Exam Limitations: no limitations Nutritional Appearance: obese HEENT normocephalic, head/scalp atraumatic and moist oral mucous membranes; Negative for hearing grossly normal bilaterally HEENT Narrative: Mild to moderate hearing loss, Mallampati 2-3, no thrush Eyes EOMs intact bilaterally; Negative for conjunctivae normal Eyes Narrative: Conjunctiva are markedly pale Neck supple Neck Narrative: Trachea midline, no thyroid enlargement Resp normal respiratory effort, no retractions, no use of accessory muscles and clear to auscultation bilaterally Auscultation: Negative for rales, rhonchi or wheezes Cardio regular rate, regular rhythm, S1 normal heart sound, S2 normal heart sound, no murmurs, no rub, no gallops and no clicks GI normal to inspection, nondistended, normoactive bowel sounds, soft to palpation and non-tender Extremity no clubbing, cyanosis or edema Extremity Narrative: Trace bilateral lower extremity edema that is pitting, no cyanosis or clubbing Skin skin turgor normal and no jaundice Skin Narrative: Scattered ecchymosis, skin is pale Neuro oriented x3, moves all extremities and no focal motor deficits Speech: speech normal Psych affect normal Psych Narrative: Extremely pleasant, eye contact is good and patient interacts appropriately Weight / BMI Weight Weight: 101 kg Body Mass Index (BMI) 31.9 ABG / Lab / Microbiology Data 08/08/24 05:37 08/08/24 05:37 Laboratory: Laboratory Results - last 24 hr 08/07/24 21:44: POC Glucose 89 08/08/24 05:37: WBC 0.9 L*, RBC 2.36 L, Hgb 8.1 L, Hct 24.2 L, MCV 102.5 H, MCH 34.3 H, MCHC 33.5, RDW Std Deviation 76.3 H, RDW Coeff of Misa 20.7 H, Plt Count 29 L*, MPV TNP, Differential Comment SCANNED, Diff Path Review December foll, Sodium 140, Potassium 3.5, Chloride 112 H, Carbon Dioxide 23.0, Anion Gap 6, BUN 11, Creatinine 0.86, Estim Creat Clear Calc 81.59, Est GFR (MDRD) Af Amer 109, Est GFR (MDRD) Non-Af 90, BUN/Creatinine Ratio 12.7, Glucose 98, Calcium 7.5 L 08/08/24 10:45: POC Glucose 105 08/08/24 16:24: POC Glucose 112 H Microbiology: Microbiology 08/05/24 13:55 Stool Stool Occult Blood (LUIS ENRIQUE) - Final Occult Blood Positive D/C Instructions Discharge Diet: Low fat / Low cholesterol and 1800 Calorie Control Diet Discharge Activity: Return to Normal Activity DC O2, CPAP, BIPAP Needs Home O2 Discharge instructions: No Meaningful Use Info Meaningful Use Meaningful Use Diagnoses (Choose all that apply): None applicable Ischemic Stroke Statin Dosing Therapy Reference: STATIN DOSE THERAPY REFERENCE: * Patients > 75 years receive moderate or high dose statin therapy. * Patients 75 years or YOUNGER should receive HIGH intensity statin dose unless contraindicated. You will be required to document reason for non-treatment if statin daily dose does not meet guidelines. HIGH DOSE STATIN THERAPY DAILY Atorvastatin > than or = to 40 mg Rosuvastatin > than or = to 20 mg Amlodipine + Atorvastatin > than or = to 2.5/40 mg Ezetimibe + Simvastatin 10/80 mg Simvastatin 80mg Discharge Plan Admission Admit Date/Time: 08/05/24 15:23 Primary Reason for Your Visit: Severe anemia Attending Provider: Emiliana Mcdaniel Primary Care Provider: Noble Peter Chi Consulting Providers: Urmila Jimenez Instructions Additional Instructions / Restrictions: 1. Dr. Pittman's office should be calling you to get a CBC done to recheck your blood counts and platelet count at the end of the week. Discharge Orders/Prescriptions Prescriptions: New metoprolol tartrate 50 mg Tablet 50 mg PO BID Qty: 60 2RF pantoprazole [Protonix] 40 mg tablet,delayed release (DR/EC) 40 mg PO DAILY Qty: 30 1RF Continued Jardiance 25 mg tablet 25 mg PO QDAY tramadol 50 mg tablet 50 mg PO BID PRN (Reason: pain) baclofen 10 mg tablet 10 mg PO DAILY PRN PRN (Reason: muscle spasm) dorzolamide-timolol 22.3-6.8 mg/mL drops 1 drp ophthalmic (eye) BID fluticasone propion-salmeterol [Advair Diskus] 500-50 mcg/dose blister with device 1 inh INHALATION Q12H Qty: 60 11RF Humulin R U-500 (Conc) Kwikpen 500 unit/mL (3 mL) insulin pen 100 unit subcut QHS fluticasone propionate 50 mcg/actuation spray,suspension 2 spray intranasal DAILY PRN (Reason: allergy symptoms) Rx Instructions: administer into each nostril Trulicity 0.75 mg/0.5 mL pen injector 0.75 mg subcut QWEEK polyethylene glycol 3350 [Miralax] 17 gram/dose powder 17 g PO .COMPLEX Qty: 510 3RF Rx Instructions: 17 grams orally daily with 4-6 ounces of prune juice after dinner; rosuvastatin 40 MG tablet 40 mg PO DAILY alfuzosin 10 MG tablet 10 mg PO DAILY@1730 finasteride 5 MG tablet 5 mg PO DAILY potassium 20 mg tablet,chewable 20 mg PO DAILY Humulin R U-500 (Conc) Kwikpen 500 unit/mL (3 mL) insulin pen 150 unit subcut QAM terbinafine HCl 1 % cream 1 applic TOPICAL BID albuterol sulfate 90 mcg/actuation HFA aerosol inhaler 2 puff INHALATION Q6H PRN PRN (Reason: Sob &/Or Wheezing) Qty: 18 3RF azelastine 205.5 mcg (0.15 %) spray,non-aerosol 2 spray INTRANASAL BID Qty: 30 5RF cetirizine 10 mg tablet 10 mg PO DAILY Qty: 90 3RF Discontinued pantoprazole 20 mg tablet,delayed release (DR/EC) 20 mg PO DAILY metoprolol tartrate 75 mg tablet 37.5 mg PO BID 90 Days Qty: 90 3RF Referrals / Follow Up: [facility] [Outside] - 08/11/24 7:30 am (Please come to the [facility] (near [facility]) On 08-11-24 between the hours of 730am and 1130am to have labs drawn.) Friend,DO Juan [Med Staff - Active Staff] - See Referral Note (Call to set up an appointment to be seen for a capsule endoscopy in 2 to 4 weeks at his first availability) Noble Peter Chi, MD [Primary Care Provider] - 08/16/24 1:40 pm Disposition Disposition (needs filled in before D/C Order can be placed): Home, Self Care Charges/Coding Visit Charges Inpatient E&M: 19529 Disch Hosp >30min
[2024-08-08 18:58] LABS: Bedside Glucose 169 mg/dL (74-106)
[2024-08-09 10:14] LABS: Pathologist Review Reviewed
[2024-08-09 10:14] LABS: Pathologist Review Reviewed
[2024-08-09 10:23] LABS: Pathologist Review Reviewed
[2024-08-09 11:04] LABS: Pathologist Review Reviewed
--- NOTE | 2024-08-09 15:27 | ANES.CONFIRM ---
Anesthesia: Confirm Documents Multiple Procedures on Account (2) Confirmed Documents: Yes
== END 2024-08-08 18:55 | disposition home or self-care (01) | DRG 378 ==
LOC: ED 15:29 → PCU 15:35
PROVIDERS: Anesthesiology; Internal Medicine Gastroenterology; Physician Assistant; Admitting Provider Family Medicine; Emergency Provider Emergency Medicine; PCP Family Medicine Geriatric Medicine; Visit Provider Internal Medicine
PROC: 0DJ08ZZ Inspection of Upper Intestinal Tract, Via Natural or Artificial Opening Endoscopic (ICD-10-PCS; CPT 43235; principal; 2024-08-06 08:30)
PROC: 0DJD8ZZ Inspection of Lower Intestinal Tract, Via Natural or Artificial Opening Endoscopic (ICD-10-PCS; CPT 45378; principal; 2024-08-08 14:25)
DX: K55.21 Angiodysplasia of colon with hemorrhage (principal); C90.00 Multiple myeloma not having achieved remission; D80.1 Nonfamilial hypogammaglobulinemia; D61.818 Other pancytopenia; N13.8 Other obstructive and reflux uropathy; I48.11 Longstanding persistent atrial fibrillation; D69.6 Thrombocytopenia, unspecified; E11.22 Type 2 diabetes mellitus with diabetic chronic kidney disease; I12.9 Hypertensive chronic kidney disease with stage 1 through stage 4 chronic kidney disease, or unspecified chronic kidney disease; J45.909 Unspecified asthma, uncomplicated; B19.20 Unspecified viral hepatitis C without hepatic coma; D50.0 Iron deficiency anemia secondary to blood loss (chronic); E83.39 Other disorders of phosphorus metabolism; I48.0 Paroxysmal atrial fibrillation; E11.65 Type 2 diabetes mellitus with hyperglycemia; E87.6 Hypokalemia; K21.9 Gastro-esophageal reflux disease without esophagitis; Z79.4 Long term (current) use of insulin; E78.5 Hyperlipidemia, unspecified; K64.1 Second degree hemorrhoids; K57.30 Diverticulosis of large intestine without perforation or abscess without bleeding; K63.5 Polyp of colon; K64.4 Residual hemorrhoidal skin tags; E88.09 Other disorders of plasma-protein metabolism, not elsewhere classified; K31.819 Angiodysplasia of stomach and duodenum without bleeding; N18.2 Chronic kidney disease, stage 2 (mild); Z87.891 Personal history of nicotine dependence; Z79.85 Long-term (current) use of injectable non-insulin antidiabetic drugs; Z79.51 Long term (current) use of inhaled steroids; Z79.84 Long term (current) use of oral hypoglycemic drugs; Z90.49 Acquired absence of other specified parts of digestive tract; Z01.818 Encounter for other preprocedural examination; Z79.899 Other long term (current) drug therapy; Z98.41 Cataract extraction status, right eye; Z98.42 Cataract extraction status, left eye; N40.1 Benign prostatic hyperplasia with lower urinary tract symptoms
CPT/HCPCS: 36415; 77012; 80048; 80053; 82274; 82962; 83735; 84100; 85014; 85018; 85025; 85027; 85610; 85730; 86850; 86900; 86901; 86920; 86922; 86965; 88305; 88311; 88313; 88341; 88342; 93005; 94640; 94668; 99156; 99283; P9016; P9035; A4216; J2405

== ENCOUNTER → 2024-08-05 | Outpatient (CLI) | payer MEDICARE, OTHER, SELFPAY ==
[2024-08-05] VITALS (12 sets, daily range): BP systolic 101–126; BP diastolic 41–71; PULSE 94–113; RESP 18; TEMP 36.6; O2SAT 99–100; BMI 29.1
--- NOTE | 2024-08-05 | BMB_PTH ---
PATIENT: JOHNATHAN CURIEL Jr. LOC: CT U#:[id number] AGE/SX: 79/M ROOM: RE08/05/[address]: Dr. Nicolás Pittman MD : 1945 BED: DIS: 08/05/2024 SPEC #: [id number] RECD: 08/05/24 10:45 STATUS: CRISTIN REQ #: [id number] KALEIGH: 08/05/24 00:[address]: Nicolás Pittman DEPT: BONE MARROW RECD BY: Daphne Mulligan ENTERED: 08/05/24 11:48 SP TYPE: BMB DANE DR: Dr. Noble Peter MD Tissues: A - Bone marrow, NOS B - Bone marrow, NOS C - Bone marrow, NOS Procedures: Decalcification bone/plaque Bone Marrow Aspiration Bone Marrow Core Biopsy Iron Stain Bone Marrow HEADER OPERATION: CT guided bone marrow biopsy PRE-OP DIAGNOSIS: Plasma cell disorder TISSUE SUBMITTED: A - Core, B - Clot, C - Smears, and send outs (flow, cytogenetics) BONE MARROW DIAGNOSIS Bone marrow core, clot and aspirate smears: Plasma cell neoplasm, consistent with multiple myeloma. See comment. 08/15/2024 COMMENT Flow cytometry studies from [facility] shows monoclonal plasma cell population (87%). Complete report is viewable in patient's EMR. Cytogenetic and FISH studies are pending. Please also make reference to previous specimen, B24-4, bone marrow biopsy, clot and aspiration with diagnosis of `bone marrow involved by plasma cell dyscrasia/plasma cell neoplasm' . Case has been reviewed in consultation with Drs. Lowe and who concur with the above diagnosis. IDC:MARY ELLEN NG BONE MARROW STUDY Slides are reviewed. CBC DATE: 08/05/24 WBC 1.1; RBC 1.68; HGB 6.1; HCT 18.3; MCV 108.9; RDW17.1; PLTS 30,000 SEGS 7.5%; LYMPHS 88.7; MONOS 1.9%; EOS 1.9%; BASOS 0% PERIPHERAL SMEAR: Submitted. Pancytopenia. RBC: Severe macrocytic anemia. WBC: Leukopenia and neutropenia. The WBC count is compatible to as reported above. PLTS: Markedly decreased. BONE MARROW ASPIRATE DIFFERENTIAL: 200 cell count. Blasts % (normal 0-2): 0 Promyelocytes % (normal 1-5): 0 Myelocytes and metamyelocytes % (normal 17-41): 2 Bands and Segs 2% (normal 15-32): 2 Eos % (normal 1-6): 0 Basos % (normal 0-1): 0 Monocytes % (normal 0-4): 0 Erythroid Precursors % (normal 17-35): 7 Lymphocytes % (normal 7-13): 2 Plasma Cells % (normal 0-2): 87 ASPIRATE FINDINGS: Site: not specified. Spicular, Cellular M/E ratio: 0.6 (Normal 1.5-4.0) Megakaryocytes: Present and normal morphology and markedly decreased in number. Erythropoiesis: Markedly decreased and normoblastic. Significant dysplastic changes are not seen. Granulopoiesis: Markedly decreased. Significant dysplastic changes are not seen. Comment: Marked increase of plasma cells are noted. Significant increased number of immature plasma cells are not seen. CORE BIOPSY FINDINGS: Site: Not specified. Adequacy: Adequate. Cellularity: 60-70% M/E ratio: Markedly decreased erythroid and myeloid cells. Megakaryocytes: Present and decreased in number. Bony trabeculae: Unremarkable. Granulomas: Absent. Lymphoid aggregate: Absent. Atypical infiltrate: Present. Comment: Immunohistochemistry ([id number]) shows plasma cells neoplasm, consistent with multiple myeloma with kappa monoclonality. Plasma cells comprise about 80-90% of total nucleated cell population. Significant increase of blasts is not seen. ASPIRATE CLOT FINDINGS: \Site: Not specified. Marrow particles: Numerous. Cellularity: 60-70% M/E ratio: Markedly decreased erythroid and myeloid cells. Megakaryocytes: Present and decreased in number. Granulomas: Absent. Lymphoid aggregate: Absent. Atypical infiltrate: Present. Comment: Immunohistochemistry ([id number]) shows plasma cells neoplasm, consistent with multiple myeloma with kappa monoclonality. Plasma cells comprise about 80-90% of total nucleated cell population. Significant increase of blasts is not seen SPECIAL STAINS WITH MATCHED CONTROLS: Iron: absent. Reticulin: No significant increase of reticulin fibers is noted. PAS: Highlights myeloid cells and megakaryocytes. BONE MARROW GROSS A - Received is a container labeled with the patient's name and designated Bone marrow core. The specimen consists of a piece of cheek bone measuring _ cm in length and _ cm in diameter. The specimen is totally submitted in one cassette after decalcification. B - Received labeled with the patient's name and designated Bone marrow clot is a specimen that consists of approximately 5 ml of bloody fluid that on filtration yields multiple minute fragments of blood clots measuring in aggregate 3.0 x 2.5 x 0.2 cm. The specimen is totally submitted in one cassette. C - Also received are 14 unstained slides and 1 peripheral stained slide. The unstained slides are submitted for appropriate staining. Also received are 2 green top tubes which are sent to our reference lab for flow, cytogenetics, MDS, Multiple Myeloma Fish. / SJ.mr 08/05/2024 TC:0 CPT: 51335, 50969, 50172 x2, 40738 x3, 46202 ADDENDUM ADDENDUM ADDENDUM ADDENDUM ADDENDUM ADDENDUM ADDENDUM ADDENDUM ADDENDUM ADDENDUM ADDENDUM ADDENDUM ADDENDUM ADDENDUM ADDENDUM ADDENDUM ADDENDUM ADDENDUM ADDENDUM ADDENDUM 08/16/2024 08:31 ADDENDUM 08/16/2024 08:31 ADDENDUM 08/16/2024 08:31 ADDENDUM 08/19/2024 10:22 ADDENDUM 08/22/2024 08:16 ADDENDUM 08/16/2024 08:31 ADDENDUM 08/16/2024 08:31 MDS FISH PANEL REPORT FROM [facility] FISH RESULT: 8.0% OF NUCELI POSITIVE FOR 5Q DELETION 5.5% OF NUCELI POSITIVE FOR THREE 8Q SIGNALS INTERPRETATION: MDS RELATED CLONE DETECTED SPECIFIC PROBE RESULTS: 5q: Abnormal Nuc magalys 5q33 (CSF1R, RPS14) x 1 (/) 8q: Abnormal Nuc magalys 8q24 (MYCx3) () 7q: Normal Nuc magalys 7q31 (MDFICx2) (200) 20q: Normal Nuc magalys 20q12 (PTPRTx2) (200) Please see complete report in e-chart or EMR MULTIPLE MYELOMA FISH PANEL REPORT FROM [facility] FISH RESULT: NUCLEI POSITIVE FOR CCND1: IGH FUSION INTERPRETATION: MULTIPLE MYELOMA RELATED CLONE DETECTED SPECIFIC PROBE RESULTS: FGFR3/IGH: NORMAL CCND1 /IGH: ABNORMAL 1p36/1q21: NORMAL CEP 7/9/15: NORMAL 13q14: NORMAL TP53: NORMAL Please see complete report in e-chart or EMR CYTOGENETICS REPORT FROM [facility] CYTOGENETIC RESULT: 46-48, XY, del (1)(p34.1p13), add (5)(p11.2), del (9)(p21),t(11;14)(q13;q32),-12,+18,+1-2mar(cp7)/46,XY(13) INTERPRETATION: Abnormal clone detected Please see complete report in e-chart or EMR
--- NOTE | 2024-08-05 | IMM_PTH ---
PATIENT: JOHNATHAN CURIEL Jr. LOC: CT U#:[id number] AGE/SX: 79/M ROOM: RE08/05/[address]: Dr. Nicolás Pittman MD : 1945 BED: DIS: 08/05/2024 SPEC #: [id number] RECD: 08/08/24 12:12 STATUS: CRISTIN REQ #: [id number] KALEIGH: 08/05/24 00:[address]: Nicolás Pittman DEPT: IMMUNOHISTOCHEMISTRY RECD BY: Noris Valencia ENTERED: 08/08/24 12:19 SP TYPE: IMMUNO OTHR DR: Dr. Noble Peter MD Tissues: A - Bone marrow, NOS B - Bone marrow, NOS Procedures: CD138 (add) CD34 (add) CD45 (add) KAPPA (add) KI-67 (add) LAMBDA (add) CD45 (initial) PHYSICIAN & INSTITUTION [place] [id number] SPECIMEN INFORMATION: Tissue Source: A. Bone marrow core, B. Bone marrow clot Clinical Info: Plasma cell disorder Specimen Number: [id number] A, B CPT code: 76922, 22757 x 11 METHODOLOGY: Deparaffinized sections of prefer/formalin-fixed tissue or PAP/DQ stained slides are incubated with monoclonal/polyclonal antibodies/oligonucleotide probes. Localization is made via biotin free immunoperoxidase method. Appropriate controls are performed and reacted as expected. Results on target cell population are indicated in the following table: RESULTS: ANTIBODY / CLONE RESULT Block A CD45 (RP2/18) positive, focal (in small lymphocytes) CD138 (B-A38) positive [place] (polyclonal) positive (weak) Lambda (polyclonal) negative CD34 (QBEnd-10) negative Ki-67 (30-9) positive (low in plasma infiltrates) Block B CD45 (RP2/18) positive, focal (in small lymphocytes) CD138 (B-A38) positive [place] (polyclonal) positive Lambda (polyclonal) negative CD34 (QBEnd-10) negative Ki-67 (30-9) positive (low in plasma cell infiltrates) These tests were developed and their performance characteristics determined by [facility]. They may not have been cleared or approved by the U.S. Food and Drug Administration. The FDA has determined that such clearance or approval is not necessary. The above immunohistochemical/dualISH markers are ordered and reviewed by the Pathologist. INTERPRETATION: A. Bone marrow core, biopsy: Plasma cell neoplasm, consistent with multiple myeloma. Increased number of blasts are not seen. B. Bone marrow clot, biopsy: Plasma cell neoplasm, consistent with multiple myeloma. Increased number of blasts are not seen. SJ.mr 08/15/2024
[2024-08-05 09:06] LABS: Absolute Lymphocyte Count 0.94 X10^3/uL (0.83-4.51); Absolute Neutrophil Count 0.1 X10^3/uL (2.0-7.7); Eosinophil# 0.02 X10^3/uL; Eosinophils% 1.9 % (0-5); Hematocrit 18.3 % (40-54); Hemoglobin 6.1 g/dL (13.0-16.5); Lymphocyte # 0.94 X10^3/ul (0.83-4.51); Lymphocyte % 88.7 % (19-41); Mean Corp Hgb Conc 33.3 g/dL (32-36); Mean Corpuscular Hgb 36.3 pg (27.0-32.0); Mean Corpuscular Volume 108.9 fL (80-94); Monocyte# 0.02 X10^3/uL; Monocyte% 1.9 % (0-10); NRBC Flagged by Analyzer 0 % (0-5); Neutrophil # 0.08 X10^3/uL (2.7-7.7); Neutrophil % 7.5 % (47-70); POSITIVE COUNT YES; POSITIVE DIFFERENTIAL YES; POSITIVE MORPHOLOGY YES; RBC Distribution Width CV 17.1 % (11.6-14.6); RBC Distribution Width SD 66.6 fl (35.1-43.9); Red Blood Count 1.68 M/mm3 (4.6-6.2)
[2024-08-05 09:08] LABS: Partial Thromboplast Time 21.4 Seconds (24.1-36.2); Prothrombin Time (Protime)PT. 13.4 SECONDS (11.7-14.9)
[2024-08-05 09:10] LABS: White Blood Count 1.1 K/mm3 (4.4-11.0)
[2024-08-05 09:11] LABS: Differential Indicated SCAN CRITERIA MET; Platelet Count 30 K/mm3 (150-450)
[2024-08-05] MEDS: Metoprolol Tartrate 5 MG/5 ML Vial IV (09:40)
[2024-08-05] MEDS: 0.9% Saline Lock 10 ML Syringe IV (09:40)
[2024-08-05 10:12] LABS: Anisocytosis 3+; Differential Comment SCANNED; Platelet Estimate MKD DEC (ADEQ)
[2024-08-05 10:15] LABS: Ovalocyte 3+
[2024-08-05 10:17] LABS: Acanthocytes RARE; Macrocytosis 2+; Microcytosis 1+
[2024-08-05] MEDS: fentaNYL 100 MCG/2 ML Ampul IV (10:18)
[2024-08-05] MEDS: Midazolam 2 MG/2 ML Syringe IV (10:18)
[2024-08-05] MEDS: Lidocaine 2% (20 ml mdv) 20 ML Vial INFILT (10:25)
--- NOTE | 2024-08-05 10:50 | PCM.OPRPT ---
Problems Associated Problem List Diagnoses (1) Pancytopenia: Procedures Radiology Radiology CT Procedures: 10235 Dx bone marrow bx & aspir Multi Select Codes Radiology Radiology CT Procedures: 47861-37 CT guidance parenchymal tissue Operative Report (Standard) Operative Information Date of Procedure: 08/05/24 Pre-Operative Diagnosis: pancytopenia Post-Operative Diagnosis: pancytopenia Surgery/Procedure Performed: bone marrow biopsy point of care technician: No Type of Anesthesia: IV Sedation Procedure Start Time: 10:18 Procedure Stop Time: 10:35 Select all DRAINS/GRAFTS/IMPLANTS that apply: None Estimated Blood Loss: 5 Specimen collected: Yes Description of specimen(s) removed: bone marrow aspirate and core Description of surgery: PROCEDURE: CT guided bone marrow biopsy and aspiration of the right iliac bone ORDERING PROVIDER: Dr. Pittman INDICATION: Male, 79 years old. Pancytopenia. PROVIDER: Sindy MCINTOSH CONSENT: The risks, benefits, and alternatives to the procedure were explained to the patient and daughter. The specific risk of hemorrhage requiring further treatment or intervention was detailed and accepted. Follow-up instructions were discussed with the patient as well. Written informed consent was obtained. PRE-PROCEDURE SEDATION ASSESSMENT: Current history and physical dictated by referring physician and reviewed. No clinical changes since date of exam. Patient has a Mallampati Score of Class 1 and ASA Class of 3. Patient was noted to be in atrial fibrillation with a rapid ventricular rate on arrival. Patient stated he did not take his morning metoprolol. Heart rate was fluctuating from low 100s to 130. Patient was given 5 mg metoprolol IV, and this was effective to bring his heart rate less than 100 before the procedure. PROCEDURAL SEDATION PROTOCOL: The Drugs used were: 1 mg Versed, IV, and 25 mcg Fentanyl, IV. The sedation time was: 17 minutes, starting at 1018 and terminated at 1035. The procedural sedation protocol was independently monitored by the department nurse. RADIATION DOSAGE (Supplied By Facility): CTDIvol = 17.44 mGy, DLP = 365.68 mGy.cm Individualized dose optimization techniques were utilized. TECHNIQUE The patient was brought into the CT suite and placed in the prone position. An appropriate entry site was identified using CT guidance. The overlying skin was prepped with chlorhexidine and draped in the usual sterile fashion. 2% lidocaine was administered subcutaneously for local anesthesia. Under CT guidance, a bone marrow biopsy and bone marrow aspirate were performed of the right iliac bone using an 11-gauge bone marrow biopsy kit. Laboratory staff was present to prepare the specimen slides and transport the specimen to the laboratory for analysis. Hemostasis was obtained, and a sterile occlusive dressing was applied. The patient tolerated the procedure well without immediate complications. IMPRESSION: Successful CT guided bone marrow biopsy and aspiration of the right iliac bone as described. Procedural Sedation protocol utilized with independent monitoring by the department nurse. Surgical Findings: Successful bone marrow biopsy. Complications Complications: No
[2024-08-05 11:43] LABS: Bedside Glucose 82 mg/dL (74-106)
[2024-08-05 12:23] LABS: Bedside Glucose 102 mg/dL (74-106)
[2024-08-09 10:13] LABS: Pathologist Review Reviewed
== END | disposition home or self-care (01) ==
PROVIDERS: PCP Family Medicine Geriatric Medicine; Referring Provider Internal Medicine Medical Oncology; Visit Provider Internal Medicine Medical Oncology
DX: Z01.818 Encounter for other preprocedural examination (principal); D61.818 Other pancytopenia; I48.11 Longstanding persistent atrial fibrillation; Z79.4 Long term (current) use of insulin; E11.22 Type 2 diabetes mellitus with diabetic chronic kidney disease; N18.30 Chronic kidney disease, stage 3 unspecified; D80.1 Nonfamilial hypogammaglobulinemia; E88.09 Other disorders of plasma-protein metabolism, not elsewhere classified; I12.9 Hypertensive chronic kidney disease with stage 1 through stage 4 chronic kidney disease, or unspecified chronic kidney disease; E78.5 Hyperlipidemia, unspecified; Z79.899 Other long term (current) drug therapy; K21.9 Gastro-esophageal reflux disease without esophagitis; Z79.01 Long term (current) use of anticoagulants
CPT/HCPCS: 38222; 36415; 77012; 82962; 85025; 85610; 85730; 88305; 88311; 88313; 99156; A4216

== ENCOUNTER → 2024-08-11 | Outpatient (CLI) | payer MEDICARE, OTHER, SELFPAY ==
[2024-08-11 10:34] LABS: Absolute Lymphocyte Count 0.48 X10^3/uL (0.83-4.51); Absolute Neutrophil Count 0.1 X10^3/uL (2.0-7.7); Hematocrit 24.1 % (40-54); Lymphocyte # 0.48 X10^3/ul (0.83-4.51); Lymphocyte % 69.6 % (19-41); Mean Corp Hgb Conc 33.2 g/dL (32-36); Mean Corpuscular Hgb 34.3 pg (27.0-32.0); Mean Corpuscular Volume 103.4 fL (80-94); Monocyte# 0.09 X10^3/uL; NRBC Flagged by Analyzer 0 % (0-5); Neutrophil # 0.12 X10^3/uL (2.7-7.7); Neutrophil % 17.4 % (47-70); POSITIVE COUNT YES; POSITIVE DIFFERENTIAL YES; POSITIVE MORPHOLOGY YES; Platelet Count 24 K/mm3 (150-450); RBC Distribution Width CV 20.2 % (11.6-14.6); Red Blood Count 2.33 M/mm3 (4.6-6.2)
[2024-08-11 10:38] LABS: Differential Indicated SCAN CRITERIA MET; White Blood Count 0.7 K/mm3 (4.4-11.0)
[2024-08-11 11:15] LABS: Anisocytosis 2+
[2024-08-11 11:16] LABS: Platelet Estimate MKD DEC (ADEQ)
[2024-08-11 18:04] LABS: Xtra CC BBK (Onc ONLY) EXTRA TUBE
[2024-08-12 08:52] LABS: Pathologist Review Reviewed
== END | disposition home or self-care (01) ==
LOC: LAB 10:02
PROVIDERS: PCP Family Medicine Geriatric Medicine; Referring Provider Nurse Practitioner Family; Visit Provider Nurse Practitioner Family
DX: D61.818 Other pancytopenia (principal)
CPT/HCPCS: 36415; 85025

== ENCOUNTER → 2024-08-18 | Outpatient (CLI) | payer MEDICARE, OTHER, SELFPAY ==
[2024-08-18 14:32] LABS: Absolute Lymphocyte Count 0.59 X10^3/uL (0.83-4.51); Absolute Neutrophil Count 0.2 X10^3/uL (2.0-7.7); Eosinophil# 0.02 X10^3/uL; Eosinophils% 2.3 % (0-5); Hematocrit 21.6 % (40-54); Lymphocyte # 0.59 X10^3/ul (0.83-4.51); Lymphocyte % 68.6 % (19-41); Mean Corp Hgb Conc 32.4 g/dL (32-36); Mean Corpuscular Hgb 33.7 pg (27.0-32.0); Mean Corpuscular Volume 103.8 fL (80-94); Mean Platelet Vol. 11.8 fl (6.2-12.0); Monocyte# 0.05 X10^3/uL; Monocyte% 5.8 % (0-10); NRBC Flagged by Analyzer 0 % (0-5); Neutrophil % 23.3 % (47-70); POSITIVE COUNT YES; POSITIVE DIFFERENTIAL YES; POSITIVE MORPHOLOGY YES; Red Blood Count 2.08 M/mm3 (4.6-6.2)
[2024-08-18 14:50] LABS: ALB/GLOB Ratio 0.6 RATIO (0.9-2.4); AST(SGOT) 13 U/L (15-37); Alanine Aminotransfer ALT/SGPT 16 U/L (16-61); Albumin, Serum 2.4 g/dL (3.2-5.0); Alkaline Phosphatase 47 U/L (45-117); Anion Gap 12 (5-15); BUN 22 mg/dL (7-18); BUN/Creat Ratio 18.5 RATIO (10-20); Calcium,Total 8.5 mg/dL (8.5-10.1); Chloride 105 mmol/L (98-107); Creatinine, Serum 1.19 mg/dL (0.70-1.30); EST Glomerular Filtration Rate 62 mL/min (>60); Est Glom Filt Rate - Afr Amer 76 mL/min (>60); Globulin 4.1 g/dL (2.2-4.2); Glucose 232 mg/dL (74-106); Potassium 3.6 mmol/L (3.5-5.1); Protein, Total 6.5 g/dL (6.4-8.2); Sodium Level 137 mmol/L (136-145); Thyroid Stim Hormone (TSH) 0.456 uIU/mL (0.358-3.740)
[2024-08-18 14:58] LABS: Vitamin D,25 Hydroxy 32.5 ng/mL
[2024-08-18 15:05] LABS: White Blood Count 0.9 K/mm3 (4.4-11.0)
[2024-08-18 15:06] LABS: Differential Indicated SCAN CRITERIA MET; Platelet Count 50 K/mm3 (150-450)
[2024-08-18 15:26] LABS: Differential Comment SCANNED; Platelet Estimate MKD DEC (ADEQ)
[2024-08-18 15:27] LABS: Acanthocytes 1+; Anisocytosis 2+; Macrocytosis 2+; Ovalocyte 2+; Tear Drop Cell 1+
[2024-08-19 13:16] LABS: Pathologist Review Reviewed
== END | disposition home or self-care (01) ==
LOC: POLAB3 13:57
PROVIDERS: PCP Family Medicine Geriatric Medicine; Visit Provider Family Medicine Geriatric Medicine
DX: E11.65 Type 2 diabetes mellitus with hyperglycemia (principal); I10 Essential (primary) hypertension; E55.9 Vitamin D deficiency, unspecified
CPT/HCPCS: 36415; 80053; 82306; 84443; 85025

== ENCOUNTER → 2024-08-23 | Outpatient (CLI) | payer MEDICARE, OTHER, SELFPAY ==
--- NOTE | 2024-08-23 13:20 | RAD_ITS ---
HISTORY: Bilateral pneumonia. TECHNIQUE: XR Chest 2 Views. COMPARISON: 07/04/2024. FINDINGS: CARDIOMEDIASTINAL BORDERS: Cardiac silhouette within normal limits in size. Mediastinal contour unremarkable with calcification of the aortic knob. LUNGS: Chronic right apical scarring. Focal left lower lobe opacity overlying the left hilum on the frontal view and measuring 3 cm over the mid thoracic spine on the lateral view. PLEURA: Mild blunting of the left costophrenic angle. OSSEOUS STRUCTURES: Cervical spinal fusion hardware and degenerative change noted. RAD/Chest PA and Lateral IMPRESSION: Focal 3 cm left lower lobe opacity, which may represent pneumonia or mass. Recommend CT. Very mild left pleural effusion. Electronically Signed: Regina Spence MD at 9:31 EST ,
== END | disposition home or self-care (01) ==
PROVIDERS: PCP Family Medicine Geriatric Medicine; Referring Provider Family Medicine Geriatric Medicine; Visit Provider Family Medicine Geriatric Medicine
DX: R68.83 Chills (without fever) (principal); J18.9 Pneumonia, unspecified organism
CPT/HCPCS: 71046; 87631

== ENCOUNTER → 2024-09-16 | Outpatient (CLI) | payer MEDICARE, OTHER, SELFPAY ==
--- NOTE | 2024-09-16 13:54 | CT_ITS ---
PROCEDURE: CHEST WITHOUT CONTRAST REASON FOR EXAM: Bilateral pneumonia. Pancytopenia. Hypertension. TECHNIQUE: Axial CT images of the chest was performed without IV contrast enhancement. Sagittal and coronal reconstructed images were performed for better visualization of the horizontal structures. COMPARISON: Prior PET-CT examination dated 08/16/2024 FINDINGS: Hardware: There is evidence of cervical fusion, partially imaged. Lymph nodes: No mediastinal hilar or axillary lymphadenopathy. Heart and Vasculature: Normal heart size. No pericardial effusion. Vascular calcifications throughout the thoracic aorta and origins of the great vessels of the neck. Normal caliber pulmonary artery. Coronary artery calcifications are noted. Lungs and Airways: Trace scarring within the lung apices. Nodular mass within the superior segment of the left lower lobe measures 3.8 x 3.7 by 2.8 cm, extending to the pleural surface posteriorly. Trace atelectasis within the lung bases. Pleura: No pleural effusion. No pneumothorax. Upper Abdomen: 9 mm hypodensity within the right hepatic lobe, superiorly, too small to accurately characterize. The gallbladder appears surgically absent. No splenomegaly. Bones: Spondylotic changes partially imaged of the L1-2 level. Mild spondylotic changes of the visualized thoracic spine. CT/Chest without Contrast IMPRESSION: 1. Nodular mass within the superior segment of the left lower lobe, now measuri ng 3.8 x 3.7 x 2.8 cm extending to the pleural surface posteriorly. This does appears smaller in size when compared to prior PET-CT examination dated 08/16/2024. 2. 9 mm hypodensity within the right hepatic lobe, superiorly, too small to acc urately characterize. 3. Additional findings, as detailed above. One or more dose reduction techniques were used (e.g., Automated exposure contr ol, adjustment of the mA and/or kV according to patient size, use of iterative reconstruction technique). Reading Location: [facility]
== END | disposition home or self-care (01) ==
LOC: CT 13:53
PROVIDERS: PCP Family Medicine Geriatric Medicine; Referring Provider Family Medicine Geriatric Medicine; Visit Provider Family Medicine Geriatric Medicine
DX: J18.9 Pneumonia, unspecified organism (principal)
CPT/HCPCS: 71250

== ENCOUNTER 2024-09-19 13:33 | Inpatient (IN) | payer MEDICARE, OTHER, SELFPAY ==
[2024-09-19] VITALS (25 sets, daily range): BP systolic 79–141; BP diastolic 42–73; PULSE 104–145; RESP 17–27; TEMP 36.4–38.9; O2SAT 95–100; BMI 26.5; BMI 27.4
--- NOTE | 2024-09-19 13:51 | EKG12_ITS ---
Test Reason : Blood Pressure : */* mmHG Vent. Rate : 130 BPM Atrial Rate : * BPM P-R Int : * ms QRS Dur : 118 ms QT Int : 318 ms P-R-T Axes : * -51 -17 degrees QTcB Int : 467 ms Atrial fibrillation with rapid ventricular response with premature ventricular or aberrantly conducted complexes Left axis deviation Low voltage QRS Incomplete right bundle branch block Cannot rule out Anterior infarct , age undetermined Abnormal ECG Confirmed by JENNA MARTINI, ELIN ([id number]), newspaper copy editor ALEXANDER JOHNSTON ([id number]) on 09/20/2024 8:51:04 AM Referred By: ANKUR/LINK Confirmed By: ELIN WEST MD
--- NOTE | 2024-09-19 13:54 | EDS_ITS ---
HPI History of Present Illness Chief Complaint: Abn Labs Detail of Chief Complaint: Frequent falls. Generalized weakness. Informant: patient and family Onset/Context/Timing Onset: Days Context: Gradual Onset Timing: Continuous Current Severity: Moderate Maximum Severity: Moderate Narrative Narrative: 79-year-old male history diabetes, hepatitis C, myelodysplastic syndrome, A-fib. Recently has had frequent falls at home 5 over the last several weeks. Said he went to see is oncologist today in the office they neymar labs today were abnormal. Unremarkable. They did not feel that he appeared well. So they they sent him to the ER to be evaluated. He denies any injuries to to the falls. Denies any head injury. No headache. He is not on any blood thinners. Prior similar symptoms: Yes Recent Illness/Hospitalization: No PFSH PFSH Medical History Encounter for education History of hepatitis C Loss of hearing Wears glasses Anxiety Ambulates with cane Insulin dependent diabetes mellitus Arthritis Prostate disease Anemia Restless legs Injury of back Injury of head and neck Syncope Dietary restriction Difficulty swallowing Gastric reflux Former smoker History of pain when walking History of echocardiogram History of stress test Cardiology follow-up encounter Glaucoma Hx of fracture of wrist Other pancytopenia Longstanding persistent atrial fibrillation Obesity Right bundle branch block (RBBB) Osteoarthritis Essential hypertension Allergic rhinitis due to allergen Asthma DVT (deep venous thrombosis) (02/24/11) Cervical radiculopathy Hyperlipidemia Vitamin D deficiency Hypersomnia DEYANIRA (obstructive sleep apnea) Home Medications ?Medication ?Instructions ?Recorded ?Last Taken ?Type alfuzosin 10 mg tablet,extended 10 mg PO DAILY@1730 ur inary 08/31/13 02/19/24 History release 24 hr rosuvastatin 40 mg tablet 40 mg PO DAILY cholesterol 0 08/31/13 02/19/24 History finasteride 5 mg tablet 5 mg PO DAILY prostate 12/1702/19/24 History empagliflozin 25 mg tablet 25 mg PO QDAY diabetes 0503/0302/19/24 History (Jardiance) tramadol 50 mg tablet 50 mg PO BID PRN pain 02/19/24 History baclofen 10 mg tablet 10 mg PO DAILY PRN PRN muscl e spasm 07/24/22 02/19/24 History dorzolamide 22.3 mg-timolol 6.8 1 drp ophthalmic (eye) BID eyes 07/24/22 02/19/24 History mg/mL eye drops fluticasone 500 mcg-salmeterol 50 1 inh inhalation Q12 H breathing 12/25/22 02/19/24 Rx mcg/dose blistr powdr for #60 ea inhalation (Advair Diskus) albuterol sulfate 90 mcg/actuation 2 puff inhalation Q 6H PRN PRN Sob 03/19/23 12/08/23 Rx aerosol inhaler &/Or Wheezing #18 grams cetirizine 10 mg tablet 10 mg PO DAILY allergy #90 t abs 07/14/23 02/19/24 Rx terbinafine HCl 1 % topical cream 1 applic topical BID cream 02/20/24 02/19/24 History potassium 20 mg chewable tablet 20 mg PO DAILY supplem ent 07/21/24 Unknown History dulaglutide 0.75 mg/0.5 mL 0.75 mg subcut QWEEK diabet es 07/28/24 Unknown History subcutaneous pen injector (Trulicity) fluticasone propionate 50 2 spray intranasal DAILY PRN 07/28/24 Unknown History mcg/actuation nasal allergy symptoms spray,suspension polyethylene glycol 3350 17 17 g PO .COMPLEX bowels #5 10 grams 07/28/24 Unknown Rx gram/dose oral powder (Miralax) metoprolol tartrate 50 mg tablet 50 mg PO BID #60 tabs 08/08/24 Unknown Rx ipratropium 0.5 mg-albuterol 3 mg 3 ml inhalation Q4H PRN PRN SOB 08/12/24 Unknown Rx (2.5 mg base)/3 mL nebulization &/OR WHEEZING #180 mL soln insulin regular hum U-500 conc 500 75 unit subcut QHS diabetes 09/06/24 Unknown History unit/mL(3 mL) subcut pen (Humulin R U-500 (Conc) Insulin Kwikpen) insulin regular hum U-500 conc 500 100 unit subcut QAM diabetes 09/06/24 Unknown History unit/mL(3 mL) subcut pen (Humulin R U-500 (Conc) Insulin Kwikpen) lenalidomide 10 mg capsule 10 mg PO QDAY 09/08/24 Unkn own History (Revlimid) magnesium citrate 100 mg capsule 100 mg PO BID #180 ca ps 01/23/25 Unknown Rx pantoprazole 40 mg tablet,delayed 40 mg PO DAILY #30 t abs 09/08/24 Unknown Rx release (Protonix) Allergy/AdvReac Type Severity Reaction Status Date / Time No Known Drug Allergies Allergy no known Verified 09/19/24 12:10 Family History Daughter Asthma Grandmother Asthma Sister Asthma COPD (chronic obstructive pulmonary disease) Mother Pancreatic cancer Brother Myocardial infarction Cancer
--- NOTE | 2024-09-19 13:54 | EX.ED.DYSGE1 ---
HPI History of Present Illness Chief Complaint: Abn Labs Detail of Chief Complaint: Frequent falls. Generalized weakness. Informant: patient and family Onset/Context/Timing Onset: Days Context: Gradual Onset Timing: Continuous Current Severity: Moderate Maximum Severity: Moderate Narrative Narrative: 79-year-old male history diabetes, hepatitis C, myelodysplastic syndrome, A-fib. Recently has had frequent falls at home 5 over the last several weeks. Said he went to see is oncologist today in the office they neymar labs today were abnormal. Unremarkable. They did not feel that he appeared well. So they they sent him to the ER to be evaluated. He denies any injuries to to the falls. Denies any head injury. No headache. He is not on any blood thinners. Prior similar symptoms: Yes Recent Illness/Hospitalization: No PFSH PFSH Medical History Encounter for education History of hepatitis C Loss of hearing Wears glasses Anxiety Ambulates with cane Insulin dependent diabetes mellitus Arthritis Prostate disease Anemia Restless legs Injury of back Injury of head and neck Syncope Dietary restriction Difficulty swallowing Gastric reflux Former smoker History of pain when walking History of echocardiogram History of stress test Cardiology follow-up encounter Glaucoma Hx of fracture of wrist Other pancytopenia Longstanding persistent atrial fibrillation Obesity Right bundle branch block (RBBB) Osteoarthritis Essential hypertension Allergic rhinitis due to allergen Asthma DVT (deep venous thrombosis) (02/24/11) Cervical radiculopathy Hyperlipidemia Vitamin D deficiency Hypersomnia DEYANIRA (obstructive sleep apnea) Home Medications ?Medication ?Instructions ?Recorded ?Last Taken ?Type alfuzosin 10 mg tablet,extended 10 mg PO DAILY@1730 urinary 08/31/13 02/19/24 History release 24 hr rosuvastatin 40 mg tablet 40 mg PO DAILY cholesterol 08/31/13 02/19/24 History finasteride 5 mg tablet 5 mg PO DAILY prostate 12/18/15 02/19/24 History empagliflozin 25 mg tablet 25 mg PO QDAY diabetes 12/21/17 02/19/24 History (Jardiance) tramadol 50 mg tablet 50 mg PO BID PRN pain 10/16/20 02/19/24 History baclofen 10 mg tablet 10 mg PO DAILY PRN PRN muscle spasm 07/24/22 02/19/24 History dorzolamide 22.3 mg-timolol 6.8 1 drp ophthalmic (eye) BID eyes 07/24/22 02/19/24 History mg/mL eye drops fluticasone 500 mcg-salmeterol 50 1 inh inhalation Q12H breathing 12/25/22 02/19/24 Rx mcg/dose blistr powdr for #60 ea inhalation (Advair Diskus) albuterol sulfate 90 mcg/actuation 2 puff inhalation Q6H PRN PRN Sob 03/19/23 12/08/23 Rx aerosol inhaler &/Or Wheezing #18 grams cetirizine 10 mg tablet 10 mg PO DAILY allergy #90 tabs 07/14/23 02/19/24 Rx terbinafine HCl 1 % topical cream 1 applic topical BID cream 02/20/24 02/19/24 History potassium 20 mg chewable tablet 20 mg PO DAILY supplement 07/21/24 Unknown History dulaglutide 0.75 mg/0.5 mL 0.75 mg subcut QWEEK diabetes 07/28/24 Unknown History subcutaneous pen injector (Trulicity) fluticasone propionate 50 2 spray intranasal DAILY PRN 07/28/24 Unknown History mcg/actuation nasal allergy symptoms spray,suspension polyethylene glycol 3350 17 17 g PO .COMPLEX bowels #510 grams 07/28/24 Unknown Rx gram/dose oral powder (Miralax) metoprolol tartrate 50 mg tablet 50 mg PO BID #60 tabs 08/08/24 Unknown Rx ipratropium 0.5 mg-albuterol 3 mg 3 ml inhalation Q4H PRN PRN SOB 08/12/24 Unknown Rx (2.5 mg base)/3 mL nebulization &/OR WHEEZING #180 mL soln insulin regular hum U-500 conc 500 75 unit subcut QHS diabetes 09/06/24 Unknown History unit/mL(3 mL) subcut pen (Humulin R U-500 (Conc) Insulin Kwikpen) insulin regular hum U-500 conc 500 100 unit subcut QAM diabetes 09/06/24 Unknown History unit/mL(3 mL) subcut pen (Humulin R U-500 (Conc) Insulin Kwikpen) lenalidomide 10 mg capsule 10 mg PO QDAY 09/08/24 Unknown History (Revlimid) magnesium citrate 100 mg capsule 100 mg PO BID #180 caps 09/08/24 Unknown Rx pantoprazole 40 mg tablet,delayed 40 mg PO DAILY #30 tabs 09/08/24 Unknown Rx release (Protonix) Allergy/AdvReac Type Severity Reaction Status Date / Time No Known Drug Allergies Allergy no known Verified 09/19/24 12:10 Family History Daughter Asthma Grandmother Asthma Sister Asthma COPD (chronic obstructive pulmonary disease) Mother Pancreatic cancer Brother Myocardial infarction Cancer CAD (coronary artery disease) Surgical History History of bone marrow biopsy Hx of right cataract extraction Hx of left cataract extraction History of left heart catheterization (2006) 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 Falls. Denies vomiting or diarrhea. Denies fever. Patient denies dysuria. Review of Systems ROS Unobtainable: Denies due to encephalopathy Constitutional Constitutional ED: Reports chills; Denies fever(s) Eyes Eyes: Denies blurry vision ENT ENT ED: Denies ear pain Cardiovascular Cardiovascular: Denies chest pain Respiratory/Chest Respiratory/Chest: Reports cough; Denies dyspnea Gastrointestinal Gastrointestinal: Denies abdominal pain Genitourinary Genitourinary ED: Denies dysuria or hematuria Musculoskeletal Musculoskeletal: Denies arthralgias or back pain Integumentary Denies abscess Psychiatric Psychiatric: Denies anxiety or depression Endocrine Endocrinology: Denies cold intolerance Hematologic/Lymphatic Hematologic/Lymphatic: Reports none Allergic/Immunologic Allergic/Immunologic ED: Denies mouth swelling, tongue swelling or urticaria EXAM Physical Exam Narrative Exam Narrative: 79-year-old male sitting upright in bed. Clinically appears weak. On the monitor his blood pressure 79/68 and his heart rate to 140. Temperature is 98.4. H EENT exam pupils round react to light. Dry mucous membranes. No trauma to his face or scalp. Neck nontender. Back nontender. No bruising. Lungs clear to auscultation bilaterally. Heart tachycardic A-fib irregular. Rate about 140. Abdomen soft and nontender. No peritoneal signs. Moving all 4 extremities. Trace edema both lower extremities. Equal symmetrical. Nontender no deformity. Neurologically is awake and alert. Answering questions and following commands. Const Vital Signs: 09/19/24 13:34 09/19/24 13:51 09/19/24 14:37 Temperature 98.4 F 98.4 F Temperature Source Temporal Oral Pulse Rate 140 H 131 H Respiratory Rate 20 H 17 Respiratory Effort Respiratory Pattern Blood Pressure 79/68 L 117/48 L Blood Pressure Mean 71 71 Pulse Ox 95 100 Oxygen Delivery Method Room Air Room Air 09/19/24 14:39 09/19/24 15:00 09/19/24 15:09 Temperature 99.4 F H Temperature Source Oral Pulse Rate 124 H Respiratory Rate 19 H Respiratory Effort Normal Non-Labored Normal Respiratory Pattern Normal Blood Pressure 117/48 L Blood Pressure Mean 71 Pulse Ox 99 Oxygen Delivery Method Room Air 09/19/24 16:04 09/19/24 16:54 Temperature 97.5 F L Temperature Source Oral Pulse Rate 124 H 104 H Respiratory Rate 20 H 22 H Respiratory Effort Respiratory Pattern Blood Pressure 120/59 L 120/59 L Blood Pressure Mean 79 79 Pulse Ox 97 98 Oxygen Delivery Method Room Air Room Air Positive well nourished and well developed; Negative for cachectic, contractures or unkempt General Appearance ED: well developed and pallor; Negative for unkempt, cachectic, contractures, cyanotic, diaphoretic or NAD Nutritional Appearance: Negative for cachectic HEENT Reports dry mucous membranes Negative for trauma or tenderness Mouth ED: Yes dry mucous membranes Mouth: dry mucous membranes Eyes PERRL and EOMs intact bilaterally General Eye ED: Negative for pale conjunctiva Neck no lymphadenopathy, supple and no JVD Chest Wall inspection of chest normal and palpation of chest normal Resp normal respiratory effort and clear to auscultation bilaterally Cardio Negative for regular rate or regular rhythm Rate: tachycardic Rhythm: abnormal rhythm GI normal to inspection, nondistended, normoactive bowel sounds, non-tender, non-distended and no masses Palpation: soft; Negative for tender, guarding, mass or rebound tenderness present Back/Spine no CVA tenderness General Back: Negative for CVA tenderness Cervical Spine: Negative for cervical spine tenderness Thoracic Spine / Upper Back: Negative for thoracic spinal tenderness or paraspinal muscle tenderness Lumbar Spine / Lower Back: Negative for lumbar spinal tenderness Extremity Negative for normal to inspection Extremity Narrative: Trace bilateral edema. Nontender no deformity. General Extremety ED: Yes edema; Negative for tenderness General Extremity: edema Neuro oriented x3 and CN's II-XII intact bilaterally Sensorium / Orientation: alert; Negative for orientation impaired, lethargic or stuporous Motor Exam: general weakness; Negative for strength 5/5 throughout Psych mental status grossly normal Appearance: Negative for unkempt Mood & Affect: Negative for depressed, anxious or tearful Skin no rashes or lesions noted and no wounds General Skin Exam: pallor; Negative for jaundice Lesions: No lesion noted Rashes: No rashes noted Trauma: Negative for abrasion Wounds: Negative for wounds noted MDM MDM MDM Narrative Medical decision making narrative: 79-year-old male generalized weakness with falls and hypotension. Has a history of MDS with significant abnormal labs. Will treat with IV fluids and undergo a septic workup. Repeat exam patient is doing well at 4:50 PM. His blood pressure is currently 120/60. He still remains in A-fib RVR I will be giving Cardizem bolus and may need to go on a drip. Awaiting UA which took him straight cathing for. The hospitalist on page for admission. Initial Cardizem bolus dropped his heart rate below 100 but currently he is overall 100 be started on a Cardizem drip. History & Record Review Discussion w/independent historian: Patient and Family Additional record(s) reviewed:: Prior inpatient record, Prior outpatient record, Prior ED visit and Prior labs Lab Data Attestation: I reviewed the patient's lab results. Lab results narrative: CBC shows a white count 0.4. H&H 6.3 and 18.2. Platelets 24,000. PT/INR of 17.9 and 1.5. PTT at 250 Electrolytes show sodium 133. Potassium 2.3. Gap 11. BUN of 40 creatinine 1.4. Glucose 103. Elevated AST and ALT. Lactic acid is 3.7 These are consistent with recent prior labs. Chest x-ray no acute process. Labs: Laboratory Results - last 24 hr 09/19/24 14:17 WBC 0.4 L* RBC 1.92 L Hgb 6.3 L Hct 18.2 L MCV 94.8 H MCH 32.8 H MCHC 34.6 RDW Std Deviation 67.6 H RDW Coeff of Misa 21.2 H Plt Count 24 L* Immature Gran % (Auto) 0.000 Neut % (Auto) 10.3 L Lymph % (Auto) 79.5 H [place] % (Auto) 5.1 Eos % (Auto) 5.1 H Baso % (Auto) 0.0 Absolute Neuts (auto) 0.0 L Absolute Lymphs (auto) 0.31 L Nucleated RBC % 0 Differential Comment COMMENT Diff Path Review May foll Platelet Estimate MKD DEC Anisocytosis 1+ PT 17.9 H INR 1.5 APTT > 250.0 H* Sodium 133 L Potassium 2.3 L* Chloride 98 Carbon Dioxide 24.0 Anion Gap 11 BUN 40 H Creatinine 1.40 H Est GFR (MDRD) Af Amer 63 Est GFR (MDRD) Non-Af 52 L BUN/Creatinine Ratio 28.6 H Glucose 103 Lactic Acid 3.7 H* Calcium 8.4 L Total Bilirubin 0.90 AST 136 H ALT 109 H Alkaline Phosphatase 39 L Total Protein 5.9 L Albumin 2.1 L Globulin 3.8 Albumin/Globulin Ratio 0.6 L Radiography Chest X-Ray - ED: Read by ED Physician, Read by Radiologist, Normal, Heart, Lungs, Mediastinum, Bony Structures, No Acute Disease and Chronic Changes Diagnostic Testing: Clinical Impression(s) from Imaging Studies Chest X-Ray 09/19/24 14:30 IMPRESSION: No acute abnormality is seen. Reading Location: [id number] Chest x-ray, portable, single view, interpreted by myself and radiologist shows no acute abnormality. Normal cardiac silhouette. Normal mediastinum. Normal lung rubi. Rhythm Strip Rhythm Strip: A-fib Rate: 130 Ectopy: None EKG Initial EKG: Attestation: I personally reviewed and interpreted this EKG as follows: Interpretation: Atrial Fibrillation Comments: A-fib with RVR rate of 130. No acute signs of KS or ischemia. Low voltage. Incomplete bundle branch block. Critical Care Time Critical Care Time: Yes Critical care time (excluding procedures): 30-74 minutes, Including time spent:, Discussing w/Patient &/or Family/Blaster Helper, Discussing w/Consultants, Arranging Admission or Transfer, Performing Direct Patient Care at Bedside and - (40 min) Discharge Plan Dx/Rx/DC Orders Clinical Impression: Atrial fibrillation with rapid ventricular response, Pancytopenia, History of atrial fibrillation, History of myelodysplastic syndrome, Acute hypotension, Acute hypokalemia Disposition Disposition: Acute Care Hospital [facility]
[2024-09-19] MEDS: 0.9% Normal Saline (1000mL) 1,000 ML 999 ML IV (14:29)
--- NOTE | 2024-09-19 14:30 | RAD_ITS ---
EXAM: CHEST 1 VIEW (PORTABLE) CLINICAL HISTORY: Decreased hemoglobin and platelets. COMPARISON: Comparison is made with prior study dated July 04, 2024. TECHNIQUE: A portable chest radiograph was obtained. FINDINGS: EKG electrodes are seen. Hyperinflation. No acute infiltrate is seen. Calcification of the aortic arch. Degenerative changes of the thoracic spine. RAD/Chest 1 View (Portable) IMPRESSION: No acute abnormality is seen. Reading Location: [place] [id number]
[2024-09-19 14:33] LABS: Absolute Lymphocyte Count 0.31 X10^3/uL (0.83-4.51); Eosinophil# 0.02 X10^3/uL; Eosinophils% 5.1 % (0-5); Hematocrit 18.2 % (40-54); Hemoglobin 6.3 g/dL (13.0-16.5); Lymphocyte # 0.31 X10^3/ul (0.83-4.51); Lymphocyte % 79.5 % (19-41); Mean Corp Hgb Conc 34.6 g/dL (32-36); Mean Corpuscular Hgb 32.8 pg (27.0-32.0); Mean Corpuscular Volume 94.8 fL (80-94); Monocyte# 0.02 X10^3/uL; Monocyte% 5.1 % (0-10); NRBC Flagged by Analyzer 0 % (0-5); Neutrophil # 0.04 X10^3/uL (2.7-7.7); Neutrophil % 10.3 % (47-70); POSITIVE COUNT YES; POSITIVE DIFFERENTIAL YES; POSITIVE MORPHOLOGY YES; RBC Distribution Width CV 21.2 % (11.6-14.6); RBC Distribution Width SD 67.6 fl (35.1-43.9); Red Blood Count 1.92 M/mm3 (4.6-6.2)
[2024-09-19 14:40] LABS: Differential Indicated SCAN CRITERIA MET; Platelet Count 24 K/mm3 (150-450); White Blood Count 0.4 K/mm3 (4.4-11.0)
[2024-09-19 14:44] LABS: International Normalized Ratio 1.5; Prothrombin Time (Protime)PT. 17.9 SECONDS (11.7-14.9)
[2024-09-19 14:56] LABS: ALB/GLOB Ratio 0.6 RATIO (0.9-2.4); AST(SGOT) 136 U/L (15-37); Alanine Aminotransfer ALT/SGPT 109 U/L (16-61); Albumin, Serum 2.1 g/dL (3.2-5.0); Alkaline Phosphatase 39 U/L (45-117); Anion Gap 11 (5-15); BUN 40 mg/dL (7-18); BUN/Creat Ratio 28.6 RATIO (10-20); Calcium,Total 8.4 mg/dL (8.5-10.1); Chloride 98 mmol/L (98-107); EST Glomerular Filtration Rate 52 mL/min (>60); Est Glom Filt Rate - Afr Amer 63 mL/min (>60); Globulin 3.8 g/dL (2.2-4.2); Glucose 103 mg/dL (74-106); Potassium 2.3 mmol/L (3.5-5.1); Protein, Total 5.9 g/dL (6.4-8.2); Sodium Level 133 mmol/L (136-145)
[2024-09-19 14:57] LABS: Partial Thromboplast Time > 250.0 Seconds (24.1-36.2)
[2024-09-19 15:04] LABS: Anisocytosis 1+; Platelet Estimate MKD DEC (ADEQ)
[2024-09-19 15:14] LABS: Lactic Acid 3.7 mmol/L (0.4-1.9)
[2024-09-19] MEDS: Potassium Chloride Oral Tablet 20 MEQ 60 MEQ PO (15:21)
[2024-09-19] MEDS: Potassium Chloride 10mEq/100mL 10 MEQ/100 ML IV.SOLN. 100 MEQ IV BOLUS ×3 (15:24→23:24)
[2024-09-19] MEDS: dilTIAZem 25 MG/5 ML Vial 20 MG IV BOLUS (16:52)
[2024-09-19 17:25] LABS: Mucous, Urine 0 SEEN /hpf (<or=2+); Squamous Epithelial Cells - UA 0 SEEN /hpf (0-5)
[2024-09-19 17:30] LABS: Color, Urine Yellow (Yellow); Glucose, Dipstick 1000 mg/dl (Normal); Ketone-Dipstick 5 mg/dl (Negative); Leukocyte Esterase-Dipstick Negative /ul (Negative); Nitrite-Dipstick Negative (Negative); Occult Blood-Urine 50 /ul (Negative); Protein-Dipstick 100 mg/dl (Negative); Urine Bilirubin Dipstick Negative (Negative); Urine Clarity Clear (Clear); Urine Urobilinogen Normal (Normal)
[2024-09-19 17:38] LABS: Bacteria 1+ /hpf (None Seen); Red Blood Cells-Urine 0-5 SEEN /hpf (0-5); White Blood Cells 0 SEEN /hpf (0-5)
[2024-09-19] MEDS: Diltiazem 125 MG in Dextrose 5%-Water (100mL Bag) 100 ML IV (17:38)
[2024-09-19 18:12] LABS: Troponin-I HS 33 pg/mL (3.0-78.0)
[2024-09-19 18:26] LABS: Reflex Lactate? Y
--- NOTE | 2024-09-19 19:08 | PCM.HP.STD ---
HPI - General General Date of Admission: 09/19/24 Date of Service: 09/19/24 Chief Complaint: Low blood pressure HPI Narrative JOHNATHAN CURIEL, is a 79 M with history of A-fib not on anticoagulation, MDS, diabetes, hepatitis C who presented [facility] ED 09/19/2024 from his oncologist office due to low blood pressure. In the ED patient found to be in A-fib with heart rate in the 130s to 140s initially a blood pressure of 79/86. He had a white blood cell count of 0.4, hemoglobin 6.3, and platelet count of 24 which are similar to previous. Patient also had lactic of 3.7 and a creatinine of 1.4 (earlier in the day 1.55) with a baseline closer to 1. Patient given IV fluids and started on Cardizem drip with heart rate improving to the 120s and blood pressure improving with decrease in heart rate and IVF. Given his A-fib with RVR hospitalist contacted for admission. Patient evaluated at bedside, reports he has not been eating or drinking very well but otherwise has been in his usual health. Does not have any chest pain or shortness of breath, ROS completely negative for new complaints and patient reports there has been nothing out of the usual for him over the past couple days and he only came because he was told he had low blood pressure. No lightheadedness or palpitations reported. No nausea or vomiting, no abdominal pain or diarrhea. Patient reports he is not having any current bleeding or bruising anywhere including mucous membranes. [facility] Medical History Encounter for education History of hepatitis C Loss of hearing Wears glasses Anxiety Ambulates with cane Insulin dependent diabetes mellitus Arthritis Prostate disease Anemia Restless legs Injury of back Injury of head and neck Syncope Dietary restriction Difficulty swallowing Gastric reflux Former smoker History of pain when walking History of echocardiogram History of stress test Cardiology follow-up encounter Glaucoma Hx of fracture of wrist Other pancytopenia Longstanding persistent atrial fibrillation Obesity Right bundle branch block (RBBB) Osteoarthritis Essential hypertension Allergic rhinitis due to allergen Asthma DVT (deep venous thrombosis) (02/24/11) Cervical radiculopathy Hyperlipidemia Vitamin D deficiency Hypersomnia DEYANIRA (obstructive sleep apnea) Home Medications ?Medication ?Instructions ?Recorded ?Last Taken ?Type alfuzosin 10 mg tablet,extended 10 mg PO DAILY@1730 urinary 08/31/13 09/19/24 History release 24 hr rosuvastatin 40 mg tablet 40 mg PO DAILY cholesterol 08/31/13 09/18/24 History finasteride 5 mg tablet 5 mg PO DAILY prostate 12/18/15 09/19/24 History empagliflozin 25 mg tablet 25 mg PO QDAY diabetes 12/21/17 09/19/24 History (Jardiance) tramadol 50 mg tablet 50 mg PO BID PRN pain 10/16/20 02/19/24 History baclofen 10 mg tablet 10 mg PO DAILY PRN PRN muscle spasm 07/24/22 02/19/24 History dorzolamide 22.3 mg-timolol 6.8 1 drp ophthalmic (eye) BID eyes 07/24/22 09/18/24 History mg/mL eye drops fluticasone 500 mcg-salmeterol 50 1 inh inhalation Q12H breathing 12/25/22 09/18/24 Rx mcg/dose blistr powdr for #60 ea inhalation (Advair Diskus) albuterol sulfate 90 mcg/actuation 2 puff inhalation Q6H PRN PRN Sob 03/19/23 12/08/23 Rx aerosol inhaler &/Or Wheezing #18 grams cetirizine 10 mg tablet 10 mg PO DAILY allergy #90 tabs 07/14/23 09/19/24 Rx fluticasone propionate 50 2 spray intranasal DAILY PRN 07/28/24 Unknown History mcg/actuation nasal allergy symptoms spray,suspension polyethylene glycol 3350 17 17 g PO .COMPLEX bowels #510 grams 07/28/24 Unknown Rx gram/dose oral powder (Miralax) metoprolol tartrate 50 mg tablet 50 mg PO BID #60 tabs 08/08/24 09/19/24 Rx ipratropium 0.5 mg-albuterol 3 mg 3 ml inhalation Q4H PRN PRN SOB 08/12/24 Unknown Rx (2.5 mg base)/3 mL nebulization &/OR WHEEZING #180 mL soln insulin regular hum U-500 conc 500 75 unit subcut QHS diabetes 09/06/24 09/18/24 History unit/mL(3 mL) subcut pen (Humulin R U-500 (Conc) Insulin Kwikpen) insulin regular hum U-500 conc 500 100 unit subcut QAM diabetes 09/06/24 09/19/24 History unit/mL(3 mL) subcut pen (Humulin R U-500 (Conc) Insulin Kwikpen) lenalidomide 10 mg capsule 10 mg PO QDAY 09/08/24 09/18/24 History (Revlimid) magnesium citrate 100 mg capsule 100 mg PO BID #180 caps 09/08/24 09/19/24 Rx pantoprazole 40 mg tablet,delayed 40 mg PO DAILY #30 tabs 09/08/24 09/19/24 Rx release (Protonix) dulaglutide 3 mg/0.5 mL 3 mg subcut QWEEK 09/19/24 09/14/24 History subcutaneous pen injector (Trulicity) potassium chloride 20 mEq 20 meq PO DAILY 09/19/24 09/19/24 History tablet,extended release(part/cryst) Allergy/AdvReac Type Severity Reaction Status Date / Time No Known Drug Allergies Allergy no known Verified 09/19/24 12:10 Family History Daughter Asthma Grandmother Asthma Sister Asthma COPD (chronic obstructive pulmonary disease) Mother Pancreatic cancer Brother Myocardial infarction Cancer CAD (coronary artery disease) Surgical History History of bone marrow biopsy Hx of right cataract extraction Hx of left cataract extraction History of left heart catheterization (2006) 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 bilateral eyelid lift laminectomy with decompression at R Partial at L L2-3 : L L3-4 Hx of cholecystectomy Partial at L L5-S1 C6-7 fusion R forearm surgery x 3 H/O colonoscopy back injections Social History household members: none Smoking Status: Former smoker quit date: 08/17/76 second hand exposure: No alcohol intake: never substance use type: does not use caffeine: Yes Type: coffee what type of physical activity do you participate in: none ROS ROS Narrative General: Denies fever/chills HENT: Denies any new headache, denies stuffy nose, denies sore throat EYES: Denies changes in vision Resp: Denies cough, denies shortness of breath Cardiac: Denies chest pain GI: Denies abdominal pain, denies changes in bowel, denies nausea/vomiting : Denies changes in urination Extremity: Has some chronic lower extremity pitting edema which he reports is unchanged from recent MSK: Little bit generally weak but unchanged Neuro: Denies any numbness/tingling Heme: Denies any current bleeding or bruising Skin: Denies rashes Psychiatric: No complaints voiced Vital Signs Vital Signs Vital Signs: 09/19/24 13:34 09/19/24 13:51 09/19/24 14:37 Temperature 98.4 F 98.4 F Temperature Source Temporal Oral Pulse Rate 140 H 131 H Respiratory Rate 20 H 17 Respiratory Effort Respiratory Pattern Blood Pressure 79/68 L 117/48 L Blood Pressure Mean 71 71 Pulse Ox 95 100 Oxygen Delivery Method Room Air Room Air 09/19/24 14:39 09/19/24 15:00 09/19/24 15:09 Temperature 99.4 F H Temperature Source Oral Pulse Rate 124 H Respiratory Rate 19 H Respiratory Effort Normal Non-Labored Normal Respiratory Pattern Normal Blood Pressure 117/48 L Blood Pressure Mean 71 Pulse Ox 99 Oxygen Delivery Method Room Air 09/19/24 16:04 09/19/24 16:54 09/19/24 17:23 Temperature 97.5 F L 99.3 F H Temperature Source Oral Pulse Rate 124 H 104 H 129 H Respiratory Rate 20 H 22 H 18 Respiratory Effort Respiratory Pattern Blood Pressure 120/59 L 120/59 L 141/55 H Blood Pressure Mean 79 79 83 Pulse Ox 97 98 98 Oxygen Delivery Method Room Air Room Air 09/19/24 17:38 09/19/24 18:00 09/19/24 18:14 Temperature Temperature Source Pulse Rate 140 H 131 H 128 H Respiratory Rate 24 H 20 H 17 Respiratory Effort Respiratory Pattern Blood Pressure 141/55 H 105/43 L 105/44 L Blood Pressure Mean 83 63 64 Pulse Ox 98 98 99 Oxygen Delivery Method Room Air Room Air Room Air 09/19/24 18:50 09/19/24 18:59 Temperature Temperature Source Pulse Rate 117 H 133 H Respiratory Rate 21 H 21 H Respiratory Effort Respiratory Pattern Blood Pressure 108/73 108/73 Blood Pressure Mean 84 84 Pulse Ox 100 100 Oxygen Delivery Method Room Air Room Air Weight Weight: 83.9 kg Body Mass Index (BMI) 26.5 Physical Exam Narrative General: Awake and answers questions appropriately HEENT: Atraumatic, normocephalic Eyes: Normal conjunctiva, extraocular movements grossly intact Neck: Supple Respiratory: Clear to auscultation bilaterally, normal respiratory effort Cardiovascular: Irregularly irregular, tachycardic GI: Soft, nontender, nondistended Extremities: 1-2+ bilateral lower extremity pitting edema which patient reports is not new Musculoskeletal: Moving all extremities Neuro: No overt focal neurological deficits Skin: No overt rashes appreciated Psych: Cooperative Results Lab / Micro Data 09/19/24 14:17 09/19/24 14:17 Labs: Laboratory Results - last 24 hr 09/19/24 14:17: WBC 0.4 L*, RBC 1.92 L, Hgb 6.3 L, Hct 18.2 L, MCV 94.8 H, MCH 32.8 H, MCHC 34.6, RDW Std Deviation 67.6 H, RDW Coeff of Misa 21.2 H, Plt Count 24 L*, Immature Gran % (Auto) 0.000, Neut % (Auto) 10.3 L, Lymph % (Auto) 79.5 H, [place] % (Auto) 5.1, Eos % (Auto) 5.1 H, Baso % (Auto) 0.0, Absolute Neuts (auto) 0.0 L, Absolute Lymphs (auto) 0.31 L, Nucleated RBC % 0, Differential Comment COMMENT, Diff Path Review December, Platelet Estimate MKD DEC, Anisocytosis 1+, PT 17.9 H, INR 1.5, APTT > 250.0 H*, Sodium 133 L, Potassium 2.3 L*, Chloride 98, Carbon Dioxide 24.0, Anion Gap 11, BUN 40 H, Creatinine 1.40 H, Est GFR (MDRD) Af Amer 63, Est GFR (MDRD) Non-Af 52 L, BUN/Creatinine Ratio 28.6 H, Glucose 103, Lactic Acid 3.7 H*, Calcium 8.4 L, Total Bilirubin 0.90, AST 136 H, ALT 109 H, Alkaline Phosphatase 39 L, Total Protein 5.9 L, Albumin 2.1 L, Globulin 3.8, Albumin/Globulin Ratio 0.6 L, Blood Type A POSITIVE, Antibody Screen NEGATIVE 09/19/24 17:06: Urine Color Yellow, Urine Clarity Clear, Urine pH 6.0, Ur Specific [place] 1.010, Urine Protein 100 H, Urine Glucose (UA) 1000 H, Urine Ketones 5 H, Urine Occult Blood 50 H, Urine Nitrite Negative, Urine Bilirubin Negative, Urine Urobilinogen Normal, Ur Leukocyte Esterase Negative, Urine RBC 0-5 SEEN, Urine WBC 0 SEEN, Ur Squamous Epith Cells 0 SEEN, Urine Bacteria 1+, Urine Mucus 0 SEEN 09/19/24 17:35: Troponin I High Sens 33 Micro: Microbiology 09/19/24 14:08 Mucosa - Nose SARS-CoV-2, Influenza & RSV (PCR) - Final Rhythm Strip Rhythm Strip: A-fib Rate: 130 Ectopy: None Imaging Radiology Impression Chest X-Ray 09/19/24 14:30 IMPRESSION: No acute abnormality is seen. Reading Location: [facility] Assessment & Plan Assessment/Plan (1) Atrial fibrillation with rapid ventricular response: PLAN: Plan # A-fib with RVR -Patient has known paroxysmal atrial fibrillation but was found to be in RVR in the ED with rate 130s to 140s -Patient started on Cardizem drip -Continue Cardizem drip, will continue patient's home metoprolol at increased dose -Admit to telemetry -Will check TSH -Per documentation patient has history of DEYANIRA but is noncompliant, this could contribute to patient's A-fib -Additionally patient has very low potassium at 2.3, will replace, will check magnesium -No anticoagulation given patient's hemoglobin and platelet count -Will order echo, last echo 2019 # Hypokalemia -Patient given 60 of oral potassium in the ED and 20 IV -Will repeat BMP # MARIO ALBERTO -Patient with baseline creatinine around 1 and earlier today was found to be 1.55 and he has an elevated BUN -Does report p.o. intake -Additionally had increase in lactic acid -Do think patient is volume depleted -Continue IV fluids # Pancytopenia and MDS -white blood cell count of 0.4, hemoglobin 6.3, and platelet count of 24 which are similar to previous -Patient does note a transfusion threshold of 7 for his hemoglobin and therefore will receive 1 unit packed red blood cells -Repeat in a.m. -Additionally PTT elevated but unclear significance or if this is accurate, will repeat PTT -At present patient's labs are similar to previous without acute changes -Will need to continue outpatient follow-up -Continue lenalidomide # Elevated liver function tests -May be due to volume depletion given elevation of lactic acid and creatinine with softer blood pressures on arrival -IV fluids -Hold statin today -Repeat in the a.m. -Patient has no abdominal or focal complaints that would lead to any suspicion for any intra-abdominal pathology at this time #DEYANIRA -Per documentation patient noncompliant with CPAP #Hx asthma -Continue home inhalers #Type 2 diabetes mellitus -Glucose checks and sliding scale insulin -Continue long-acting insulin but at slightly lower dose given patient reports poor p.o. intake and glucose only 103 in the ED #Chronic BPH with obstruction -Continue home medications #GERD -Continue PPI #DVT ppx: SCDs Chayito Palacio MD Charges/Coding Visit Charges Inpatient E&M: 63181 Init Hosp L2
[2024-09-19 19:30] LABS: Lactic Acid 2.9 mmol/L (0.4-1.9)
--- NOTE | 2024-09-19 20:17 | ECHOCS_ITS ---
Reason For Study: ATRIAL FIBRILLATION Procedure This was a 2D Doppler, Color Flow transthoracic echocardiogram. The study was technically difficult. Contrast injection was performed. Exam performed portable in ICU/CCU. Left Ventricle Normal LV size. The left ventricular ejection fraction is 55 %. No regional wall motion abnormalities noted. Right Ventricle Mildly dilated right ventricle. Normal systolic function. Atria Normal left atrium. Normal right atrium. Mitral Valve There is mild to moderate mitral annular calcification. Mild (1+) eccentric mitral valve insufficiency. Tricuspid Valve Normal tricuspid valve. Mild (1+) tricuspid valve insufficiency. Aortic Valve Trisinus/trileaflet aortic valve. Mild focal aortic valve calcification. Pulmonic Valve Normal pulmonic valve. Great Vessels Calcified aortic root. The pulmonary artery is normal size. Normal inferior vena cava. Pericardium/Pleural No pericardial effusion. Medication Diluted definity 2ml given slow IV push to enhance endocardial definition. MMode/2D Measurements & Calculations LVIDd: 4.1 cm IVSd: 1.2 cm LVOT diam: 1.9 cm LVIDs: 2.4 cm LVPWd: 1.3 cm RVDd: 4.1 cm FS: 40.0 % LVOT area: 2.8 cm2 _ asc Aorta Diam: 3.1 cm LAV(MOD-bp): 42.8 ml LVAd ap4: 30.6 cm2 LAV(MOD-bp) Indexed: 20.9 ml/m2 LVLd ap4: 7.6 cm LAV(MOD-sp2): 49.2 ml EDV(MOD- sp4): 100.7 ml LAV(MOD-sp4): 35.7 ml EDV(sp4- el): 103.8 ml LVAs ap4: 20.6 cm2 LVLs ap4: 6.8 cm ESV(MOD- sp4): 49.2 ml ESV(sp4- el): 53.0 ml EF(MOD- sp4): 51.1 % EF(sp4- el): 48.9 % _ LVAd ap2: 29.9 cm2 SV(MOD-sp4): 51.5 ml SV(MOD- sp2): 53.4 ml LVLd ap2: 7.3 cm SI(MOD-sp4): 25.2 ml/m2 SI(MOD- sp2): 26.1 ml/m2 EDV(MOD-sp2): 98.3 ml EDV(sp2-el): 103.1 ml LVAs ap2: 18.6 cm2 LVLs ap2: 6.2 cm ESV(MOD-sp2): 45.0 ml ESV(sp2-el): 47.1 ml EF(MOD-sp2): 54.3 % _ SV(sp4-el): 50.8 ml Ao sinus diam: 2.[address] Junction: 2.2 cm _ LA dimension(2D): 4.2 cm LA A4 area: 15.9 cm2 RA A4 area: 18.8 cm2 _ TAPSE: 0.69 cm Time Measurements MV dec time: 0.17 sec Doppler Measurements & Calculations MV E max jayesh: 83.4 cm/sec Ao V2 max: 116.9 cm/sec LV V1 max: 74.7 cm/sec Ao max P.5 mmHg LV V1 max P.3 mmHg Ao V2 mean: 81.2 cm/sec LV V1 mean P.3 mmHg Ao mean P.9 mmHg LV V1 mean: 53.5 cm/sec Ao V2 VTI: 20.3 cm LV V1 VTI: 13.1 cm AV (velocity ratio): 0.65 LUCIAN(I,D): 1.8 cm2 LUCIAN(V,D): 1.8 cm2 _ SV(LVOT): 36.2 ml PA V2 max: 57.3 cm/sec TR max jayesh: 253.7 cm/sec TR max P.7 mmHg ECHO/Echo Complete W/ Contrast Interpretation Summary The left ventricular ejection fraction is 55 %. Mildly dilated right ventricle. Normal systolic function. Contrast injection was performed. Ordering Physician: Chayito Palacio Referring Physician: Noble Peter Chi Performed By: Lorena Yoo RDCS
[2024-09-19] MEDS: Acetaminophen 325 MG Tablet 650 MG PO (20:48)
[2024-09-19 21:12] LABS: Partial Thromboplast Time 25.9 Seconds (24.1-36.2)
--- NOTE | 2024-09-19 21:12 | PCM.HOSP.N ---
Hospitalist Note Pt now has documented fever so will add broad specturm abx and await cultures, pt with non focal complaints, may need further imaging pending progress and if pt continues to have non focal complaints and no other source identified
[2024-09-19 21:13] LABS: Bedside Glucose 137 mg/dL (74-106)
[2024-09-19] MEDS: 0.9% Normal Saline (1000mL) 1,000 ML 75 ML IV (21:26)
[2024-09-19] MEDS: 0.9% Saline Lock 10 ML Syringe IV ×3 (21:28→23:26)
[2024-09-19 21:36] LABS: Anion Gap 11 (5-15); BUN 34 mg/dL (7-18); BUN/Creat Ratio 30.4 RATIO (10-20); Calcium,Total 7.9 mg/dL (8.5-10.1); Chloride 102 mmol/L (98-107); Creatinine, Serum 1.12 mg/dL (0.70-1.30); EST Glomerular Filtration Rate 67 mL/min (>60); Est Glom Filt Rate - Afr Amer 81 mL/min (>60); Estimated Creatinine Clearance 54.32 ml/min; Glucose 141 mg/dL (74-106); Magnesium 1.8 mg/dL (1.6-2.6); Potassium 2.7 mmol/L (3.5-5.1); Sodium Level 135 mmol/L (136-145)
[2024-09-19] MEDS: Vancomycin HCl 2,000 MG in 0.9% Normal Saline (500mL Bag) 500 ML 250 MG IV (22:28)
--- NOTE | 2024-09-19 23:02 | PCM.RX.CS ---
Consult Antibiotic Management Pharmacy has been consulted to manage selected antibiotic: Vancomycin Type of Intervention Type of Consult: New start Labs Labs: Sodium 135 mmol/L (136-145) L 09/19/24 20:44 Potassium 2.7 mmol/L (3.5-5.1) L* 09/19/24 20:44 Chloride 102 mmol/L (98-107) 09/19/24 20:44 Carbon Dioxide 22.0 mmol/L (21.0-32.0) 09/19/24 20:44 Anion Gap 11 (5-15) 09/19/24 20:44 BUN 34 mg/dL (7-18) H 09/19/24 20:44 Creatinine 1.12 mg/dL (0.70-1.30) 09/19/24 20:44 Est GFR (MDRD) Af Amer 81 mL/min (>60) 09/19/24 20:44 Est GFR (MDRD) Non-Af 67 mL/min (>60) 09/19/24 20:44 BUN/Creatinine Ratio 30.4 RATIO (10-20) H 09/19/24 20:44 Glucose 141 mg/dL (74-106) H 09/19/24 20:44 Microbiology Microbiology: Microbiology 09/19/24 14:08 Mucosa - Nose SARS-CoV-2, Influenza & RSV (PCR) - Final Dosing Weight Weight used for dosin kg Estimated Creatinine Clearance Estimated Creatinine Clearance: 54 Goal Trough Goal Trough: 15-20 mcg/mL Pharmacy Plan for Drug Dosing Pharmacy Plan for Drug Dosing: Pharmacy Service will continue to monitor and adjust dosing as required. Follow-Up Labs Follow-Up Labs: Trough: Vancomycin Date/Time Labs Ordered Labs to be done on [date and time ordered]: 09/21/24 @1000
[2024-09-19] MEDS: Dorzolamide HCL/Timolol 10 ml Bottle 1 DRP OPHTHALMIC (23:29)
[2024-09-19] MEDS: Metoprolol Tartrate 25 MG Tablet 75 MG PO (23:29)
[2024-09-19] MEDS: Senna/Docusate Sodium 1 Tablet 2 TABLET PO (23:31)
[2024-09-20] VITALS (35 sets, daily range): BP systolic 64–137; BP diastolic 33–98; PULSE 64–106; RESP 22–33; TEMP 36.5; O2SAT 80–100; BMI 27.4; BMI 28.3
[2024-09-20] MEDS: Potassium Chloride 10mEq/100mL 10 MEQ/100 ML IV.SOLN. 100 MEQ IV BOLUS ×3 (00:21→02:29)
[2024-09-20] MEDS: Piperacil/Tazobactam 3.375 GM in 0.9% Normal Saline (50mL MB+) 50 ML IV ×4 (01:22→22:13)
[2024-09-20] MEDS: Diltiazem 125 MG in Dextrose 5%-Water (100mL Bag) 100 ML 10 MG IV (02:32)
[2024-09-20] MEDS: Ondansetron 4 MG/2 ML Vial IV (03:49)
[2024-09-20] MEDS: 0.9% Saline Lock 10 ML Syringe IV ×3 (03:51→13:05)
[2024-09-20] MEDS: Acetaminophen 325 MG Tablet 650 MG PO (04:36)
[2024-09-20] MEDS: Budesonide Respules 0.5 MG/2 ML AMPUL.NEB. INHALATION ×2 (05:47→20:10)
[2024-09-20] MEDS: Albuterol 2.5 MG/3 ML VIAL.NEB. INHALATION ×3 (05:47→20:10)
--- NOTE | 2024-09-20 06:04 | RAD_ITS ---
PROCEDURE: CHEST 1 VIEW (PORTABLE) REASON FOR EXAM: Tachypnea. TECHNIQUE: Single frontal image including the chest. COMPARISON: 10/09/2024 AP upright portable chest. FINDINGS: Lungs are clear of pneumonia and congestion. Blunting of the left lateral costophrenic angle. Cardiac enlargement. Atherosclerotic aorta. No hilar masses. Lower cervical metallic fusion plate. Cardiac monitoring leads overlie the chest wall. RAD/Chest 1 View (Portable) IMPRESSION: Pleural fluid has developed at the left lung base. Cardiac enlargement. Reading Location: [facility]
--- NOTE | 2024-09-20 06:26 | PN.HOSP_ITS ---
Hospitalist Note Patient with intermittent hypotension on Cardizem drip and despite being hold is now not recovering as had previously with increased tachypnea. Chest x-ray obtained similar to previous with no acute concerning findings but final read is pending. ABG requested but difficulty obtaining. Given persistent hypotension with systolics in the 70s will transition to the ICU and will initiate on norepinephrine drip with consultation with learning program manager.
--- NOTE | 2024-09-20 06:40 | NURSING ---
Pt transferred to icu bed 8 with belongings at this time
[2024-09-20 06:47] LABS: Base Excess -20 mmol/L (-2 to +2); Bicarbonate 6.1 mmol/L (22-26); Blood Gas Specimen Type ART; Mode Not entered; O2 Delivery Device Cannula; PO2 142 mmHG (75-100); SITE L Brach; SO2 99 % (95-99); Total Carbon Dioxide 6 mmol/L; pCO2 11.5 mmHg (35-45); pH 7.33 (7.35-7.45)
[2024-09-20] MEDS: Norepinephrine 8 MG in 0.9% Normal Saline (250mL Bag) 242 ML 9.4 MG CONT INF (06:54)
--- NOTE | 2024-09-20 07:09 | PN.HOSP_ITS ---
Reason for Visit Reason for Visit: Diagnoses Unspecified atrial fibrillation (09/19/24) Objective Data Objective Data Vital Signs: Vital Signs Temp Pulse Resp BP Pulse Ox O2 Del Method O2 Flow Rate 97.7 F L 64 26 H 85/50 L 100 Nasal Cannula 5 09/20/24 01:15 09/20/24 06:54 09/20/24 06:54 09/20/24 06:54 09/20/24 06:54 09/20/24 06:54 09/20/24 06:54 Oxygen Flow Rate (L/min) 5 Oxygen Delivery Method Nasal Cannula Weight: 197 lb 12.074 oz Body Mass Index (BMI) 28.3 Intake & Output: Intake and Output for Last 24 Hours 09/18/24 09/19/24 09/20/24 23:59 23:59 23:59 Intake Total 1314.00 / 1629.00 2050.00 / 2050.00 Output Total 300 / 300 Balance 1314.00 / 1479.00 1750.00 / 1750.00 Lab / Micro Data 09/19/24 14:17 09/19/24 20:44 Labs: Laboratory Results - last 24 hr 09/19/24 14:17: WBC 0.4 L*, RBC 1.92 L, Hgb 6.3 L, Hct 18.2 L, MCV 94.8 H, MCH 32.8 H, MCHC 34.6, RDW Std Deviation 67.6 H, RDW Coeff of Misa 21.2 H, Plt Count 24 L*, Immature Gran % (Auto) 0.000, Neut % (Auto) 10.3 L, Lymph % (Auto) 79.5 H , [place] % (Auto) 5.1, Eos % (Auto) 5.1 H, Baso % (Auto) 0.0, Absolute Neuts (auto) 0.0 L, Absolute Lymphs (auto) 0.31 L, Nucleated RBC % 0, Differential Comment COMMENT, Diff Path Review May foll, Platelet Estimate MKD DEC, Anisocytosis 1+, PT 17.9 H, INR 1.5, APTT > 250.0 H*, Sodium 133 L, Potassium 2.3 L*, Chloride 98, Carbon Dioxide 24.0, Anion Gap 11, BUN 40 H, Creatinine 1.40 H, Est GFR (MDRD) Af Amer 63, Est GFR (MDRD) Non-Af 52 L, BUN/Creatinine Ratio 28.6 H, Glucose 103, Lactic Acid 3.7 H*, Calcium 8.4 L, Total Bilirubin 0.90, AST 136 H, ALT 109 H, Alkaline Phosphatase 39 L, Total Protein 5.9 L, A lbumin 2.1 L, Globulin 3.8, Albumin/Globulin Ratio 0.6 L, Blood Type A POSITIVE, Antibody Screen NEGATIVE, Crossmatch See Detail 09/19/24 17:06: Urine Color Yellow, Urine Clarity Clear, Urine pH 6.0, Ur Specific [place] 1.010, Urine Protein 100 H, Urine Glucose (UA) 1000 H, Urine Ketones 5 H, Urine Occult Blood 50 H, Urine Nitrite Negative, Urine Bilirubin Negative, Urine Urobilinogen Normal, Ur Leukocyte Esterase Negative, Urine RBC 0-5 SEEN, Urine WBC 0 SEEN, Ur Squamous Epith Cells 0 SEEN, Urine Bacteria 1+, Urine Mucus 0 SEEN 09/19/24 17:35: Troponin I High Sens 33 09/19/24 18:54: Lactic Acid 2.9 H* 09/19/24 20:44: APTT 25.9, Sodium 135 L, Potassium 2.7 L*, Chloride 102, Carbon Dioxide 22.0, Anion Gap 11, BUN 34 H, Creatinine 1.12, Estim Creat Clear Calc 54.32, Est GFR (MDRD) Af Amer 81, Est GFR (MDRD) Non-Af 67, BUN/Creatinine Ratio 30.4 H, Glucose 141 H, Calcium 7.9 L, Magnesium 1.8 09/19/24 20:53: POC Glucose 137 H Micro: Microbiology 09/19/24 23:10 Mucosa - Nasopharyngeal Respiratory Panel (PCR) - Final 09/19/24 14:08 Mucosa - Nose SARS-CoV-2, Influenza & RSV (PCR) - Final ABG Data ABG results: ABG 09/20/24 06:43 Specimen Type ART Sample Site L Brach pH 7.33 L Bicarbonate Actual 6.1 L Total CO2 6 Base Excess -20 L O2 Saturation 99 O2 % 6.0 ABG pCO2 11.5 L* ABG pO2 142 H O2 Delivery Device Cannula Vent Mode Not entered Crit Call To/Read Back Yes Blood Gas Notified Whom white Blood Gas Notified Time 06:44:44 Radiography Diagnostic Testing: Radiology Impression Chest X-Ray 09/19/24 14:30 IMPRESSION: No acute abnormality is seen. Reading Location: [facility] Chest X-Ray 09/20/24 06:04 IMPRESSION: Pleural fluid has developed at the left lung base. Cardiac enlargement. Reading [facility] Rhythm Strip Rhythm Strip: A-fib Rate: 130 Ectopy: None Assessment & Plan Assessment/Plan (1) Atrial fibrillation with rapid ventricular response: PLAN: Plan This 79-year-old gentleman was brought to ED from Dr. Pittman's office for pancytopenia, low BP, hypokalemia complicated with several falls, about 5 times over the last several weeks at home. Patient has history of myelodysplastic syndrome. Denies any head injury. No headache. In the ED found to have A-fib with RVR, 130s to 140s per minute, BP 199/86 # A-fib with RVR -Patient has known paroxysmal atrial fibrillation but was found to be in RVR in the ED with rate 130s to 140s -Patient started on Cardizem drip -Continue Cardizem drip, will continue patient's home metoprolol at increased dose -Admit to telemetry -Will check TSH -Per documentation patient has history of DEYANIRA but is noncompliant, this could contribute to patient's A-fib -Additionally patient has very low potassium at 2.3, will replace, will check magnesium -No anticoagulation given patient's hemoglobin and platelet count -Will order echo, last echo 2019 # Hypokalemia -Patient given 60 of oral potassium in the ED and 20 IV -Will repeat BMP # MARIO ALBERTO -Patient with baseline creatinine around 1 and earlier today was found to be 1.55 and he has an elevated BUN -Does report p.o. intake -Additionally had increase in lactic acid -Do think patient is volume depleted -Continue IV fluids # Pancytopenia and MDS -white blood cell count of 0.4, hemoglobin 6.3, and platelet count of 24 which are similar to previous -Patient does note a transfusion threshold of 7 for his hemoglobin and therefore will receive 1 unit packed red blood cells -Repeat in a.m. -Additionally PTT elevated but unclear significance or if this is accurate, will repeat PTT -At present patient's labs are similar to previous without acute changes -Will need to continue outpatient follow-up -Continue lenalidomide # Elevated liver function tests -May be due to volume depletion given elevation of lactic acid and creatinine with softer blood pressures on arrival -IV fluids -Hold statin today -Repeat in the a.m. -Patient has no abdominal or focal complaints that would lead to any suspicion for any intra-abdominal pathology at this time #DEYANIRA -Per documentation patient noncompliant with CPAP #Hx asthma -Continue home inhalers #Type 2 diabetes mellitus -Glucose checks and sliding scale insulin -Continue long-acting insulin but at slightly lower dose given patient reports poor p.o. intake and glucose only 103 in the ED #Chronic BPH with obstruction -Continue home medications #GERD -Continue PPI #DVT ppx: SCDs
--- NOTE | 2024-09-20 07:09 | PCM.PN.HOSP ---
Reason for Visit Reason for Visit: Diagnoses Unspecified atrial fibrillation (09/19/24) Objective Data Objective Data Vital Signs: Vital Signs Temp Pulse Resp BP Pulse Ox O2 Del Method O2 Flow Rate 97.7 F L 64 26 H 85/50 L 100 Nasal Cannula 5 09/20/24 01:15 09/20/24 06:54 09/20/24 06:54 09/20/24 06:54 09/20/24 06:54 09/20/24 06:54 09/20/24 06:54 Oxygen Flow Rate (L/min) 5 Oxygen Delivery Method Nasal Cannula Weight: 197 lb 12.074 oz Body Mass Index (BMI) 28.3 Intake & Output: Intake and Output for Last 24 Hours 09/18/24 09/19/24 09/20/24 23:59 23:59 23:59 Intake Total 1314.00 / 1629.00 2050.00 / 2050.00 Output Total 300 / 300 Balance 1314.00 / 1479.00 1750.00 / 1750.00 Lab / Micro Data 09/19/24 14:17 09/19/24 20:44 Labs: Laboratory Results - last 24 hr 09/19/24 14:17: WBC 0.4 L*, RBC 1.92 L, Hgb 6.3 L, Hct 18.2 L, MCV 94.8 H, MCH 32.8 H, MCHC 34.6, RDW Std Deviation 67.6 H, RDW Coeff of Misa 21.2 H, Plt Count 24 L*, Immature Gran % (Auto) 0.000, Neut % (Auto) 10.3 L, Lymph % (Auto) 79.5 H, [place] % (Auto) 5.1, Eos % (Auto) 5.1 H, Baso % (Auto) 0.0, Absolute Neuts (auto) 0.0 L, Absolute Lymphs (auto) 0.31 L, Nucleated RBC % 0, Differential Comment COMMENT, Diff Path Review May foll, Platelet Estimate MKD DEC, Anisocytosis 1+, PT 17.9 H, INR 1.5, APTT > 250.0 H*, Sodium 133 L, Potassium 2.3 L*, Chloride 98, Carbon Dioxide 24.0, Anion Gap 11, BUN 40 H, Creatinine 1.40 H, Est GFR (MDRD) Af Amer 63, Est GFR (MDRD) Non-Af 52 L, BUN/Creatinine Ratio 28.6 H, Glucose 103, Lactic Acid 3.7 H*, Calcium 8.4 L, Total Bilirubin 0.90, AST 136 H, ALT 109 H, Alkaline Phosphatase 39 L, Total Protein 5.9 L, Albumin 2.1 L, Globulin 3.8, Albumin/Globulin Ratio 0.6 L, Blood Type A POSITIVE, Antibody Screen NEGATIVE, Crossmatch See Detail 09/19/24 17:06: Urine Color Yellow, Urine Clarity Clear, Urine pH 6.0, Ur Specific [place] 1.010, Urine Protein 100 H, Urine Glucose (UA) 1000 H, Urine Ketones 5 H, Urine Occult Blood 50 H, Urine Nitrite Negative, Urine Bilirubin Negative, Urine Urobilinogen Normal, Ur Leukocyte Esterase Negative, Urine RBC 0-5 SEEN, Urine WBC 0 SEEN, Ur Squamous Epith Cells 0 SEEN, Urine Bacteria 1+, Urine Mucus 0 SEEN 09/19/24 17:35: Troponin I High Sens 33 09/19/24 18:54: Lactic Acid 2.9 H* 09/19/24 20:44: APTT 25.9, Sodium 135 L, Potassium 2.7 L*, Chloride 102, Carbon Dioxide 22.0, Anion Gap 11, BUN 34 H, Creatinine 1.12, Estim Creat Clear Calc 54.32, Est GFR (MDRD) Af Amer 81, Est GFR (MDRD) Non-Af 67, BUN/Creatinine Ratio 30.4 H, Glucose 141 H, Calcium 7.9 L, Magnesium 1.8 09/19/24 20:53: POC Glucose 137 H Micro: Microbiology 09/19/24 23:10 Mucosa - Nasopharyngeal Respiratory Panel (PCR) - Final 09/19/24 14:08 Mucosa - Nose SARS-CoV-2, Influenza & RSV (PCR) - Final ABG Data ABG results: ABG 09/20/24 06:43 Specimen Type ART Sample Site L Brach pH 7.33 L Bicarbonate Actual 6.1 L Total CO2 6 Base Excess -20 L O2 Saturation 99 O2 % 6.0 ABG pCO2 11.5 L* ABG pO2 142 H O2 Delivery Device Cannula Vent Mode Not entered Crit Call To/Read Back Yes Blood Gas Notified Whom white Blood Gas Notified Time 06:44:44 Radiography Diagnostic Testing: Radiology Impression Chest X-Ray 09/19/24 14:30 IMPRESSION: No acute abnormality is seen. Reading Location: [facility] Chest X-Ray 09/20/24 06:04 IMPRESSION: Pleural fluid has developed at the left lung base. Cardiac enlargement. Reading Location: [facility] Rhythm Strip Rhythm Strip: A-fib Rate: 130 Ectopy: None Physical Exam Narrative General: Lethargic, short of breath, awake. Could not answer orientation questions because of shortness of breath HEENT: Atraumatic, PERRLA, EOMI, Normocephalic Oral: Oral mucosa dry. No Gingival or Mucosal Lesions/ Ulcerations Neck: Supple, No JVD, Negative Carotid Bruits Chest wall/Lungs: Air entry diminished in bilateral lung bases. Tachypneic, lungs clear Cardiovascular: Irregular rhythm, Normal S1, Normal S2, No M/G/R Abdomen: Bowel Sounds Present, Soft, Non Tender, Non-Distended : No dysuria. No renal angle tenderness. No suprapubic tenderness. Extremities: 2+ pitting lower extreme edema, Capillary Refill Less than 3 Seconds Skin: No rashes, No breakdown Musculoskeletal: ROM restricted, generalized weakness of lower extremity Neurological: Lethargic DTR 2/4. Detailed neuroexam unobtainable Psych/Mental Status: Flat Assessment & Plan Assessment/Plan (1) Atrial fibrillation with rapid ventricular response: PLAN: Plan This 79-year-old gentleman was brought to ED from Dr. Pittman's office for pancytopenia, low BP, hypokalemia complicated with several falls, about 5 times over the last several weeks at home. Patient has history of myelodysplastic syndrome. Denies any head injury. No headache. In the ED found to have A-fib with RVR, 130s to 140s per minute, BP 78/53 x 2 in ED 1. Hypotension, on IV Cardizem drip: Overnight patient was transferred to ICU with persistent systolic in 70s. Patient initiated on norepinephrine drip. Director Of Marketing Operations consulted. PICC line ordered. Communicated to the patient's daughter wants to pursue full code. 2. Dyspnea, decreased ventilatory drive and hypoxia: Chest x-ray was done shows small pleural effusion on left CP angle. Cardiac enlargement but no hilar masses, consolidation or congestion. ABG shows 7.32, 10.4/148/6 on 6 L of oxygen. Adequate ABG could not be calculated as patient does not have corresponding BMP which is still pending. But overall seems patient has severe nonunited metabolic acidosis and respiratory alkalosis. Lactic acidosis suggestive of hypoperfusion and metabolic acidosis 3. A-fib RVR: Patient was started on Cardizem therapy which resulted into hypotension therefore discontinued. Currently BP 85/50. Heart rate 64. On Levophed drip. TSH is ordered. Not candidate for anticoagulation # Hypokalemia: Potassium was 2.7 yesterday. Was replaced with IV and oral potassium. Repeat BMP pending # MARIO ALBERTO -Patient with baseline creatinine around 1 and earlier today was found to be 1.55 and he has an elevated BUN. Creatinine improved to 1.12 yesterday -Continue IV fluids # Pancytopenia and MDS -white blood cell count of 0.4, hemoglobin 6.3, and platelet count of 24 which are similar to previous -Patient does note a transfusion threshold of 7 for his hemoglobin and therefore will receive 1 unit packed red blood cells -Repeat CBC pending -Additionally PTT elevated but unclear significance or if this is accurate, will repeat PTT -Hold lenalidomide # Elevated liver function tests with elevated transaminases, low ALP. Monitor liver chemistry -Patient has no abdominal or focal complaints that would lead to any suspicion for any intra-abdominal pathology at this time #DEYANIRA -Per documentation patient noncompliant with CPAP #Hx asthma -Continue home inhalers #Type 2 diabetes mellitus -Accu-Chek before meals and at bedtime with Humalog sliding scale coverage and hypoglycemia protocol. #Chronic BPH with obstruction -Continue home medications #GERD -Continue PPI #DVT ppx: SCDs Living will/advanced directive/end of life care: Patient does not have living will or advanced directive. Patient did not want to make any decision regarding his CODE STATUS and he asked me to talk to her daughter I talked to patient's daughter Mrs. Gio Reich. After discussion of benefits/risks procedures involved with full code, DNR CC arrest and DNR CC, her daughter said that patient wants artificial life support including intubation, tube feed, ventilator and/chest compression, central venous catheter, vasopressor and DC shock if needed. I explained the risk of hematoma, cardiac/pulmonary contusion with severe thrombocytopenia and anemia Total time spent in [id number] encounter in discussion of advanced directive 17 minutes. Microbiology Past 72 Hours 09/19/24 15:03 Blood Culture (Wb) - Left Hand Blood Culture - Preliminary 09/19/24 15:03 Blood Culture (Wb) - Left Hand Blood Culture - Preliminary 09/19/24 23:10 Mucosa - Nasopharyngeal Respiratory Panel (PCR) - Final 09/19/24 14:08 Mucosa - Nose SARS-CoV-2, Influenza & RSV (PCR) - Final Laboratory Results 09/19/24 14:17: WBC 0.4 L*, RBC 1.92 L, Hgb 6.3 L, Hct 18.2 L, MCV 94.8 H, MCH 32.8 H, MCHC 34.6, RDW Std Deviation 67.6 H, RDW Coeff of Misa 21.2 H, Plt Count 24 L*, Immature Gran % (Auto) 0.000, Neut % (Auto) 10.3 L, Lymph % (Auto) 79.5 H, [place] % (Auto) 5.1, Eos % (Auto) 5.1 H, Baso % (Auto) 0.0, Absolute Neuts (auto) 0.0 L, Absolute Lymphs (auto) 0.31 L, Nucleated RBC % 0, Differential Comment COMMENT, Diff Path Review December, Platelet Estimate MKD DEC, Anisocytosis 1+, PT 17.9 H, INR 1.5, APTT > 250.0 H*, Sodium 133 L, Potassium 2.3 L*, Chloride 98, Carbon Dioxide 24.0, Anion Gap 11, BUN 40 H, Creatinine 1.40 H, Est GFR (MDRD) Af Amer 63, Est GFR (MDRD) Non-Af 52 L, BUN/Creatinine Ratio 28.6 H, Glucose 103, Lactic Acid 3.7 H*, Calcium 8.4 L, Total Bilirubin 0.90, AST 136 H, ALT 109 H, Alkaline Phosphatase 39 L, Total Protein 5.9 L, Albumin 2.1 L, Globulin 3.8, Albumin/Globulin Ratio 0.6 L, Blood Type A POSITIVE, Antibody Screen NEGATIVE, Crossmatch See Detail 09/19/24 17:06: Urine Color Yellow, Urine Clarity Clear, Urine pH 6.0, Ur Specific [place] 1.010, Urine Protein 100 H, Urine Glucose (UA) 1000 H, Urine Ketones 5 H, Urine Occult Blood 50 H, Urine Nitrite Negative, Urine Bilirubin Negative, Urine Urobilinogen Normal, Ur Leukocyte Esterase Negative, Urine RBC 0-5 SEEN, Urine WBC 0 SEEN, Ur Squamous Epith Cells 0 SEEN, Urine Bacteria 1+, Urine Mucus 0 SEEN 09/19/24 17:35: Troponin I High Sens 33 09/19/24 18:54: Lactic Acid 2.9 H* 09/19/24 20:44: APTT 25.9, Sodium 135 L, Potassium 2.7 L*, Chloride 102, Carbon Dioxide 22.0, Anion Gap 11, BUN 34 H, Creatinine 1.12, Estim Creat Clear Calc 54.32, Est GFR (MDRD) Af Amer 81, Est GFR (MDRD) Non-Af 67, BUN/Creatinine Ratio 30.4 H, Glucose 141 H, Calcium 7.9 L, Magnesium 1.8 09/19/24 20:53: POC Glucose 137 H 09/20/24 06:43: Specimen Type ART, Sample Site L Brach, pH 7.33 L, Bicarbonate Actual 6.1 L, Total CO2 6, Base Excess -20 L, O2 Saturation 99, O2 % 6.0, ABG pCO2 11.5 L*, ABG pO2 142 H, O2 Delivery Device Cannula, Vent Mode Not entered, Crit Call To/Read Back Yes, Blood Gas Notified Whom white, Blood Gas Notified Time 06:44:44 09/20/24 06:50: Specimen Type ART, Sample Site L Brach, pH 7.32 L, Bicarbonate Actual 5.4 L, Total CO2 6, Base Excess -21 L, O2 Saturation 99, ABG pCO2 10.4 L*, ABG pO2 148 H, O2 Delivery Device Not entered, Vent Mode Not entered, Crit Call To/Read Back Yes, Blood Gas Notified Whom white, Blood Gas Notified Time 06:52:53 Clinical Impression(s) from Imaging Studies Chest X-Ray 09/19/24 14:30 IMPRESSION: No acute abnormality is seen. Chest X-Ray 09/20/24 06:04 IMPRESSION: Pleural fluid has developed at the left lung base. Cardiac enlargement. Reading Location: [facility] Charges/Coding Visit Charges Inpatient E&M: 95483 Disch Hosp >30min
--- NOTE | 2024-09-20 07:44 | CON.PCM.CC_ITS ---
Assessment & Plan Assessment/Plan (1) Septic shock: PLAN: Plan RECOMMENDATIONS: 1. Continue empiric broad-spectrum antimicrobials. 2. Sepsis fluids as ordered. 3. Initiate vasopressor support. 4. Start sodium bicarbonate infusion. 5. Initiate hydrocortisone 50 mg every [address] chest/abdomen/pelvis. 7. Obtain nephrology along with hematology/oncology consultations. IMPRESSIONS: 1. Gram-negative septic shock The patient was initially admitted with generalized weakness and hypotension, which was ultimately fluid refractory. Subsequent blood cultures were found to be positive for gram-negative rods. Given the unclear source of the bacteremia, will obtain CT imaging of the chest/abdomen/pelvis. In the interim, the patient will be administered sepsis IV fluids, per protocol. If he remains in fluid refractory hypotensive, will initiate vasopressor support. Lastly, stress dose steroids will be initiated. 2. Pancytopenia Related to underlying myelodysplastic syndrome. Continue to monitor hemoglobin and transfuse to maintain a level of 7.0 or greater. Consultation has been placed to hematology/oncology. Continue PPI therapy as ordered. 3. Acute kidney injury with significant anion gap metabolic acidosis Most likely related to presenting septic shock. Nephrology consultation will be obtained. Fluids will be administered and the patient will be started on vasopressors to maintain hemodynamic stability. In addition, a sodium bicarb and infusion will be started. 4. Ischemic hepatitis The patient's transaminases have all significantly increased. Total bilirubin is elevated at 2.5. This, again, is likely secondary to #1. Continue to monitor clinically. 5. History of atrial fibrillation with RVR/obstructive sleep apnea/asthma/diabetes mellitus/GERD Complicates care, management, recovery and prognosis. Continue home medications as indicated. TIME: 38 minutes of critical care time, independent of procedures, was spent addressing the patient's gram-negative septic shock, pancytopenia, acute kidney injury, ischemic hepatitis, review of all data and collaboration with the care team. HPI Consult Data Date of Consult: 09/20/24 HPI Narrative Reason for Consultation: Septic shock HPI Narrative: The patient is an 79-year-old male, with a history as outlined below, who presented to the emergency department on September 19 with generalized weakness and hypotension. The patient is currently being followed in the oncology clinic due to a history of myelodysplastic syndrome. In addition to the aforementioned, the patient has a known PET avid left lower lobe lung lesion along with hypogammaglobulinemia for which he was apparently receiving IVIG. Lastly, the patient has a history of atrial fibrillation, not currently on anticoagulation. On presentation to the emergency department, the patient was noted to be febrile, tachycardic and tachypneic with a presenting blood pressure of 79/68 mmHg. Laboratory evaluation was notable for pancytopenia with a hemoglobin of 6.3 g/dL and platelet count of 24,000. Chemistry profile was notable for a sodium of 133, potassium of 2.3, BUN of 40 and creatinine of 1.4. Lactate was elevated at 3.7. Urine analysis was noncontributory. Preliminary blood cultures were obtained and were found to be positive for gram-negative rods. In the emergency department, the patient was noted to be in atrial fibrillation. He was initially medically managed with IV fluids and Cardizem. The patient was subsequently admitted to the hospital for further management. According to documentation, shortly after being admitted to the hospital, the patient developed fevers, for which antimicrobials were ordered. Then, during the finisher hot strip hours of September 20, the patient developed hypotension, for which he was transferred to the medical intensive care unit. As of this morning, the patient's metabolic derangements have worsened with a bicarbonate of 7.0 noted on chemistry profile along with a creatinine of 2.14 and creatinine of 14.7. Total bilirubin is increased to 2.5 with an AST and ALT of 1534 and 876, respectively. Procalcitonin is elevated at 3.68. The patient was ordered to receive sepsis IV fluid resuscitation and was ordered to be started on a sodium bicarb and infusion, given his underlying metabolic derangements. [facility] Medical History Encounter for education History of hepatitis C Loss of hearing Wears glasses Anxiety Ambulates with cane Insulin dependent diabetes mellitus Arthritis Prostate disease Anemia Restless legs Injury of back Injury of head and neck Syncope Dietary restriction Difficulty swallowing Gastric reflux Former smoker History of pain when walking History of echocardiogram History of stress test Cardiology follow-up encounter Glaucoma Hx of fracture of wrist Other pancytopenia Longstanding persistent atrial fibrillation Obesity Right bundle branch block (RBBB) Osteoarthritis Essential hypertension Allergic rhinitis due to allergen Asthma DVT (deep venous thrombosis) (02/24/11) Cervical radiculopathy Hyperlipidemia Vitamin D deficiency Hypersomnia DEYANIRA (obstructive sleep apnea) Home Medications ?Medication ?Instructions ?Recorded ?Last Taken ?Type alfuzosin 10 mg tablet,extended 10 mg PO DAILY@1730 ur inary 08/31/13 09/19/24 History release 24 hr rosuvastatin 40 mg tablet 40 mg PO DAILY cholesterol 0 08/31/13 09/18/24 History finasteride 5 mg tablet 5 mg PO DAILY prostate 12/1709/19/24 History empagliflozin 25 mg tablet 25 mg PO QDAY diabetes 0503/0309/19/24 History (Jardiance) tramadol 50 mg tablet 50 mg PO BID PRN pain 02/19/24 History baclofen 10 mg tablet 10 mg PO DAILY PRN PRN muscl e spasm 07/24/22 02/19/24 History dorzolamide 22.3 mg-timolol 6.8 1 drp ophthalmic (eye) BID eyes 07/24/22 09/18/24 History mg/mL eye drops fluticasone 500 mcg-salmeterol 50 1 inh inhalation Q12 H breathing 12/25/22 09/18/24 Rx mcg/dose blistr powdr for #60 ea inhalation (Advair Diskus) albuterol sulfate 90 mcg/actuation 2 puff inhalation Q 6H PRN PRN Sob 03/19/23 12/08/23 Rx aerosol inhaler &/Or Wheezing #18 grams cetirizine 10 mg tablet 10 mg PO DAILY allergy #90 t abs 07/14/23 09/19/24 Rx fluticasone propionate 50 2 spray intranasal DAILY PRN 07/28/24 Unknown History mcg/actuation nasal allergy symptoms spray,suspension polyethylene glycol 3350 17 17 g PO .COMPLEX bowels #5 10 grams 07/28/24 Unknown Rx gram/dose oral powder (Miralax) metoprolol tartrate 50 mg tablet 50 mg PO BID #60 tabs 08/08/24 09/19/24 Rx ipratropium 0.5 mg-albuterol 3 mg 3 ml inhalation Q4H PRN PRN SOB 08/12/24 Unknown Rx (2.5 mg base)/3 mL nebulization &/OR WHEEZING #180 mL soln insulin regular hum U-500 conc 500 75 unit subcut QHS diabetes 09/06/24 09/18/24 History unit/mL(3 mL) subcut pen (Humulin R U-500 (Conc) Insulin Kwikpen) insulin regular hum U-500 conc 500 100 unit subcut QAM diabetes 09/06/24 09/19/24 History unit/mL(3 mL) subcut pen (Humulin R U-500 (Conc) Insulin Kwikpen) lenalidomide 10 mg capsule 10 mg PO QDAY 09/08/24/10/11 History (Revlimid) magnesium citrate 100 mg capsule 100 mg PO BID #180 ca ps 09/08/24 09/19/24 Rx pantoprazole 40 mg tablet,delayed 40 mg PO DAILY #30 t abs 09/08/24 09/19/24 Rx release (Protonix) dulaglutide 3 mg/0.5 mL 3 mg subcut QWEEK 09/19/24 0 09/14/24 History subcutaneous pen injector (Trulicity) potassium chloride 20 mEq 20 meq PO DAILY 09/19/2411/08 History tablet,extended release(part/cryst) Allergy/AdvReac Type Severity Reaction Status Date / Time No Known Drug Allergies Allergy no known Verified 09/19/24 12:10 Family History Daughter Asthma Grandmother Asthma Sister Asthma COPD (chronic obstructive pulmonary disease) Mother Pancreatic cancer Brother Myocardial infarction Cancer CAD (coronary artery disease) Surgical History History of bone marrow biopsy Hx of right cataract extraction Hx of left cataract extraction History of left heart catheterization (2006) 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 bilateral eyelid lift laminectomy with decompression at R Partial at L L2-3 : L L3-4 Hx of cholecystectomy Partial at L L5-S1 C6-7 fusion R forearm surgery x 3 H/O colonoscopy back injections Social History (Updated 09/19/24 @ 20:28 by Noris Talamantes) household members: family and none number of children: 5 current occupational status: retired Smoking Status: Former smoker quit date: 08/17/76 second hand exposure: No alcohol intake: never substance use type: does not use caffeine: Yes Type: coffee what type of physical activity do you participate in: none ROS ROS Narrative 10 systems were reviewed with pertinent positives as noted in the HPI above. Physical Exam Const alert General Appearance: cooperative, lethargic and ill appearing HEENT normocephalic and head/scalp atraumatic HEENT Narrative: Dry mucous membranes. Eyes PERRL, EOMs intact bilaterally and conjunctivae normal Neck supple General: trachea midline Chest inspection of chest normal Resp Effort and Inspection: tachypneic Auscultation: diminished lung sounds Cardio S1 normal heart sound and S2 normal heart sound Rhythm: abnormal rhythm GI normal to inspection, nondistended, normoactive bowel sounds Extremity General Extremity: edema; Negative for clubbing Skin no rashes or lesions noted Neuro CN's II-XII intact bilaterally, moves all extremities and no focal motor deficits Psych Mood & Affect: flat affect Lab / Micro Data 09/20/24 07:45 09/20/24 07:51 Labs: Laboratory Results - last 24 hr 09/19/24 14:17: WBC 0.4 L*, RBC 1.92 L, Hgb 6.3 L, Hct 18.2 L, MCV 94.8 H, MCH 32.8 H, MCHC 34.6, RDW Std Deviation 67.6 H, RDW Coeff of Misa 21.2 H, Plt Count 24 L*, Immature Gran % (Auto) 0.000, Neut % (Auto) 10.3 L, Lymph % (Auto) 79.5 H , Sutter % (Auto) 5.1, Eos % (Auto) 5.1 H, Baso % (Auto) 0.0, Absolute Neuts (auto) 0.0 L, Absolute Lymphs (auto) 0.31 L, Nucleated RBC % 0, Differential Comment COMMENT, Diff Path Review May foll, Platelet Estimate MKD DEC, Anisocytosis 1+, PT 17.9 H, INR 1.5, APTT > 250.0 H*, Sodium 133 L, Potassium 2.3 L*, Chloride 98, Carbon Dioxide 24.0, Anion Gap 11, BUN 40 H, Creatinine 1.40 H, Est GFR (MDRD) Af Amer 63, Est GFR (MDRD) Non-Af 52 L, BUN/Creatinine Ratio 28.6 H, Glucose 103, Lactic Acid 3.7 H*, Calcium 8.4 L, Total Bilirubin 0.90, AST 136 H, ALT 109 H, Alkaline Phosphatase 39 L, Total Protein 5.9 L, A lbumin 2.1 L, Globulin 3.8, Albumin/Globulin Ratio 0.6 L, Blood Type A POSITIVE, Antibody Screen NEGATIVE, Crossmatch See Detail 09/19/24 17:06: Urine Color Yellow, Urine Clarity Clear, Urine pH 6.0, Ur Specific Moose 1.010, Urine Protein 100 H, Urine Glucose (UA) 1000 H, Urine Ketones 5 H, Urine Occult Blood 50 H, Urine Nitrite Negative, Urine Bilirubin Negative, Urine Urobilinogen Normal, Ur Leukocyte Esterase Negative, Urine RBC 0-5 SEEN, Urine WBC 0 SEEN, Ur Squamous Epith Cells 0 SEEN, Urine Bacteria 1+, Urine Mucus 0 SEEN 09/19/24 17:35: Troponin I High Sens 33 09/19/24 18:54: Lactic Acid 2.9 H* 09/19/24 20:44: APTT 25.9, Sodium 135 L, Potassium 2.7 L*, Chloride 102, Carbon Dioxide 22.0, Anion Gap 11, BUN 34 H, Creatinine 1.12, Estim Creat Clear Calc 54.32, Est GFR (MDRD) Af Amer 81, Est GFR (MDRD) Non-Af 67, BUN/Creatinine Ratio 30.4 H, Glucose 141 H, Calcium 7.9 L, Magnesium 1.8 09/19/24 20:53: POC Glucose 137 H Micro: Microbiology 09/19/24 23:10 Mucosa - Nasopharyngeal Respiratory Panel (PCR) - Final 09/19/24 14:08 Mucosa - Nose SARS-CoV-2, Influenza & RSV (PCR) - Final ABG Data ABG results: ABG 09/20/24 09/20/24 06:43 06:50 Specimen Type ART ART Sample Site L Brach L Brach pH 7.33 L 7.32 L Bicarbonate Actual 6.1 L 5.4 L Total CO2 6 6 Base Excess -20 L -21 L O2 Saturation 99 99 O2 % 6.0 ABG pCO2 11.5 L* 10.4 L* ABG pO2 142 H 148 H O2 Delivery Device Cannula Not entered Vent Mode Not entered Not entered Crit Call To/Read Back Yes Yes Blood Gas Notified Whom white white Blood Gas Notified Time 06:44:44 06:52:53 Rhythm Strip Rhythm Strip: A-fib Rate: 130 Ectopy: None Imaging Radiology Impression Chest X-Ray 09/19/24 14:30 IMPRESSION: No acute abnormality is seen. Reading Location: [facility] Chest X-Ray 09/20/24 06:04 IMPRESSION: Pleural fluid has developed at the left lung base. Cardiac enlargement. Reading Location: [facility] Charges/Coding Procedures Hospitalists Procedures: 81719 Critical Care 1st Hr
--- NOTE | 2024-09-20 07:51 | NURSING ---
Informed pt's daughter Vidal Christine of transfer to icu bed 8 d/t hypotension and need for medications to stabilize blood pressure. States will spread the word to her siblings.
[2024-09-20 08:26] LABS: Hematocrit 22.6 % (40-54); Hemoglobin 7.3 g/dL (13.0-16.5); Mean Corp Hgb Conc 32.3 g/dL (32-36); Mean Corpuscular Hgb 31.7 pg (27.0-32.0); Mean Corpuscular Volume 98.3 fL (80-94); POSITIVE COUNT YES; POSITIVE DIFFERENTIAL YES; POSITIVE MORPHOLOGY YES; RBC Distribution Width CV 21.2 % (11.6-14.6); RBC Distribution Width SD 66.9 fl (35.1-43.9)
--- NOTE | 2024-09-20 08:34 | CT_ITS ---
PROCEDURE: CT CHEST, ABD, PEL W/CONTRAST REASON FOR EXAM: Atrial fibrillation, decreased blood pressure; hepatitis-C; DVT. TECHNIQUE: Chest CTA with intravenous contrast and 3D reconstructions. Abdomen and pelvis CT using the same contrast dose. COMPARISON: No prior images available for comparison. FINDINGS: CHEST: Lines and tubes: None. Mediastinum: No evidence of mediastinal hemorrhage. Heart: Cardiomegaly. Coronary artery calcifications. Thoracic Aorta: Moderate atherosclerosis of a normal caliber thoracic aorta. Lungs and Airways: Trace right and small left pleural effusions. Left lower lobe density with attenuation similar to paraspinal musculature suspicious for pneumonia. Pleura: No pleural effusion. No pneumothorax. Bones: Degenerative changes of the spine. ABDOMEN AND PELVIS: Liver: Diffusely hypodense suggestive of steatosis. Gallbladder: Unremarkable. Spleen: Unremarkable. Pancreas: Unremarkable. Adrenals: Unremarkable. Kidneys: Left kidney simple cyst. Bladder: Collapsed around a Osborn catheter. Reproductive Organs: Unremarkable. Bowel: Unremarkable. Vasculature: Moderate atherosclerosis. Peritoneum / Retroperitoneum: Trace ascites. Bones: No acute osseous abnormality identified. Skin thickening of the anterior abdominal wall. CT/CT Chest, Abd, Pel w/Contrast IMPRESSION: Left lower lobe density which may represent a mass or pneumonia. Bilateral pleural effusions. Diffusely hypodense liver suggestive of steatosis. Trace ascites. Skin thickening of the anterior abdominal wall. Correlate with physical exam t o exclude cellulitis. One or more dose reduction techniques were used (e.g., Automated exposure contr ol, adjustment of the mA and/or kV according to patient size, use of iterative reconstruction technique). Reading Location: [id number]
[2024-09-20 08:37] LABS: Differential Indicated MANUAL DIFF; Platelet Count 17 K/mm3 (150-450)
[2024-09-20 08:43] LABS: International Normalized Ratio 2.8; Prothrombin Time (Protime)PT. 30.2 SECONDS (11.7-14.9)
--- NOTE | 2024-09-20 08:55 | WOUNDNOTE ---
ANGELINA Field aware of critical labs.
[2024-09-20 08:57] LABS: Lactic Acid 14.7 mmol/L (0.4-1.9)
[2024-09-20 09:15] LABS: ALB/GLOB Ratio 0.5 RATIO (0.9-2.4); AST(SGOT) 1534 U/L (15-37); Alanine Aminotransfer ALT/SGPT 876 U/L (16-61); Albumin, Serum 1.8 g/dL (3.2-5.0); Alkaline Phosphatase 44 U/L (45-117); Anion Gap 24 (5-15); BUN 37 mg/dL (7-18); BUN/Creat Ratio 17.3 RATIO (10-20); Calcium,Total 7.5 mg/dL (8.5-10.1); Chloride 102 mmol/L (98-107); Creatinine, Serum 2.14 mg/dL (0.70-1.30); EST Glomerular Filtration Rate 32 mL/min (>60); Est Glom Filt Rate - Afr Amer 38 mL/min (>60); Estimated Creatinine Clearance 31.03 ml/min; Globulin 3.5 g/dL (2.2-4.2); Glucose 119 mg/dL (74-106); Potassium 5.4 mmol/L (3.5-5.1); Protein, Total 5.3 g/dL (6.4-8.2); Sodium Level 133 mmol/L (136-145)
[2024-09-20 09:16] LABS: Bedside Glucose 140 mg/dL (74-106)
--- NOTE | 2024-09-20 10:03 | PCM.RX.CS ---
Consult Antibiotic Management Pharmacy has been consulted to manage selected antibiotic: Vancomycin Type of Intervention Type of Consult: Follow-up Prior Doses of Antibiotics Prior Doses of Antibiotics Received/Current Regimen: RECEIVED 2000MG IV X 1 LOADING DOSE 2.3.25 @2228 Labs Labs: Sodium 133 mmol/L (136-145) L 09/20/24 07:51 Potassium 5.4 mmol/L (3.5-5.1) H 09/20/24 07:51 Chloride 102 mmol/L (98-107) 09/20/24 07:51 Carbon Dioxide 7.0 mmol/L (21.0-32.0) L* 09/20/24 07:51 Anion Gap 24 (5-15) H 09/20/24 07:51 BUN 37 mg/dL (7-18) H 09/20/24 07:51 Creatinine 2.14 mg/dL (0.70-1.30) H 09/20/24 07:51 Est GFR (MDRD) Af Amer 38 mL/min (>60) L 09/20/24 07:51 Est GFR (MDRD) Non-Af 32 mL/min (>60) L 09/20/24 07:51 BUN/Creatinine Ratio 17.3 RATIO (10-20) 09/20/24 07:51 Glucose 119 mg/dL (74-106) H 09/20/24 07:51 Microbiology Microbiology: Microbiology 09/19/24 17:06 Urine, Random Urine Culture - Preliminary Culture exhibits no growth. 09/19/24 15:03 Blood Culture (Wb) - Left Hand Blood Culture - Preliminary 09/19/24 15:03 Blood Culture (Wb) - Left Hand Blood Culture - Preliminary 09/19/24 23:10 Mucosa - Nasopharyngeal Respiratory Panel (PCR) - Final 09/19/24 14:08 Mucosa - Nose SARS-CoV-2, Influenza & RSV (PCR) - Final Dosing Weight Weight used for dosin kg Estimated Creatinine Clearance Estimated Creatinine Clearance: 31 ML/MIN Goal Trough Goal Trough: 15-20 mcg/mL Pharmacy Plan for Drug Dosing Pharmacy Plan for Drug Dosing: Renal function worsened with Cr from 1.12 to 2.14 today. Will hold further dosing for now. Random level ordered for today @2200 (24hrs after 2000mg dose given). Pharmacy Service will continue to monitor and adjust dosing as required. Follow-Up Labs Follow-Up Labs: Trough: Other (random level 2.4.25 @2200)
[2024-09-20 10:09] LABS: Procalcitonin 3.68 ng/mL (0.00-0.09)
--- NOTE | 2024-09-20 10:55 | RAD_ITS ---
EXAM: XR Chest, 1 View CLINICAL INDICATION: TECHNIQUE: Frontal view of the chest. COMPARISON: No relevant prior studies available. FINDINGS: LUNGS AND PLEURAL SPACES: See below. HEART: Cardiomegaly with mild congestion. MEDIASTINUM: Unremarkable. Normal mediastinal contour. BONES/JOINTS: Unremarkable. No acute fracture. TUBES, LINES AND DEVICES: Left peripherally inserted central catheter (PICC) tip in the superior vena cava. RAD/Chest 1 View (Portable) IMPRESSION: Cardiomegaly with mild congestion. Reading Location: [facility]
[2024-09-20 11:05] LABS: Corrected WBC 0.5 K/mm3 (4.4-11.0); Eosinophil 3 % (0-5); Lymphocyte 83 % (19-41); Monocyte 4 % (0-10); Neutrophil-Band 1 % (0-5); Neutrophil-Segmented 9 % (47-70); Nucleated Red Bld Cells,Manual 11 % (0-5); Total Cells Counted 100 (MANUAL DIFF)
[2024-09-20 11:07] LABS: Absolute Neutrophil Count 0.1 X10^3/uL (2.0-7.7)
[2024-09-20 11:08] LABS: Absolute Lymphocyte Count 0.42 X10^3/uL (0.83-4.51)
[2024-09-20 11:12] LABS: Anisocytosis 2+; Crenated RBC 1+; Platelet Estimate MKD DEC (ADEQ)
[2024-09-20 11:13] LABS: Macrocytosis 1+; Polychromasia 1+; Tear Drop Cell RARE
[2024-09-20] MEDS: Sodium Bicarbonate 150 MEQ in Dextrose 5%-Water (1000mL Bag) 1,000 ML IV ×2 (11:33→20:08)
[2024-09-20] MEDS: 0.9% Normal Saline (1000mL) 1,000 ML 999 ML IV ×3 (11:33→15:22)
[2024-09-20] MEDS: Dorzolamide HCL/Timolol 10 ml Bottle 1 DRP OPHTHALMIC ×2 (11:40→22:15)
[2024-09-20 12:02] LABS: Bedside Glucose 80 mg/dL (74-106)
[2024-09-20 12:09] LABS: Reflex Lactate? Y
--- NOTE | 2024-09-20 12:31 | CASEMGMT ---
ANGELINA STONE Assessment Face to Face with patient for initial transition planning/care coordination assessment. ANGELINA STONE introduced self and role at [facility], pt voices understanding. Pt is A&Ox4 and is resting comfortably in bed and is calm. Pt sister at bedside. Pt family friend and caregiver, Kendra Corea, at bedside. All agreeable with discussing care coordination assessment. Care providers, pharmacy, and demographics verified. Admitting dx: AFIB RVR , Sepsis, Hypotension LACE Strata: 3 PCP: [place] [facility] [place] (GALINA Liz) Specialists: Zain (Oncology), Deangelo (PM), Sara (Uro), [facility], [facility], Dr. Bui ([facility] for Blood Allergies) Preferred Pharmacy: [facility] Insurance: [employer], [employer]/[place] Pres[place] Benefit: Yes, pt states that his medications are covered LNOK: Vidal Christine (Daughter), Gio Reich (Daughter), Nelda Bender (Daughter - Lives in [place]), Kendra Corea (Family Friend and caregiver) Living Arrangements: Pt lives with Kendra in a 2 story home with a FFSU and a ramp to enter. Pt rents the upper portion of the house to Kendra and the pt resides on the main floor. ADLs/IADLs: Pt requires assistance. Kendra states that she helps the pt with almost everything. Pt is also active with [facility] [place] [facility] through the [place]. Pt states that the aides come everyday for 4 hours per day. They help with meals, laundry, grooming, turkey boner, and more. Transportation: Pt does not drive. Pt family and friends drive and the pt denies concerns DME: [employer] and a regular BMG with sufficient supplies. Cane. FWW. W/C. Walk in tub with a seat. HHC/SNF: Denies skilled HH or SNF History. Pt?s goal: Return home Plan: TBD. Anticipate SNF vs home with HHC. Current 6-Click score is 16. Per ICU rounds, therapy is to be held today. Pt reports that his daughter, Nelda, is a doctor and that he would like to make her the Medical HCPOA. SW notified and will f/u with the pt about this. Moving forward, the pt states that he prefers to return home but states that he would be willing to attend a SNF short term for rehab, if warranted. Pt and pt family deny further questions or concerns at this time. CM and SW to follow. B Dmitri ALFARO CM
--- NOTE | 2024-09-20 12:51 | CASEMGMT ---
Social Work SW met w/pt briefly, his sister and an adopted daughter is in the room. SW inquired w/pt if when he is feeling better, if he would like to complete LW and POA while here, pt states he would like to do that. SW will continue to follow, will revisit this when pt is feeling better and able to sit up. SW also did create in [facility] a list of shelter facilities in network w/pt's insurance, in pt's preferred geographic area and complete w/quality and resource use data should it be needed. SW and CM will continue to follow. CRISTAL Gao
--- NOTE | 2024-09-20 13:00 | CON.PCM.RE_ITS ---
Assessment & Plan Assessment/Plan (1) MARIO ALBERTO (acute kidney injury): PLAN: History of myelodysplasia, plasma cell neoplasm, immunodeficiency on IVIG infusions, was originally scheduled to get IVIG tomorrow. Now admitted with severe septic shock. Acute renal failure is likely ischemic ATN in the setting of septic shock. Significantly elevated lactate of 14. Continue aggressive volume resuscitation. Might need pressors. Will reassess acidosis severity after fluid resuscitation. May need renal replacement therapy temporarily if worsening. Fairly immune deficient. Has chronic pancytopenia, requires IVIG infusions. Updated family at bedside. dw ICU attending HPI Consult Data Date of Consult: 09/20/24 HPI Narrative Reason for Consultation: MARIO ALBERTO HPI Narrative: JOHNATHAN CURIEL, is a 79 M who presents To the hospital with hypotension. Nephrology on consultation in view of acute renal failure. Extensive hematologic history, chronic history of pancytopenia, bone marrow biopsy showed plasma cell neoplasm, chronic immune deficiency on IVIG infusions with [facility] hematology. Recently was started on Revlimid about 2 weeks ago. Prior to that he was treated with Decadron. Presented with hypotension, initially thought to be related to A-fib with RVR now diagnosed with septic shock. Blood cultures growing gram-negative rods. Currently in ICU with severe septic shock. Somewhat sleepy. Family at bedside, most of the history provided by family. No urinary complaints recently. [facility] Medical History Encounter for education History of hepatitis C Loss of hearing Wears glasses Anxiety Ambulates with cane Insulin dependent diabetes mellitus Arthritis Prostate disease Anemia Restless legs Injury of back Injury of head and neck Syncope Dietary restriction Difficulty swallowing Gastric reflux Former smoker History of pain when walking History of echocardiogram History of stress test Cardiology follow-up encounter Glaucoma Hx of fracture of wrist Other pancytopenia Longstanding persistent atrial fibrillation Obesity Right bundle branch block (RBBB) Osteoarthritis Essential hypertension Allergic rhinitis due to allergen Asthma DVT (deep venous thrombosis) (02/24/11) Cervical radiculopathy Hyperlipidemia Vitamin D deficiency Hypersomnia DEYANIRA (obstructive sleep apnea) Home Medications ?Medication ?Instructions ?Recorded ?Last Taken ?Type alfuzosin 10 mg tablet,extended 10 mg PO DAILY@1730 ur inary 08/31/13 09/19/24 History release 24 hr rosuvastatin 40 mg tablet 40 mg PO DAILY cholesterol 0 08/31/13 09/18/24 History finasteride 5 mg tablet 5 mg PO DAILY prostate 12/1709/19/24 History empagliflozin 25 mg tablet 25 mg PO QDAY diabetes 0503/0309/19/24 History (Jardiance) tramadol 50 mg tablet 50 mg PO BID PRN pain 02/19/24 History baclofen 10 mg tablet 10 mg PO DAILY PRN PRN muscl e spasm 07/24/22 02/19/24 History dorzolamide 22.3 mg-timolol 6.8 1 drp ophthalmic (eye) BID eyes 07/24/22 09/18/24 History mg/mL eye drops fluticasone 500 mcg-salmeterol 50 1 inh inhalation Q12 H breathing 12/25/22 09/18/24 Rx mcg/dose blistr powdr for #60 ea inhalation (Advair Diskus) albuterol sulfate 90 mcg/actuation 2 puff inhalation Q 6H PRN PRN Sob 03/19/23 12/08/23 Rx aerosol inhaler &/Or Wheezing #18 grams cetirizine 10 mg tablet 10 mg PO DAILY allergy #90 t abs 07/14/23 09/19/24 Rx fluticasone propionate 50 2 spray intranasal DAILY PRN 07/28/24 Unknown History mcg/actuation nasal allergy symptoms spray,suspension polyethylene glycol 3350 17 17 g PO .COMPLEX bowels #5 10 grams 07/28/24 Unknown Rx gram/dose oral powder (Miralax) metoprolol tartrate 50 mg tablet 50 mg PO BID #60 tabs 08/08/24 09/19/24 Rx ipratropium 0.5 mg-albuterol 3 mg 3 ml inhalation Q4H PRN PRN SOB 08/12/24 Unknown Rx (2.5 mg base)/3 mL nebulization &/OR WHEEZING #180 mL soln insulin regular hum U-500 conc 500 75 unit subcut QHS diabetes 09/06/24 09/18/24 History unit/mL(3 mL) subcut pen (Humulin R U-500 (Conc) Insulin Kwikpen) insulin regular hum U-500 conc 500 100 unit subcut QAM diabetes 09/06/24 09/19/24 History unit/mL(3 mL) subcut pen (Humulin R U-500 (Conc) Insulin Kwikpen) lenalidomide 10 mg capsule 10 mg PO QDAY 09/08/24 02/10/11 History (Revlimid) magnesium citrate 100 mg capsule 100 mg PO BID #180 ca ps 09/08/24 09/19/24 Rx pantoprazole 40 mg tablet,delayed 40 mg PO DAILY #30 t abs 09/08/24 09/19/24 Rx release (Protonix) dulaglutide 3 mg/0.5 mL 3 mg subcut QWEEK 09/19/24 0 09/14/24 History subcutaneous pen injector (Trulicity) potassium chloride 20 mEq 20 meq PO DAILY 09/19/2411/08 History tablet,extended release(part/cryst) Allergy/AdvReac Type Severity Reaction Status Date / Time No Known Drug Allergies Allergy no known Verified 09/19/24 12:10 Family History Daughter Asthma Grandmother Asthma Sister Asthma COPD (chronic obstructive pulmonary disease) Mother Pancreatic cancer Brother Myocardial infarction Cancer CAD (coronary artery disease) Surgical History History of bone marrow biopsy Hx of right cataract extraction Hx of left cataract extraction History of left heart catheterization (2006) 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 bilateral eyelid lift laminectomy with decompression at R Partial at L L2-3 : L L3-4 Hx of cholecystectomy Partial at L L5-S1 C6-7 fusion R forearm surgery x 3 H/O colonoscopy back injections Social History (Updated 09/19/24 @ 20:28 by Noris Talamantes) household members: family and none number of children: 5 current occupational status: retired Smoking Status: Former smoker quit date: 08/17/76 second hand exposure: No alcohol intake: never substance use type: does not use caffeine: Yes Type: coffee what type of physical activity do you participate in: none ROS Review of Systems ROS Unobtainable: due to encephalopathy Physical Exam Narrative sleepy no obvious distress no pallor no icterus no JVD s1s2 no murmurs lungs clear abdomen soft no organomegaly no edema no cyanosis Lab / Micro Data 09/20/24 07:45 09/20/24 07:51 Labs: Laboratory Results - last 24 hr 09/19/24 14:17: WBC 0.4 L*, RBC 1.92 L, Hgb 6.3 L, Hct 18.2 L, MCV 94.8 H, MCH 32.8 H, MCHC 34.6, RDW Std Deviation 67.6 H, RDW Coeff of Misa 21.2 H, Plt Count 24 L*, Immature Gran % (Auto) 0.000, Neut % (Auto) 10.3 L, Lymph % (Auto) 79.5 H , Winkler % (Auto) 5.1, Eos % (Auto) 5.1 H, Baso % (Auto) 0.0, Absolute Neuts (auto) 0.0 L, Absolute Lymphs (auto) 0.31 L, Nucleated RBC % 0, Differential Comment COMMENT, Diff Path Review December, Platelet Estimate MKD DEC, Anisocytosis 1+, PT 17.9 H, INR 1.5, APTT > 250.0 H*, Sodium 133 L, Potassium 2.3 L*, Chloride 98, Carbon Dioxide 24.0, Anion Gap 11, BUN 40 H, Creatinine 1.40 H, Est GFR (MDRD) Af Amer 63, Est GFR (MDRD) Non-Af 52 L, BUN/Creatinine Ratio 28.6 H, Glucose 103, Lactic Acid 3.7 H*, Calcium 8.4 L, Total Bilirubin 0.90, AST 136 H, ALT 109 H, Alkaline Phosphatase 39 L, Total Protein 5.9 L, A lbumin 2.1 L, Globulin 3.8, Albumin/Globulin Ratio 0.6 L, Blood Type A POSITIVE, Antibody Screen NEGATIVE, Crossmatch See Detail 09/19/24 17:06: Urine Color Yellow, Urine Clarity Clear, Urine pH 6.0, Ur Specific [place] 1.010, Urine Protein 100 H, Urine Glucose (UA) 1000 H, Urine Ketones 5 H, Urine Occult Blood 50 H, Urine Nitrite Negative, Urine Bilirubin Negative, Urine Urobilinogen Normal, Ur Leukocyte Esterase Negative, Urine RBC 0-5 SEEN, Urine WBC 0 SEEN, Ur Squamous Epith Cells 0 SEEN, Urine Bacteria 1+, Urine Mucus 0 SEEN 09/19/24 17:35: Troponin I High Sens 33 09/19/24 18:54: Lactic Acid 2.9 H* 09/19/24 20:44: APTT 25.9, Sodium 135 L, Potassium 2.7 L*, Chloride 102, Carbon Dioxide 22.0, Anion Gap 11, BUN 34 H, Creatinine 1.12, Estim Creat Clear Calc 54.32, Est GFR (MDRD) Af Amer 81, Est GFR (MDRD) Non-Af 67, BUN/Creatinine Ratio 30.4 H, Glucose 141 H, Calcium 7.9 L, Magnesium 1.8 09/19/24 20:53: POC Glucose 137 H 09/20/24 06:25: POC Glucose 140 H 09/20/24 07:45: WBC LACEWORKER, Corrected WBC 0.5 L*, RBC 2.30 L, Hgb 7.3 L, Hct 22.6 L, MCV 98.3 H, MCH 31.7, MCHC 32.3 D, RDW Std Deviation 66.9 H, RDW Coeff of Misa 21.2 H, Plt Count 17 L*, Neut % (Auto) Not Reportable, Absolute Neuts (auto) 0.1 L, Absolute Lymphs (auto) 0.42 L, Total Counted 100, Neutrophils % (Manual) 9 L, Band Neutrophils % 1, Lymphocytes % (Manual) 83 H*, Monocytes % (Manual) 4, Eosinophils % (Manual) 3, Nucleated RBCs/100 WBC 11 H, Diff Path Review May , Platelet Estimate MKD DEC, Polychromasia 1+, Anisocytosis 2+, Macrocytosis 1+, Tear Drop Cells RARE, Crenated Cell 1+ 09/20/24 07:51: PT 30.2 H, INR 2.8, Sodium 133 L, Potassium 5.4 H, Chloride 102, Carbon Dioxide 7.0 L*, Anion Gap 24 H, BUN 37 H, Creatinine 2.14 H, Estim Creat Clear Calc 31.03, Est GFR (MDRD) Af Amer 38 L, Est GFR (MDRD) Non-Af 32 L, BUN/Creatinine Ratio 17.3, Glucose 119 H, Lactic Acid 14.7 H*, Calcium 7.5 L, T otal Bilirubin 2.50 H, AST 1534 H, ALT 876 H, Alkaline Phosphatase 44 L, Total Protein 5.3 L, Albumin 1.8 L, Globulin 3.5, Albumin/Globulin Ratio 0.5 L, P rocalcitonin 3.68 H, TSH 1.540 09/20/24 11:37: POC Glucose 80 Micro: Microbiology 09/19/24 17:06 Urine, Random Urine Culture - Preliminary Culture exhibits no growth. 09/19/24 15:03 Blood Culture (Wb) - Left Hand Blood Culture - Preliminary 09/19/24 15:03 Blood Culture (Wb) - Left Hand Blood Culture - Preliminary 09/19/24 23:10 Mucosa - Nasopharyngeal Respiratory Panel (PCR) - Final 09/19/24 14:08 Mucosa - Nose SARS-CoV-2, Influenza & RSV (PCR) - Final ABG Data ABG results: ABG 09/20/24 09/20/24 06:43 06:50 Specimen Type ART Cancelled Sample Site L Brach Cancelled pH 7.33 L Cancelled Bicarbonate Actual 6.1 L Cancelled Total CO2 6 Cancelled Base Excess -20 L Cancelled O2 Saturation 99 Cancelled O2 % 6.0 Cancelled ABG pCO2 11.5 L* Cancelled ABG pO2 142 H Cancelled Rommel Test Cancelled Respiration Rate Cancelled O2 Delivery Device Cannula Cancelled Liter Flow Cancelled Minute Volume Cancelled Vent Mode Not entered Cancelled Inspiratory Time Cancelled Expiratory Time Cancelled Tidal Volume Cancelled Mean Airway Pressure Cancelled POC PEEP Cancelled Peak Inspir Pressure Cancelled POC Pressure Suppt Cancelled Pressure Control Cancelled Pressure High Cancelled Pressure Low Cancelled Time High Cancelled Time Low Cancelled EPAP Cancelled IPAP Cancelled Blood Gas Comments Cancelled Crit Call To/Read Back Yes Cancelled Blood Gas Notified Whom white Cancelled Blood Gas Notified Time 06:44:44 Cancelled Clinical Comments Cancelled Rhythm Strip Rhythm Strip: A-fib Rate: 130 Ectopy: None Imaging Radiology Impression Chest X-Ray 09/19/24 14:30 IMPRESSION: No acute abnormality is seen. Reading Location: [facility] Chest X-Ray 09/20/24 06:04 IMPRESSION: Pleural fluid has developed at the left lung base. Cardiac enlargement. Reading Location: [facility]
[2024-09-20] MEDS: Vasopressin 20 UNITS in 0.9% Normal Saline (50mL Bag) 24 ML 3 UNITS CONT INF ×2 (13:07→19:40)
[2024-09-20 13:33] LABS: Lactic Acid 12.6 mmol/L (0.4-1.9)
[2024-09-20 14:16] LABS: Pathologist Review Reviewed
[2024-09-20] MEDS: 0.9% Normal Saline (500mL Bag) 500 ML 999 ML IV (14:41)
--- NOTE | 2024-09-20 14:47 | CHAPLAIN ---
Type of Pastoral Visit _x__ Initial Visit ___ Follow-up Visit ___ On-call Visit ___ General Patient Visit ___ Spiritual Assessment ___ Family Conference ___ Bereavement ___ Rapid Response ___ Code Blue ___ Other (describe below) Pastoral Care Referral From _x__ Patient ___ Family ___ Nurse ___ Physician ___ [place] ___ Auto Garage Attendant ___ Other (describe below) Sacrament/Intervention ___ Active listening ___ Anointing ___ Restorationism ___ Bereavement ___ Communion ___ Vita exploration ___ ___ Life review _x__ Prayer ___ Reconciliation ___ Sacrament of Sick _x__ Supportive presence ___ Wedding ___ Other (describe below) Pastoral Comments patient is resting while the nurse attends to his care; family members are in the room; pt remembers this therapeutic assistant and welcomes the visit; pt is weak and keeps his eyes closed mostly during this visit; pt responds positively to presence and prayer support; calming words and assurances of good care given; offer of ongoing support
[2024-09-20 15:34] LABS: Bedside Glucose 128 mg/dL (74-106)
--- NOTE | 2024-09-20 15:40 | ONC.CONSULT ---
Assessment & Plan Assessment/Plan (1) Pancytopenia: Status: Acute Code(s): D61.818 - Other pancytopenia (2) MDS (myelodysplastic syndrome) with 5q deletion: Status: Acute Code(s): D46.C - Myelodysplastic syndrome with isolated del(5q) chromosomal abnormality (3) Plasma cell dyscrasia: Status: Chronic Code(s): E88.09 - Other disorders of plasma-protein metabolism, not elsewhere classified Plan: 79-year-old gentleman with bone marrow failure. Began lenalidomide 10 mg daily for MDS with 5 q. minus. Question compliance with oral therapy. Nonetheless advise holding lenalidomide during episode of acute illness. Patient remains full code. Advised transfusion support to keep hemoglobin greater than 8 and platelets greater than 10,000. Can discuss resuming lenalidomide if/when recovers from sepsis. Case was discussed with Dr. David who was in agreement with aforementioned assessment and plan. HPI Consult Data Date of Service:: 09/20/24 PCP / Referring Provider: Dr. Noble Peter MD Attending: Dr. Sang Olguin MD Chief Complaint Chief Complaint: Pancytopenia History of Present Illness History of Present Illness: Mr. Keaton Reich is a 79 yr old gentleman with a PMH positive for diabetes, hepatitis C, atrial fibrillation, who underwent BMBX on 10/29/23 which showed kappa restricted plasma cell neoplasm, Cell count 56% plasma cells, cytogenetic 46 XY, flow cytometry detected 36% plasma cell population. 11/05/23 SPEP showed IgG 376, IgM 15, M spike 0, free kappa light chain 2248. 11/24/2023 PET/CT showed increased metabolic activity in the right groin nodes. 12/08/2023 Underwent a R groin biopsy. Pathology showed Benign lymph nodes with extensive geographic necrosis including fat necrosis. December 2023-March 2024: on Decadron 20mg weekly 08/05/24 repeat BMBx showed MDS clone with del 5q. 08/05/24 Stool positive for occult blood 08/08/24 Colonoscopy: non-bleeding internal external hemorrhoids, diverticulosis in the rectosigmoid colon, sigmoid colon, descending colon, and splenic flexure. Two 5 mm polyps in the transverse colon and in the ascending colon (biopsied), three 1 to 2 mm polyps in the sigmoid colon and the transverse colon (biopsied), single bleeding colonic angiodysplastic lesion?treated with monopolar probe. Pathology showed a tubular adenoma within the ascending colon and 2 tubular adenomas within the transverse colon. 08/16/24 PET/CT demonstrated hypermetabolic activity in the left lower lobe of lung, SUV 6.7, measuring 51.8 mm (patient refused biopsy). 08/29/2024 lenalidomide 10 mg prescribed 09/19/24 Presented to [facility] ED (at request of oncology team) d/t reports of frequent falls and gross functional decline in his home and hypotension/tachycardia. In the ED, found to be in a-fib RVR with lactic acid 3.7. He received IV fluid and cardizem bolus and was subsequently admitted to ICU for management of MARIO ALBERTO, sepsis on Cardizem drip. 09/20/24: Lactic acid 14.7 Interval History Interval History: Upon entering the room, the patient is lying on his left side with sister and friend at the bedside. Advanced Directives Power of [employer] Director: No Living Will: No [facility] Medical History Encounter for education History of hepatitis C Loss of hearing Wears glasses Anxiety Ambulates with cane Insulin dependent diabetes mellitus Arthritis Prostate disease Anemia Restless legs Injury of back Injury of head and neck Syncope Dietary restriction Difficulty swallowing Gastric reflux Former smoker History of pain when walking History of echocardiogram History of stress test Cardiology follow-up encounter Glaucoma Hx of fracture of wrist Other pancytopenia Longstanding persistent atrial fibrillation Obesity Right bundle branch block (RBBB) Osteoarthritis Essential hypertension Allergic rhinitis due to allergen Asthma DVT (deep venous thrombosis) (02/24/11) Cervical radiculopathy Hyperlipidemia Vitamin D deficiency Hypersomnia DEYANIRA (obstructive sleep apnea) Home Medications ?Medication ?Instructions ?Recorded ?Last Taken ?Type alfuzosin 10 mg tablet,extended 10 mg PO DAILY@1730 urinary 08/31/13 09/19/24 History release 24 hr rosuvastatin 40 mg tablet 40 mg PO DAILY cholesterol 08/31/13 09/18/24 History finasteride 5 mg tablet 5 mg PO DAILY prostate 12/18/15 09/19/24 History empagliflozin 25 mg tablet 25 mg PO QDAY diabetes 12/21/17 09/19/24 History (Jardiance) tramadol 50 mg tablet 50 mg PO BID PRN pain 10/16/20 02/19/24 History baclofen 10 mg tablet 10 mg PO DAILY PRN PRN muscle spasm 07/24/22 02/19/24 History dorzolamide 22.3 mg-timolol 6.8 1 drp ophthalmic (eye) BID eyes 07/24/22 09/18/24 History mg/mL eye drops fluticasone 500 mcg-salmeterol 50 1 inh inhalation Q12H breathing 12/25/22 09/18/24 Rx mcg/dose blistr powdr for #60 ea inhalation (Advair Diskus) albuterol sulfate 90 mcg/actuation 2 puff inhalation Q6H PRN PRN Sob 03/19/23 12/08/23 Rx aerosol inhaler &/Or Wheezing #18 grams cetirizine 10 mg tablet 10 mg PO DAILY allergy #90 tabs 07/14/23 09/19/24 Rx fluticasone propionate 50 2 spray intranasal DAILY PRN 07/28/24 Unknown History mcg/actuation nasal allergy symptoms spray,suspension polyethylene glycol 3350 17 17 g PO .COMPLEX bowels #510 grams 07/28/24 Unknown Rx gram/dose oral powder (Miralax) metoprolol tartrate 50 mg tablet 50 mg PO BID #60 tabs 08/08/24 09/19/24 Rx ipratropium 0.5 mg-albuterol 3 mg 3 ml inhalation Q4H PRN PRN SOB 08/12/24 Unknown Rx (2.5 mg base)/3 mL nebulization &/OR WHEEZING #180 mL soln insulin regular hum U-500 conc 500 75 unit subcut QHS diabetes 09/06/24 09/18/24 History unit/mL(3 mL) subcut pen (Humulin R U-500 (Conc) Insulin Kwikpen) insulin regular hum U-500 conc 500 100 unit subcut QAM diabetes 09/06/24 09/19/24 History unit/mL(3 mL) subcut pen (Humulin R U-500 (Conc) Insulin Kwikpen) lenalidomide 10 mg capsule 10 mg PO QDAY 09/08/24 09/18/24 History (Revlimid) magnesium citrate 100 mg capsule 100 mg PO BID #180 caps 09/08/24 09/19/24 Rx pantoprazole 40 mg tablet,delayed 40 mg PO DAILY #30 tabs 09/08/24 09/19/24 Rx release (Protonix) dulaglutide 3 mg/0.5 mL 3 mg subcut QWEEK 09/19/24 09/14/24 History subcutaneous pen injector (Trulicity) potassium chloride 20 mEq 20 meq PO DAILY 09/19/24 09/19/24 History tablet,extended release(part/cryst) Allergy/AdvReac Type Severity Reaction Status Date / Time No Known Drug Allergies Allergy no known Verified 09/19/24 12:10 Family History Daughter Asthma Grandmother Asthma Sister Asthma COPD (chronic obstructive pulmonary disease) Mother Pancreatic cancer Brother Myocardial infarction Cancer CAD (coronary artery disease) Surgical History History of bone marrow biopsy Hx of right cataract extraction Hx of left cataract extraction History of left heart catheterization (2006) 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 bilateral eyelid lift laminectomy with decompression at R Partial at L L2-3 : L L3-4 Hx of cholecystectomy Partial at L L5-S1 C6-7 fusion R forearm surgery x 3 H/O colonoscopy back injections Social History (Updated 09/19/24 @ 20:28 by Noris Talamantes) household members: family and none number of children: 5 current occupational status: retired Smoking Status: Former smoker quit date: 08/17/76 second hand exposure: No alcohol intake: never substance use type: does not use caffeine: Yes Type: coffee what type of physical activity do you participate in: none ROS Review of Systems ROS Unobtainable: due to encephalopathy Physical Exam Const General Appearance: lethargic and ill appearing HEENT normocephalic and head/scalp atraumatic HEENT Narrative: Dry mucous membranes. Eyes conjunctivae normal Neck supple General: trachea midline Resp Effort and Inspection: tachypneic Auscultation: diminished lung sounds Cardio S1 normal heart sound and S2 normal heart sound Rhythm: abnormal rhythm Extremity General Extremity: edema; Negative for clubbing Neuro moves all extremities Psych Speech: slow and delayed Mood & Affect: flat affect Vital Signs Temperature 97.7 F L 09/20/24 06:00 Temperature Source Oral 09/20/24 06:00 Pulse Rate 72 09/20/24 15:30 Pulse Strength Weak (1+) 02/04/25 12:02 Respiratory Rate 25 H 09/20/24 15:30 Respiratory Effort Normal, Non-Labored 09/20/24 11:57 Respiratory Depth Shallow 09/20/24 11:57 Respiratory Pattern Tachypnea 09/20/24 13:54 Blood Pressure 125/73 H 09/20/24 15:30 Blood Pressure Mean 90 09/20/24 15:30 Blood Pressure Source Monitor 09/20/24 15:30 Blood Pressure Position Semi-Fowlers 09/20/24 15:30 Blood Pressure Location Right Arm 09/20/24 15:30 Pulse Ox 100 09/20/24 15:30 Oxygen Delivery Method Room Air 09/20/24 15:30 Oxygen Flow Rate (L/min) 5 09/20/24 06:54 Laboratory Results - last 24 hr 09/19/24 14:17: Diff Path Review Reviewed, Blood Type A POSITIVE, Antibody Screen NEGATIVE, Crossmatch See Detail 09/19/24 17:06: Urine Color Yellow, Urine Clarity Clear, Urine pH 6.0, Ur Specific [place] 1.010, Urine Protein 100 H, Urine Glucose (UA) 1000 H, Urine Ketones 5 H, Urine Occult Blood 50 H, Urine Nitrite Negative, Urine Bilirubin Negative, Urine Urobilinogen Normal, Ur Leukocyte Esterase Negative, Urine RBC 0-5 SEEN, Urine WBC 0 SEEN, Ur Squamous Epith Cells 0 SEEN, Urine Bacteria 1+, Urine Mucus 0 SEEN 09/19/24 17:35: Troponin I High Sens 33 09/19/24 18:54: Lactic Acid 2.9 H* 09/19/24 20:44: APTT 25.9, Sodium 135 L, Potassium 2.7 L*, Chloride 102, Carbon Dioxide 22.0, Anion Gap 11, BUN 34 H, Creatinine 1.12, Estim Creat Clear Calc 54.32, Est GFR (MDRD) Af Amer 81, Est GFR (MDRD) Non-Af 67, BUN/Creatinine Ratio 30.4 H, Glucose 141 H, Calcium 7.9 L, Magnesium 1.8 09/19/24 20:53: POC Glucose 137 H 09/20/24 06:25: POC Glucose 140 H 09/20/24 07:45: WBC 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, Corrected WBC 0.5 L*, RBC 2.30 L, Hgb 7.3 L, Hct 22.6 L, MCV 98.3 H, MCH 31.7, MCHC 32.3 D, RDW Std Deviation 66.9 H, RDW Coeff of Misa 21.2 H, Plt Count 17 L*, Neut % (Auto) Not Reportable, Absolute Neuts (auto) 0.1 L, Absolute Lymphs (auto) 0.42 L, Total Counted 100, Neutrophils % (Manual) 9 L, Band Neutrophils % 1, Lymphocytes % (Manual) 83 H*, Monocytes % (Manual) 4, Eosinophils % (Manual) 3, Nucleated RBCs/100 WBC 11 H, Diff Path Review December, Platelet Estimate MKD DEC, Polychromasia 1+, Anisocytosis 2+, Macrocytosis 1+, Tear Drop Cells RARE, Crenated Cell 1+ 09/20/24 07:51: PT 30.2 H, INR 2.8, Sodium 133 L, Potassium 5.4 H, Chloride 102, Carbon Dioxide 7.0 L*, Anion Gap 24 H, BUN 37 H, Creatinine 2.14 H, Estim Creat Clear Calc 31.03, Est GFR (MDRD) Af Amer 38 L, Est GFR (MDRD) Non-Af 32 L, BUN/Creatinine Ratio 17.3, Glucose 119 H, Lactic Acid 14.7 H*, Calcium 7.5 L, Total Bilirubin 2.50 H, AST 1534 H, ALT 876 H, Alkaline Phosphatase 44 L, Total Protein 5.3 L, Albumin 1.8 L, Globulin 3.5, Albumin/Globulin Ratio 0.5 L, Procalcitonin 3.68 H, TSH 1.540 09/20/24 11:37: POC Glucose 80 09/20/24 12:45: Lactic Acid 12.6 H* 09/20/24 15:07: POC Glucose 128 H Microbiology 09/19/24 17:06 Urine, Random Urine Culture - Preliminary Culture exhibits no growth. 09/19/24 15:03 Blood Culture (Wb) - Left Hand Blood Culture - Preliminary 09/19/24 15:03 Blood Culture (Wb) - Left Hand Blood Culture - Preliminary 09/19/24 23:10 Mucosa - Nasopharyngeal Respiratory Panel (PCR) - Final 09/19/24 14:08 Mucosa - Nose SARS-CoV-2, Influenza & RSV (PCR) - Final Diagnostic Data Echocardiogram 09/19/24 20:17 Interpretation Summary The left ventricular ejection fraction is 55 %. Mildly dilated right ventricle. Normal systolic function. Contrast injection was performed. Ordering Physician: Chayito Palacio Referring Physician: Noble Peter Chi Performed By: Lorena Yoo RDCS Chest/Abdomen/Pelvis CT 09/20/24 08:34 IMPRESSION: Left lower lobe density which may represent a mass or pneumonia. Bilateral pleural effusions. Diffusely hypodense liver suggestive of steatosis. Trace ascites. Skin thickening of the anterior abdominal wall. Correlate with physical exam to exclude cellulitis. One or more dose reduction techniques were used (e.g., Automated exposure control, adjustment of the mA and/or kV according to patient size, use of iterative reconstruction technique). Reading Location: [id number] Chest X-Ray 09/20/24 10:55 IMPRESSION: Cardiomegaly with mild congestion. Reading [facility]
[2024-09-20] MEDS: Norepinephrine 8 MG in 0.9% Normal Saline (250mL Bag) 242 ML 46.9 MG CONT INF (16:00)
[2024-09-20] MEDS: Hydrocortisone Sod Succinate 100 MG/2 ML Vial 50 MG IV (18:18)
[2024-09-20] MEDS: Norepinephrine 8 MG in 0.9% Normal Saline (250mL Bag) 242 ML 56.3 MG CONT INF (19:40)
[2024-09-20] MEDS: Senna/Docusate Sodium 1 Tablet 2 TABLET PO (22:15)
[2024-09-20] MEDS: Insulin U-500 UNITS/ML PEN 30 UNITS SC (22:16)
[2024-09-20] MEDS: Insulin Lispro 100 UNIT/ML INSULN.PEN SC (22:16)
[2024-09-20 22:46] LABS: Bedside Glucose 196 mg/dL (74-106)
[2024-09-20 23:09] LABS: Vancomycin, Random Level 13.2 ug/mL (0.0-15.0)
--- NOTE | 2024-09-20 23:19 | PCM.RX.CS ---
Consult Antibiotic Management Pharmacy has been consulted to manage selected antibiotic: Vancomycin Type of Intervention Type of Consult: Follow-up Labs Labs: Sodium 133 mmol/L (136-145) L 09/20/24 07:51 Potassium 5.4 mmol/L (3.5-5.1) H 09/20/24 07:51 Chloride 102 mmol/L (98-107) 09/20/24 07:51 Carbon Dioxide 7.0 mmol/L (21.0-32.0) L* 09/20/24 07:51 Anion Gap 24 (5-15) H 09/20/24 07:51 BUN 37 mg/dL (7-18) H 09/20/24 07:51 Creatinine 2.14 mg/dL (0.70-1.30) H 09/20/24 07:51 Est GFR (MDRD) Af Amer 38 mL/min (>60) L 09/20/24 07:51 Est GFR (MDRD) Non-Af 32 mL/min (>60) L 09/20/24 07:51 BUN/Creatinine Ratio 17.3 RATIO (10-20) 09/20/24 07:51 Glucose 119 mg/dL (74-106) H 09/20/24 07:51 Random Vancomycin 13.2 ug/mL (0.0-15.0) 09/20/24 22:25 Microbiology Microbiology: Microbiology 09/19/24 17:06 Urine, Random Urine Culture - Preliminary Culture exhibits no growth. 09/19/24 15:03 Blood Culture (Wb) - Left Hand Blood Culture - Preliminary 09/19/24 15:03 Blood Culture (Wb) - Left Hand Blood Culture - Preliminary 09/19/24 23:10 Mucosa - Nasopharyngeal Respiratory Panel (PCR) - Final 09/19/24 14:08 Mucosa - Nose SARS-CoV-2, Influenza & RSV (PCR) - Final Dosing Weight Weight used for dosin.7 kg Estimated Creatinine Clearance Estimated Creatinine Clearance: 31 Goal Trough Goal Trough: 15-20 mcg/mL Pharmacy Plan for Drug Dosing Pharmacy Plan for Drug Dosing: Due to decrease in renal function a random vancomycin level was drawn prior to dosing. This was 13.2mcg/ml as a 24hr level. Per dosing calculator a dose of 1000mg q24h should give an estimated trough of 18.9. Will initiate now and draw a trough level prior to third dose. Pharmacy Service will continue to monitor and adjust dosing as required. Follow-Up Labs Follow-Up Labs: Trough: Vancomycin Date/Time Labs Ordered Labs to be done on [date and time ordered]: 09/22/24 @2300
[2024-09-20] MEDS: Vancomycin IV 1,000 MG/200 ML BAG 200 MG IV (23:54)
[2024-09-21] VITALS (42 sets, daily range): BP systolic 76–124; BP diastolic 38–78; PULSE 75–107; RESP 12–26; TEMP 32.7–37.4; O2SAT 91–100; BMI 30.7
[2024-09-21] MEDS: Hydrocortisone Sod Succinate 100 MG/2 ML Vial 50 MG IV ×5 (00:14→23:45)
[2024-09-21] MEDS: Norepinephrine 8 MG in 0.9% Normal Saline (250mL Bag) 242 ML 56.3 MG CONT INF ×6 (00:15→23:41)
[2024-09-21] MEDS: Sodium Bicarbonate 150 MEQ in Dextrose 5%-Water (1000mL Bag) 1,000 ML IV (03:49)
--- NOTE | 2024-09-21 04:09 | PCM.HOSP.N ---
Hospitalist Note Patient extremely agitated, will trial precedex.
[2024-09-21] MEDS: dexMEDEtomidine 400 MCG in 0.9% Normal Saline (100mL Bag) 96 ML 11.2 MCG CONT INF (04:45)
[2024-09-21] MEDS: Piperacil/Tazobactam 3.375 GM in 0.9% Normal Saline (50mL MB+) 50 ML IV ×3 (05:08→22:19)
[2024-09-21 05:29] LABS: ALB/GLOB Ratio 0.6 RATIO (0.9-2.4); AST(SGOT) 15211 U/L (15-37); Alanine Aminotransfer ALT/SGPT 5271 U/L (16-61); Albumin, Serum 1.6 g/dL (3.2-5.0); Alkaline Phosphatase 49 U/L (45-117); Anion Gap 19 (5-15); BUN 52 mg/dL (7-18); BUN/Creat Ratio 20.1 RATIO (10-20); Calcium,Total 6.1 mg/dL (8.5-10.1); Chloride 102 mmol/L (98-107); Creatinine, Serum 2.59 mg/dL (0.70-1.30); EST Glomerular Filtration Rate 25 mL/min (>60); Est Glom Filt Rate - Afr Amer 31 mL/min (>60); Globulin 2.7 g/dL (2.2-4.2); Glucose 287 mg/dL (74-106); Potassium 4.4 mmol/L (3.5-5.1); Protein, Total 4.3 g/dL (6.4-8.2); Sodium Level 136 mmol/L (136-145)
[2024-09-21 05:32] LABS: Absolute Lymphocyte Count 0.25 X10^3/uL (0.83-4.51); Basophil# 0.01 X10^3/uL; Basophil% 2.5 % (0-1); Hematocrit 20.1 % (40-54); Hemoglobin 6.7 g/dL (13.0-16.5); Lymphocyte # 0.25 X10^3/ul (0.83-4.51); Lymphocyte % 62.5 % (19-41); Mean Corp Hgb Conc 33.3 g/dL (32-36); Mean Corpuscular Hgb 32.7 pg (27.0-32.0); Monocyte# 0.07 X10^3/uL; Monocyte% 17.5 % (0-10); Neutrophil # 0.04 X10^3/uL (2.7-7.7); POSITIVE COUNT YES; POSITIVE DIFFERENTIAL YES; POSITIVE MORPHOLOGY YES; RBC Distribution Width SD 72.9 fl (35.1-43.9); Red Blood Count 2.05 M/mm3 (4.6-6.2)
[2024-09-21 05:48] LABS: Differential Indicated SCAN CRITERIA MET; Platelet Count 4 K/mm3 (150-450); White Blood Count 0.4 K/mm3 (4.4-11.0)
[2024-09-21] MEDS: Vasopressin 20 UNITS in 0.9% Normal Saline (50mL Bag) 24 ML 3 UNITS CONT INF ×2 (06:00→14:20)
--- NOTE | 2024-09-21 06:44 | PCM.HOSP.N ---
Hospitalist Note Plts emergent level 4, per note from oncology recommended transfusion if < 10,000, will order plts and repeat CBC.
[2024-09-21] MEDS: Albuterol 2.5 MG/3 ML VIAL.NEB. INHALATION ×2 (07:16→13:45)
[2024-09-21] MEDS: Budesonide Respules 0.5 MG/2 ML AMPUL.NEB. INHALATION ×2 (07:16→19:23)
--- NOTE | 2024-09-21 07:44 | PN.CC_ITS ---
Assessment & Plan Assessment/Plan (1) Septic shock: PLAN: Plan RECOMMENDATIONS: 1. Proceed with intubation. 2. Obtain sputum for culture and follow-up ABG in 1 hour. 3. Continue vasopressor support as tolerated. 4. Continue stress dose steroids. 5. Transfuse blood products and platelets as ordered. Check CBC posttransfusion. 6. Continue appropriate GI prophylaxis. 7. Continue empiric antimicrobials. 8. Obtain liver ultrasound. IMPRESSIONS: 1. Gram-negative septic shock The patient was initially admitted with generalized weakness and hypotension, which was ultimately fluid refractory. Subsequent blood cultures were found to be positive for gram-negative rods. CT imaging of the chest/abdomen and pelvis demonstrated a possible left lower lobe pneumonia, which could represent the source for the bacteremia. The patient will be continued on empiric antibiotics, pending further infectious workup. In light of the refractory septic shock, we will continue stress dose steroids. Continue vasopressor support in an attempt to maintain hemodynamic stability. 2. Acute respiratory failure with hypoxemia and hypercapnia Most likely secondary to underlying pneumonia and inability to compensate for underlying metabolic derangements. Therefore, the patient was intubated on the morning of September 21. Plan to continue assist-control mode of mechanical ventilation. FiO2 and PEEP will be weaned as tolerated. 3. Pancytopenia Related to underlying myelodysplastic syndrome. Continue to monitor hemoglobin and transfuse to maintain a level of 7.0 or greater. Hematology/oncology is currently following. Continue PPI therapy. Attempt to transfuse platelets to maintain a baseline count of 10,000 or greater. 4. Acute kidney injury with significant anion gap metabolic acidosis Most likely related to presenting septic shock. Nephrology is currently following to assist with medical management. Continue sodium bicarbonate infusion. 5. Ischemic hepatitis The patient's transaminases have increased this morning, which could be secondary to shock liver in the setting of persistent hypotension. Continue current supportive care. INR is elevated. Will check liver ultrasound. 6. History of atrial fibrillation with RVR/obstructive sleep apnea/asthma/diabetes mellitus/GERD/hypogammaglobulinemia Complicates care, management, recovery and prognosis. Continue home medications as indicated. TIME: 35 minutes of critical care time, independent of procedures, was spent addressing the patient's gram-negative septic shock, acute respiratory failure, pancytopenia, acute kidney injury, ischemic hepatitis, review of all data and collaboration with the care team. Subjective Subjective The patient was seen and examined at the bedside this morning. Events from the last 24 hours have been reviewed. The patient is currently afebrile but is still requiring high-dose vasopressor support to maintain hemodynamic stability. The patient is quite lethargic this morning. He is currently documented to be overall net +11.6 L for the hospitalization. The patient remains pancytopenic with a hemoglobin of 6.7 g/dL and platelet count of 4000 this morning. He is currently scheduled to be transfused packed red blood cells and platelets, when available. INR has increased to 3.5. Given the patient's lethargy, an ABG was obtained this morning which demonstrated a pH of 7.1, pCO2 of 60 and pO2 of 59. Chemistry profile was notable for a bicarbonate of 15, anion gap of 19, BUN of 52 and creatinine of 2.59. Total bilirubin is increased to 3.5 with increasing AST and ALT to 15,211 and 5271, respectively. In light of the patient's underlying metabolic derangements, including his metabolic acidosis related to his kidney failure and worsening respiratory failure, as manifested by CO2 retention, the decision was made to proceed with intubation, following a discussion with the patient's daughter. Objective Data Objective Data The patient's most recent lab work, culture data and imaging studies have all been personally reviewed. Surface echocardiogram demonstrated normal LV size and function with an ejection fraction of 55%. Blood cultures were positive for gram-negative rods. Vital Signs: Vital Signs Temp Pulse Resp BP Pulse Ox O2 Del Method O2 Flow Rate 97.7 F L 85 20 H 113/69 96 Nasal Cannula 4 09/20/24 06:00 09/21/24 07:00 09/21/24 07:00 09/21/24 07:00 09/21/24 07:00 09/21/24 07:00 09/21/24 07:00 Oxygen Flow Rate (L/min) 4 Oxygen Delivery Method Nasal Cannula Weight: 214 lb 4.629 oz Body Mass Index (BMI) 30.7 Intake & Output: Intake and Output for Last 24 Hours 09/19/24 09/20/24 09/21/24 23:59 23:59 23:59 Intake Total 1314.00 / 1629.00 8604.77 / 8674.07 1866.21 / 1866.21 Output Total 325 / 325 Balance 1314.00 / 1479.00 8279.77 / 8349.07 1866. / 1866.21 Lab / Micro Data Attestation: I reviewed the patient's lab results. 09/21/24 04:16 09/21/24 04:16 Labs: Laboratory Results - last 24 hr 09/19/24 14:17: Diff Path Review Reviewed 09/20/24 06:25: POC Glucose 140 H 09/20/24 07:45: WBC PUBLIC SAFETY OFFICER, Corrected WBC 0.5 L*, RBC 2.30 L, Hgb 7.3 L, Hct 22.6 L, MCV 98.3 H, MCH 31.7, MCHC 32.3 D, RDW Std Deviation 66.9 H, RDW Coeff of Misa 21.2 H, Plt Count 17 L*, Neut % (Auto) Not Reportable, Absolute Neuts (auto) 0.1 L, Absolute Lymphs (auto) 0.42 L, Total Counted 100, Neutrophils % (Manual) 9 L, Band Neutrophils % 1, Lymphocytes % (Manual) 83 H*, Monocytes % (Manual) 4, Eosinophils % (Manual) 3, Nucleated RBCs/100 WBC 11 H, Diff Path Review May foll, Platelet Estimate MKD DEC, Polychromasia 1+, Anisocytosis 2+, Macrocytosis 1+, Tear Drop Cells RARE, Crenated Cell 1+ 09/20/24 07:51: PT 30.2 H, INR 2.8, Sodium 133 L, Potassium 5.4 H, Chloride 102, Carbon Dioxide 7.0 L*, Anion Gap 24 H, BUN 37 H, Creatinine 2.14 H, Estim Creat Clear Calc 31.03, Est GFR (MDRD) Af Amer 38 L, Est GFR (MDRD) Non-Af 32 L, BUN/Creatinine Ratio 17.3, Glucose 119 H, Lactic Acid 14.7 H*, Calcium 7.5 L, T otal Bilirubin 2.50 H, AST 1534 H, ALT 876 H, Alkaline Phosphatase 44 L, Total Protein 5.3 L, Albumin 1.8 L, Globulin 3.5, Albumin/Globulin Ratio 0.5 L, P rocalcitonin 3.68 H, TSH 1.540 09/20/24 11:37: POC Glucose 80 09/20/24 12:45: Lactic Acid 12.6 H* 09/20/24 15:07: POC Glucose 128 H 09/20/24 22:14: POC Glucose 196 H 09/20/24 22:25: Random Vancomycin 13.2 09/21/24 04:16: WBC 0.4 L*, RBC 2.05 L, Hgb 6.7 L, Hct 20.1 L, MCV 98.0 H, MCH 32.7 H, MCHC 33.3, RDW Std Deviation 72.9 H, RDW Coeff of Misa 22.0 H, Plt Count 4 L*, MPV TNP, Immature Gran % (Auto) 7.500 H, Neut % (Auto) 10.0 L, Lymph % (Auto) 62.5 H, [place] % (Auto) 17.5 H, Eos % (Auto) 0.0, Baso % (Auto) 2.5 H, A bsolute Neuts (auto) 0.0 L, Absolute Lymphs (auto) 0.25 L, Nucleated RBC % 15.0 H, Diff Path Review December, Sodium 136, Potassium 4.4, Chloride 102, Carbon Dioxide 15.0 L, Anion Gap 19 H, BUN 52 H, Creatinine 2.59 H, Estim Creat Clear Calc 26.60, Est GFR (MDRD) Af Amer 31 L, Est GFR (MDRD) Non-Af 25 L, B UN/Creatinine Ratio 20.1 H, Glucose 287 H, Calcium 6.1 L*, Total Bilirubin 3.50 H, AST 94612 H, ALT 5271 H, Alkaline Phosphatase 49, Total Protein 4.3 L, A lbumin 1.6 L, Globulin 2.7, Albumin/Globulin Ratio 0.6 L Micro: Microbiology 09/19/24 17:06 Urine, Random Urine Culture - Preliminary Culture exhibits no growth. 09/19/24 15:03 Blood Culture (Wb) - Left Hand Blood Culture - Preliminary 09/19/24 15:03 Blood Culture (Wb) - Left Hand Blood Culture - Preliminary 09/19/24 23:10 Mucosa - Nasopharyngeal Respiratory Panel (PCR) - Final 09/19/24 14:08 Mucosa - Nose SARS-CoV-2, Influenza & RSV (PCR) - Final ABG Data ABG results: ABG 09/20/24 06:50 Specimen Type Cancelled Sample Site Cancelled pH Cancelled Bicarbonate Actual Cancelled Total CO2 Cancelled Base Excess Cancelled O2 Saturation Cancelled O2 % Cancelled ABG pCO2 Cancelled ABG pO2 Cancelled Rommel Test Cancelled Respiration Rate Cancelled O2 Delivery Device Cancelled Liter Flow Cancelled Minute Volume Cancelled Vent Mode Cancelled Inspiratory Time Cancelled Expiratory Time Cancelled Tidal Volume Cancelled Mean Airway Pressure Cancelled POC PEEP Cancelled Peak Inspir Pressure Cancelled POC Pressure Suppt Cancelled Pressure Control Cancelled Pressure High Cancelled Pressure Low Cancelled Time High Cancelled Time Low Cancelled EPAP Cancelled IPAP Cancelled Blood Gas Comments Cancelled Crit Call To/Read Back Cancelled Blood Gas Notified Whom Cancelled Blood Gas Notified Time Cancelled Clinical Comments Cancelled Radiography Diagnostic Testing: Radiology Impression Echocardiogram 09/19/24 20:17 Interpretation Summary The left ventricular ejection fraction is 55 %. Mildly dilated right ventricle. Normal systolic function. Contrast injection was performed. Ordering Physician: Chayito Palacio Referring Physician: Noble Peter Chi Performed By: Lorena Yoo RDCS Chest/Abdomen/Pelvis CT 09/20/24 08:34 IMPRESSION: Left lower lobe density which may represent a mass or pneumonia. Bilateral pleural effusions. Diffusely hypodense liver suggestive of steatosis. Trace ascites. Skin thickening of the anterior abdominal wall. Correlate with physical exam to exclude cellulitis. One or more dose reduction techniques were used (e.g., Automated exposure control, adjustment of the mA and/or kV according to patient size, use of iterative reconstruction technique). Reading Location: [id number] Chest X-Ray 09/20/24 10:55 IMPRESSION: Cardiomegaly with mild congestion. Reading Location: [facility] Rhythm Strip Rhythm Strip: A-fib Rate: 130 Ectopy: None Physical Exam Const General Appearance: in distress, lethargic and ill appearing HEENT normocephalic and head/scalp atraumatic HEENT Narrative: Dry mucous membranes. Eyes PERRL, EOMs intact bilaterally and conjunctivae normal Neck supple General: trachea midline Chest inspection of chest normal Resp Effort and Inspection: tachypneic and labored Auscultation: rhonchi and diminished lung sounds Cardio S1 normal heart sound and S2 normal heart sound Rhythm: abnormal rhythm GI normal to inspection, nondistended, normoactive bowel sounds Extremity General Extremity: edema; Negative for clubbing Skin no rashes or lesions noted Neuro Neuro Narrative: The patient is quite lethargic and minimally responsive. Psych Mood & Affect: flat affect Charges/Coding Procedures Hospitalists Procedures: [id number] Critical Care 1st Hr
--- NOTE | 2024-09-21 09:05 | CPS ---
critical value on ABG. dr jones notified of the value
[2024-09-21 09:10] LABS: Allen Test Positive; Base Excess -11 mmol/L (-2 to +2); Bicarbonate 18.8 mmol/L (22-26); Blood Gas Specimen Type ART; Mode Not entered; O2 Delivery Device Cannula; PO2 59 mmHG (75-100); SITE R Brach; SO2 79 % (95-99); Total Carbon Dioxide 21 mmol/L
[2024-09-21 09:23] LABS: International Normalized Ratio 3.5; Prothrombin Time (Protime)PT. 36.2 SECONDS (11.7-14.9)
--- NOTE | 2024-09-21 09:28 | PCM.PN.HOSP ---
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 (09/19/24) Other pancytopenia (09/19/24) Other disorders of plasma-protein metabolism, not elsewhere classified (09/19/24) Unspecified atrial fibrillation (09/19/24) Acute kidney failure, unspecified (09/19/24) Severe sepsis with septic shock (09/19/24) Objective Data Objective Data Vital Signs: Vital Signs Temp Pulse Resp BP Pulse Ox O2 Del Method O2 Flow Rate 97.7 F L 83 22 H 113/69 94 Nasal Cannula 4 09/20/24 06:00 09/21/24 09:15 09/21/24 09:15 09/21/24 07:00 09/21/24 09:15 09/21/24 07:18 09/21/24 07:18 FiO2 50 09/21/24 09:15 Oxygen Flow Rate (L/min) 4 Oxygen Delivery Method Nasal Cannula Weight: 214 lb 4.629 oz Body Mass Index (BMI) 30.7 Intake & Output: Intake and Output for Last 24 Hours 09/19/24 09/20/24 09/21/24 23:59 23:59 23:59 Intake Total 1314.00 / 1629.00 8604.77 / 8674.07 1871.81 / 1871.81 Output Total 325 / 325 Balance 1314.00 / 1479.00 8279.77 / 8349.07 1871.81 / 1871.81 Lab / Micro Data 09/21/24 04:16 09/21/24 04:16 Labs: Laboratory Results - last 24 hr 09/19/24 14:17: Diff Path Review Reviewed 09/20/24 07:45: 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, Corrected WBC 0.5 L*, Absolute Neuts (auto) 0.1 L, Absolute Lymphs (auto) 0.42 L, Total Counted 100, Neutrophils % (Manual) 9 L, Band Neutrophils % 1, Lymphocytes % (Manual) 83 H*, Monocytes % (Manual) 4, Eosinophils % (Manual) 3, Nucleated RBCs/100 WBC 11 H, Diff Path Review May foll, Platelet Estimate MKD DEC, Polychromasia 1+, Anisocytosis 2+, Macrocytosis 1+, Tear Drop Cells RARE, Crenated Cell 1+ 09/20/24 07:51: Procalcitonin 3.68 H 09/20/24 11:37: POC Glucose 80 09/20/24 12:45: Lactic Acid 12.6 H* 09/20/24 15:07: POC Glucose 128 H 09/20/24 22:14: POC Glucose 196 H 09/20/24 22:25: Random Vancomycin 13.2 09/21/24 04:16: WBC 0.4 L*, RBC 2.05 L, Hgb 6.7 L, Hct 20.1 L, MCV 98.0 H, MCH 32.7 H, MCHC 33.3, RDW Std Deviation 72.9 H, RDW Coeff of Misa 22.0 H, Plt Count 4 L*, MPV TNP, Immature Gran % (Auto) 7.500 H, Neut % (Auto) 10.0 L, Lymph % (Auto) 62.5 H, [place] % (Auto) 17.5 H, Eos % (Auto) 0.0, Baso % (Auto) 2.5 H, Absolute Neuts (auto) 0.0 L, Absolute Lymphs (auto) 0.25 L, Nucleated RBC % 15.0 H, Diff Path Review December, Sodium 136, Potassium 4.4, Chloride 102, Carbon Dioxide 15.0 L, Anion Gap 19 H, BUN 52 H, Creatinine 2.59 H, Estim Creat Clear Calc 26.60, Est GFR (MDRD) Af Amer 31 L, Est GFR (MDRD) Non-Af 25 L, BUN/Creatinine Ratio 20.1 H, Glucose 287 H, Calcium 6.1 L*, Total Bilirubin 3.50 H, AST 04879 H, ALT 5271 H, Alkaline Phosphatase 49, Total Protein 4.3 L, Albumin 1.6 L, Globulin 2.7, Albumin/Globulin Ratio 0.6 L 09/21/24 09:05: PT 36.2 H, INR 3.5 Micro: Microbiology 09/19/24 15:03 Blood Culture (Wb) - Left Hand Blood Culture - Preliminary Gram negative timothy 09/19/24 15:03 Blood Culture (Wb) - Left Hand Blood Culture - Preliminary Gram negative timothy 09/19/24 17:06 Urine, Random Urine Culture - Preliminary Culture exhibits no growth. 09/19/24 23:10 Mucosa - Nasopharyngeal Respiratory Panel (PCR) - Final 09/19/24 14:08 Mucosa - Nose SARS-CoV-2, Influenza & RSV (PCR) - Final ABG Data ABG results: ABG 09/20/24 09/21/24 06:50 09:05 Specimen Type Cancelled ART Sample Site Cancelled R Brach pH Cancelled 7.10 L* Bicarbonate Actual Cancelled 18.8 L Total CO2 Cancelled 21 Base Excess Cancelled -11 L O2 Saturation Cancelled 79 L O2 % Cancelled 5.0 ABG pCO2 Cancelled 60.0 H ABG pO2 Cancelled 59 L Rommel Test Cancelled Positive Respiration Rate Cancelled O2 Delivery Device Cancelled Cannula Liter Flow Cancelled Minute Volume Cancelled Vent Mode Cancelled Not entered Inspiratory Time Cancelled Expiratory Time Cancelled Tidal Volume Cancelled Mean Airway Pressure Cancelled POC PEEP Cancelled Peak Inspir Pressure Cancelled POC Pressure Suppt Cancelled Pressure Control Cancelled Pressure High Cancelled Pressure Low Cancelled Time High Cancelled Time Low Cancelled EPAP Cancelled IPAP Cancelled Blood Gas Comments Cancelled Crit Call To/Read Back Cancelled Yes Blood Gas Notified Whom Cancelled Blood Gas Notified Time Cancelled Clinical Comments Cancelled Radiography Diagnostic Testing: Radiology Impression Echocardiogram 09/19/24 20:17 Interpretation Summary The left ventricular ejection fraction is 55 %. Mildly dilated right ventricle. Normal systolic function. Contrast injection was performed. Ordering Physician: Chayito Palacio Referring Physician: Noble Peter Chi Performed By: Lorena Yoo RDCS Chest/Abdomen/Pelvis CT 09/20/24 08:34 IMPRESSION: Left lower lobe density which may represent a mass or pneumonia. Bilateral pleural effusions. Diffusely hypodense liver suggestive of steatosis. Trace ascites. Skin thickening of the anterior abdominal wall. Correlate with physical exam to exclude cellulitis. One or more dose reduction techniques were used (e.g., Automated exposure control, adjustment of the mA and/or kV according to patient size, use of iterative reconstruction technique). Reading Location: [facility] Chest X-Ray 09/20/24 10:55 IMPRESSION: Cardiomegaly with mild congestion. Reading Location: [facility] Rhythm Strip Rhythm Strip: A-fib Rate: 130 Ectopy: None Physical Exam Narrative Seen and examined. Overnight issues noted. Did not show any improvement in mentation still lethargic. On max Levophed and vasopressor. Physical exam General: Lethargic, short of breath, awake. Incomprehensible words HEENT: Atraumatic, PERRLA, EOMI, Normocephalic Oral: Oral mucosa dry. No Gingival or Mucosal Lesions/ Ulcerations Neck: Supple, No JVD, Negative Carotid Bruits Chest wall/Lungs: Air entry diminished in bilateral lung bases. Tachypneic, lungs clear Cardiovascular: Irregular rhythm, Normal S1, Normal S2, No M/G/R Abdomen: Bowel Sounds Present, Soft, Non Tender, Non-Distended : No dysuria. No renal angle tenderness. No suprapubic tenderness. Extremities: 2+ pitting lower extreme edema, Capillary Refill Less than 3 Seconds Skin: No rashes, No breakdown Musculoskeletal: ROM restricted, generalized weakness of lower extremity Neurological: Lethargic DTR 2/4. Mumbles few words. Detailed neuroexam unobtainable Psych/Mental Status: Flat Assessment & Plan Assessment/Plan (1) Atrial fibrillation with rapid ventricular response: PLAN: Plan This 79-year-old gentleman was brought to ED from Dr. Pittman's office for pancytopenia, low BP, hypokalemia complicated with several falls, about 5 times over the last several weeks at home. Patient has history of myelodysplastic syndrome. Denies any head injury. No headache. In the ED found to have A-fib with RVR, 130s to 140s per minute, BP 78/53 x 2 in ED 1. Septic shock secondary to gram-negative bacteremia: Patient is hypotension, on IV Cardizem drip: Overnight patient was transferred to ICU with persistent systolic in 70s. Patient initiated on norepinephrine drip. Vasc Tech consulted. PICC line ordered. Communicated to the patient's daughter wants to pursue full code. 2/: Hypotension pursues, maxed on 2 vasopressors. Prelim blood cultures x 2 shows gram-negative timothy. Urine culture shows no growth. Patient on IV Zosyn and vancomycin. ID consult requested 2. Dyspnea, decreased ventilatory drive and hypoxia: Chest x-ray was done shows small pleural effusion on left CP angle. Cardiac enlargement but no hilar masses, consolidation or congestion. ABG shows 7.32, 10.4/148/6 on 6 L of oxygen. Adequate ABG could not be calculated as patient does not have corresponding BMP which is still pending. But overall seems patient has severe nonunited metabolic acidosis and respiratory alkalosis. Lactic acidosis suggestive of hypoperfusion and metabolic acidosis 09/21: Maintaining his airway. On 4 L of oxygen 3. A-fib RVR: Patient was started on Cardizem therapy which resulted into hypotension therefore discontinued. Currently BP 85/50. Heart rate 64. On Levophed drip. TSH is ordered. Not candidate for anticoagulation 2: Heart rate is controlled. TSH normal 1.54. Procalcitonin # Hypokalemia: Potassium was 2.7 yesterday. Was replaced with IV and oral potassium. Repeat BMP pending # MARIO ALBERTO -Patient with baseline creatinine around 1 and earlier today was found to be 1.55 and he has an elevated BUN. Creatinine improved to 1.12 yesterday -Continue IV fluids # Pancytopenia and MDS -white blood cell count of 0.4, hemoglobin 6.3, and platelet count of 24 which are similar to previous -Patient does note a transfusion threshold of 7 for his hemoglobin and therefore will receive 1 unit packed red blood cells -Repeat CBC pending -Additionally PTT elevated but unclear significance or if this is accurate, will repeat PTT -Hold lenalidomide 2/5: Blood counts further worsened. Platelet count 4K, WBC 0.4K, H&H 6.7/20%. Platelet a pheresis of PRBC transfusion ordered. Patient was seen by video editing intern yesterday. Has myelodysplastic syndrome with 5 q. deletion. Plasma cell dyscrasia. # Elevated liver function tests with elevated transaminases, low ALP. Monitor liver chemistry -Patient has no abdominal or focal complaints that would lead to any suspicion for any intra-abdominal pathology at this time #DEYANIRA -Per documentation patient noncompliant with CPAP #Hx asthma -Continue home inhalers #Type 2 diabetes mellitus -Accu-Chek before meals and at bedtime with Humalog sliding scale coverage and hypoglycemia protocol. #Chronic BPH with obstruction -Continue home medications #GERD -Continue PPI #DVT ppx: SCDs Living will/advanced directive/end of life care: Patient does not have living will or advanced directive. Patient did not want to make any decision regarding his CODE STATUS and he asked me to talk to her daughter I talked to patient's daughter Mrs. Gio Reich. After discussion of benefits/risks procedures involved with full code, DNR CC arrest and DNR CC, her daughter said that patient wants artificial life support including intubation, tube feed, ventilator and/chest compression, central venous catheter, vasopressor and DC shock if needed. I explained the risk of hematoma, cardiac/pulmonary contusion with severe thrombocytopenia and anemia Total time spent in [id number] encounter in discussion of advanced directive 17 minutes. Microbiology Past 72 Hours 09/19/24 15:03 Blood Culture (Wb) - Left Hand Blood Culture - Preliminary Gram negative timothy 09/19/24 15:03 Blood Culture (Wb) - Left Hand Blood Culture - Preliminary Gram negative timothy 09/19/24 17:06 Urine, Random Urine Culture - Preliminary Culture exhibits no growth. 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, Corrected WBC 0.5 L*, Absolute Neuts (auto) 0.1 L, Absolute Lymphs (auto) 0.42 L, Total Counted 100, Neutrophils % (Manual) 9 L, Band Neutrophils % 1, Lymphocytes % (Manual) 83 H*, Monocytes % (Manual) 4, Eosinophils % (Manual) 3, Nucleated RBCs/100 WBC 11 H, Diff Path Review December, Platelet Estimate MKD DEC, Polychromasia 1+, Anisocytosis 2+, Macrocytosis 1+, Tear Drop Cells RARE, Crenated Cell 1+ 09/20/24 07:51: Procalcitonin 3.68 H 09/20/24 11:37: POC Glucose 80 09/20/24 12:45: Lactic Acid 12.6 H* 09/20/24 15:07: POC Glucose 128 H 09/20/24 22:14: POC Glucose 196 H 09/20/24 22:25: Random Vancomycin 13.2 09/21/24 04:16: WBC 0.4 L*, RBC 2.05 L, Hgb 6.7 L, Hct 20.1 L, MCV 98.0 H, MCH 32.7 H, MCHC 33.3, RDW Std Deviation 72.9 H, RDW Coeff of Misa 22.0 H, Plt Count 4 L*, MPV TNP, Immature Gran % (Auto) 7.500 H, Neut % (Auto) 10.0 L, Lymph % (Auto) 62.5 H, [place] % (Auto) 17.5 H, Eos % (Auto) 0.0, Baso % (Auto) 2.5 H, Absolute Neuts (auto) 0.0 L, Absolute Lymphs (auto) 0.25 L, Nucleated RBC % 15.0 H, Diff Path Review December, Sodium 136, Potassium 4.4, Chloride 102, Carbon Dioxide 15.0 L, Anion Gap 19 H, BUN 52 H, Creatinine 2.59 H, Estim Creat Clear Calc 26.60, Est GFR (MDRD) Af Amer 31 L, Est GFR (MDRD) Non-Af 25 L, BUN/Creatinine Ratio 20.1 H, Glucose 287 H, Calcium 6.1 L*, Total Bilirubin 3.50 H, AST 30993 H, ALT 5271 H, Alkaline Phosphatase 49, Total Protein 4.3 L, Albumin 1.6 L, Globulin 2.7, Albumin/Globulin Ratio 0.6 L 09/21/24 09:05: PT 36.2 H, INR 3.5, Specimen Type ART, Sample Site R Brach, pH 7.10 L*, Bicarbonate Actual 18.8 L, Total CO2 21, Base Excess -11 L, O2 Saturation 79 L, O2 % 5.0, ABG pCO2 60.0 H, ABG pO2 59 L, Rommel Test Positive, O2 Delivery Device Cannula, Vent Mode Not entered, Crit Call To/Read Back Yes Clinical Impression(s) from Imaging Studies Chest X-Ray 09/19/24 14:30 IMPRESSION: No acute abnormality is seen. Chest X-Ray 09/20/24 06:04 IMPRESSION: Pleural fluid has developed at the left lung base. Cardiac enlargement. Reading Location: [facility] Charges/Coding Visit Charges Inpatient E&M: 84125 Subs Hosp L3
--- NOTE | 2024-09-21 09:45 | CASEMGMT ---
Social Work Per pt conversation with RNCM, Pt would want dgt Nelda Bender who is a physician made HCPOA. Pt was unable to complete this paperwork yesterday due to medical complexities. Pt is and has 3 daughters. Vidal Christine, Maxwell Reich and Nelda Bender who will be pt decision makers. Nelda Bender ([phone]) lives in [facility]. RN provided with this information. EDUARDA Jo
[2024-09-21] MEDS: Midazolam 2 MG/2 ML Syringe IV (09:50)
[2024-09-21] MEDS: Etomidate 20 MG/10 ML Vial IV (09:50)
[2024-09-21] MEDS: fentaNYL drip 100 ML 5 MCG CONT INF (09:55)
[2024-09-21] MEDS: Propofol 10MG/Ml 1,000 MG/100 ML Bottle 5.8 MG CONT INF (09:55)
--- NOTE | 2024-09-21 10:43 | RAD_ITS ---
PROCEDURE: CHEST 1 VIEW (PORTABLE) REASON FOR EXAM: Endotracheal tube placement. Orogastric tube placement. TECHNIQUE: Frontal view of the chest. COMPARISON: Yesterday Comparison is made with prior study dated September 20, 2024. FINDINGS: The endotracheal tube is at 3.7 cm proximal to the zachariah. A left-sided PICC line is been inserted with the tip at the junction of the superior vena cava and right atrium. Nasogastric tube is seen with the tip in the body of the stomach. EKG electrodes are seen. Heart size is mildly enlarged. Findings suggestive of a small left pleural effusion with left basilar infiltration and/or atelectasis. Mild degree of increased markings at the right base. Mild vascular congestion. Degenerative changes are identified within the thoracic spine. RAD/Chest 1 View (Portable) IMPRESSION: Good position of the endotracheal tube, left-sided PICC line catheter in the or ogastric tube. Progressive bibasilar atelectasis and/or infiltrate worse at the left lung base with small left pleural effusion. Reading Location: [place] [id number]
[2024-09-21 11:06] LABS: Bedside Glucose 320 mg/dL (74-106)
[2024-09-21 11:10] LABS: Allen Test Positive; Base Excess -12 mmol/L (-2 to +2); Bicarbonate 14.8 mmol/L (22-26); Blood Gas Specimen Type ART; Mode AC; O2 Delivery Device Adult Vent; PEEP 5; PO2 86 mmHG (75-100); RR 16; SITE R Radial; SO2 96 % (95-99); Total Carbon Dioxide 16 mmol/L; pCO2 30.2 mmHg (35-45)
[2024-09-21] MEDS: Lactated Ringers 1,000 ML 125 ML IV ×2 (12:00→18:55)
[2024-09-21] MEDS: Dorzolamide HCL/Timolol 10 ml Bottle 1 DRP OPHTHALMIC ×2 (12:05→22:20)
[2024-09-21] MEDS: Loratadine 10 MG Tablet PO (12:05)
[2024-09-21] MEDS: Insulin Lispro 100 UNIT/ML INSULN.PEN SC ×2 (12:06→17:12)
[2024-09-21] MEDS: Finasteride 5 MG Tablet PO (12:06)
--- NOTE | 2024-09-21 12:24 | US_ITS ---
PROCEDURE: LIVER REASON FOR EXAM: Transaminitis status post cholecystectomy. COMPARISON: None FINDINGS: Liver: Diffusely increased echogenicity. Measures 18.9 cm. Gallbladder: Surgically absent. Common bile duct: Normal measuring measures 5 mm.. Pancreas: Visualized portions are sonographically unremarkable. Visualized portions of the right kidney are unremarkable. The right kidney measures 11.8 cm. Small volume right upper quadrant ascites. US/Liver IMPRESSION: Hepatomegaly and hepatic steatosis. Small volume ascites. Reading Location: [id number]
--- NOTE | 2024-09-21 12:33 | PCM.OP.PRO2 ---
Procedures Hospitalists Procedures: 54519 Insert Emergency Airway Non-invasive Procedural Procedure Information Date of Procedure: 09/21/24 Description of procedure: Intubation Indication: Respiratory failure Consent was obtained from: Patient's daughter The patient was placed in the appropriate sniffing position. Preoxygenated sedation via [id number] was provided for a minimum of 3 minutes. The patient had continuous cardiac as well as pulse oximetry monitoring during the procedure. Procedure sedation was provided by the administration of 2 mg of Versed and 20 mg of etomidate. Direct laryngoscopy was then performed using a number 4 MAC blade, which revealed a grade 1 view. A 7.5 mm endotracheal tube was visualized advancing between the cords to the level of 25 cm at the lip. The stylette was then removed and discarded. Tube placement was confirmed by fogging in the tube along with equal and bilateral breath sounds. Colorimetric change was visualized on the CO2 meter. The cuff was then inflated and the tube secured using a commercially available device. A good pulse oximetry waveform was seen on the monitor throughout the procedure. A portable chest x-ray has been ordered to confirm appropriate placement. The patient tolerated the procedure well.
--- NOTE | 2024-09-21 12:56 | PN.RENAL_ITS ---
Subjective Subjective events noted. essentially anuric. acidosis somewhat better intubated this am Objective Data Objective Data Vital Signs: Vital Signs Temp Pulse Resp BP Pulse Ox O2 Del Method O2 Flow Rate 97.7 F L 89 16 113/69 97 Nasal Cannula 4 09/20/24 06:00 09/21/24 11:55 09/21/24 11:55 09/21/24 07:00 09/21/24 11:55 09/21/24 07:18 09/21/24 07:18 FiO2 40 09/21/24 11:55 Oxygen Flow Rate (L/min) 4 Oxygen Delivery Method Nasal Cannula Weight: 89.7 kg Body Mass Index (BMI) 30.7 Intake & Output: Intake and Output for Last 24 Hours 09/19/24 09/20/24 09/21/24 23:59 23:59 23:59 Intake Total 1314.00 / 1629.00 8604.77 / 8674.07 3195.13 / 3195.13 Output Total 325 / 325 Balance 1314.00 / 1479.00 8279.77 / 8349.07 3195.13 / 3195.13 Lab / Micro Data 09/21/24 04:16 09/21/24 04:16 Labs: Laboratory Results - last 24 hr 09/19/24 14:17: Diff Path Review Reviewed, Crossmatch See Detail 09/20/24 12:45: Lactic Acid 12.6 H* 09/20/24 15:07: POC Glucose 128 H 09/20/24 22:14: POC Glucose 196 H 09/20/24 22:25: Random Vancomycin 13.2 09/21/24 04:16: WBC 0.4 L*, RBC 2.05 L, Hgb 6.7 L, Hct 20.1 L, MCV 98.0 H, MCH 32.7 H, MCHC 33.3, RDW Std Deviation 72.9 H, RDW Coeff of Misa 22.0 H, Plt Count 4 L*, MPV TNP, Immature Gran % (Auto) 7.500 H, Neut % (Auto) 10.0 L, Lymph % (Auto) 62.5 H, [place] % (Auto) 17.5 H, Eos % (Auto) 0.0, Baso % (Auto) 2.5 H, A bsolute Neuts (auto) 0.0 L, Absolute Lymphs (auto) 0.25 L, Nucleated RBC % 15.0 H, Diff Path Review December, Sodium 136, Potassium 4.4, Chloride 102, Carbon Dioxide 15.0 L, Anion Gap 19 H, BUN 52 H, Creatinine 2.59 H, Estim Creat Clear Calc 26.60, Est GFR (MDRD) Af Amer 31 L, Est GFR (MDRD) Non-Af 25 L, B UN/Creatinine Ratio 20.1 H, Glucose 287 H, Calcium 6.1 L*, Total Bilirubin 3.50 H, AST 07223 H, ALT 5271 H, Alkaline Phosphatase 49, Total Protein 4.3 L, A lbumin 1.6 L, Globulin 2.7, Albumin/Globulin Ratio 0.6 L 09/21/24 09:05: PT 36.2 H, INR 3.5 09/21/24 10:48: POC Glucose 320 H Micro: Microbiology 09/19/24 15:03 Blood Culture (Wb) - Left Hand Blood Culture - Preliminary Gram negative timothy 09/19/24 15:03 Blood Culture (Wb) - Left Hand Blood Culture - Preliminary Gram negative timothy 09/19/24 17:06 Urine, Random Urine Culture - Preliminary Culture exhibits no growth. 09/19/24 23:10 Mucosa - Nasopharyngeal Respiratory Panel (PCR) - Final 09/19/24 14:08 Mucosa - Nose SARS-CoV-2, Influenza & RSV (PCR) - Final ABG Data ABG results: ABG 09/21/24 09/21/24 09:05 11:07 Specimen Type ART ART Sample Site R Brach R Radial pH 7.10 L* 7.30 L Bicarbonate Actual 18.8 L 14.8 L Total CO2 21 16 Base Excess -11 L -12 L O2 Saturation 79 L 96 O2 % 5.0 35.0 ABG pCO2 60.0 H 30.2 L ABG pO2 59 L 86 Rommel Test Positive Positive Respiration Rate 16 O2 Delivery Device Cannula Adult Vent Vent Mode Not entered AC Tidal Volume 500.0 POC PEEP 5 Crit Call To/Read Back Yes Radiography Diagnostic Testing: Radiology Impression Echocardiogram 09/19/24 20:17 Interpretation Summary The left ventricular ejection fraction is 55 %. Mildly dilated right ventricle. Normal systolic function. Contrast injection was performed. Ordering Physician: Chayito Palacio Referring Physician: Noble Peter Chi Performed By: Lorena Yoo RDCS Chest/Abdomen/Pelvis CT 09/20/24 08:34 IMPRESSION: Left lower lobe density which may represent a mass or pneumonia. Bilateral pleural effusions. Diffusely hypodense liver suggestive of steatosis. Trace ascites. Skin thickening of the anterior abdominal wall. Correlate with physical exam to exclude cellulitis. One or more dose reduction techniques were used (e.g., Automated exposure control, adjustment of the mA and/or kV according to patient size, use of iterative reconstruction technique). Reading Location: [id number] Chest X-Ray 09/20/24 10:55 IMPRESSION: Cardiomegaly with mild congestion. Reading [facility] Chest X-Ray 09/21/24 10:43 IMPRESSION: Good position of the endotracheal tube, left-sided PICC line catheter in the orogastric tube. Progressive bibasilar atelectasis and/or infiltrate worse at the left lung base with small left pleural effusion. Reading Location: [facility] Rhythm Strip Rhythm Strip: A-fib Rate: 130 Ectopy: None Physical Exam Narrative sleepy no obvious distress no pallor no icterus no JVD s1s2 no murmurs lungs clear abdomen soft no organomegaly no edema no cyanosis Assessment & Plan Assessment/Plan (1) MARIO ALBERTO (acute kidney injury): PLAN: History of myelodysplasia, plasma cell neoplasm, immunodeficiency on IVIG infusions, was originally scheduled to get IVIG. Now admitted with severe septic shock. Acute renal failure is likely ischemic ATN in the setting of septic shock. Significantly elevated lactate of 14. acidosis is better somewhat Hypocalcemia, severe. likely related to bicarb drip. will change fluids to RL No acute indications for dialysis today. Might need dialysis if acidosis worsens. He has pancytopenia, extremely low platelet count at 4000. Getting platelets today. Placing a catheter will be a high risk procedure. Will discuss with attending
[2024-09-21] MEDS: Vital AF 1.2 Cal Liquid 1,000 ML 15 ML GT (16:15)
[2024-09-21 17:10] LABS: Bedside Glucose 282 mg/dL (74-106)
[2024-09-21 20:56] LABS: Absolute Lymphocyte Count 0.19 X10^3/uL (0.83-4.51); Hematocrit 23.4 % (40-54); Hemoglobin 8.2 g/dL (13.0-16.5); Lymphocyte # 0.19 X10^3/ul (0.83-4.51); Lymphocyte % 70.4 % (19-41); Mean Corpuscular Hgb 32.3 pg (27.0-32.0); Mean Corpuscular Volume 92.1 fL (80-94); Mean Platelet Vol. 10.9 fl (6.2-12.0); Monocyte# 0.04 X10^3/uL; Monocyte% 14.8 % (0-10); NRBC Flagged by Analyzer 48.1 % (0-5); Neutrophil # 0.04 X10^3/uL (2.7-7.7); Neutrophil % 14.8 % (47-70); POSITIVE COUNT YES; POSITIVE DIFFERENTIAL YES; POSITIVE MORPHOLOGY YES; RBC Distribution Width CV 19.4 % (11.6-14.6); RBC Distribution Width SD 50.1 fl (35.1-43.9); Red Blood Count 2.54 M/mm3 (4.6-6.2)
[2024-09-21 21:03] LABS: CPK Total, Creatine Kinase 641 U/L (39-308); Triglycerides 69 mg/dL
[2024-09-21 21:03] LABS: Differential Indicated SCAN CRITERIA MET; Platelet Count 46 K/mm3 (150-450); White Blood Count 0.3 K/mm3 (4.4-11.0)
[2024-09-21 21:39] LABS: Burr Cells 2+; Differential Comment SCANNED; Platelet Estimate MKD DEC (ADEQ)
[2024-09-21] MEDS: Insulin U-500 UNITS/ML PEN 30 UNITS SC (22:20)
[2024-09-21] MEDS: Senna/Docusate Sodium 1 Tablet 2 TABLET PO (22:21)
[2024-09-21] MEDS: Propofol 10MG/Ml 1,000 MG/100 ML Bottle 8.7 MG CONT INF (23:40)
[2024-09-22] VITALS (42 sets, daily range): BP systolic 84–147; BP diastolic 38–90; PULSE 93–167; RESP 16–24; TEMP 36.9–38.2; O2SAT 94–99; BMI 32.2
[2024-09-22] MEDS: Vancomycin IV 1,000 MG/200 ML BAG 200 MG IV (00:18)
[2024-09-22] MEDS: Insulin Lispro 100 UNIT/ML INSULN.PEN SC ×5 (00:18→23:24)
[2024-09-22 00:43] LABS: Bedside Glucose 233 mg/dL (74-106)
[2024-09-22] MEDS: fentaNYL drip 100 ML 7.5 MCG CONT INF ×2 (01:31→14:58)
[2024-09-22] MEDS: Lactated Ringers 1,000 ML 125 ML IV (02:32)
[2024-09-22] MEDS: Norepinephrine 8 MG in 0.9% Normal Saline (250mL Bag) 242 ML 56.3 MG CONT INF ×2 (04:05→21:03)
[2024-09-22] MEDS: Vasopressin 20 UNITS in 0.9% Normal Saline (50mL Bag) 24 ML 3 UNITS CONT INF ×2 (04:05→21:19)
[2024-09-22] MEDS: Hydrocortisone Sod Succinate 100 MG/2 ML Vial 50 MG IV ×4 (05:29→23:02)
[2024-09-22] MEDS: Piperacil/Tazobactam 3.375 GM in 0.9% Normal Saline (50mL MB+) 50 ML IV ×2 (05:34→23:27)
[2024-09-22 05:58] LABS: Bedside Glucose 205 mg/dL (74-106)
[2024-09-22] MEDS: Albuterol 2.5 MG/3 ML VIAL.NEB. INHALATION ×3 (07:00→19:25)
[2024-09-22] MEDS: Budesonide Respules 0.5 MG/2 ML AMPUL.NEB. INHALATION ×2 (07:00→19:25)
--- NOTE | 2024-09-22 07:35 | PCM.PN.INT ---
Assessment & Plan Assessment/Plan (1) Septic shock: PLAN: Plan RECOMMENDATIONS: 1. Continue assist-control mode of mechanical ventilation. Continue to wean FiO2 and PEEP as tolerated. 2. Continue to trend liver function profile. Repeat coagulation profile this morning. 3. Consider gastroenterology consultation if liver function continues to worsen. 4. Continue Levophed to maintain a mean arterial pressure at or above 65 mmHg. 5. Calcium repletion. 6. Continue tube feeding as tolerated. 7. Continue stress dose steroids. 8. Continue empiric antimicrobials. 9. Transfuse to maintain a hemoglobin at or above 7 g/dL and platelet count greater than 10,000. 10. Continue appropriate GI prophylaxis. IMPRESSIONS: 1. Gram-negative septic shock The patient was initially admitted with generalized weakness and hypotension, which was ultimately fluid refractory. Subsequent blood cultures were found to be positive for gram-negative rods. CT imaging of the chest/abdomen and pelvis demonstrated a possible left lower lobe pneumonia, which could represent the source for the bacteremia. The patient will be continued on empiric antibiotics, pending further infectious workup. In light of the refractory septic shock, we will continue stress dose steroids. Continue vasopressor support in an attempt to maintain hemodynamic stability. 2. Acute respiratory failure with hypoxemia and hypercapnia Most likely secondary to underlying pneumonia and inability to compensate for underlying metabolic derangements. Therefore, the patient was intubated on the morning of September 21. Plan to continue assist-control mode of mechanical ventilation. FiO2 and PEEP will be weaned as tolerated. 3. Pancytopenia Related to underlying myelodysplastic syndrome. Continue to monitor hemoglobin and transfuse to maintain a level of 7.0 or greater. Hematology/oncology is currently following. Continue PPI therapy. Attempt to transfuse platelets to maintain a baseline count of 10,000 or greater. 4. Acute kidney injury with significant anion gap metabolic acidosis Most likely related to presenting septic shock. Nephrology is currently following to assist with medical management. 5. Ischemic hepatitis The patient's transaminases continue to increase. This could certainly be related to shock liver in the setting of persistent hypotension. Plan to obtain follow-up INR this morning. Liver ultrasound, however, was largely unrevealing. If liver function continues to worsen, will obtain gastroenterology evaluation. 6. History of atrial fibrillation with RVR/obstructive sleep apnea/asthma/diabetes mellitus/GERD/hypogammaglobulinemia Complicates care, management, recovery and prognosis. Continue supportive measures as noted above, including tube feeding as tolerated. TIME: 38 minutes of critical care time, independent of procedures, was spent addressing the patient's gram-negative septic shock, acute respiratory failure, pancytopenia, acute kidney injury, ischemic hepatitis, review of all data and collaboration with the care team. Subjective Subjective The patient was seen and examined at the bedside this morning. Events from the last 24 hours have been reviewed. The patient is currently afebrile and remains on Levophed at 25 mcg/min to maintain hemodynamic stability. He remains on assist-control mode of mechanical ventilation with an FiO2 requirement of 30% and PEEP of 5. The patient is currently sedated on a combination of fentanyl and propofol. He has been tolerant of tube feeding. The patient is documented to be overall net +18 L for the hospitalization. He remains pancytopenic with a hemoglobin of 8.1 g/dL and platelet count of 25,000. Bicarbonate remains low at 13 with a BUN of 62 and creatinine of 3.16. Total bilirubin has risen along with AST and ALT. The patient has an albumin corrected calcium of 7.2 mg/dL. Objective Data Objective Data The patient's most recent lab work, culture data and imaging studies have all been personally reviewed. Surface echocardiogram demonstrated normal LV size and function with an ejection fraction of 55%. Blood cultures were positive for gram-negative rods. Vital Signs: Vital Signs Temp Pulse Resp BP Pulse Ox O2 Del Method O2 Flow Rate 98.4 F 104 H 22 H 106/55 L 99 Mechanical Ventilator 4 09/22/24 07:00 09/22/24 07:00 09/22/24 07:00 09/22/24 07:00 09/22/24 07:00 09/22/24 07:00 09/21/24 07:18 FiO2 30 09/22/24 07:00 Oxygen Flow Rate (L/min) 4 Oxygen Delivery Method Mechanical Ventilator Weight: 224 lb 13.944 oz Body Mass Index (BMI) 32.2 Intake & Output: Intake and Output for Last 24 Hours 09/20/24 09/21/24 09/22/24 23:59 23:59 23:59 Intake Total 8604.77 / 8674.07 6392.82 / 6423.05 1968.10 / 1968.10 Output Total 325 / 325 50 / 50 0 / 0 Balance 8279.77 / 8349.07 6342.82 / 6373.05 Lab / Micro Data Attestation: I reviewed the patient's lab results. 09/22/24 08:10 09/22/24 08:10 Labs: Laboratory Results - last 24 hr 09/19/24 14:17: Crossmatch See Detail 09/21/24 04:16: Total Creatine Kinase 641 H, Triglycerides 69 09/21/24 09:05: PT 36.2 H, INR 3.5 09/21/24 10:48: POC Glucose 320 H 09/21/24 16:52: POC Glucose 282 H 09/21/24 20:40: WBC 0.3 L*, RBC 2.54 L, Hgb 8.2 L, Hct 23.4 L, MCV 92.1 D, MCH 32.3 H, MCHC 35.0 D, RDW Std Deviation 50.1 H, RDW Coeff of Misa 19.4 H, Plt Count 46 L*, MPV 10.9, Immature Gran % (Auto) 0.000, Neut % (Auto) 14.8 L, Lymph % (Auto) 70.4 H, [place] % (Auto) 14.8 H, Eos % (Auto) 0.0, Baso % (Auto) 0.0, Absolute Neuts (auto) 0.0 L, Absolute Lymphs (auto) 0.19 L, Nucleated RBC % 48.1 H, Differential Comment SCANNED, Diff Path Review December, Platelet Estimate MKD DEC, [place] Cells 2+ 09/22/24 00:17: POC Glucose 233 H 09/22/24 05:31: POC Glucose 205 H Micro: Microbiology 09/19/24 15:03 Blood Culture (Wb) - Left Hand Blood Culture - Preliminary Gram negative timothy 09/19/24 15:03 Blood Culture (Wb) - Left Hand Blood Culture - Preliminary Gram negative timothy 09/19/24 17:06 Urine, Random Urine Culture - Preliminary Culture exhibits no growth. 09/19/24 23:10 Mucosa - Nasopharyngeal Respiratory Panel (PCR) - Final 09/19/24 14:08 Mucosa - Nose SARS-CoV-2, Influenza & RSV (PCR) - Final ABG Data ABG results: ABG 09/21/24 09/21/24 09:05 11:07 Specimen Type ART ART Sample Site R Brach R Radial pH 7.10 L* 7.30 L Bicarbonate Actual 18.8 L 14.8 L Total CO2 21 16 Base Excess -11 L -12 L O2 Saturation 79 L 96 O2 % 5.0 35.0 ABG pCO2 60.0 H 30.2 L ABG pO2 59 L 86 Rommel Test Positive Positive Respiration Rate 16 O2 Delivery Device Cannula Adult Vent Vent Mode Not entered AC Tidal Volume 500.0 POC PEEP 5 Crit Call To/Read Back Yes Radiography Diagnostic Testing: Radiology Impression Chest X-Ray 09/21/24 10:43 IMPRESSION: Good position of the endotracheal tube, left-sided PICC line catheter in the orogastric tube. Progressive bibasilar atelectasis and/or infiltrate worse at the left lung base with small left pleural effusion. Reading Location: [facility] Liver Ultrasound 09/21/24 12:24 IMPRESSION: Hepatomegaly and hepatic steatosis. Small volume ascites. Reading Location: [facility] Rhythm Strip Rhythm Strip: A-fib Rate: 130 Ectopy: None Physical Exam Const Constitutional Narrative: Intubated, sedated and mechanically ventilated. General Appearance: ill appearing and patient mechanically ventilated HEENT normocephalic and head/scalp atraumatic Mouth: endotracheal tube in place and OG tube in place Eyes PERRL, EOMs intact bilaterally and conjunctivae normal Neck supple General: trachea midline Chest inspection of chest normal Resp Auscultation: diminished lung sounds; Negative for rales, rhonchi or wheezes Cardio regular rate, regular rhythm, S1 normal heart sound and S2 normal heart sound GI normal to inspection, nondistended, normoactive bowel sounds Extremity General Extremity: edema; Negative for clubbing Skin no rashes or lesions noted Neuro Sensorium / Orientation: sedated on vent Charges/Coding Procedures Hospitalists Procedures: 94753 Critical Care 1st Hr
[2024-09-22] MEDS: Propofol 10MG/Ml 1,000 MG/100 ML Bottle 8.7 MG CONT INF (08:00)
[2024-09-22] MEDS: Finasteride 5 MG Tablet PO (08:18)
[2024-09-22] MEDS: Senna/Docusate Sodium 1 Tablet 2 TABLET PO ×2 (08:19→23:01)
[2024-09-22] MEDS: Potassium Chloride Oral Tablet 20 MEQ PO (08:19)
[2024-09-22] MEDS: Pantoprazole Sodium 40 MG Tablet PO (08:19)
[2024-09-22] MEDS: Dorzolamide HCL/Timolol 10 ml Bottle 1 DRP OPHTHALMIC ×2 (08:29→23:01)
[2024-09-22 08:37] LABS: Absolute Lymphocyte Count 0.15 X10^3/uL (0.83-4.51); Absolute Neutrophil Count 0.1 X10^3/uL (2.0-7.7); Eosinophil# 0.01 X10^3/uL; Eosinophils% 3.8 % (0-5); Hematocrit 22.9 % (40-54); Hemoglobin 8.1 g/dL (13.0-16.5); Lymphocyte # 0.15 X10^3/ul (0.83-4.51); Lymphocyte % 57.7 % (19-41); Mean Corp Hgb Conc 35.4 g/dL (32-36); Mean Corpuscular Hgb 32.1 pg (27.0-32.0); Mean Corpuscular Volume 90.9 fL (80-94); Monocyte# 0.01 X10^3/uL; Monocyte% 3.8 % (0-10); NRBC Flagged by Analyzer 84.6 % (0-5); Neutrophil # 0.08 X10^3/uL (2.7-7.7); Neutrophil % 30.9 % (47-70); POSITIVE COUNT YES; POSITIVE DIFFERENTIAL YES; POSITIVE MORPHOLOGY YES; RBC Distribution Width CV 20.6 % (11.6-14.6); RBC Distribution Width SD 50.6 fl (35.1-43.9); Red Blood Count 2.52 M/mm3 (4.6-6.2)
[2024-09-22 08:52] LABS: Platelet Count 25 K/mm3 (150-450); White Blood Count 0.3 K/mm3 (4.4-11.0)
[2024-09-22 08:53] LABS: Differential Indicated SCAN CRITERIA MET
[2024-09-22 09:10] LABS: Pathologist Review Reviewed
[2024-09-22 09:13] LABS: Pathologist Review Reviewed
[2024-09-22 09:17] LABS: ALB/GLOB Ratio 0.6 RATIO (0.9-2.4); AST(SGOT) 18390 U/L (15-37); Alanine Aminotransfer ALT/SGPT 7338 U/L (16-61); Albumin, Serum 1.5 g/dL (3.2-5.0); Alkaline Phosphatase 86 U/L (45-117); Anion Gap 22 (5-15); BUN 62 mg/dL (7-18); BUN/Creat Ratio 19.6 RATIO (10-20); Calcium,Total 5.8 mg/dL (8.5-10.1); Chloride 101 mmol/L (98-107); Creatinine, Serum 3.16 mg/dL (0.70-1.30); EST Glomerular Filtration Rate 20 mL/min (>60); Est Glom Filt Rate - Afr Amer 25 mL/min (>60); Estimated Creatinine Clearance 22.31 ml/min; Globulin 2.4 g/dL (2.2-4.2); Glucose 190 mg/dL (74-106); Protein, Total 3.9 g/dL (6.4-8.2); Sodium Level 136 mmol/L (136-145)
[2024-09-22 09:24] LABS: Anisocytosis 2+; Platelet Estimate MKD DEC (ADEQ)
[2024-09-22 09:25] LABS: Differential Comment SCANNED
[2024-09-22] MEDS: Norepinephrine 8 MG in 0.9% Normal Saline (250mL Bag) 242 ML 46.9 MG CONT INF ×2 (09:37→15:51)
--- NOTE | 2024-09-22 10:44 | CON.PCM.ID_ITS ---
Assessment & Plan Assessment/Plan (1) Septic shock: PLAN: Cont vanc/zosyn. Worsening shock liver and MARIO ALBERTO. Will adjut zosyn dose. Pt remains critically ill. Will follow, thank you (2) MARIO ALBERTO (acute kidney injury): (3) Pancytopenia: (4) Bacteremia due to Pseudomonas: HPI Consult Data Date of Consult: 09/22/24 HPI Narrative Reason for Consultation: septic shock HPI Narrative: JOHNATHAN CURIEL, is a 79 M with MDS, IDDM, afib, presented to ED 09/19/24 with several weeks of falls and weakness at home. Sx worsened over a few days, saw oncology 09/19, labs done, sent to ED. Admitted for Afib with RVR, pancytopenia, MARIO ALBERTO. Pt worsened, now on vent and pressor in icu with vanc/zosyn. Family at bedside provided additional history. ROS unobtainable due to intubation. [facility] Medical History Encounter for education History of hepatitis C Loss of hearing Wears glasses Anxiety Ambulates with cane Insulin dependent diabetes mellitus Arthritis Prostate disease Anemia Restless legs Injury of back Injury of head and neck Syncope Dietary restriction Difficulty swallowing Gastric reflux Former smoker History of pain when walking History of echocardiogram History of stress test Cardiology follow-up encounter Glaucoma Hx of fracture of wrist Other pancytopenia Longstanding persistent atrial fibrillation Obesity Right bundle branch block (RBBB) Osteoarthritis Essential hypertension Allergic rhinitis due to allergen Asthma DVT (deep venous thrombosis) (02/24/11) Cervical radiculopathy Hyperlipidemia Vitamin D deficiency Hypersomnia DEYANIRA (obstructive sleep apnea) Home Medications ?Medication ?Instructions ?Recorded ?Last Taken ?Type alfuzosin 10 mg tablet,extended 10 mg PO DAILY@1730 ur inary 08/31/13 09/19/24 History release 24 hr rosuvastatin 40 mg tablet 40 mg PO DAILY cholesterol 0 08/31/13 09/18/24 History finasteride 5 mg tablet 5 mg PO DAILY prostate 12/1709/19/24 History empagliflozin 25 mg tablet 25 mg PO QDAY diabetes 05/0 03/0309/19/24 History (Jardiance) tramadol 50 mg tablet 50 mg PO BID PRN pain 02/19/24 History baclofen 10 mg tablet 10 mg PO DAILY PRN PRN muscl e spasm 12/08/22 07/05/24 History dorzolamide 22.3 mg-timolol 6.8 1 drp ophthalmic (eye) BID eyes 07/24/22 09/18/24 History mg/mL eye drops fluticasone 500 mcg-salmeterol 50 1 inh inhalation Q12 H breathing 12/25/22 09/18/24 Rx mcg/dose blistr powdr for #60 ea inhalation (Advair Diskus) albuterol sulfate 90 mcg/actuation 2 puff inhalation Q 6H PRN PRN Sob 03/19/23 12/08/23 Rx aerosol inhaler &/Or Wheezing #18 grams cetirizine 10 mg tablet 10 mg PO DAILY allergy #90 t abs 07/14/23 09/19/24 Rx fluticasone propionate 50 2 spray intranasal DAILY PRN 07/28/24 Unknown History mcg/actuation nasal allergy symptoms spray,suspension polyethylene glycol 3350 17 17 g PO .COMPLEX bowels #5 10 grams 07/28/24 Unknown Rx gram/dose oral powder (Miralax) metoprolol tartrate 50 mg tablet 50 mg PO BID #60 tabs 08/08/24 09/19/24 Rx ipratropium 0.5 mg-albuterol 3 mg 3 ml inhalation Q4H PRN PRN SOB 08/12/24 Unknown Rx (2.5 mg base)/3 mL nebulization &/OR WHEEZING #180 mL soln insulin regular hum U-500 conc 500 75 unit subcut QHS diabetes 09/06/24 09/18/24 History unit/mL(3 mL) subcut pen (Humulin R U-500 (Conc) Insulin Kwikpen) insulin regular hum U-500 conc 500 100 unit subcut QAM diabetes 09/06/24 09/19/24 History unit/mL(3 mL) subcut pen (Humulin R U-500 (Conc) Insulin Kwikpen) lenalidomide 10 mg capsule 10 mg PO QDAY 09/08/2410/11 History (Revlimid) magnesium citrate 100 mg capsule 100 mg PO BID #180 ca ps 09/08/24 09/19/24 Rx pantoprazole 40 mg tablet,delayed 40 mg PO DAILY #30 t abs 09/08/24 09/19/24 Rx release (Protonix) dulaglutide 3 mg/0.5 mL 3 mg subcut QWEEK 09/19/24 0 09/14/24 History subcutaneous pen injector (Trulicity) potassium chloride 20 mEq 20 meq PO DAILY 09/19/2411/08 History tablet,extended release(part/cryst) Allergy/AdvReac Type Severity Reaction Status Date / Time No Known Drug Allergies Allergy no known Verified 09/19/24 12:10 Family History Daughter Asthma Grandmother Asthma Sister Asthma COPD (chronic obstructive pulmonary disease) Mother Pancreatic cancer Brother Myocardial infarction Cancer CAD (coronary artery disease) Surgical History History of bone marrow biopsy Hx of right cataract extraction Hx of left cataract extraction History of left heart catheterization (2006) 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 bilateral eyelid lift laminectomy with decompression at R Partial at L L2-3 : L L3-4 Hx of cholecystectomy Partial at L L5-S1 C6-7 fusion R forearm surgery x 3 H/O colonoscopy back injections Social History household members: family and none number of children: 5 current occupational status: retired Smoking Status: Former smoker quit date: 08/17/76 second hand exposure: No alcohol intake: never substance use type: does not use caffeine: Yes Type: coffee what type of physical activity do you participate in: none Physical Exam Const no apparent distress HEENT normocephalic and head/scalp atraumatic Eyes PERRL Neck supple and No nodes Resp Effort and Inspection: mechanically ventilated Auscultation: diminished lung sounds Cardio Rate: tachycardic GI soft to palpation, non-tender and non-distended Extremity General Extremity: edema Skin no rashes or lesions noted Neuro CN's II-XII intact bilaterally Lab / Micro Data Attestation: I reviewed the patient's lab results. 09/22/24 08:10 09/22/24 08:10 Labs: Laboratory Results - last 24 hr 09/19/24 14:17: Crossmatch See Detail 09/20/24 07:45: Diff Path Review Reviewed 09/21/24 04:16: Diff Path Review Reviewed, Total Creatine Kinase 641 H, Triglycerides 69 09/21/24 10:48: POC Glucose 320 H 09/21/24 16:52: POC Glucose 282 H 09/21/24 20:40: WBC 0.3 L*, RBC 2.54 L, Hgb 8.2 L, Hct 23.4 L, MCV 92.1 D, MCH 32.3 H, MCHC 35.0 D, RDW Std Deviation 50.1 H, RDW Coeff of Misa 19.4 H, Plt Count 46 L*, MPV 10.9, Immature Gran % (Auto) 0.000, Neut % (Auto) 14.8 L, Lymph % (Auto) 70.4 H, [place] % (Auto) 14.8 H, Eos % (Auto) 0.0, Baso % (Auto) 0.0, A bsolute Neuts (auto) 0.0 L, Absolute Lymphs (auto) 0.19 L, Nucleated RBC % 48.1 H, Differential Comment SCANNED, Diff Path Review May ja, Platelet Estimate MKD DEC, [place] Cells 2+ 09/22/24 00:17: POC Glucose 233 H 09/22/24 05:31: POC Glucose 205 H 09/22/24 08:10: WBC 0.3 L*, RBC 2.52 L, Hgb 8.1 L, Hct 22.9 L, MCV 90.9, MCH 32.1 H, MCHC 35.4, RDW Std Deviation 50.6 H, RDW Coeff of Misa 20.6 H, Plt Count 25 L*, MPV TNP, Immature Gran % (Auto) 3.800 H, Neut % (Auto) 30.9 L, Lymph % (Auto) 57.7 H, [place] % (Auto) 3.8, Eos % (Auto) 3.8, Baso % (Auto) 0.0, Absolute Neuts (auto) 0.1 L, Absolute Lymphs (auto) 0.15 L, Nucleated RBC % 84.6 H, Differential Comment SCANNED, Diff Path Review May ja, Platelet Estimate MKD DEC, Anisocytosis 2+, Sodium 136, Potassium 4.0, Chloride 101, Carbon Dioxide 13.0 L, Anion Gap 22 H, BUN 62 H, Creatinine 3.16 H, Estim Creat Clear Calc 22.31, Est GFR (MDRD) Af Amer 25 L, Est GFR (MDRD) Non-Af 20 L, BUN/Creatinine Ratio 19.6, Glucose 190 H, Calcium 5.8 L*, Total Bilirubin 4.60 H, AST 94126 H, ALT 7338 H, Alkaline Phosphatase 86, Total Protein 3.9 L, Albumin 1.5 L, Globulin 2.4, Albumin/Globulin Ratio 0.6 L Micro: Microbiology 09/19/24 17:06 Urine, Random Urine Culture - Final Culture exhibits no growth. 09/19/24 15:03 Blood Culture (Wb) - Left Hand Blood Culture - Final GNR Poss Pseudomonas sp 09/19/24 15:03 Blood Culture (Wb) - Left Hand Blood Culture - Final Pseudomonas aeruginosa ABG Data ABG results: ABG 09/21/24 11:07 Specimen Type ART Sample Site R Radial pH 7.30 L Bicarbonate Actual 14.8 L Total CO2 16 Base Excess -12 L O2 Saturation 96 O2 % 35.0 ABG pCO2 30.2 L ABG pO2 86 Rommel Test Positive Respiration Rate 16 O2 Delivery Device Adult Vent Vent Mode AC Tidal Volume 500.0 POC PEEP 5 Rhythm Strip Rhythm Strip: A-fib Rate: 130 Ectopy: None Imaging Radiology Impression Chest X-Ray 09/21/24 10:43 IMPRESSION: Good position of the endotracheal tube, left-sided PICC line catheter in the orogastric tube. Progressive bibasilar atelectasis and/or infiltrate worse at the left lung base with small left pleural effusion. Reading Location: [facility] Liver Ultrasound 09/21/24 12:24 IMPRESSION: Hepatomegaly and hepatic steatosis. Small volume ascites. Reading Location: [id number]
[2024-09-22] MEDS: Calcium Gluconate 1 GM/10 ML Vial IVP (11:11)
[2024-09-22] MEDS: 0.9% Saline Lock 10 ML Syringe IV (11:11)
[2024-09-22] MEDS: Phytonadione (Vit K) 10 MG in 0.9% Normal Saline (50mL Bag) 50 ML 150 MG IV (11:54)
[2024-09-22 12:14] LABS: Bedside Glucose 203 mg/dL (74-106)
--- NOTE | 2024-09-22 12:39 | PCM.PN.HOSP ---
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 Intubated and sedated, attempting to open eyes on command but otherwise not following commands. Sister and friend at bedside, answered questions for them as best as able. Objective Data Objective Data Vital Signs: Vital Signs Temp Pulse Resp BP Pulse Ox O2 Del Method O2 Flow Rate 99.0 F 100 18 101/56 L 99 Mechanical Ventilator 4 09/22/24 12:00 09/22/24 12:00 09/22/24 12:00 09/22/24 12:00 09/22/24 12:00 09/22/24 12:00 09/21/24 07:18 FiO2 30 09/22/24 12:00 Oxygen Flow Rate (L/min) 4 Oxygen Delivery Method Mechanical Ventilator Weight: 102 kg Body Mass Index (BMI) 32.2 Intake & Output: Intake and Output for Last 24 Hours 09/20/24 09/21/24 09/22/24 23:59 23:59 23:59 Intake Total 8604.77 / 8674.07 6392.82 / 6423.05 3549.17 / 3549.17 Output Total 325 / 325 50 / 50 0 / 0 Balance 8279.77 / 8349.07 6342.82 / 6373.05 3549.17 / 3549.17 Lab / Micro Data 09/22/24 08:10 09/22/24 08:10 Labs: Laboratory Results - last 24 hr 09/19/24 14:17: Crossmatch See Detail 09/20/24 07:45: Diff Path Review Reviewed 09/21/24 04:16: Diff Path Review Reviewed, Total Creatine Kinase 641 H, Triglycerides 69 09/21/24 16:52: POC Glucose 282 H 09/21/24 20:40: WBC 0.3 L*, RBC 2.54 L, Hgb 8.2 L, Hct 23.4 L, MCV 92.1 D, MCH 32.3 H, MCHC 35.0 D, RDW Std Deviation 50.1 H, RDW Coeff of Misa 19.4 H, Plt Count 46 L*, MPV 10.9, Immature Gran % (Auto) 0.000, Neut % (Auto) 14.8 L, Lymph % (Auto) 70.4 H, [place] % (Auto) 14.8 H, Eos % (Auto) 0.0, Baso % (Auto) 0.0, Absolute Neuts (auto) 0.0 L, Absolute Lymphs (auto) 0.19 L, Nucleated RBC % 48.1 H, Differential Comment SCANNED, Diff Path Review December ja, Platelet Estimate MKD DEC, [place] Cells 2+ 09/22/24 00:17: POC Glucose 233 H 09/22/24 05:31: POC Glucose 205 H 09/22/24 08:10: WBC 0.3 L*, RBC 2.52 L, Hgb 8.1 L, Hct 22.9 L, MCV 90.9, MCH 32.1 H, MCHC 35.4, RDW Std Deviation 50.6 H, RDW Coeff of Misa 20.6 H, Plt Count 25 L*, MPV TNP, Immature Gran % (Auto) 3.800 H, Neut % (Auto) 30.9 L, Lymph % (Auto) 57.7 H, [place] % (Auto) 3.8, Eos % (Auto) 3.8, Baso % (Auto) 0.0, Absolute Neuts (auto) 0.1 L, Absolute Lymphs (auto) 0.15 L, Nucleated RBC % 84.6 H, Differential Comment SCANNED, Diff Path Review December ja, Platelet Estimate MKD DEC, Anisocytosis 2+, Sodium 136, Potassium 4.0, Chloride 101, Carbon Dioxide 13.0 L, Anion Gap 22 H, BUN 62 H, Creatinine 3.16 H, Estim Creat Clear Calc 22.31, Est GFR (MDRD) Af Amer 25 L, Est GFR (MDRD) Non-Af 20 L, BUN/Creatinine Ratio 19.6, Glucose 190 H, Calcium 5.8 L*, Total Bilirubin 4.60 H, AST 87479 H, ALT 7338 H, Alkaline Phosphatase 86, Total Protein 3.9 L, Albumin 1.5 L, Globulin 2.4, Albumin/Globulin Ratio 0.6 L 09/22/24 10:20: PT 55.0 H, INR 6.0 H* 09/22/24 11:51: POC Glucose 203 H Micro: Microbiology 09/21/24 09:58 Sputum, Induced/[place] Respiratory Culture - Preliminary Culture exhibits no growth. 09/19/24 17:06 Urine, Random Urine Culture - Final Culture exhibits no growth. 09/19/24 15:03 Blood Culture (Wb) - Left Hand Blood Culture - Final GNR Poss Pseudomonas sp 09/19/24 15:03 Blood Culture (Wb) - Left Hand Blood Culture - Final Pseudomonas aeruginosa 09/19/24 23:10 Mucosa - Nasopharyngeal Respiratory Panel (PCR) - Final 09/19/24 14:08 Mucosa - Nose SARS-CoV-2, Influenza & RSV (PCR) - Final Radiography Diagnostic Testing: Radiology Impression Liver Ultrasound 09/21/24 12:24 IMPRESSION: Hepatomegaly and hepatic steatosis. Small volume ascites. Reading Location: [id number] Rhythm Strip Rhythm Strip: A-fib Rate: 130 Ectopy: None Physical Exam Const Constitutional Narrative: Intubated and sedated, not following commands. Class I obesity. HEENT normocephalic, head/scalp atraumatic and nasal mucous membranes and turbinates normal HEENT Narrative: ET tube in place. Neck supple Chest inspection of chest normal Resp normal respiratory effort and no use of accessory muscles Resp Narrative: On mechanical ventilation. Decreased breath sounds in bilateral lung bases with mild crackles noted. No wheezing noted. Cardio no murmurs and peripheral pulses 2+ throughout Cardio Narrative: Tachycardic, regular rhythm. GI normal to inspection, nondistended, normoactive bowel sounds, soft to palpation and non-distended Back/Spine normal ROM Extremity normal to inspection and no pedal edema Skin no rashes or lesions noted Assessment & Plan Assessment/Plan (1) Bacteremia due to Pseudomonas: (2) Septic shock: (3) Acute respiratory failure with hypoxia and hypercapnia: (4) MARIO ALBERTO (acute kidney injury): (5) Acute liver failure: (6) Pancytopenia: (7) Atrial fibrillation with rapid ventricular response: PLAN: Plan Patient is an 79-year-old male who presented [facility] ED on 09/19/2024 with A-fib with RVR and hypotension. 1. Gram-negative septic shock ? Wire Machine Operator and ID following. CT imaging on admit showed a possible left lower lobe pneumonia. Blood cultures +2/2 for Pseudomonas. Fluid refractory on admit. Per ID, continue vancomycin and Zosyn for now. On Levophed with high requirements at this time, monitoring closely. 2. Acute hypoxic and hypercapnic respiratory failure ? Wire Machine Operator following. Respiratory failure suspected secondary to pneumonia and inability to compensate for underlying metabolic derangements. Required intubation on morning of 09/21. Treating pneumonia as above. Ventilator management per compounder. 3. Pancytopenia in setting of myelodysplastic syndrome ? Oncology following. CBC on admit with hemoglobin 6.3, WBC count 0.4, platelets 24. Platelets dante at 4. Hemoglobin improved with blood transfusion. Given platelet transfusion with initial improvement but downtrending again. Continue to monitor daily CBC. 4. MARIO ALBERTO with significant anion gap metabolic acidosis ? Nephrology following. Creatinine 1.1 on admit, near baseline. Has now worsened significantly, most recent creatinine 3.16. Patient has been essentially anuric. Acidosis with some improvement after intubation. Continuing to monitor daily BMP and urine output. No urgent need for dialysis and patient notably with low platelet count so placing temporary dialysis catheter would be challenging. 5. Acute liver failure ? GI consulted. Labs initially most consistent with ischemic hepatitis. However, INR 6.0 on 09/22 along with worsening LFTs is consistent with acute liver failure presumed secondary to septic shock. Given 1 dose of IV vitamin K on 09/22. Follow daily labs. Appreciate GI input. 6. A-fib with RVR ? Present on admission, improved with treatment of septic shock and with intubation. Not on rate control at this time given septic shock and heart rate stable, continue to monitor. Not on anticoagulation. 7. Severe hypocalcemia ? Presume secondary to multisystem organ failure as above. Treat as needed. Chronic medical conditions: ? Class I obesity: BMI 32 on admit. Complex hospital course, care and prognosis. ? DEYANIRA: Intubated as above. ? Asthma: Intubated as above. ? Type 2 diabetes mellitus: Continue home long-acting insulin along with sliding scale insulin every 6 hours as needed. ? BPH with obstructive symptoms: Continue home Flomax. ? GERD: Continue home PPI. DVT prophylaxis: SCDs CODE STATUS: Full code, verified. Goals of care discussions with family are ongoing. Patient has 5 children that are his next of kin. Several children are from out of town and coming in in the next 1 to 2 days. Sister has been at bedside and has been updating them. Given his high system organ failure, his prognosis is very guarded. Expected disposition: TBD Total clinical time spent by myself addressing the patient's medical issues, reviewing all the data, and collaborating with patient's care team: 50 minutes. Charges/Coding Visit Charges Inpatient E&M: 83344 Subs Hosp L3
[2024-09-22 14:40] LABS: Pathologist Review Reviewed
--- NOTE | 2024-09-22 16:52 | EX.PCM.CON.G ---
HPI Consult Data Date of Consult: 09/22/24 HPI Narrative Reason for Consultation: acute liver failure HPI Narrative: JOHNATHAN CURIEL, is a 79 M with history of A-fib not on anticoagulation, MDS (on medical therapy ), diabetes, hepatitis C (Ab negative) who presented [facility] ED 09/19/2024 from his oncologist office due to low blood pressure. In the ED patient found to be in A-fib with heart rate in the 130s to 140s initially a blood pressure of 79/86. He had a white blood cell count of 0.4, hemoglobin 6.3, and platelet count of 24 which are similar to previous. Patient also had lactic of 3.7 and a creatinine of 1.4 (earlier in the day 1.55) with a baseline closer to 1. Patient given IV fluids and started on Cardizem drip with heart rate improving to the 120s and blood pressure improving with decrease in heart rate and IVF. Subsequent blood cultures were found to be positive for gram-negative rods. CT imaging of the chest/abdomen and pelvis demonstrated a possible left lower lobe pneumonia, which could represent the source for the bacteremia. He was noted to have decreasing blood pressure which caused her to be intubated due to acute respiratory failure, hypotension. He also was started on pressor therapy. I was called to see him due to increasing liver enzymes and liver function test. He was noted to have a mild rhabdomyolysis with a creatinine kinase is 641 He was noted to have pancytopenia with a white blood cell count of 0.3, hemoglobin 8.1 and platelet count 25,000 He was also noted to have bilirubin of 4.6, AST of 18,390, ALT of 7338 is a total protein of 3.9 and albumin of 1.5. Also noted was an INR of 6 with a PTT of 55. [facility] Medical History Encounter for education History of hepatitis C Loss of hearing Wears glasses Anxiety Ambulates with cane Insulin dependent diabetes mellitus Arthritis Prostate disease Anemia Restless legs Injury of back Injury of head and neck Syncope Dietary restriction Difficulty swallowing Gastric reflux Former smoker History of pain when walking History of echocardiogram History of stress test Cardiology follow-up encounter Glaucoma Hx of fracture of wrist Other pancytopenia Longstanding persistent atrial fibrillation Obesity Right bundle branch block (RBBB) Osteoarthritis Essential hypertension Allergic rhinitis due to allergen Asthma DVT (deep venous thrombosis) (02/24/11) Cervical radiculopathy Hyperlipidemia Vitamin D deficiency Hypersomnia DEYANIRA (obstructive sleep apnea) Home Medications ?Medication ?Instructions ?Recorded ?Last Taken ?Type alfuzosin 10 mg tablet,extended 10 mg PO DAILY@1730 urinary 08/31/13 09/19/24 History release 24 hr rosuvastatin 40 mg tablet 40 mg PO DAILY cholesterol 08/31/13 09/18/24 History finasteride 5 mg tablet 5 mg PO DAILY prostate 12/18/15 09/19/24 History empagliflozin 25 mg tablet 25 mg PO QDAY diabetes 12/21/17 09/19/24 History (Jardiance) tramadol 50 mg tablet 50 mg PO BID PRN pain 10/16/20 02/19/24 History baclofen 10 mg tablet 10 mg PO DAILY PRN PRN muscle spasm 07/24/22 02/19/24 History dorzolamide 22.3 mg-timolol 6.8 1 drp ophthalmic (eye) BID eyes 07/24/22 09/18/24 History mg/mL eye drops fluticasone 500 mcg-salmeterol 50 1 inh inhalation Q12H breathing 12/25/22 09/18/24 Rx mcg/dose blistr powdr for #60 ea inhalation (Advair Diskus) albuterol sulfate 90 mcg/actuation 2 puff inhalation Q6H PRN PRN Sob 03/19/23 12/08/23 Rx aerosol inhaler &/Or Wheezing #18 grams cetirizine 10 mg tablet 10 mg PO DAILY allergy #90 tabs 07/14/23 09/19/24 Rx fluticasone propionate 50 2 spray intranasal DAILY PRN 07/28/24 Unknown History mcg/actuation nasal allergy symptoms spray,suspension polyethylene glycol 3350 17 17 g PO .COMPLEX bowels #510 grams 07/28/24 Unknown Rx gram/dose oral powder (Miralax) metoprolol tartrate 50 mg tablet 50 mg PO BID #60 tabs 08/08/24 09/19/24 Rx ipratropium 0.5 mg-albuterol 3 mg 3 ml inhalation Q4H PRN PRN SOB 08/12/24 Unknown Rx (2.5 mg base)/3 mL nebulization &/OR WHEEZING #180 mL soln insulin regular hum U-500 conc 500 75 unit subcut QHS diabetes 09/06/24 09/18/24 History unit/mL(3 mL) subcut pen (Humulin R U-500 (Conc) Insulin Kwikpen) insulin regular hum U-500 conc 500 100 unit subcut QAM diabetes 09/06/24 09/19/24 History unit/mL(3 mL) subcut pen (Humulin R U-500 (Conc) Insulin Kwikpen) lenalidomide 10 mg capsule 10 mg PO QDAY 09/08/24 09/18/24 History (Revlimid) magnesium citrate 100 mg capsule 100 mg PO BID #180 caps 09/08/24 09/19/24 Rx pantoprazole 40 mg tablet,delayed 40 mg PO DAILY #30 tabs 09/08/24 09/19/24 Rx release (Protonix) dulaglutide 3 mg/0.5 mL 3 mg subcut QWEEK 09/19/24 09/14/24 History subcutaneous pen injector (Trulicity) potassium chloride 20 mEq 20 meq PO DAILY 09/19/24 09/19/24 History tablet,extended release(part/cryst) Allergy/AdvReac Type Severity Reaction Status Date / Time No Known Drug Allergies Allergy no known Verified 09/19/24 12:10 Family History Daughter Asthma Grandmother Asthma Sister Asthma COPD (chronic obstructive pulmonary disease) Mother Pancreatic cancer Brother Myocardial infarction Cancer CAD (coronary artery disease) Surgical History History of bone marrow biopsy Hx of right cataract extraction Hx of left cataract extraction History of left heart catheterization (2006) 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 bilateral eyelid lift laminectomy with decompression at R Partial at L L2-3 : L L3-4 Hx of cholecystectomy Partial at L L5-S1 C6-7 fusion R forearm surgery x 3 H/O colonoscopy back injections Social History household members: family and none number of children: 5 current occupational status: retired Smoking Status: Former smoker quit date: 08/17/76 second hand exposure: No alcohol intake: never substance use type: does not use caffeine: Yes Type: coffee what type of physical activity do you participate in: none ROS Review of Systems ROS Unobtainable: due to encephalopathy Physical Exam Const Constitutional Narrative: Intubated and sedated, not following commands. HEENT normocephalic, head/scalp atraumatic and nasal mucous membranes and turbinates normal HEENT Narrative: ET tube in place. Neck supple Chest inspection of chest normal Resp normal respiratory effort and no use of accessory muscles Resp Narrative: On mechanical ventilation. Decreased breath sounds in bilateral lung bases with mild crackles noted. No wheezing noted. Cardio no murmurs and peripheral pulses 2+ throughout Cardio Narrative: Tachycardic, regular rhythm. GI normal to inspection, nondistended, normoactive bowel sounds, soft to palpation and non-distended Back/Spine normal ROM Extremity normal to inspection and no pedal edema Skin no rashes or lesions noted Medical Records Data Medical Nutrition Assessment Dietitian: Malnutrition Criteria Met Start: 09/20/24 11:05 Freq: Status: Active Protocol: Document 09/22/24 16:06 SB (Rec: 09/22/24 16:06 SB [id number]) Nutrition Malnutrition Evidence of Yes Malnutrition Exists Malnutrition (severe Chronic ): Evidenced By Suboptimal Energy Intake (Moderate),Weight Loss (Severe ) Intake Problem Inadequate Oral Intake Etiology related to mechanically ventilated Signs/Symptoms as evidenced by NPO status and need for enteral nutrition Status Active Problem Clinical Problem Chronic Disease or Condition Related Malnutrition Etiology severe related to inadequate oral intake and increased energy expenditure d/t myelodysplastic syndrome Signs/Symptoms as evidenced by PO meeting <75% of estimated nutrition needs x ~3 weeks and 14% unintentional weight loss x 6 months. Status Active Problem Recommendation Dietitian Via OG continue Vital AF 1.2 Zach goal rate 60ml/hr with Recommendations/ 90ml water flushes every 4 hours to provide 1728 Changes calories, 108g protein, and 1707ml total water per day. Would initiate at 15ml/hr and increase by 15ml every 8 -12 hours as tolerated until goal rate is achieved. Will d/c glucerna shake with medpass d/t NPO and nutrition support. Will monitor and make adjust to TF as needed. Reviewed and approved by Nely Last, SHAY, SANTY. Will monitor weight. Lab / Micro Data 09/22/24 08:10 09/22/24 08:10 Labs: Laboratory Results - last 24 hr 09/20/24 07:45: Diff Path Review Reviewed 09/21/24 04:16: Diff Path Review Reviewed, Total Creatine Kinase 641 H, Triglycerides 69 09/21/24 16:52: POC Glucose 282 H 09/21/24 20:40: WBC 0.3 L*, RBC 2.54 L, Hgb 8.2 L, Hct 23.4 L, MCV 92.1 D, MCH 32.3 H, MCHC 35.0 D, RDW Std Deviation 50.1 H, RDW Coeff of Misa 19.4 H, Plt Count 46 L*, MPV 10.9, Immature Gran % (Auto) 0.000, Neut % (Auto) 14.8 L, Lymph % (Auto) 70.4 H, [place] % (Auto) 14.8 H, Eos % (Auto) 0.0, Baso % (Auto) 0.0, Absolute Neuts (auto) 0.0 L, Absolute Lymphs (auto) 0.19 L, Nucleated RBC % 48.1 H, Differential Comment SCANNED, Diff Path Review Reviewed, Platelet Estimate MKD DEC, Adina Cells 2+ 09/22/24 00:17: POC Glucose 233 H 09/22/24 05:31: POC Glucose 205 H 09/22/24 08:10: WBC 0.3 L*, RBC 2.52 L, Hgb 8.1 L, Hct 22.9 L, MCV 90.9, MCH 32.1 H, MCHC 35.4, RDW Std Deviation 50.6 H, RDW Coeff of Misa 20.6 H, Plt Count 25 L*, MPV TNP, Immature Gran % (Auto) 3.800 H, Neut % (Auto) 30.9 L, Lymph % (Auto) 57.7 H, [place] % (Auto) 3.8, Eos % (Auto) 3.8, Baso % (Auto) 0.0, Absolute Neuts (auto) 0.1 L, Absolute Lymphs (auto) 0.15 L, Nucleated RBC % 84.6 H, Differential Comment SCANNED, Diff Path Review May foll, Platelet Estimate MKD DEC, Anisocytosis 2+, Sodium 136, Potassium 4.0, Chloride 101, Carbon Dioxide 13.0 L, Anion Gap 22 H, BUN 62 H, Creatinine 3.16 H, Estim Creat Clear Calc 22.31, Est GFR (MDRD) Af Amer 25 L, Est GFR (MDRD) Non-Af 20 L, BUN/Creatinine Ratio 19.6, Glucose 190 H, Calcium 5.8 L*, Total Bilirubin 4.60 H, AST 56858 H, ALT 7338 H, Alkaline Phosphatase 86, Total Protein 3.9 L, Albumin 1.5 L, Globulin 2.4, Albumin/Globulin Ratio 0.6 L 09/22/24 10:20: PT 55.0 H, INR 6.0 H* 09/22/24 11:51: POC Glucose 203 H Micro: Microbiology 09/21/24 09:58 Sputum, Induced/Lukens Gram Stain - Final 09/21/24 09:58 Sputum, Induced/Lukens Respiratory Culture - Preliminary Culture exhibits no growth. 09/19/24 17:06 Urine, Random Urine Culture - Final Culture exhibits no growth. 09/19/24 15:03 Blood Culture (Wb) - Left Hand Blood Culture - Final GNR Poss Pseudomonas sp 09/19/24 15:03 Blood Culture (Wb) - Left Hand Blood Culture - Final Pseudomonas aeruginosa Rhythm Strip Rhythm Strip: A-fib Rate: 130 Ectopy: None Imaging Radiology Impression Liver Ultrasound 09/21/24 12:24 IMPRESSION: Hepatomegaly and hepatic steatosis. Small volume ascites. Reading Location: [facility] Assessment & Plan Assessment/Plan (1) Atrial fibrillation with rapid ventricular response: (2) Acute liver failure: PLAN: Plan This 79-year-old gentleman was brought to ED from Dr. Pittman's office for pancytopenia, low BP, hypokalemia complicated with several falls, about 5 times over the last several weeks at home. Patient has history of myelodysplastic syndrome. Denies any head injury. No headache. In the ED found to have A-fib with RVR, 130s to 140s per minute, BP 78/53 x 2 in ED Septic shock secondary to gram-negative bacteremia: Patient is hypotension, on IV Cardizem drip: Overnight patient was transferred to ICU with persistent systolic in 70s. Patient initiated on norepinephrine drip. Field Foreman consulted. PICC line ordered. Communicated to the patient's daughter wants to pursue full code. 2: Hypotension pursues, maxed on 2 vasopressors. Prelim blood cultures x 2 shows gram-negative timothy. Urine culture shows no growth. Patient on IV Zosyn and vancomycin. ID consult requested The main goal of management in [facility] is to provide supportive care and treat complications present. The patient is receiving supportive care and complications are being well managed. The AASLD recommends that even in the absence of active infection, antibiotic, and antifungal therapy should be considered for all the patients who show progression to high-grade encephalopathy or those with evidence of significant systemic inflammation I cannot tell if he has high-grade encephalopathy at this time. His ammonia level is within normal limits will that is a good sign that regarding his acute liver failure. However he is showing signs of significant systemic inflammation with his severely elevated lactic acidosis and his worsening synthetic function. He progressed from SIRS to septic shock likely secondary to immunosuppression from treatment from his underlying MDS. He is on antibiotic therapy. Bleeding diathesis is a common feature of FCI due to decreased production of clotting factors by the damaged liver. He is high risk for bleeding at this time secondary to his underlying MDS which is already causing significant thrombocytopenia the patient presented with sepsis due to with acute liver failure likely resolving worsening thrombocytopenia. Historically management involves transfusion of fresh frozen plasma, platelets, cryoprecipitate, and packed red cells with no evidence of coagulopathy correction. He was already given 10 mg of IV vitamin K. He may need cryoprecipitate and FFP. His platelets are 25,000 and I would recommend to give platelets once the platelet count is less than 20,000 in the setting of acute liver failure with concomitant septic shock. The EASL recommends liver transplant for COURTNEY adult patients who have marked altered mental status and features of severe liver injury. However because of his age, severe sepsis with septic shock, MDS on chemotherapy he is not a candidate for liver transplant. Currently I think he is experiencing acute ischemic hepatitis.Ischemic hepatitis is diagnosed on the basis of a rapid increase and subsequent rapid decrease in transaminase values in the absence of other causes of liver disease. The ratio of alanine aminotransferase (ALT) to lactate dehydrogenase (LDH) in the blood is a diagnostic tool for ischemic hepatitis.?In ischemic hepatitis, the ALT/LDH ratio is usually?less than 1.5.? His ALT and LDH ratio > 1.5. That means that his acute liver injury is not all secondary to ischemic hepatitis. The differential diagnosis is greater than thousand that is not ischemic hepatitis is acute autoimmune hepatitis, Napoleon's disease, acute Tylenol toxicity and viral hepatitis. I will check antismooth muscle antibody, antiLKM (to see if he would benefit from steroids), copper, ceruloplasmin, ferritin, transferrin saturation and put him on medical therapy for non- acetaminophen failure with N-acetylcysteine and FFP. Labs from 2023 - his hepatitis B surface antigen is negative, hepatitis B surface antibody is positive, he hepatitis B core antibody is positive, hepatitis C antibody is negative. It is less likely that he had reactivation of his hepatitis core antibody because his hepatitis B surface antibody is positive. He likely had acute hepatitis B in the past and he cleared. However with his severe elevation in that his adenitis with fairly normal muscle enzymes I will check a hepatitis B PCR DNA quant to make sure there is no reactivation causing the severe elevation in his ALT and AST. I had a long talk with the patient's family at the bedside and explained the prognosis. Charges/Coding Visit Charges Inpatient E&M: 27750 Init Hosp L3
[2024-09-22] MEDS: Acetylcysteine 15,000 MG in Dextrose 5%-Water (250mL Bag) 200 ML 275 MG IV (17:17)
[2024-09-22] MEDS: Lactulose 20 GM/30 ML UDC PO ×2 (17:17→23:00)
[2024-09-22] MEDS: Acetylcysteine 5,000 MG in Dextrose 5%-Water (500mL Bag) 500 ML 32.8 MG IV (18:15)
--- NOTE | 2024-09-22 19:03 | PCM.PN.REN ---
Subjective Subjective intubated levophed at 30 mcg Objective Data Objective Data Vital Signs: Vital Signs Temp Pulse Resp BP Pulse Ox O2 Del Method O2 Flow Rate 99.6 F H 112 H 16 105/52 L 99 Mechanical Ventilator 4 09/22/24 15:00 09/22/24 17:22 09/22/24 17:22 09/22/24 17:00 09/22/24 17:22 09/22/24 17:00 09/21/24 07:18 FiO2 30 09/22/24 17:22 Oxygen Flow Rate (L/min) 4 Oxygen Delivery Method Mechanical Ventilator Weight: 102 kg Body Mass Index (BMI) 32.2 Intake & Output: Intake and Output for Last 24 Hours 09/20/24 09/21/24 09/22/24 23:59 23:59 23:59 Intake Total 8604.77 / 8674.07 6392.82 / 6423.05 3858.34 / 3858.34 Output Total 325 / 325 50 / 50 0 / 0 Balance 8279.77 / 8349.07 6342.82 / 6373.05 3858.34 / 3858.34 Medical Nutrition Assessment Dietitian: Malnutrition Criteria Met Start: 09/20/24 11:05 Freq: Status: Active Protocol: Document 09/22/24 16:06 SB (Rec: 09/22/24 16:06 SB [id number]) Nutrition Malnutrition Evidence of Yes Malnutrition Exists Malnutrition (severe Chronic ): Evidenced By Suboptimal Energy Intake (Moderate),Weight Loss (Severe ) Intake Problem Inadequate Oral Intake Etiology related to mechanically ventilated Signs/Symptoms as evidenced by NPO status and need for enteral nutrition Status Active Problem Clinical Problem Chronic Disease or Condition Related Malnutrition Etiology severe related to inadequate oral intake and increased energy expenditure d/t myelodysplastic syndrome Signs/Symptoms as evidenced by PO meeting <75% of estimated nutrition needs x ~3 weeks and 14% unintentional weight loss x 6 months. Status Active Problem Recommendation Dietitian Via OG continue Vital AF 1.2 Zach goal rate 60ml/hr with Recommendations/ 90ml water flushes every 4 hours to provide 1728 Changes calories, 108g protein, and 1707ml total water per day. Would initiate at 15ml/hr and increase by 15ml every 8 -12 hours as tolerated until goal rate is achieved. Will d/c glucerna shake with medpass d/t NPO and nutrition support. Will monitor and make adjust to TF as needed. Reviewed and approved by Nely Last RDN, LD. Will monitor weight. Lab / Micro Data 09/22/24 08:10 09/22/24 08:10 Labs: Laboratory Results - last 24 hr 09/20/24 07:45: Diff Path Review Reviewed 09/21/24 04:16: Diff Path Review Reviewed, Total Creatine Kinase 641 H, Triglycerides 69 09/21/24 20:40: WBC 0.3 L*, RBC 2.54 L, Hgb 8.2 L, Hct 23.4 L, MCV 92.1 D, MCH 32.3 H, MCHC 35.0 D, RDW Std Deviation 50.1 H, RDW Coeff of Misa 19.4 H, Plt Count 46 L*, MPV 10.9, Immature Gran % (Auto) 0.000, Neut % (Auto) 14.8 L, Lymph % (Auto) 70.4 H, [place] % (Auto) 14.8 H, Eos % (Auto) 0.0, Baso % (Auto) 0.0, Absolute Neuts (auto) 0.0 L, Absolute Lymphs (auto) 0.19 L, Nucleated RBC % 48.1 H, Differential Comment SCANNED, Diff Path Review Reviewed, Platelet Estimate MKD DEC, Adina Cells 2+ 09/22/24 00:17: POC Glucose 233 H 09/22/24 05:31: POC Glucose 205 H 09/22/24 08:10: WBC 0.3 L*, RBC 2.52 L, Hgb 8.1 L, Hct 22.9 L, MCV 90.9, MCH 32.1 H, MCHC 35.4, RDW Std Deviation 50.6 H, RDW Coeff of Misa 20.6 H, Plt Count 25 L*, MPV TNP, Immature Gran % (Auto) 3.800 H, Neut % (Auto) 30.9 L, Lymph % (Auto) 57.7 H, [place] % (Auto) 3.8, Eos % (Auto) 3.8, Baso % (Auto) 0.0, Absolute Neuts (auto) 0.1 L, Absolute Lymphs (auto) 0.15 L, Nucleated RBC % 84.6 H, Differential Comment SCANNED, Diff Path Review May foll, Platelet Estimate MKD DEC, Anisocytosis 2+, Sodium 136, Potassium 4.0, Chloride 101, Carbon Dioxide 13.0 L, Anion Gap 22 H, BUN 62 H, Creatinine 3.16 H, Estim Creat Clear Calc 22.31, Est GFR (MDRD) Af Amer 25 L, Est GFR (MDRD) Non-Af 20 L, BUN/Creatinine Ratio 19.6, Glucose 190 H, Calcium 5.8 L*, Total Bilirubin 4.60 H, AST 89486 H, ALT 7338 H, Alkaline Phosphatase 86, Total Protein 3.9 L, Albumin 1.5 L, Globulin 2.4, Albumin/Globulin Ratio 0.6 L 09/22/24 10:20: PT 55.0 H, INR 6.0 H* 09/22/24 11:51: POC Glucose 203 H Micro: Microbiology 09/21/24 09:58 Sputum, Induced/Lukens Gram Stain - Final 09/21/24 09:58 Sputum, Induced/Lukens Respiratory Culture - Preliminary Culture exhibits no growth. 09/19/24 17:06 Urine, Random Urine Culture - Final Culture exhibits no growth. 09/19/24 15:03 Blood Culture (Wb) - Left Hand Blood Culture - Final GNR Poss Pseudomonas sp 09/19/24 15:03 Blood Culture (Wb) - Left Hand Blood Culture - Final Pseudomonas aeruginosa 09/19/24 23:10 Mucosa - Nasopharyngeal Respiratory Panel (PCR) - Final 09/19/24 14:08 Mucosa - Nose SARS-CoV-2, Influenza & RSV (PCR) - Final Rhythm Strip Rhythm Strip: A-fib Rate: 130 Ectopy: None Physical Exam Narrative sleepy no obvious distress no pallor no icterus no JVD s1s2 no murmurs lungs clear abdomen soft no organomegaly no edema no cyanosis Assessment & Plan Assessment/Plan (1) MARIO ALBERTO (acute kidney injury): PLAN: History of myelodysplasia, plasma cell neoplasm, immunodeficiency on IVIG infusions, was originally scheduled to get IVIG. Now admitted with severe septic shock. Acute renal failure is likely ischemic ATN in the setting of septic shock. anuric dw family fairly sick ischemic hepatitis severe coagulopathy severe thrombocytopenia not sure if he will even tolerate dialysis dw ICU attending
[2024-09-22 19:30] LABS: Bedside Glucose 232 mg/dL (74-106)
[2024-09-22 20:06] LABS: Ferritin > 40000 ng/mL (26-388); Iron 326 ug/dL (65-175); Iron Binding Capacity,Total 250 ug/dL (250-450); PERCENT IRON SATURATION 130.4 % (15.0-55.0)
--- NOTE | 2024-09-22 20:17 | PCM.HOSP.N ---
Hospitalist Note Patient clinically deteriorating. Had been taken off of vasopressin earlier in the day but hypotensive again with inappropriate maps, will add back. Patient is also had persistent wide complex tachycardia previously on a Cardizem drip but had been taken off because of his blood pressures. Will initiate on amiodarone drip and attempt to reassess rhythm.
--- NOTE | 2024-09-22 20:26 | EKG12_ITS ---
Test Reason : AFIB Blood Pressure : */* mmHG Vent. Rate : 141 BPM Atrial Rate : * BPM P-R Int : * ms QRS Dur : 136 ms QT Int : 318 ms P-R-T Axes : * -57 27 degrees QTcB Int : 487 ms Critical Test Result: High HR Atrial fibrillation with rapid ventricular response Right bundle branch block Left anterior fascicular block Bifascicular block Possible Lateral infarct , age undetermined Abnormal ECG No previous ECGs available Confirmed by JENNA MARTINI, ELIN ([id number]), web editor ALEXANDER JOHNSTON ([id number]) on 09/24/2024 8:13:58 AM Referred By: Confirmed By: ELIN WEST MD
[2024-09-22] MEDS: Calcium Gluconate 1 GM/10 ML Vial 2 GM IVP (20:33)
[2024-09-22] MEDS: Amiodarone 150 MG in Dextrose 5%-Water (100mL Bag) 100 ML 600 MG IV BOLUS (20:52)
[2024-09-22 21:02] LABS: Magnesium 1.8 mg/dL (1.6-2.6)
[2024-09-22] MEDS: Amiodarone 360 MG in Dextrose 5% Viaflo Bag 192.8 ML 16.7 MG CONT INF (21:25)
[2024-09-22] MEDS: rifAXIMin 550 MG Tablet PO (23:00)
[2024-09-22] MEDS: Insulin U-500 UNITS/ML PEN 30 UNITS SC (23:02)
[2024-09-22] MEDS: Propofol 10MG/Ml 1,000 MG/100 ML Bottle 5.8 MG CONT INF (23:10)
[2024-09-22] MEDS: Vital AF 1.2 Cal Liquid 1,000 ML 45 ML GT (23:26)
[2024-09-22 23:43] LABS: Vancomycin, Trough Level 22.6 ug/mL (5.0-15.0)
[2024-09-22 23:50] LABS: Bedside Glucose 210 mg/dL (74-106)
[2024-09-23] VITALS (20 sets, daily range): BP systolic 49–108; BP diastolic 37–68; PULSE 105–124; RESP 16–18; TEMP 37.8–38.2; O2SAT 92–99
[2024-09-23] MEDS: Vasopressin 20 UNITS in 0.9% Normal Saline (50mL Bag) 24 ML 3 UNITS CONT INF (01:18)
[2024-09-23] MEDS: Norepinephrine 8 MG in 0.9% Normal Saline (250mL Bag) 242 ML 56.3 MG CONT INF ×2 (01:18→06:48)
--- NOTE | 2024-09-23 03:31 | PCM.RX.CS ---
Consult Labs Labs: Sodium 136 mmol/L (136-145) 09/22/24 08:10 Potassium 4.0 mmol/L (3.5-5.1) 09/22/24 08:10 Chloride 101 mmol/L (98-107) 09/22/24 08:10 Carbon Dioxide 13.0 mmol/L (21.0-32.0) L 09/22/24 08:10 Anion Gap 22 (5-15) H 09/22/24 08:10 BUN 62 mg/dL (7-18) H 09/22/24 08:10 Creatinine 3.16 mg/dL (0.70-1.30) H 09/22/24 08:10 Est GFR (MDRD) Af Amer 25 mL/min (>60) L 09/22/24 08:10 Est GFR (MDRD) Non-Af 20 mL/min (>60) L 09/22/24 08:10 BUN/Creatinine Ratio 19.6 RATIO (10-20) 09/22/24 08:10 Glucose 190 mg/dL (74-106) H 09/22/24 08:10 Vancomycin Trough 22.6 ug/mL (5.0-15.0) H 09/22/24 22:56 Random Vancomycin 13.2 ug/mL (0.0-15.0) 09/20/24 22:25 Microbiology Microbiology: Microbiology 09/21/24 09:58 Sputum, Induced/Lukens Gram Stain - Final 09/21/24 09:58 Sputum, Induced/Lukens Respiratory Culture - Preliminary Culture exhibits no growth. 09/19/24 17:06 Urine, Random Urine Culture - Final Culture exhibits no growth. 09/19/24 15:03 Blood Culture (Wb) - Left Hand Blood Culture - Final GNR Poss Pseudomonas sp 09/19/24 15:03 Blood Culture (Wb) - Left Hand Blood Culture - Final Pseudomonas aeruginosa 09/19/24 23:10 Mucosa - Nasopharyngeal Respiratory Panel (PCR) - Final 09/19/24 14:08 Mucosa - Nose SARS-CoV-2, Influenza & RSV (PCR) - Final Goal Trough Goal Trough: 15-20 mcg/mL Pharmacy Plan for Drug Dosing Pharmacy Plan for Drug Dosing: Pharmacy Service will continue to monitor and adjust dosing as required. TROUGH 22.6 @ 23 HOURS. HOLD DOSE AND DRAW RANDO LEVEL IN 12 HOURS Follow-Up Labs Follow-Up Labs: Trough: Vancomycin Date/Time Labs Ordered Labs to be done on [date and time ordered]: 09/23 @ 1100
[2024-09-23] MEDS: fentaNYL drip 100 ML 7.5 MCG CONT INF (03:43)
--- NOTE | 2024-09-23 04:18 | PCM.HOSP.N ---
Hospitalist Note Patient with MAP > 65 however systolic continues to decrease, notable < 90, will add 3rd pressor therapy.
[2024-09-23] MEDS: Phenylephrine 10 MG in 0.9% Normal Saline (250mL Bag) 249 ML 15 MG CONT INF (04:59)
[2024-09-23] MEDS: 0.9% Saline Lock 10 ML Syringe IV ×2 (05:18→06:49)
[2024-09-23] MEDS: Hydrocortisone Sod Succinate 100 MG/2 ML Vial 50 MG IV (05:20)
[2024-09-23] MEDS: Lactulose 20 GM/30 ML UDC PO (05:20)
[2024-09-23] MEDS: Amiodarone 360 MG in Dextrose 5% Viaflo Bag 192.8 ML 16.7 MG CONT INF (05:32)
[2024-09-23 05:42] LABS: Hematocrit 22.2 % (40-54); Hemoglobin 7.2 g/dL (13.0-16.5); Mean Corp Hgb Conc 32.4 g/dL (32-36); Mean Corpuscular Hgb 32.7 pg (27.0-32.0); Mean Corpuscular Volume 100.9 fL (80-94); Mean Platelet Vol. 10.1 fl (6.2-12.0); POSITIVE COUNT YES; POSITIVE DIFFERENTIAL YES; POSITIVE MORPHOLOGY YES; RBC Distribution Width CV 21.8 % (11.6-14.6); RBC Distribution Width SD 61.6 fl (35.1-43.9)
[2024-09-23 06:02] LABS: Scan Indicated on CBC? Y/N YES- FLAGS NOTED
[2024-09-23 06:03] LABS: Platelet Count 11 K/mm3 (150-450); White Blood Count 0.4 K/mm3 (4.4-11.0)
[2024-09-23 06:08] LABS: Prothrombin Time (Protime)PT. 47.1 SECONDS (11.7-14.9)
[2024-09-23 06:13] LABS: ALB/GLOB Ratio 0.5 RATIO (0.9-2.4); AST(SGOT) 8316 U/L (15-37); Alanine Aminotransfer ALT/SGPT 4892 U/L (16-61); Albumin, Serum 1.3 g/dL (3.2-5.0); Alkaline Phosphatase 103 U/L (45-117); Anion Gap 27 (5-15); BUN 64 mg/dL (7-18); BUN/Creat Ratio 16.1 RATIO (10-20); Calcium,Total 5.2 mg/dL (8.5-10.1); Chloride 102 mmol/L (98-107); Creatinine, Serum 3.98 mg/dL (0.70-1.30); EST Glomerular Filtration Rate 16 mL/min (>60); Est Glom Filt Rate - Afr Amer 19 mL/min (>60); Estimated Creatinine Clearance 17.71 ml/min; Globulin 2.4 g/dL (2.2-4.2); Glucose 189 mg/dL (74-106); Potassium 4.7 mmol/L (3.5-5.1); Protein, Total 3.7 g/dL (6.4-8.2); Sodium Level 136 mmol/L (136-145)
--- NOTE | 2024-09-23 06:29 | PCM.HOSP.N ---
Hospitalist Note Patient maxed on 3 pressor therapies. Pressures still not at goal. Requested ICU staff to discuss patient with ICU physician also for input/recommendations. Will in the interim administer IVF bolus and albumin IV x 1.
[2024-09-23 06:39] LABS: International Normalized Ratio 4.9
[2024-09-23] MEDS: Calcium Gluconate 1 GM/10 ML Vial 2 GM IVP (06:47)
[2024-09-23] MEDS: Sodium Bicarbonate 8.4% 50 ML Syringe 50 MEQ IV ×2 (06:48→06:55)
--- NOTE | 2024-09-23 07:05 | PCM.PN.INT ---
Assessment & Plan Assessment/Plan (1) Septic shock: PLAN: Plan RECOMMENDATIONS: 1. Given further clinical decompensation, the patient's family is electing to transition the patient to comfort care measures and proceed with terminal extubation. IMPRESSIONS: 1. Gram-negative septic shock The patient was initially admitted with generalized weakness and hypotension, which was ultimately fluid refractory. Subsequent blood cultures were found to be positive for gram-negative rods. CT imaging of the chest/abdomen and pelvis demonstrated a possible left lower lobe pneumonia, which could represent the source for the bacteremia. The patient will be continued on empiric antibiotics, pending further infectious workup. In light of the refractory septic shock, we will continue stress dose steroids. Continue vasopressor support in an attempt to maintain hemodynamic stability. 2. Acute respiratory failure with hypoxemia and hypercapnia Most likely secondary to underlying pneumonia and inability to compensate for underlying metabolic derangements. Therefore, the patient was intubated on the morning of September 21. Plan to continue assist-control mode of mechanical ventilation. FiO2 and PEEP will be weaned as tolerated. 3. Pancytopenia Related to underlying myelodysplastic syndrome. Continue to monitor hemoglobin and transfuse to maintain a level of 7.0 or greater. Hematology/oncology is currently following. Continue PPI therapy. Attempt to transfuse platelets to maintain a baseline count of 10,000 or greater. 4. Acute kidney injury with significant anion gap metabolic acidosis Most likely related to presenting septic shock. Nephrology is currently following to assist with medical management. 5. Ischemic hepatitis The patient's transaminases continue to increase. This could certainly be related to shock liver in the setting of persistent hypotension. Plan to obtain follow-up INR this morning. Liver ultrasound, however, was largely unrevealing. 6. History of atrial fibrillation with RVR/obstructive sleep apnea/asthma/diabetes mellitus/GERD/hypogammaglobulinemia Complicates care, management, recovery and prognosis. Continue supportive measures as noted above, including tube feeding as tolerated. CODE STATUS: DNR comfort care TIME: 34 minutes of critical care time, independent of procedures, was spent addressing the patient's gram-negative septic shock, acute respiratory failure, pancytopenia, acute kidney injury, ischemic hepatitis, review of all data and collaboration with the care team. Additional time was spent engaging the family and goals of care discussion. Subjective Subjective The patient was seen and examined at the bedside this morning. Events from the last 24 hours have been reviewed. The patient has continued to decompensate from a clinical perspective over the last 24 hours. The patient remains febrile this morning and is in refractory septic shock on 3 different vasopressors. The patient remains pancytopenic with a hemoglobin this morning of 7.2 g/dL and platelet count of 11,000. INR was noted to be 4.9. Bicarbonate is low at 7.0 with an anion gap of 27, BUN of 64 and creatinine of 3.98. Total bilirubin is elevated at 4.1 with an AST of 8316 and ALT of 4892. I did meet personally with the patient's family this morning at the bedside to discuss prognosis and goals of care. His family was all in agreement at this time to transition the patient to comfort care measures and proceed with terminal extubation. CODE STATUS has been updated to DNR CC, per request. Objective Data Objective Data The patient's most recent lab work, culture data and imaging studies have all been personally reviewed. Surface echocardiogram demonstrated normal LV size and function with an ejection fraction of 55%. Blood cultures were positive for gram-negative rods. Vital Signs: Vital Signs Temp Pulse Resp BP Pulse Ox O2 Del Method O2 Flow Rate 100.3 F H 119 H 17 74/61 L 97 Mechanical Ventilator 4 09/23/24 04:27 09/23/24 04:27 09/23/24 04:27 09/23/24 04:27 09/23/24 04:27 09/23/24 04:27 09/21/24 07:18 FiO2 30 09/23/24 04:27 Oxygen Flow Rate (L/min) 4 Oxygen Delivery Method Mechanical Ventilator Weight: 224 lb 13.944 oz Body Mass Index (BMI) 32.2 Intake & Output: Intake and Output for Last 24 Hours 09/21/24 09/22/24 09/23/24 23:59 23:59 23:59 Intake Total 6392.82 / 6423.05 6188.34 / 6259.97 1171.16 / 1171.16 Output Total 50 / 50 0 / 0 Balance 6342.82 / 6373.05 6188.34 / 6259.97 1171.16 / 1171.16 Medical Nutrition Assessment Dietitian: Malnutrition Criteria Met Start: 09/20/24 11:05 Freq: Status: Active Protocol: Document 09/22/24 16:06 SB (Rec: 09/22/24 16:06 SB [id number]) Nutrition Malnutrition Evidence of Yes Malnutrition Exists Malnutrition (severe Chronic ): Evidenced By Suboptimal Energy Intake (Moderate),Weight Loss (Severe ) Intake Problem Inadequate Oral Intake Etiology related to mechanically ventilated Signs/Symptoms as evidenced by NPO status and need for enteral nutrition Status Active Problem Clinical Problem Chronic Disease or Condition Related Malnutrition Etiology severe related to inadequate oral intake and increased energy expenditure d/t myelodysplastic syndrome Signs/Symptoms as evidenced by PO meeting <75% of estimated nutrition needs x ~3 weeks and 14% unintentional weight loss x 6 months. Status Active Problem Recommendation Dietitian Via OG continue Vital AF 1.2 Zach goal rate 60ml/hr with Recommendations/ 90ml water flushes every 4 hours to provide 1728 Changes calories, 108g protein, and 1707ml total water per day. Would initiate at 15ml/hr and increase by 15ml every 8 -12 hours as tolerated until goal rate is achieved. Will d/c glucerna shake with medpass d/t NPO and nutrition support. Will monitor and make adjust to TF as needed. Reviewed and approved by Nely Last RDN, LD. Will monitor weight. Lab / Micro Data Attestation: I reviewed the patient's lab results. 09/23/24 05:18 09/23/24 05:18 Labs: Laboratory Results - last 24 hr 09/20/24 07:45: Diff Path Review Reviewed 09/21/24 04:16: Diff Path Review Reviewed 09/21/24 20:40: Diff Path Review Reviewed 09/22/24 08:10: WBC 0.3 L*, RBC 2.52 L, Hgb 8.1 L, Hct 22.9 L, MCV 90.9, MCH 32.1 H, MCHC 35.4, RDW Std Deviation 50.6 H, RDW Coeff of Misa 20.6 H, Plt Count 25 L*, MPV TNP, Immature Gran % (Auto) 3.800 H, Neut % (Auto) 30.9 L, Lymph % (Auto) 57.7 H, [place] % (Auto) 3.8, Eos % (Auto) 3.8, Baso % (Auto) 0.0, Absolute Neuts (auto) 0.1 L, Absolute Lymphs (auto) 0.15 L, Nucleated RBC % 84.6 H, Differential Comment SCANNED, Diff Path Review December, Platelet Estimate MKD DEC, Anisocytosis 2+, Sodium 136, Potassium 4.0, Chloride 101, Carbon Dioxide 13.0 L, Anion Gap 22 H, BUN 62 H, Creatinine 3.16 H, Estim Creat Clear Calc 22.31, Est GFR (MDRD) Af Amer 25 L, Est GFR (MDRD) Non-Af 20 L, BUN/Creatinine Ratio 19.6, Glucose 190 H, Calcium 5.8 L*, Total Bilirubin 4.60 H, AST 18224 H, ALT 7338 H, Alkaline Phosphatase 86, Total Protein 3.9 L, Albumin 1.5 L, Globulin 2.4, Albumin/Globulin Ratio 0.6 L 09/22/24 10:20: PT 55.0 H, INR 6.0 H* 09/22/24 11:51: POC Glucose 203 H 09/22/24 18:45: Iron 326 H, TIBC 250, Iron Saturation 130.4 H, Ferritin > 92061 H, Miscellaneous Test Cancelled, Blood Type A POSITIVE 09/22/24 19:12: POC Glucose 232 H 09/22/24 20:39: Magnesium 1.8 09/22/24 22:56: Vancomycin Trough 22.6 H 09/22/24 23:24: POC Glucose 210 H 09/23/24 05:18: WBC 0.4 L*, RBC 2.20 L, Hgb 7.2 L, Hct 22.2 L, MCV 100.9 H D, MCH 32.7 H, MCHC 32.4 D, RDW Std Deviation 61.6 H, RDW Coeff of Msia 21.8 H, Plt Count 11 L*, MPV 10.1, Sodium 136, Potassium 4.7, Chloride 102, Carbon Dioxide 7.0 L*, Anion Gap 27 H, BUN 64 H, Creatinine 3.98 H, Estim Creat Clear Calc 17.71, Est GFR (MDRD) Af Amer 19 L, Est GFR (MDRD) Non-Af 16 L, BUN/Creatinine Ratio 16.1, Glucose 189 H, Calcium 5.2 L*, Total Bilirubin 4.10 H, AST 8316 H, ALT 4892 H, Alkaline Phosphatase 103, Total Protein 3.7 L, Albumin 1.3 L, Globulin 2.4, Albumin/Globulin Ratio 0.5 L 09/23/24 05:52: PT 47.1 H, INR 4.9 H* Micro: Microbiology 09/21/24 09:58 Sputum, Induced/Lukens Gram Stain - Final 09/21/24 09:58 Sputum, Induced/Lukens Respiratory Culture - Preliminary Culture exhibits no growth. 09/19/24 17:06 Urine, Random Urine Culture - Final Culture exhibits no growth. 09/19/24 15:03 Blood Culture (Wb) - Left Hand Blood Culture - Final GNR Poss Pseudomonas sp 09/19/24 15:03 Blood Culture (Wb) - Left Hand Blood Culture - Final Pseudomonas aeruginosa 09/19/24 23:10 Mucosa - Nasopharyngeal Respiratory Panel (PCR) - Final 09/19/24 14:08 Mucosa - Nose SARS-CoV-2, Influenza & RSV (PCR) - Final ABG Data ABG results: ABG 09/21/24 09/21/24 09:05 11:07 Specimen Type ART ART Sample Site R Brach R Radial pH 7.10 L* 7.30 L Bicarbonate Actual 18.8 L 14.8 L Total CO2 21 16 Base Excess -11 L -12 L O2 Saturation 79 L 96 O2 % 5.0 35.0 ABG pCO2 60.0 H 30.2 L ABG pO2 59 L 86 Rommel Test Positive Positive Respiration Rate 16 O2 Delivery Device Cannula Adult Vent Vent Mode Not entered AC Tidal Volume 500.0 POC PEEP 5 Crit Call To/Read Back Yes Radiography Diagnostic Testing: Radiology Impression Chest X-Ray 09/21/24 10:43 IMPRESSION: Good position of the endotracheal tube, left-sided PICC line catheter in the orogastric tube. Progressive bibasilar atelectasis and/or infiltrate worse at the left lung base with small left pleural effusion. Reading Location: [facility]-1 Liver Ultrasound 09/21/24 12:24 IMPRESSION: Hepatomegaly and hepatic steatosis. Small volume ascites. Reading Location: [facility] Rhythm Strip Rhythm Strip: A-fib Rate: 130 Ectopy: None Physical Exam Const Constitutional Narrative: Remains intubated and mechanically ventilated. The patient now appears somewhat jaundiced. General Appearance: ill appearing and patient mechanically ventilated HEENT normocephalic and head/scalp atraumatic Mouth: endotracheal tube in place and OG tube in place Eyes PERRL, EOMs intact bilaterally and conjunctivae normal Neck supple General: trachea midline Chest inspection of chest normal Resp Auscultation: diminished lung sounds; Negative for rales, rhonchi or wheezes Cardio S1 normal heart sound and S2 normal heart sound Rate: tachycardic GI normal to inspection, nondistended, normoactive bowel sounds Extremity General Extremity: edema; Negative for clubbing Skin no rashes or lesions noted Neuro Sensorium / Orientation: sedated on vent Charges/Coding Procedures Hospitalists Procedures: 30430 Critical Care 1st Hr
[2024-09-23] MEDS: Budesonide Respules 0.5 MG/2 ML AMPUL.NEB. INHALATION (07:06)
[2024-09-23] MEDS: Albuterol 2.5 MG/3 ML VIAL.NEB. INHALATION (07:06)
--- NOTE | 2024-09-23 07:54 | NURSING ---
Family at bedside, They have decided to change code status to DNRCC, Dr Pierre also at the bedside at this time. Waiting for family from [place] to show up at this time.
[2024-09-23 08:09] LABS: GGTP 53 IU/L (0-65)
--- NOTE | 2024-09-23 09:57 | EXP.PCM_ITS ---
Preliminary Cause of Preliminary Cause of Preliminary Cause of : Gram negative septic shock Date of Admission: 09/19/24 Date of : 09/23/24 Principle Diagnosis Problem List: Active and Suspected Problems (Updated 09/22/24 @ 16:[address] Bruce Kennedy, DO) Acute liver failure (Acute) Acute respiratory failure with hypoxia and hypercapnia (Acute) Bacteremia due to Pseudomonas (Acute) Septic shock (Acute) MARIO ALBERTO (acute kidney injury) (Acute) Acute hypokalemia (Acute) Acute hypotension (Acute) History of myelodysplastic syndrome (Acute) History of atrial fibrillation (Acute) Pancytopenia (Acute) Atrial fibrillation with rapid ventricular response (Acute) MDS (myelodysplastic syndrome) with 5q deletion (Acute) Discussed bone marrow results, MDS with 5q. deletion, the fact that he has pancytopenia and anemia requiring blood transfusions may be a reason to start him on Revlimid, discussed risk benefits and side effects, patient agrees to proceed. Pancytopenia (Acute) Hospital Course Patient was an 79-year-old male who presented to [facility] ED on 09/19/2024 with A-fib with RVR and hypotension. Patient had known history of myelodysplastic syndrome with pancytopenia and presented from his oncologist office. Hospital course was complicated by septic shock secondary to gram- negative bacteremia possibly from pneumonia, acute respiratory failure with hypoxemia and hypercapnia requiring intubation, severe MARIO ALBERTO with significant anion gap metabolic acidosis, and ischemic hepatitis leading to acute liver failure. Chinese Language Professor, ID, nephrology and gastroenterology followed. After lengthy family discussions, decision was ultimately made to transition patient to comfort care. Patient passed peacefully with family at the bedside on the morning of 09/23. Time of 0930. Discharge diagnoses: ? Septic shock secondary to gram-negative bacteremia ? Acute respiratory failure with hypoxia and hypercapnia ? Severe MARIO ALBERTO with significant anion gap metabolic acidosis ? Ischemic hepatitis leading to acute liver failure ? A-fib with RVR ? Pancytopenia secondary to mild dysplastic syndrome Total clinical time spent by myself addressing the patient's medical issues, reviewing all the data, and collaborating with patient's care team: 35 minutes. Assessment & Plan Assessment/Plan (1) Bacteremia due to Pseudomonas: (2) Septic shock: (3) Acute respiratory failure with hypoxia and hypercapnia: (4) MARIO ALBERTO (acute kidney injury): (5) Acute liver failure: (6) Pancytopenia: Visit Charges Inpatient E&M: 86442 Disch Hosp >30min
--- NOTE | 2024-09-23 09:57 | DCINST_ITS ---
Discharge Instructions Diet Discharge Diet: No restrictions DC O2, CPAP, BIPAP needs Home O2 Discharge instructions: No Follow Up Care Test Results: Test results from this visit will be discussed in further detail at your follow- up appointment, if applicable. Discharge Plan Admission Admit Date/Time: 09/19/24 19:08 Attending Provider: Bruce Kennedy Primary Care Provider: Noble Peter Chi Consulting Providers: Stu Turcios; Romario Erwin; Manuel Harding; Clint Pierre; Jay Jay Fermin; Gregg Overton; Rajesh Walker; Aditi Rogers; Rodri Julio; Srinath Goodrich; Lukasz Contreras; Patricia Barkley; Carroll Portillo; Amy Wilcox; Thomas Thayer; Jeroem Sierra; Abbe Quintanilla; Micky Lai; Harsha Lopez; Rena Parr; Tacho Bahena; Rudy Dolan; Alin Mina; Chayito Palacio; Jay Jay Goddard; Nicolás Pittman; Guy Cantrell; Pedro Pablo David; Tariq Suh; Wili Eli; Cristhian Tapia; Contreras Barrera; Rosette Levine NP; Del Handley; Tariq Garcia; Sang Olguin Disposition Disposition (needs filled in before D/C Order can be placed):
[2024-09-23 13:44] LABS: Pathologist Review Reviewed
[2024-09-24 10:09] LABS: HEPATITIS B SURFACE AG Negative (Negative); Hep C Antibodies Non Reactive (Non Reactive); Hepatitis A IgM Antibody Negative (Negative); Hepatitis B Core AB IgM Negative (Negative)
[2024-09-26 13:39] LABS: Pathologist Review Reviewed
[2024-09-27 12:07] LABS: Anti-Smooth Muscle ABS 3 Units (0-19); Ceruloplasmin 35.6 mg/dL (16.0-31.0); Copper, Serum or Plasma 189 ug/dL (69-132)
== END 2024-09-23 13:37 | DRG 871 ==
LOC: ED 16:46 → PCU 19:36 → ICU 09-20 07:05
PROVIDERS: Family Medicine; Internal Medicine; Internal Medicine Critical Care Medicine; Internal Medicine Gastroenterology; Admitting Provider Internal Medicine; Emergency Provider Emergency Medicine; PCP Family Medicine Geriatric Medicine; Visit Provider Hospitalist
DX: A41.50 Gram-negative sepsis, unspecified (principal); R65.21 Severe sepsis with septic shock; K72.00 Acute and subacute hepatic failure without coma; J96.02 Acute respiratory failure with hypercapnia; J96.01 Acute respiratory failure with hypoxia; E43 Unspecified severe protein-calorie malnutrition; J18.9 Pneumonia, unspecified organism; D61.818 Other pancytopenia; E87.20 Acidosis, unspecified; E87.3 Alkalosis; N17.9 Acute kidney failure, unspecified; D68.9 Coagulation defect, unspecified; N13.8 Other obstructive and reflux uropathy; D84.9 Immunodeficiency, unspecified; D46.9 Myelodysplastic syndrome, unspecified; E11.9 Type 2 diabetes mellitus without complications; I10 Essential (primary) hypertension; J45.909 Unspecified asthma, uncomplicated; B19.20 Unspecified viral hepatitis C without hepatic coma; E66.811 Obesity, class 1; I48.91 Unspecified atrial fibrillation; K21.9 Gastro-esophageal reflux disease without esophagitis; Z79.4 Long term (current) use of insulin; G47.33 Obstructive sleep apnea (adult) (pediatric); E87.6 Hypokalemia; E78.5 Hyperlipidemia, unspecified; I88.9 Nonspecific lymphadenitis, unspecified; I95.9 Hypotension, unspecified; E88.09 Other disorders of plasma-protein metabolism, not elsewhere classified; E83.51 Hypocalcemia; Z87.891 Personal history of nicotine dependence; Z79.85 Long-term (current) use of injectable non-insulin antidiabetic drugs; Z79.84 Long term (current) use of oral hypoglycemic drugs; Z79.51 Long term (current) use of inhaled steroids; N40.1 Benign prostatic hyperplasia with lower urinary tract symptoms; Q99.8 Other specified chromosome abnormalities; B96.5 Pseudomonas (aeruginosa) (mallei) (pseudomallei) as the cause of diseases classified elsewhere; Z68.32 Body mass index [BMI] 32.0-32.9, adult; Z79.899 Other long term (current) drug therapy; Z98.41 Cataract extraction status, right eye; Z98.42 Cataract extraction status, left eye; Z90.49 Acquired absence of other specified parts of digestive tract; R79.89 Other specified abnormal findings of blood chemistry; Z91.199 Patient's noncompliance with other medical treatment and regimen due to unspecified reason; R45.1 Restlessness and agitation; D69.6 Thrombocytopenia, unspecified; Z92.21 Personal history of antineoplastic chemotherapy
CPT/HCPCS: 31500; 31720; 36415; 36569; 36600; 71045; 71250; 71260; 74177; 76705; 80048; 80053; 80074; 80202; 81001; 82390; 82525; 82550; 82728; 82803; 82962; 82977; 83516; 83540; 83550; 83605; 83735; 84145; 84443; 84478; 84484; 85025; 85027; 85610; 85730; 86705; 86707; 86850; 86900; 86901; 86965; 87040; 87070; 87077; 87086; 87184; 87186; 87205; 87340; 87350; 87631; 87633; 93005; 93306; 94002; 94003; 94640; 94762; 97802; 97803; 99252; 99285; P9016; P9035; P9040; Q9957; Q9967; A4216; C8929; G0463; J0612; J2405; P9017